=== PATIENT | female | born 1960 | race Caucasian/White ===

== ENCOUNTER → 2017-11-17 09:32 | Outpatient (CLI) | payer OTHER, SELFPAY ==
--- NOTE | 2017-11-17 09:52 | RAD_ITS ---
STUDY: X-RAY CHEST REASON FOR EXAM: Female, 57 years old. Cough. Chest pain. TECHNIQUE: PA and lateral views of the chest. COMPARISON: None. FINDINGS: The lungs are clear and expanded. Scattered calcified granulomas. There is no demonstrated pleural abnormality. Normal size heart. Normal mediastinum and denny. Normal visualized pulmonary arteries. There is atherosclerotic tortuosity of the aortic arch and descending thoracic aorta. There are degenerative changes of the visualized thoracic spine. Metallic anchor is seen overlying the right humeral head most likely secondary to prior rotator cuff surgery. There is no demonstrated abnormality of the visualized soft tissue structures of the upper abdomen. RAD/Chest PA and Lateral IMPRESSION: Scattered calcified granulomas. Electronically Signed: Julius Barger MD at 12:46 EST Tel [phone], Service support ,
[2017-11-17 10:03] LABS: Absolute Lymphocyte Count 1.03 X10^3/ul (0.83-4.51); Absolute Neutrophil Count 3.1 X10^3/uL (2.0-7.7); Basophil# 0.01 X10^3/uL; Basophil% 0.2 % (0-1); Eosinophil# 0.25 X10^3/uL; Eosinophils% 5.2 % (0-5); Hematocrit 41.9 % (37-47); Hemoglobin 14.3 g/dl (12.0-15.0); Lymphocyte # 1.03 X10^3/ul (4.0); Lymphocyte % 21.5 % (19-41); Mean Corp Hgb Conc 34.1 g/gl (32-36); Mean Corpuscular Hgb 29.9 pg (27.0-32.0); Mean Corpuscular Volume 87.5 fL (81-99); Mean Platelet Vol. 9.5 fl (6.2-12.0); Monocyte# 0.42 X10^3/uL; Monocyte% 8.8 % (0-10); Neutrophil # 3.08 X10^3/uL (2.7-7.7); Neutrophil % 64.1 % (47-70); POSITIVE COUNT NO; POSITIVE DIFFERENTIAL NO; POSITIVE MORPHOLOGY NO; Platelet Count 278 K/mm3 (150-450); RBC Distribution Width CV 12.1 % (11.6-14.6); RBC Distribution Width SD 38.7 fl (35.1-43.9); Red Blood Count 4.79 M/mm3 (4.2-5.4); White Blood Count 4.8 K/mm3 (4.4-11.0)
[2017-11-17 10:27] LABS: ALB/GLOB Ratio 1.4 RATIO (0.9-2.4); AST(SGOT) 20 U/L (15-37); Alanine Aminotransfer ALT/SGPT 33 U/L (13-56); Albumin, Serum 4.2 g/dL (3.2-5.0); Alkaline Phosphatase 84 U/L (45-117); Anion Gap 8 (5-15); BUN 13 mg/dL (7-18); BUN/Creat Ratio 19.1 RATIO (10-20); CPK Total, Creatine Kinase 84 U/L (26-192); Calcium,Total 8.6 mg/dL (8.5-10.1); Chloride 96 mmol/L (98-107); Creatinine, Serum 0.68 mg/dL (0.55-1.02); EST Glomerular Filtration Rate 94 mL/min (>60); Est Glom Filt Rate - Afr Amer 114 mL/min (>60); Globulin 3.1 g/dL (2.2-4.2); Glucose 113 mg/dL (70-110); Potassium 3.5 mmol/L (3.5-5.1); Protein, Total 7.3 g/dL (6.4-8.2); Sodium Level 132 mmol/L (136-145)
== END ==
PROVIDERS: Family Provider Internal Medicine; PCP Internal Medicine; Visit Provider Nurse Practitioner Gerontology
DX: R07.89 Other chest pain (principal)
CPT/HCPCS: 36415; 71046; 80053; 82550; 84484; 85025

== ENCOUNTER → 2017-12-16 12:53 | Outpatient (CLI) | payer OTHER, SELFPAY ==
--- NOTE | 2017-12-16 12:59 | STE_ITS ---
Reason For Study: Chest Pain Stress Results Protocol: Marvin Protocol Maximum Predicted HR: 162 bpm Target HR: 138 bpm% Max imum Predicted HR: 106 % DurationHeart Rate Stage (mm:ss) (bpm) BP Baseline 72 128/70 Marvin Protocol Stage I 3:00 13 3 140/70 Marvin Protocol Stage II 3:00 15 5 150/72 Marvin Protocol Stage III 0:36 17 1 / Recovery 91 128/88 Stress Duration: 6:36 mm:ss Maximum Stress HR: 171 bpmM ETS: 8 Baseline Echocardiogram Findings The estimated ejection fraction is 65 %. Stress Echo Wall motion Data Resting WMIntermediate WMStress WM Resting Wall Motion Wall Motion Stress No regional wall motion No regional wall motion abnormalities noted. abnormalities noted. EKG Data Normal intervals are noted. The patient exercised according to the regular Marvin protocol for a total duration of 6:36. The maximum heart rate attained was 171 beats per minute. This was 105% of maximum predicted heart rate. The patient exercised into stage 3 of the Marvin protocol. During stress, there were no ST or T wave changes noted to suggest ischemia. No clinical angina was noted. No arrhythmias noted. Interpretation Summary The estimated ejection fraction is 65 %. Normal adequate treadmill echocardiogram. Negative for ischemia by EKG and echocardiographic criteria. No anginal symptoms noted. Rare PVC noted. Appropriate blood pressure response to exercise. Average exercise capacity for age. Test terminated due to dyspnea. Patient tolerated procedure well. No complications. Final LVEF is 75%. Ordering Physician: LETY Nielson Referring Physician: Vicente Lemus MD Performed By: Ashley Rob RDCS, RVT
== END ==
PROVIDERS: Family Provider Internal Medicine; PCP Internal Medicine; Visit Provider Nurse Practitioner Gerontology
DX: R07.9 Chest pain, unspecified (principal)
CPT/HCPCS: 93017; 93350

== ENCOUNTER → 2018-01-20 06:57 | Outpatient (CLI) | payer OTHER, SELFPAY ==
--- NOTE | 2018-01-20 06:45 | BI_ITS ---
MAMMOGRAPHY - BILATERAL SCREENING REASON FOR EXAM: Female, 57 years old. Routine annual screening examination. PERTINENT HISTORY: Non-contributory. TECHNIQUE: Digital bilateral breast eneida (3D mammographic acquisition) in the CC and MLO projections. 2-D mediolateral oblique (MLO) and craniocaudad (CC) views of both breasts were obtained. CAD: Full Field Digital Mammography with Computer Added Detection was performed. COMPARISON: Comparison is made with prior study dated January 08, 2017 and December 28, 2015. FINDINGS: Breast Composition: The breasts are heterogeneously dense, which may obscure small masses. There are no dominant masses or suspicious calcifications. No other significant abnormalities are identified. There has been no significant change since the prior study. BI/SCREENING MAMM (CAD), BILAT IMPRESSION: Stable bilateral screening mammogram. Yearly follow-up mammogram recommended. (A) ASSESSMENT CATEGORY: BIRADS Category 1: Negative. A letter regarding these results will be sent to the patient by the facility within 30 days. Approximately 10% of breast cancers are not detected by mammography. A normal mammogram should not delay biopsy of a clinically suspicious abnormality. [id number] Electronically Signed: Julius Barger MD at 9:07 EDT Tel [phone], Service support ,
== END ==
PROVIDERS: Family Provider Internal Medicine; PCP Internal Medicine; Visit Provider Internal Medicine
DX: Z12.31 Encounter for screening mammogram for malignant neoplasm of breast (principal)
CPT/HCPCS: 77063; 77067

== ENCOUNTER 2018-02-24 07:47 | Emergency (ER) | payer OTHER, SELFPAY ==
[2018-02-24 07:48] VITALS: BP 130/80; PULSE 87; RESP 16; TEMP 36.4; O2SAT 98; BMI 30.3
--- NOTE | 2018-02-24 08:05 | CT_ITS ---
STUDY: CT ABDOMEN AND PELVIS WITHOUT CONTRAST REASON FOR EXAM: Female, 57 years old. Left-sided pain. RADIATION DOSAGE (If Supplied By Facility): CTDIvol = ( 13.8 ) mGy, DLP = ( 649.43 ) mGycm TECHNIQUE: Transaxial images were obtained from the dome of the diaphragm to the symphysis pubis without oral contrast, and without intravenous contrast. Sagittal and coronal images were reconstructed. Individualized dose optimization techniques were used for this CT. COMPARISON: None. FINDINGS: Minimal degree of dependent bibasilar atelectasis. The visualized portions of the heart are within normal limits. There is a 5.5 mm well-defined hypodensity in the superior aspect of the right lobe of the liver most likely representing a small cyst. L suspect 2 small cysts in the inferior aspect of the right lobe of the liver. There is a solitary gallstone. This measures 5.7 mm x 5 mm. Normal spleen. Normal pancreas. Normal bilateral adrenal glands. Normal right kidney. Normal left kidney. Normal visualized stomach. Normal small intestine. There is diverticulosis, with thickening of the sigmoid colon wall, and pericolonic inflammation changes consistent with acute diverticulitis. The appendix is visualized and appears normal. Normal abdominal aorta. Normal inferior vena cava. Normal retroperitoneum. Normal urinary bladder. Normal abdominal wall. Normal osseous structures. CT/Abdomen/Pelvis without Cont IMPRESSION: Solitary gallstone. Mild degree of sigmoid diverticulitis with no evidence of abscess or fluid collection at this time. Electronically Signed: Julius Barger MD at 9:12 EDT Tel [phone], Service support ,
--- NOTE | 2018-02-24 08:06 | ED.VISSUMM ---
- ER Visit Summary Date of Service: 02/24/18 Chief Complaint: Left lower abdominal pain History of Present Illness: The patient is a 57 F with left lower abdominal pain since yesterday. Pain waxes and wanes in intensity, with crampiness and associated nausea. Patient also complains of dysuria and urgency. No hematuria, diarrhea, fever. Patient had a syncopal episode during a severe episode of the pain last night, which caused increased nausea, diaphoresis and then patient woke up on the floor. She is complaining of posterior head pain. History of kidney stones. Medical history remarkable for hypertension and high cholesterol. Patient is not on any blood thinners. Physical Examination: Vital signs: afebrile, hemodynamically stable, no hypoxia on room air General: well nourished, well developed, in no distress Skin: warm, dry, no rash, no pallor HEENT: normocephalic, tenderness to the posterior mid scalp without any swelling, deformities, abrasions, lacerations or hematoma; PERRL, EOMI, moist mucous membranes Cardiovascular: regular rate and rhythm without murmurs, no peripheral edema, 2+ pulses all distal extremities Respiratory: No increased work of breathing, lungs are clear to auscultation bilaterally, no rales, rhonchi or wheezing Abdominal: Abdomen is soft, tender in left lower quadrant, with normoactive bowel sounds, no guarding or rebound, no masses, mild left lower back tenderness question MSK: Moves all extremities, no deformities, normal strength Neuro: Awake and alert, oriented ?4. No facial droop, sensation and motor function intact and symmetric Test Results: Abnormal Lab Results 02/24/18 02/24/18 02/24/18 08:10 08:10 08:40 WBC 8.1 RBC 4.47 Hgb 13.1 Hct 38.3 MCV 85.7 MCH 29.3 MCHC 34.2 RDW 12.0 RDW Differential 37.4 Plt Count 238 MPV 9.4 Immature Gran % (Auto) 0.100 Neut % (Auto) 80.9 H Lymph % (Auto) 9.7 L [place] % (Auto) 8.1 Eos % (Auto) 1.1 Baso % (Auto) 0.1 Absolute Neuts (auto) 6.5 Absolute Lymphs (auto) 0.78 L Total Counted Not Reportable Sodium 132 L Potassium 3.6 Chloride 98 Carbon Dioxide 30.0 Anion Gap 4 L BUN 9 Creatinine 0.64 Estim Creat Clear Calc 75.78 Est GFR (MDRD) Af Amer 122 Est GFR (MDRD) Non-Af 101 BUN/Creatinine Ratio 14.1 Glucose 106 Calcium 8.8 Urine Color Yellow Urine Clarity Clear Urine pH 7.0 Ur Specific [place] 1.005 Urine Protein Negative Urine Glucose (UA) Normal Urine Ketones Negative Urine Occult Blood Negative Urine Nitrite Negative Urine Bilirubin Negative Urine Urobilinogen Normal Ur Leukocyte Esterase Negative Urine RBC 0 SEEN Urine WBC 0 SEEN Ur Squamous Epith Cells 0 SEEN Urine Bacteria 0 SEEN Urine Mucus 0 SEEN Clinical Impression(s) from Imaging Studies Abdomen/Pelvis CT 02/24/18 08:05 IMPRESSION: Solitary gallstone. Mild degree of sigmoid diverticulitis with no evidence of abscess or fluid collection at this time. Electronically Signed: Julius Barger MD at 9:12 EDT Tel [phone], Service support , Emergency Department Course and Treatment: Patient's presentation is concerning for renal colic, diverticulitis or pyelonephritis. Labs showed no hematuria or infection on urinalysis, no leukocytosis, no electrolyte or renal derangements. CT flank showed sigmoid diverticulitis, uncomplicated. Patient was started on Cipro and Flagyl for treatment. She was given a prescription for Zofran and [place] for symptomatic management. Return precautions given. Patient discharged home. Treatment Plan: [] Disposition: [] Impression: Acute sigmoid diverticulitis, uncomplicated This note was generated with [employer] dictation software. It may contain incorrect words, spelling, and punctuation that were not noted in review of the chart prior to signing ED Disposition - Plan for ED Patient: Disposition: Home or Assisted Living Chief Complaint: Flank Pain Instructions: ED Diverticulitis Prescriptions: Hydrocodone Bitart/Apap 5-325 [[place] 5MG-325MG] 1 tab PO Q6H PRN PRN 3 Days #12 tab PRN Reason: Pain Ondansetron [Zofran Odt] 4 mg PO Q8H PRN PRN #20 tab.rapdis PRN Reason: Nausea Metronidazole [Flagyl] 500 mg PO Q8H #21 tab Ciprofloxacin [Cipro] 500 mg PO BID #14 tab Referrals: Jeanine Gramajo, DO [Primary Care Provider] - 3-5 Days if not improving Additional Instructions: Take the antibiotics as prescribed for the entire 7 days, even if you feel better before you have finished them. Do not drink alcohol while taking the antibiotics. You may use the ondansetron 30 minutes before taking your dose if the antibiotics make you sick to stomach. You may use [id number]-[id number] pain medication as needed for pain, or the norco for severe pain. Do not drive or do any dangerous activities while taking the norco, may make you feel dizzy or sleepy. If you are getting worse rather than better after 48 hours of antibiotics, you develop a high fever, worsening severe pain, or you are unable to tolerate the antibiotics at home, please return to the emergency department for another evaluation.
--- NOTE | 2018-02-24 08:12 | ED.DCSUM_ITS ---
- ER Visit Summary Date of Service: 02/24/18 Chief Complaint: Left lower abdominal pain History of Present Illness: The patient is a 57 F with left lower abdominal pain since yesterday. Pain waxes and wanes in intensity, with crampiness and associated nausea. Patient also complains of dysuria and urgency. No hematuria , diarrhea, fever. Patient had a syncopal episode during a severe episode of the pain last night, which caused increased nausea, diaphoresis and then patient woke up on the floor. She is complaining of posterior head pain. History of kidney stones. Medical history remarkable for hypertension and high cholesterol. Patient is not on any blood thinners. Physical Examination: Vital signs: afebrile, hemodynamically stable, no hypoxia on room air General: well nourished, well developed, in no distress Skin: warm, dry, no rash, no pallor HEENT: normocephalic, tenderness to the posterior mid scalp without any swelling , deformities, abrasions, lacerations or hematoma; PERRL, EOMI, moist mucous membranes Cardiovascular: regular rate and rhythm without murmurs, no peripheral edema, 2 + pulses all distal extremities Respiratory: No increased work of breathing, lungs are clear to auscultation bilaterally, no rales, rhonchi or wheezing Abdominal: Abdomen is soft, tender in left lower quadrant, with normoactive bowel sounds, no guarding or rebound, no masses, mild left lower back tenderness question MSK: Moves all extremities, no deformities, normal strength Neuro: Awake and alert, oriented ?4. No facial droop, sensation and motor function intact and symmetric Test Results: Abnormal Lab Results 02/24/18 02/24/18 02/24/18 08:10 08:10 08:40 WBC 8.1 RBC 4.47 Hgb 13.1 Hct 38.3 MCV 85.7 MCH 29.3 MCHC 34.2 RDW 12.0 RDW Differential 37.4 Plt Count 238 MPV 9.4 Immature Gran % (Auto) 0.100 Neut % (Auto) 80.9 H Lymph % (Auto) 9.7 L [place] % (Auto) 8.1 Eos % (Auto) 1.1 Baso % (Auto) 0.1 Absolute Neuts (auto) 6.5 Absolute Lymphs (auto) 0.78 L Total Counted Not Reportable Sodium 132 L Potassium 3.6 Chloride 98 Carbon Dioxide 30.0 Anion Gap 4 L BUN 9 Creatinine 0.64 Estim Creat Clear Calc 75.78 Est GFR (MDRD) Af Amer 122 Est GFR (MDRD) Non-Af 101 BUN/Creatinine Ratio 14.1 Glucose 106 Calcium 8.8 Urine Color Yellow Urine Clarity Clear Urine pH 7.0 Ur Specific [place] 1.005 Urine Protein Negative Urine Glucose (UA) Normal Urine Ketones Negative Urine Occult Blood Negative Urine Nitrite Negative Urine Bilirubin Negative Urine Urobilinogen Normal Ur Leukocyte Esterase Negative Urine RBC 0 SEEN Urine WBC 0 SEEN Ur Squamous Epith Cells 0 SEEN Urine Bacteria 0 SEEN Urine Mucus 0 SEEN Clinical Impression(s) from Imaging Studies Abdomen/Pelvis CT 02/24/18 08:05 IMPRESSION: Solitary gallstone. Mild degree of sigmoid diverticulitis with no evidence of abscess or fluid collection at this time. Electronically Signed: Julius Barger MD at 9:12 EDT Tel [phone], Service support , Emergency Department Course and Treatment: Patient's presentation is concerning for renal colic, diverticulitis or pyelonephritis. Labs showed no hematuria or infection on urinalysis, no leukocytosis, no electrolyte or renal derangements. CT flank showed sigmoid diverticulitis, uncomplicated. Patient was started on Cipro and Flagyl for treatment. She was given a prescription for Zofran and [place] for symptomatic management. Return precautions given. Patient discharged home. Treatment Plan: [] Disposition: [] Impression: Acute sigmoid diverticulitis, uncomplicated This note was generated with [employer] dictation software. It may contain incorrect words, spelling, and punctuation that were not noted in review of the chart prior to signing ED Disposition - Plan for ED Patient: Disposition: Home or Assisted Living Chief Complaint: Flank Pain Instructions: ED Diverticulitis Prescriptions: Hydrocodone Bitart/Apap 5-325 [[place] 5MG-325MG] 1 tab PO Q6H PRN PRN 3 Days #12 tab PRN Reason: Pain Ondansetron [Zofran Odt] 4 mg PO Q8H PRN PRN #20 tab.rapdis PRN Reason: Nausea Metronidazole [Flagyl] 500 mg PO Q8H #21 tab Ciprofloxacin [Cipro] 500 mg PO BID #14 tab Referrals: Jeanine Gramajo, DO [Primary Care Provider] - 3-5 Days if not improving Additional Instructions: Take the antibiotics as prescribed for the entire 7 days, even if you feel better before you have finished them. Do not drink alcohol while taking the antibiotics. You may use the ondansetron 30 minutes before taking your dose if the antibiotics make you sick to stomach. You may use kyww-hfi-dakwmsn pain medication as needed for pain, or the norco for severe pain. Do not drive or do any dangerous activities while taking the norco, may make you feel dizzy or sleepy. If you are getting worse rather than better after 48 hours of antibiotics, you develop a high fever, worsening severe pain, or you are unable to tolerate the antibiotics at home, please return to the emergency department for another evaluation.
[2018-02-24] MEDS: Ondansetron 4 MG/2 ML Vial IV (08:18)
[2018-02-24] MEDS: 0.9% Normal Saline 1,000 ML 500 ML IV (08:18)
[2018-02-24] MEDS: Ketorolac 30 MG/ML Syringe 15 MG IV (08:18)
[2018-02-24 08:22] LABS: Absolute Lymphocyte Count 0.78 X10^3/ul (0.83-4.51); Absolute Neutrophil Count 6.5 X10^3/uL (2.0-7.7); Basophil# 0.01 X10^3/uL; Basophil% 0.1 % (0-1); Eosinophil# 0.09 X10^3/uL; Eosinophils% 1.1 % (0-5); Hematocrit 38.3 % (37-47); Hemoglobin 13.1 g/dl (12.0-15.0); Lymphocyte # 0.78 X10^3/ul (4.0); Lymphocyte % 9.7 % (19-41); Mean Corp Hgb Conc 34.2 g/gl (32-36); Mean Corpuscular Hgb 29.3 pg (27.0-32.0); Mean Corpuscular Volume 85.7 fL (81-99); Mean Platelet Vol. 9.4 fl (6.2-12.0); Monocyte# 0.65 X10^3/uL; Monocyte% 8.1 % (0-10); Neutrophil # 6.53 X10^3/uL (2.7-7.7); Neutrophil % 80.9 % (47-70); Platelet Count 238 K/mm3 (150-450); RBC Distribution Width SD 37.4 fl (35.1-43.9); Red Blood Count 4.47 M/mm3 (4.2-5.4); White Blood Count 8.1 K/mm3 (4.4-11.0)
[2018-02-24 08:23] LABS: POSITIVE COUNT NO; POSITIVE DIFFERENTIAL NO; POSITIVE MORPHOLOGY NO
[2018-02-24 08:32] LABS: BUN 9 mg/dL (7-18); Creatinine, Serum 0.64 mg/dL (0.55-1.02); EST Glomerular Filtration Rate 101 mL/min (>60); Estimated Creatinine Clearance 75.78 ml/min; Glucose 106 mg/dL (74-106)
[2018-02-24 08:33] LABS: Anion Gap 4 (5-15); BUN/Creat Ratio 14.1 RATIO (10-20); Calcium,Total 8.8 mg/dL (8.5-10.1); Chloride 98 mmol/L (98-107); Est Glom Filt Rate - Afr Amer 122 mL/min (>60); Potassium 3.6 mmol/L (3.5-5.1); Sodium Level 132 mmol/L (136-145)
[2018-02-24 08:45] LABS: Bacteria 0 SEEN /hpf (None Seen); Mucous, Urine 0 SEEN /hpf (<or=2+); Red Blood Cells-Urine 0 SEEN /hpf (0-5); Squamous Epithelial Cells - UA 0 SEEN /hpf (5-10); White Blood Cells 0 SEEN /hpf (0-5)
[2018-02-24 08:50] LABS: Color, Urine Yellow (Yellow); Glucose, Dipstick Normal (Normal); Ketone-Dipstick Negative (Negative); Leukocyte Esterase-Dipstick Negative /ul (Negative); Nitrite-Dipstick Negative (Negative); Occult Blood-Urine Negative /ul (Negative); Protein-Dipstick Negative (Negative); Specific Gravity, Urine 1.005 (1.002-1.030); Urine Bilirubin Dipstick Negative (Negative); Urine Clarity Clear (Clear); Urine Urobilinogen Normal (Normal)
--- NOTE | 2018-02-24 09:49 | ED.DEP ---
ED Disposition - Plan for ED Patient: Disposition: Home or Assisted Living Chief Complaint: Flank Pain Instructions: ED Diverticulitis Prescriptions: Hydrocodone Bitart/Apap 5-325 [[place] 5MG-325MG] 1 tab PO Q6H PRN PRN 3 Days #12 tab PRN Reason: Pain Ondansetron [Zofran Odt] 4 mg PO Q8H PRN PRN #20 tab.rapdis PRN Reason: Nausea Metronidazole [Flagyl] 500 mg PO Q8H #21 tab Ciprofloxacin [Cipro] 500 mg PO BID #14 tab Referrals: Jeanine Gramajo DO [Primary Care Provider] - 3-5 Days if not improving Additional Instructions: Take the antibiotics as prescribed for the entire 7 days, even if you feel better before you have finished them. Do not drink alcohol while taking the antibiotics. You may use the ondansetron 30 minutes before taking your dose if the antibiotics make you sick to stomach. You may use oany-fll-pedaxep pain medication as needed for pain, or the norco for severe pain. Do not drive or do any dangerous activities while taking the norco, may make you feel dizzy or sleepy. If you are getting worse rather than better after 48 hours of antibiotics, you develop a high fever, worsening severe pain, or you are unable to tolerate the antibiotics at home, please return to the emergency department for another evaluation.
[2018-02-24] MEDS: HYDROcodone Bitartrate/Apap 5/325 Tablet PO (10:11)
== END 2018-02-24 10:14 | disposition home or self-care (01) ==
PROVIDERS: Emergency Provider Emergency Medicine; Family Provider Internal Medicine; PCP Internal Medicine
DX: K57.32 Diverticulitis of large intestine without perforation or abscess without bleeding (principal); K80.80 Other cholelithiasis without obstruction; R30.0 Dysuria; R39.15 Urgency of urination; R51 Headache; I10 Essential (primary) hypertension; E78.00 Pure hypercholesterolemia, unspecified; Z87.442 Personal history of urinary calculi; Z79.899 Other long term (current) drug therapy
CPT/HCPCS: 74176; 80048; 81001; 85025; 96361; 96374; 96375; 99283; J7030; J2405

== ENCOUNTER → 2018-05-26 08:02 | Outpatient (CLI) | payer OTHER, SELFPAY ==
--- NOTE | 2018-05-26 08:04 | US_ITS ---
STUDY: ABDOMINAL ULTRASOUND - RIGHT UPPER QUADRANT REASON FOR VISIT: Female, 58 years old. Right upper quadrant pain. TECHNIQUE: Ultrasound evaluation of the right upper quadrant was performed with real-time and static lackey-scale imaging. TECHNICAL QUALITY: Limited by body habitus COMPARISON: CT dated 02/24/2018 FINDINGS: Liver: The liver measures 14.5 cm. There is normal echogenicity of the liver. The bile ducts are within normal limits. There is hepatic color flow. The direction of portal flow is hepatopetal. There is a 1.1 x 1.0 cm simple cyst in the right lobe of the liver. Gallbladder: Normal distended gallbladder. The gallbladder wall measures 2 mm. There is a negative sonographic Pandey's sign. There is no pericholecystic fluid. There is a solitary echogenic gallstone within the gallbladder. Common Bile Duct (C.B.D.): The common bile duct measures 2 mm. Pancreas: Normal size of the head, body and tail of the pancreas. There is normal echogenicity of the pancreas. There is no demonstrated pancreatic mass or cyst. Right Kidney: Normal size of the right kidney. The right kidney measures 10.8 cm. Normal renal cortex. There is no demonstrated renal mass or cyst. There is no right hydronephrosis. US/Gallbladder IMPRESSION: Cholelithiasis without sonographic evidence of acute cholecystitis. Simple cyst in the liver. Electronically Signed: Martin Melton, at 15:54 EDT Tel , Service support ,
== END ==
PROVIDERS: Family Provider Internal Medicine; PCP Internal Medicine; Visit Provider Internal Medicine
DX: R10.11 Right upper quadrant pain (principal)
CPT/HCPCS: 76705

== ENCOUNTER → 2018-06-03 17:03 | Outpatient (CLI) | payer OTHER, SELFPAY | PROVIDERS: Family Provider Internal Medicine; PCP Internal Medicine; Visit Provider Surgery | DX: R19.7 Diarrhea, unspecified (principal) | CPT/HCPCS: 87177; 87209; 87493; 87506 ==

== ENCOUNTER 2018-06-10 05:45 | Day surgery (SDC) | payer OTHER, SELFPAY ==
[2018-06-10] VITALS (7 sets, daily range): BP systolic 93–160; BP diastolic 63–93; PULSE 67–78; RESP 12–16; TEMP 36.1–36.2; O2SAT 4–98
--- NOTE | 2018-06-10 | COLBX_PTH ---
PATIENT: HANNAH HAYES LOC: [facility] U#:[id number] AGE/SX: 58/F ROOM: RE06/10/[address]: Dr. John oSl MD : 1960 BED: DIS: 06/10/2018 SPEC #: [id number] RECD: 06/10/18 12:15 STATUS: GHADA SHASIH #: [id number] WILLIAM: 06/10/18 00:[address]: John Sol DEPT: SURGICAL PATHOLOGY RECD BY: Serafin Chavez ENTERED: 06/10/18 12:16 SP TYPE: COLON BX OT DR: Dr. Jeanine Gramajo, Tissues: COLON BIOPSY Procedures: Surgery Specimen Level IV HEADER OPERATION: Colonoscopy PRE-OP DIAGNOSIS: RUQ abdominal pain TISSUE SUBMITTED: Random colon biopsy MICROSCOPIC DIAGNOSIS Colon, random biopsy: No significant pathologic change. No evidence of colitis. AM:oma 06/11/18 MICROSCOPIC DESCRIPTION Slides are reviewed. GROSS DESCRIPTION Received in fixative is one container labeled with the patient's name and designated random colon biopsy. The specimen consists of multiple irregular fragments of light an soft tissue that in aggregate measure 1 x 0.6 x 0.1 cm. The specimen is totally submitted in one cassette. / AM:oma 06/10/18 TC:5 CPT: 37848
--- NOTE | 2018-06-10 06:42 | PCM.OPRPT ---
Problem List (1) Abdominal pain Status: Acute Qualifiers: Abdominal location: lower abdomen, unspecified Qualified Code(s): R10.30 - Lower abdominal pain, unspecified (2) Diarrhea Status: Acute Qualifiers: Diarrhea type: unspecified type Qualified Code(s): R19.7 - Diarrhea, unspecified Report of Operation Date of Procedure: 06/10/18 Pre-Operative Diagnosis: Abdominal pain lower abdomen but also upper abdomen, history of diarrhea Post-Operative Diagnosis: Sigmoid diverticulosis. Random biopsies pending Surgery/Procedure Performed:: Colonoscopy with cold forcep random biopsies Description of Surgical Findings:: Timeout informed consent was obtained. 58-year-old female was taken to the endoscopy suite. She was placed in the left lateral decubitus position. Throughout the procedure in aliquots she received total 100 g Demerol 3.5 mg of Versed is intravenous sedation. Digital rectal exam performed normal anal tone minimal hemorrhoidal changes flexible colonoscope was in the rectum advanced readily through the sigmoid and descending colon. The scope was then nicely advanced to the transverse colon and with transabdominal pressure is advanced to the cecum. Bowel prep was very good. The cecum ileocecal valve area was nicely achieved. The scope was withdrawn from the ascending transverse descending sigmoid colon. Random colonic biopsies were obtained throughout because of the patient's previous history of diarrhea. No gross mucosal abnormalities were identified. Sigmoid diverticulosis was indeed noted but I did not see any evidence of acute inflammatory change. The scope was withdrawn to the rectum retroflex the anorectal verge inspected this did not appear to be remarkable. Excess fluid and air was aspirated free the procedure was completed with the patient tolerating it well. Impression No evidence of mucosal abnormality. Sigmoid diverticulosis. The patient's previous colonoscopy was approximately 9 years prior. Next screening colonoscopy recommended in 10 years. The patient does have cholelithiasis which may be the source of her abdominal pain and a laparoscopic cholecystectomy will be offered to her. Procedure was started 0625. The cecum was reached at 0631. The procedure was completed at 0638. Cc: Dr. Jeanine Sol M.D., F.A.C.S. Type of Anesthesia:: IV Sedation
== END 2018-06-10 07:40 | disposition home or self-care (01) ==
LOC: EN 05:45 → AC 05:47
PROVIDERS: Family Provider Internal Medicine; PCP Internal Medicine; Visit Provider Surgery
PROC: 0DJD8ZZ Inspection of Lower Intestinal Tract, Via Natural or Artificial Opening Endoscopic (ICD-10-PCS; CPT 45378; principal; 2018-06-10 06:25)
DX: K57.30 Diverticulosis of large intestine without perforation or abscess without bleeding (principal); K64.9 Unspecified hemorrhoids; K80.20 Calculus of gallbladder without cholecystitis without obstruction; M54.9 Dorsalgia, unspecified; G89.29 Other chronic pain; M19.90 Unspecified osteoarthritis, unspecified site; Z79.899 Other long term (current) drug therapy
CPT/HCPCS: 45380; 88305; 99152; 99153; J7120

== ENCOUNTER 2018-07-12 09:56 | Day surgery (SDC) | payer OTHER, SELFPAY ==
--- NOTE | 2018-07-08 14:46 | EKG12_ITS ---
Test Reason : PREOP Blood Pressure : / mmHG Vent. Rate : 080 BPM Atrial Rate : 080 BPM P-R Int : 154 ms QRS Dur : 086 ms QT Int : 372 ms P-R-T Axes : 038 013 049 degrees QTc Int : 429 ms Normal sinus rhythm Possible Left atrial enlargement Inferior infarct , age undetermined Abnormal ECG Confirmed by MARI MCHUGH, MARLON ([id number]), staff editor SRINIVAS DEE ([id number]) on 07/14/2018 9:23:26 AM Referred By: John Sol Confirmed By:MARLON GUERRA MD
[2018-07-08 15:30] LABS: Hematocrit 40.4 % (37-47); Hemoglobin 13.6 g/dl (12.0-15.0); Mean Corp Hgb Conc 33.7 g/gl (32-36); Mean Corpuscular Hgb 29.4 pg (27.0-32.0); Mean Corpuscular Volume 87.4 fL (81-99); Mean Platelet Vol. 9.4 fl (6.2-12.0); Platelet Count 297 K/mm3 (150-450); RBC Distribution Width CV 12.3 % (11.6-14.6); RBC Distribution Width SD 39.3 fl (35.1-43.9); Red Blood Count 4.62 M/mm3 (4.2-5.4); White Blood Count 5.2 K/mm3 (4.4-11.0)
[2018-07-08 15:32] LABS: Scan Indicated on CBC? Y/N NO
[2018-07-08 16:05] LABS: Anion Gap 6 (5-15); BUN 13 mg/dL (7-18); BUN/Creat Ratio 18.5 RATIO (10-20); Calcium,Total 8.9 mg/dL (8.5-10.1); Chloride 99 mmol/L (98-107); EST Glomerular Filtration Rate 91 mL/min (>60); Est Glom Filt Rate - Afr Amer 110 mL/min (>60); Glucose 93 mg/dL (74-106); Potassium 3.9 mmol/L (3.5-5.1); Sodium Level 134 mmol/L (136-145)
[2018-07-12] VITALS (11 sets, daily range): BP systolic 84–142; BP diastolic 53–73; PULSE 47–76; RESP 16; TEMP 36.2–37; O2SAT 92–97; BMI 33.0
--- NOTE | 2018-07-12 | GALL_PTH ---
PATIENT: HANNAH [place]AYES [place] [facility] [id number] AGE/SX: 58/F ROOM: RE07/12/[address]: Dr. John Sol MD : 1960 BED: DIS: 07/12/2018 SPEC #: [id number] RECD: 07/12/18 13:29 STATUS: GHADA RETamica #: [id number] WILLIAM: 07/12/18 00:[address]: John Sol DEPT: SURGICAL PATHOLOGY RECD BY: Serafin Chavez ENTERED: 07/12/18 13:29 SP TYPE: AINSLEY REYES DR: Dr. Jeanine Gramajo DO Tissues: Gallbladder, NOS Procedures: Surgery Specimen Level III HEADER OPERATION: Laparoscopic cholecystectomy with IOC PRE-OP DIAGNOSIS: Acute cholelithiasis TISSUE SUBMITTED: Gallbladder MICROSCOPIC DIAGNOSIS Gallbladder: Mild chronic cholecystitis and cholelithiasis. SJ:oma 07/13/18 MICROSCOPIC DESCRIPTION Slides are reviewed. GROSS DESCRIPTION Received is one container labeled with the patient's name and designated gallbladder. The specimen consists of a gallbladder measuring 7.5 x 3.3 x 2.7 cm. The external surface is smooth and glistening. Focally, it is granular, hemorrhagic and contains cautery artifact. The lumen of the gallbladder contains yellow mucoid bile and one black calculus measuring 0.7 cm. The mucosa is bile-stained and without any mass lesions. The gallbladder wall averages 1 cm in average thickness and is free of mass lesions. [employer] sections of the gallbladder and the cystic duct are submitted in one cassette. / AM:oma 07/12/18 TC:3 CPT: 30738
[2018-07-12] MEDS: Cefazolin 2 GM in 0.9% Normal Saline 100 ML IV (11:42)
--- NOTE | 2018-07-12 11:52 | PCM.DC.GS ---
Discharge Diet: Light diet - advance as tolerated - if you have questions about your diet instructions, please talk to you doctor. Discharge Activity: May Not Drive - for 1 week or while taking narcotic pain medicine. May shower in (days): 1 Lifting Restrictions: 10 pounds Call your doctor if your incision/area has: Continuous Slow Oozing, Sudden Increased Bleeding, Increased Pain/ Swelling, Increased Redness, Foul Smelling Discharge Call your doctor if you observe: Fever of 101 or Higher Suture Line Care: Avoid Pulling/Pushing, Avoid Pinching/Bending Additional Dressing/Incision Instructions:: Change or remove dressing in 4 days. Leave steri-strips in place for 1 week. Allergies/Adverse Reactions: Allergies topiramate [From Topamax] Allergy (Verified 07/07/18 15:11) Hives Medications to take at Discharge Atorvastatin Calcium [Lipitor] 40 mg PO QHS 07/13/16 Cholecalciferol (VIT D3) [Vitamin D3] 1,000 unit PO DAILY 07/13/16 Eletriptan Hydrobromide [Relpax] 40 mg PO .X1 PRN 07/13/16 Multivitamin [Daily Multiple Vitamin] 1 ea PO DAILY 07/13/16 Paroxetine HCl [Paxil] 10 mg PO DAILY 07/13/16 Vitamin E 400 unit PO DAILY 07/13/16 Hydrochlorothiazide [Hctz] 25 mg PO DAILY 07/07/18 Hydrocodone Bitart/Apap 5-325 [Bergen 5MG-325MG] 1 tablet PO Q6H PRN PRN 3 Days #8 tablet 07/12/18 The following prescriptions were given: Hydrocodone Bitart/Apap 5-325 [Bergen 5MG-325MG] 1 tablet PO Q6H PRN PRN 3 Days #8 tablet PRN Reason: Pain Primary Care Physician: Jeanine Gramajo DO [Primary Care Provider] - Test Results: Test results from this visit will be discussed in further detail at your follow-up appointment, if applicable. Please Follow Up With: John Sol MD - [phone] When: Call to make an appointment to be seen in about 10 days.
--- NOTE | 2018-07-12 12:00 | RAD_ITS ---
STUDY: INTRAOPERATIVE CHOLANGIOGRAM. REASON FOR EXAM: Female, 58 years old. Laparoscopic cholecystectomy. FLUOROSCOPY TIME (if supplied): (0:11) minutes/seconds TECHNIQUE: An intraoperative cholangiogram was performed by the surgeon. Imaging was submitted. COMPARISON: None. FINDINGS: The intrahepatic biliary ducts are unremarkable. The common bile duct is not dilated. No intraluminal filling defect is seen. There is free flow of contrast into the duodenum. RAD/Cholangiogram/ O R,Initial IMPRESSION: Unremarkable intraoperative cholangiogram. Electronically Signed: Julius Brager MD at 15:37 EDT Tel [phone], Service support ,
[2018-07-12] MEDS: Bupivacaine Mpf 0.5% 30 ML VIAL (12:45)
--- NOTE | 2018-07-12 12:54 | PCM.OPRPT ---
Problem List (1) Cholelithiasis with chronic cholecystitis Status: Acute Qualifiers: Cholelithiasis location: gallbladder Biliary obstruction: without biliary obstruction Qualified Code(s): K80.10 - Calculus of gallbladder with chronic cholecystitis without obstruction Report of Operation Date of Procedure: 07/12/18 Pre-Operative Diagnosis: Chronic cholecystitis cholelithiasis Post-Operative Diagnosis: Same plus umbilical hernia Surgery/Procedure Performed:: Laparoscopic cholecystectomy with cholangiography. Umbilical herniorrhaphy Description of Surgical Findings:: Timeout and informed consent was obtained. 58-year-old female taken out from placement of the table. She underwent general endotracheal intubation and anesthesia. Ancef 2 g given intravenous preoperatively. Because of the patient's previous infraumbilical midline incision I injected local 0.5% Marcaine of which total 30 cc was used then made a vertical supraumbilical incision. Sharp dissection was carried down through the substance tissue and and so doing a umbilical hernia was encountered. The tissue was carefully dissected free. Holding sutures of 0 Vicryl placed. Direct access was gained through the peritoneum. 10 minute trocar was inserted. The abdomen was insufflated CO2 to pressure of tenderness from her pressure. Elvia laparoscope inserted. Abdomen suspected no evidence of any superficial abnormalities. There was adhesions of omentum to the right lobe of the liver the gallbladder was mostly free. The gallbladder was distracted and blunt dissection was instituted the infundibulum until clearly the cystic duct and cystic artery were identified. The patient had both an anterior and posterior cystic artery. The anterior artery was clipped twice proximally once distally prior to transecting it. A Hem-o-codie clip was placed on the cystic duct stump and then through a 14-gauge Angiocath plantar Sumeet cath was inserted and fluoroscopically controlled claims grams were obtained. This demonstrated normal ductal anatomy and free flow to the small bowel. Claims grams catheter was removed and 2 Hem-o-codie clips were placed on the cystic duct stump prior to transecting it. The gallbladder was then dissected free from liver bed great care was needed to be taken because the posterior cystic artery seemed to run the entire length of the liver bed. About midway up the liver bed score I secured it with hemoclips. The gallbladder was then dissected free from the liver bed. Complete hemostasis was intact. Gallbladder was placed in retrieval bag. The right upper quadrant was irrigated and aspirated free. Hemostasis was intact. The gallbladder was exited the umbilicus. The remaining trochars removed under visualization. The abdomen was allowed to deflate of the CO2. The fascia at the umbilicus because of the umbilical hernia was approximated with interrupted 0 Nurolon [id number] suture. Skin edges were approximated interrupted 4 Monocryl subdermal stitches. Steri-Strips Telfa and OpSite dressings applied. Sponge and instrument and needle counts were reported the surgeon be correct. Blood loss was minimal. She tired procedure well was taken to the recovery or insect condition without apparent complication. Specimens include gallbladder. Drains none. Blood loss minimal. John Sol M.D., F.A.C.S. Type of Anesthesia:: General Anesthesiologist: Tiffanie Corral
--- NOTE | 2018-07-12 13:00 | OP.PCM_ITS ---
Problem List (1) Cholelithiasis with chronic cholecystitis Status: Acute Qualifiers: Cholelithiasis location: gallbladder Biliary obstruction: without biliary obstruction Qualified Code(s): K80.10 - Calculus of gallbladder with chronic cholecystitis without obstruction Report of Operation Date of Procedure: 07/12/18 Pre-Operative Diagnosis: Chronic cholecystitis cholelithiasis Post-Operative Diagnosis: Same plus umbilical hernia Surgery/Procedure Performed:: Laparoscopic cholecystectomy with cholangiography. Umbilical herniorrhaphy Description of Surgical Findings:: Timeout and informed consent was obtained. 58-year-old female taken out from placement of the table. She underwent general endotracheal intubation and anesthesia. Ancef 2 g given intravenous preoperatively. Because of the patient's previous infraumbilical midline incision I injected local 0.5% Marcaine of which total 30 cc was used then made a vertical supraumbilical incision. Sharp dissection was carried down through the substance tissue and and so doing a umbilical hernia was encountered. The tissue was carefully di ssected free. Holding sutures of 0 Vicryl placed. Direct access was gained through the peritoneum. 10 minute trocar was inserted. The abdomen was insufflated CO2 to pressure of tenderness from her pressure. Elvia laparoscope inserted. Abdomen suspected no evidence of any superficial abnormalities. There was adhesions of omentum to the right lobe of the liver the gallbladder was mostly free. The gallbladder was distracted and blunt dissection was instituted the infundibulum until clearly the cystic duct and cystic artery were identified. The patient had both an anterior and posterior cystic artery. The anterior artery was clipped twice proximally once distally prior to transecting it. A Hem-o-codie clip was placed on the cystic duct stump and then through a 14- gauge Angiocath plantar Sumeet cath was inserted and fluoroscopically controlled claims grams were obtained. This demonstrated normal ductal anatomy and free flow to the small bowel. Claims grams catheter was removed and 2 Hem-o-codie clips were placed on the cystic duct stump prior to transecting it. The gallbladder was then dissected free from liver bed great care was needed to be taken because the posterior cystic artery seemed to run the entire length of the liver bed. About midway up the liver bed score I secured it with hemoclips. The gallbladder was then dissected free from the liver bed. Complete hemostasis was intact. Gallbladder was placed in retrieval bag. The right upper quadrant was irrigated and aspirated free. Hemostasis was intact. The gallbladder was exited the umbilicus. The remaining trochars removed under visualization. The abdomen was allowed to deflate of the CO2. The fascia at the umbilicus because of the umbilical hernia was approximated with interrupted 0 Nurolon figure-of- eight suture. Skin edges were approximated interrupted 4 Monocryl subdermal stitches. Steri-Strips Telfa and OpSite dressings applied. Sponge and instrument and needle counts were reported the surgeon be correct. Blood loss was minimal. She tired procedure well was taken to the recovery or insect condition without apparent complication. Specimens include gallbladder. Drains none. Blood loss minimal. John Sol M.D., F.A.C.S. Type of Anesthesia:: General Anesthesiologist: Tiffanie Corral
== END 2018-07-12 15:59 | disposition home or self-care (01) ==
LOC: SDC 10:02 → AC 10:03
PROVIDERS: Family Provider Internal Medicine; PCP Internal Medicine; Visit Provider Surgery
PROC: (CPT 47610; principal; 2018-07-12 11:40)
DX: K80.10 Calculus of gallbladder with chronic cholecystitis without obstruction (principal); K42.9 Umbilical hernia without obstruction or gangrene; M19.90 Unspecified osteoarthritis, unspecified site; I10 Essential (primary) hypertension; G43.909 Migraine, unspecified, not intractable, without status migrainosus; E78.00 Pure hypercholesterolemia, unspecified; F41.9 Anxiety disorder, unspecified; F32.9 Major depressive disorder, single episode, unspecified; Z87.19 Personal history of other diseases of the digestive system; Z78.0 Asymptomatic menopausal state; Z79.899 Other long term (current) drug therapy
CPT/HCPCS: 47563; 49585; 36415; 74300; 76000; 80048; 85027; 88304; 93005; J7120; J2405

== ENCOUNTER → 2018-07-22 10:45 | Outpatient (CLI) | payer OTHER, SELFPAY ==
[2018-07-22 11:36] LABS: AST(SGOT) 15 U/L (15-37); Alanine Aminotransfer ALT/SGPT 31 U/L (13-56); Albumin, Serum 4.2 g/dL (3.2-5.0); Alkaline Phosphatase 101 U/L (45-117); Bilirubin, Direct 0.19 mg/dL (0.00-0.30); Globulin 3.7 g/dL (2.2-4.2); Protein, Total 7.9 g/dL (6.4-8.2)
== END ==
PROVIDERS: Physician Assistant; Family Provider Internal Medicine; PCP Internal Medicine; Referring Provider Surgery; Visit Provider Surgery
DX: R10.9 Unspecified abdominal pain (principal)
CPT/HCPCS: 36415; 80076

== ENCOUNTER → 2018-11-01 16:48 | Outpatient (CLI) | payer OTHER, SELFPAY ==
[2018-07-12 10:13] VITALS: BMI 33.0
--- NOTE | 2018-11-01 16:51 | RAD_ITS ---
STUDY: X-RAY - LEFT WRIST REASON FOR EXAM: Female, 58 years old. Left lateral wrist pain. TECHNIQUE: 3 view(s) of the wrist were obtained. COMPARISON: None. FINDINGS: Normal visualized distal radius and ulna. Normal radiocarpal articulation. Normal distal radioulnar articulation. Normal carpal bones. Normal carpal articulations. Normal carpometacarpal articulation of the thumb. Normal second through fifth carpometacarpal articulations. Normal visualized metacarpal bones. As seen on PA view, there is a faint calcific density lateral to the body of the navicular bone, which is likely to represent represent chondrocalcinosis, and may be associated with calcium prior phosphate deposition disease.. RAD/Wrist min 3 Views IMPRESSION: Tentative identification of a small focus of chondrocalcinosis proximal lateral wrist. Otherwise, normal exam. Electronically Signed: Akhil Chong MD at 4:46 EST , Service support ,
--- NOTE | 2018-11-01 16:51 | RAD_ITS ---
STUDY: X-RAY - LEFT HAND REASON FOR EXAM: Female, 58 years old. Pain in the left hand. TECHNIQUE: 3 view(s) of the hand. COMPARISON: None. FINDINGS: Normal radiocarpal articulation. Normal distal radioulnar joint. Normal visualized carpal bones. Normal carpal articulations Normal carpometacarpal articulation of the thumb. Normal second through fifth carpometacarpal joints. Normal metacarpi. There is minimal degenerative arthrosis of the first metacarpophalangeal (MCP) joint. Normal interphalangeal joint of the thumb. Normal proximal and distal phalanges of the thumb. Normal metacarpophalangeal joints of the second through fifth fingers. Normal proximal and distal interphalangeal joints of the second through fifth fingers. Normal phalanges of the second through fifth fingers. The soft tissue structures are unremarkable. RAD/Hand Min 3 Views IMPRESSION: Minimal degenerative changes of the first metacarpophalangeal joint. Electronically Signed: Wilmer Bowen DO at 23:58 EST Tel [phone], Service support ,
[2018-11-01 17:50] LABS: Hematocrit 40.9 % (37-47); Hemoglobin 13.9 g/dl (12.0-15.0); Mean Corpuscular Hgb 30.1 pg (27.0-32.0); Mean Corpuscular Volume 88.5 fL (81-99); Mean Platelet Vol. 9.7 fl (6.2-12.0); Platelet Count 336 K/mm3 (150-450); RBC Distribution Width CV 11.9 % (11.6-14.6); RBC Distribution Width SD 38.1 fl (35.1-43.9); Red Blood Count 4.62 M/mm3 (4.2-5.4); White Blood Count 5.1 K/mm3 (4.4-11.0)
[2018-11-01 18:03] LABS: Scan Indicated on CBC? Y/N NO
[2018-11-01 18:08] LABS: Erythrocyte Sedimentation Rate 3 mm/hr (0-30)
[2018-11-01 18:12] LABS: ALB/GLOB Ratio 1.2 RATIO (0.9-2.4); AST(SGOT) 19 U/L (15-37); Alanine Aminotransfer ALT/SGPT 36 U/L (13-56); Albumin, Serum 4.2 g/dL (3.2-5.0); Alkaline Phosphatase 85 U/L (45-117); Anion Gap 10 (5-15); BUN 12 mg/dL (7-18); BUN/Creat Ratio 19.6 RATIO (10-20); Calcium,Total 9.5 mg/dL (8.5-10.1); Chloride 97 mmol/L (98-107); Creatinine, Serum 0.61 mg/dL (0.55-1.02); EST Glomerular Filtration Rate 106 mL/min (>60); Est Glom Filt Rate - Afr Amer 128 mL/min (>60); Globulin 3.4 g/dL (2.2-4.2); Glucose 87 mg/dL (74-106); Potassium 3.8 mmol/L (3.5-5.1); Protein, Total 7.6 g/dL (6.4-8.2); Sodium Level 137 mmol/L (136-145)
== END ==
PROVIDERS: Family Provider Internal Medicine; PCP Internal Medicine; Referring Provider Internal Medicine; Visit Provider Internal Medicine
DX: M25.532 Pain in left wrist (principal); M79.642 Pain in left hand
CPT/HCPCS: 36415; 73110; 73130; 80053; 85027; 85652

== ENCOUNTER → 2018-11-10 08:43 | Outpatient (CLI) | payer OTHER, SELFPAY ==
--- NOTE | 2018-11-10 08:46 | US_ITS ---
HISTORY: CHOLECYSTECTOMY 07/06 RUQ PAIN SINCE 07/06 TECHNIQUE: Martinez scale and color doppler imaging was performed of the liver, pancreas, and right upper quadrant abdomen. COMPARISON: Gallbladder ultrasound 07/12/[address] abdomen and pelvis 02/24/2018 FINDINGS: Cholecystectomy. The common duct measures 5 mm in diameter which is normal. No intrahepatic biliary dilatation. No free fluid to suggest bile leak. The liver is upper normal in size. The right hepatic lobe shows a stable benign appearing 11 mm cyst. The right kidney is visualized and appears normal. No hydronephrosis. Visualized portions of the pancreas are unremarkable. US/Abdomen Limited IMPRESSION: 1. Cholecystectomy. No biliary dilatation, free fluid, or suspicious findings. 2. Simple hepatic cyst, unchanged. 3. No acute disease. at 0543 Reported and signed by: Vinicius Green MD Electronically Signed: Vinicius Green, at 5:42 EST Tel , Service support ,
--- OUTSIDE RECORDS SUMMARY | 2019-01-12 04:48 | XMS RPT_ITS | Continuity of Care Document ---
:1960 External Reference #:[id number] Author Organization [facility] Address [facility] 2 [address] [place] [address] Phone Care Team Providers Name Role Phone Jeanine Gramajo DO Unavailable John Sol MD Unavailable Physical Therapy, [facility] Unavailable Dr. Garrett Sandy Unavailable Moises Asencio Unavailable Rashmi Park Unavailable Unavailable HORACIO Amador Unavailable Unavailable Unavailable Unavailable Problems Name Dates Details Anxiety (F41.9, 300.00) Status: Active BMI 32.0-32.9,adult (Z68.32, V85.32) Status: Active BMI 33.0-33.9,adult (Z68.33, V85.33) Status: Active Chest pain (R07.9, 786.50) Comments: atypical Status: Active Current nonsmoker (Renamed from Current non-smoker) (Z78.9, V49.89) Status: Active Deliveries (Parity) Comments: 2 Status: Active Encounter for screening for lipid disorder (Z13.220, V77.91) Status: Active Encounter for screening mammogram for breast cancer (Renamed from Encounter for screening mammogram for malignant neoplasm of breast) (Z12.31, V76.12) Status: Active Family history of heart disease (Z82.49, V17.49) Status: Active Hand pain, left (M79.642, 729.5) Status: Active Hypercholesterolemia (E78.00, 272.0) Status: Active Hypertension (I10, 401.9) Status: Active Kidney stone (N20.0, 592.0) Status: Active Low back pain potentially associated with radiculopathy (M54.5, 724.2) Status: Active Nutritional counseling (Z71.3, V65.3) Status: Active Obesity (E66.9, 278.00) Comments: doing well loosing weight Status: Active Osteopenia (M85.80, 733.90) Status: Active Physical exam (Z00.00, V70.9) Status: Active Pregnancies () Comments: 2 Status: Active RUQ pain (R10.11, 789.01) Comments: SOD ?, CBD stone? had colonoscopy before surgery no pathology - Status: Active Wrist pain, left (M25.532, 719.43) Status: Active WWV V73.21 Comments: colonscopy 2011 [facility] Status: Active Medications Name Dates Details Alendronate Sodium 70 MG Oral Tablet 1 (one) Tablet once a week for 90 days Quantity: 12 {Tablet} Refills: 3 Ordered:02-Oct-2017 Nelson Gramajo DO, DO, Kathleen Start : 02-Oct-2017 Active Atorvastatin Calcium 40 MG Oral Tablet 1 Tablet at night for 0 days Quantity: 90 {Tablet} Refills: 0 Ordered:05-Oct-2018 Nelson Gramajo DO, DO, Kathleen Start : 05-Oct-2018 Active Paxil 10 MG Oral Tablet 1 Tablet QD for 0 days Quantity: 90 {Tablet} Refills: 1 Ordered:10-Aug-2017 Nelson Gramajo DO, DO, Kathleen Start : 10-Aug-2017 Active Relpax 40 MG Oral Tablet uad Tablet 1 at onset and may repeat in 2 hours if grimm not gone for 0 days Quantity: 36 {Tablet} Refills: 3 Ordered:09-Jun-2018 Nelson Gramajo DO, DO, Kathleen Start : 09-Jun-2018 Active Comments:max dose 80mg in 24 hours Triamterene-HCTZ 37.5-25 MG Oral Capsule 1 (one) Tablet QD for 0 days Quantity: 90 {Capsule} Refills: 3 Ordered:05-Jul-2018 Nelson Gramajo DO, DO, Kathleen Start : 05-Jul-2018 Active ALEVE, 220MG (Oral Tablet) 1 bid for 0 days Refills: 0 Ordered:08-Oct-2009 SWATHI Whipple End : 08-Oct-2009 Inactive AMITRIPTYLINE HCL, 50MG (Oral Tablet) 1 (one) Tablet QD for 90 days Quantity: 90 {Tablet} Refills: 3 Ordered:18-Nov-2012 SWATHI Whipple Start : 04-Nov-2011 End : 18-Nov-2012 Inactive ANUCORT-HC, 25MG (Rectal Suppository) 1 (one) Suppository bid for 0 days Quantity: 1 {Box} Refills: 0 Ordered:26-Oct-2014 SWATHI Whipple Start : 10-Jul-2014 End : 26-Oct-2014 Inactive ANUSOL-HC, 25MG (Rectal Suppository) Suppository BID/PRN for 0 days Quantity: 10 {Suppository} Refills: 3 Ordered:09-Dec-2006 SWATHI Whipple Start : 09-Dec-2006 End : 23-Aug-2008 Inactive BENADRYL, 25MG (Oral Tablet) 1 (one) Tablet qhs / HS for 0 days Refills: 0 Ordered:07-Dec-2008 SWATHI Whipple Start : 07-Dec-2008 End : 28-Mar-2009 Inactive CELEBREX, 200MG (Oral Capsule) 1 Capsule qd for 0 days Quantity: 90 {Capsule} Refills: 3 Ordered:04-Nov-2011 SWATHI Whipple Start : 22-Nov-2008 End : 04-Nov-2011 Inactive Cipro 500 MG Oral Tablet 1 (one) Tablet bid for 7 days Quantity: 14 {Tablet} Refills: 0 Ordered:29-Apr-2018 Nelson Gramajo DO, DO, Kathleen Start : 12-Mar-2018 End : 19-Mar-2018 Inactive CLARITIN, 10MG (Oral Tablet) 1 (one) Tablet daily for 0 days Refills: 0 Ordered:07-Dec-2008 SWATHI Whipple Start : 07-Dec-2008 End : 08-Oct-2009 Inactive DESOWEN, 0.05% (External Cream) uad Cream to affected area(s) bid prn for 0 days Quantity: 1 {Cream} Refills: 1 Ordered:22-Dec-2013 SWATHI Whipple Start : 04-Nov-2011 End : 22-Dec-2013 Inactive ELIDEL, 1% (External Cream) 1 (one) Cream bid for 0 days Quantity: 1 {Cream} Refills: 0 Ordered:07-Dec-2008 SWATHI Whipple Start : 07-Dec-2008 End : 28-Mar-2009 Inactive Etodolac ER 400 MG Oral Tablet Extended Release 24 Hour 2 (two) Tablet ER 24HR Tablet ER 24HR qsd with food for 0 days Quantity: 30 {Tablet} Refills: 0 Ordered:06-Jan-2018 Christianne Amador LPN Start : 03-Feb-2017 End : 06-Jan-2018 Inactive Flagyl 500 MG Oral Tablet 1 (one) Tablet q 8 hr for 7 days Quantity: 21 {Tablet} Refills: 0 Ordered:29-Apr-2018 Nelson Gramajo DO, DO, Kathleen Start : 12-Mar-2018 End : 19-Mar-2018 Inactive FLEXERIL, 10MG (Oral Tablet) 1 Tablet tid prn for 0 days Quantity: 30 {Tablet} Refills: 0 Ordered:04-Nov-2011 SWATHI Whipple Start : 29-Sep-2011 End : 04-Nov-2011 Inactive IMITREX, 100MG (Oral Tablet) uad Tablet prn for 0 days Quantity: 27 {Tablet} Refills: 3 Ordered:04-Nov-2011 SWATHI Whipple Start : 19-Aug-2010 End : 04-Nov-2011 Inactive NYSTATIN, 295289LOKA/ML (Mouth/Throat Suspension) 1 Suspension 5 ml 5 times a day swich and spit 10 days for 10 days Quantity: 50 {Suspension} Refills: 0 Ordered:22-Jul-2013 SWATHI Whipple Start : 22-Jul-2013 End : 01-Aug-2013 Inactive Comments:add 2% vicous lidocaine (so get no more than 15 ml in 24 hours) OMEPRAZOLE, 20MG (Oral Tablet Delayed Release) 1 (one) Tablet DR daily for 0 days Quantity: 90 {Tablet_DR} Refills: 3 Ordered:04-Nov-2011 SWATHI Whipple Start : 30-Jul-2009 End : 04-Nov-2011 Inactive PEPCID AC, 10MG (Oral Tablet) 1 (one) Tablet daily for 0 days Refills: 0 Ordered:07-Dec-2008 SWATHI Whipple Start : 07-Dec-2008 End : 28-Mar-2009 Inactive PREVACID, 30MG (Oral Capsule Delayed Release) [address] QD for 0 days Quantity: 90 {Capsule_DR} Refills: 3 Ordered:08-Mar-2008 SWATHI Whipple Start : 08-Mar-2008 End : 23-Aug-2008 Inactive PROPRANOLOL HCL, 40MG (Oral Tablet) Tablet BID for 0 days Quantity: 180 {Tablet} Refills: 2 Ordered:16-Apr-2010 SWATHI Whipple Start : 08-Oct-2009 Inactive SUMAVEL DOSEPRO, 6MG/0.5ML (Subcutaneous Device) 1 Device uad for 0 days Quantity: 10 {Device} Refills: 3 Ordered:04-Nov-2011 SWATHI Whipple Start : 07-Oct-2010 End : 04-Nov-2011 Inactive TRIAMCINOLONE ACETONIDE, 0.1% (Mouth/Throat Paste) 1 Paste apply to mouth ulcer bid for 0 days Quantity: 1 {Paste} Refills: 0 Ordered:22-Dec-2013 SWATHI Whipple Start : 29-Jul-2013 End : 22-Dec-2013 Inactive BINOSTO, 70MG (Oral Tablet Effervescent) 1 (one) Tablet Effer Tablet Effer weekly for 0 days Quantity: 12 {Tablet} Refills: 3 Ordered:07-May-2015 Slarb Gisela LEONARD Start : 17-Jan-2015 End : 07-May-2015 Discontinued DETROL LA, 4MG (Oral Capsule Extended Release 24 Hour) 1 QD, PRN for 0 days Refills: 0 Ordered:08-Mar-2008 Edilma Borja End : 03-Sep-2007 Discontinued LIPITOR, 10MG (Oral Tablet) 1 (one) Tablet QD for 0 days Quantity: 90 {Tablet} Refills: 3 Ordered:28-Oct-2007 Shana Dai Start : 28-Oct-2007 End : 20-Apr-2008 Discontinued SIMVASTATIN, 40MG (Oral Tablet) 1 Tablet qd for 0 days Quantity: 90 {Tablet} Refills: 3 Ordered:18-Nov-2012 Coral Ray MD Start : 18-Nov-2012 End : 18-Nov-2012 Discontinued Allergies and Adverse Reactions Name Dates Details Topamax *ANTICONVULSANTS* (Allergy) Status: Active Past Medical History Name Dates Details Abnormal mammogram (R92.8, 793.80) Status: Inactive as of 13-May-2013 Arthralgia (M25.50, 719.40) Status: Inactive as of 13-May-2013 Chest pain, central (R07.9, 786.50) Status: Inactive as of 06-Jan-2018 Chest pressure (R07.89, 786.59) Status: Inactive as of 06-Jan-2018 Dehydration, moderate (E86.0, 276.51) Status: Inactive as of 26-Oct-2014 Dermatitis (L30.9, 692.9) Status: Inactive as of 12-Apr-2009 Diarrhea (R19.7, 787.91) Status: Inactive as of 26-Oct-2014 Fatigue (R53.83, 780.79) Status: Inactive as of 26-Oct-2014 Foot pain (M79.673, 729.5) Comments: think arthritis not sound like gout. think pressure. will use nsaids take pressure off wider toe box hoes. not better by fall to podiatry Status: Inactive as of 18-Nov-2012 GERD (gastroesophageal reflux disease) (K21.9, 530.81) 07-Oct-2010 Status: Inactive as of 18-Nov-2012 Hemorrhoids, unspecified hemorrhoid type (K64.9, 455.6) Status: Inactive as of 26-Oct-2014 Inflamed skin tag (L91.8, 701.9) Status: Resolved as of 28-Mar-2009 Mouth lesion (528.9) Comments: better with nystatin. viral negative. still small ulcer left. 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 amitryptline not help much, relpax works, up to 2 a week and meds work and function well. with her history this is controlled. aware to watch for rebound.had since young. hard to control. Status: Inactive as of 06-Jan-2018 Other specified conditions associated with female genital organs and menstrual cycle (N94.89, 629.89) Status: Resolved as of 23-Aug-2008 Pain in joint involving ankle and foot (M25.579, 719.47) 07-Oct-2010 Status: Inactive as of 18-Nov-2012 Physical exam, routine (Z00.00, V70.0) Comments: will get labs in in six months (approximately) for routine. pap 11- good. mammo -. colonscopy due this year Status: Inactive as of 18-Nov-2012 Plantar fasciitis (M72.2, 728.71) Status: Inactive as of 13-May-2013 POLYURIA (788.4) Comments: UA is negative Status: Inactive as of 23-Aug-2008 Post-nasal drainage (R09.82, 473.9) Status: Inactive as of 06-Jan-2018 Pre-operative exam (Renamed from Encounter for pre-operative examination) (Z01.818, V72.84) Status: Inactive as of 06-Jan-2018 Rash and other nonspecific skin eruption (R21, 782.1) Status: Inactive as of 18-Nov-2012 Rectal bleeding (K62.5, 569.3) Status: Inactive as of 26-Oct-2014 Shoulder Pain (M25.519, 719.41) Comments: right shoulder and see Dr. roberts and will get surgery Status: Inactive as of 26-Oct-2014 Spasm of cervical paraspinous muscle (M62.838, 728.85) Status: Inactive as of 13-May-2013 Well woman exam with routine gynecological exam (Z01.419, V72.31) Comments: mammo going to get it. scope at 49 Status: Inactive as of 28-Mar-2009 [facility] V72.31 (Renamed from [facility]) Comments: talk about colonscnopy. pap 2-, side effects Dr. diaz. Status: Inactive as of 18-Nov-2012 Procedures Procedure Dates Details Arthroscopy of Knee Completed Comments: 1998 Dr. Rajput Deviated septum Completed Foot sx Completed Comments: 06/06/17 b/l Shoulder Surgery Completed Comments: rt 03/28/14 Tonsillectomy Completed Date Value Details 22-Jul-2018 Surgery Visit Report Result: Comments: See Note; NOTES: [facility] [address] [place] [address] OFFICE VISIT Date of Service: 07/22/18 MR#: [id number] Acct: [id number] Name: HANNAH STANLEY Rep #: [id number] : 1960 Provider: Lana Quinn PA-C Age/Sex: 58/F Location: [facility] Status: Signed with Addenda ADDENDUM by Lana Quinn PA-C on 07/22/18 at 1551 Addendum enter ed and electronically signed by Lana Quinn PA-C 07/22/18 15:51: Pathology demonstrated chronic cholecystitis with cholelithiasis. 07/22/18 1551 <Electronically signed by Lana Quinn PA-C> Date Lana Quinn cc: Jeanine Gramajo DO * Signed Intake Intake Visit Reasons: Alex ESCOBAR 07/12 Chief Complaint: update H AND P alex hodge 07-12 Qa Manager Required: No Is patient in pain?: No Allergies topiramate [From Topamax] Allergy (Verified 07/22/18 10:16) Hives Medications Atorvastatin Calcium [Lipitor] 40 mg PO QH S 07/13/16 [History Confirmed 07/22/18] Cholecalciferol (VIT D3) [Vitamin D3] 1,000 unit PO DAILY 07/13/16 [History Confirmed 07/22/18] Eletriptan Hydrobromide [Relpax] 40 mg PO .X1 PRN 07/13/16 [Histor y Confirmed 07/22/18] Multivitamin [Daily Multiple Vitamin] 1 ea PO DAILY 07/13/16 [History Confirmed 07/22/18] Paroxetine HCl [Paxil] 10 mg PO DAILY 07/13/16 [History Confirmed 07/22/18] Vitamin E 400 unit PO DAILY 07/13/16 [History Confirmed 07/22/18] Hydrochlorothiazide [Hctz] 25 mg PO DAILY 07/07/18 [History Confirmed 07/22/18] Hydrocodone Bitart/Apap 5- 325 [Leonidas 5MG-325MG] 1 tab PO Q6H PRN PRN 3 Days #8 tab 07/12/18 [Rx Confirmed 07/22/18] Subjective Details: Patient is a 58 y/o female I am following for RUQ pain. Dr. Sol performed a laparoscopic cholecystectomy with intraoperative cholan giogram on 07/12/2018. Patient tolerated the procedure well. She continues to note intermittent RUQ pain/back pain. Patient denies nausea, vomiting, fever. She notes diarrhea intermittently. Patient note s increased anxiety. Objective Details: Abdomen- soft, nontender, positive bowel sounds. Incisions c/d/i. No erythema or infection noted. No deep tenderness palpations. Assessment AND Plan Problems 1. Calculus of gallbladder with chronic cholecystitis without obstruction K80.10 Plan - Follow-up as needed - RTW letter was given. - Obtain liver enzymes Orders Orders: Coding Level of Care Code Gl obal Post Op Diagnoses Calculus of gallbladder with chronic cholecystitis without obstruction K80.10 Cholelithiasis location: gallbladder Biliary obstruction: without biliary obstruction 07/22/18 15 50 <Electronically signed by Lana Quinn PA-C> Date Lana Quinn PA-C Cosigner Signature: Date (if applicable) CC: Jeanine Gramajo DO 22-Jul-2018 Surgery Visit Report Result: Comments: See Note; NOTES: [facility] [address] [place] [address] OFFICE VISIT Date of Service: 07/22/18 MR#: [id number] Acct: [id number] Name: HANNAH STANLEY Rep #: [id number] : 1960 Provider: Lana Quinn PA-C Age/Sex: 58/F Location: [facility] Status: Signed Intake Intake Visit Reasons: Lap Armida RC 07/12 Chief Complaint: update H AND P la p armida 07-12 RC Qa Manager Required: No Is patient in pain?: No Allergies topiramate [From Topamax] Allergy (Verified 07/22/18 10:16) Hives Medications Atorvastatin Calcium [Lipitor] 40 mg PO QHS 0 07/13/16 [History Confirmed 07/22/18] Cholecalciferol (VIT D3) [Vitamin D3] 1,000 unit PO DAILY 07/13/16 [History Confirmed 07/22/18] Eletriptan Hydrobromide [Relpax] 40 mg PO .X1 PRN 07/13/16 [History C onfirmed 07/22/18] Multivitamin [Daily Multiple Vitamin] 1 ea PO DAILY 07/13/16 [History Confirmed 07/22/18] Paroxetine HCl [Paxil] 10 mg PO DAILY 07/13/16 [History Confirmed 07/22/18] Vitamin E 400 uni t PO DAILY 07/13/16 [History Confirmed 07/22/18] Hydrochlorothiazide [Hctz] 25 mg PO DAILY 07/07/18 [History Confirmed 07/22/18] Hydrocodone Bitart/Apap 5-325 [Leonidas 5MG-325MG] 1 tab PO Q6H PRN PRN 3 Da ys #8 tab 07/12/18 [Rx Confirmed 07/22/18] Subjective Details: Patient is a 58 y/o female I am following for RUQ pain. Dr. Sol performed a laparoscopic cholecystectomy with intraoperative cholangio gram on 07/12/2018. Patient tolerated the procedure well. She continues to note intermittent RUQ pain/back pain. Patient denies nausea, vomiting, fever. She notes diarrhea intermittently. Patient notes i ncreased anxiety. Objective Details: Abdomen- soft, nontender, positive bowel sounds. Incisions c/d/i. No erythema or infection noted. No deep tenderness palpations. Assessment AND Plan Problems 1. Calculus of gallbladder with chronic cholecystitis without obstruction K80.10 Plan - Follow-up as needed - RTW letter was given. - Obtain liver enzymes Orders Orders: Coding Level of Care Code Globa l Post Op Diagnoses Calculus of gallbladder with chronic cholecystitis without obstruction K80.10 Cholelithiasis location: gallbladder Biliary obstruction: without biliary obstruction 07/22/18 1550 <Electronically signed by Lana Quinn PA-C> Date Lana Quinn PA-C Cosigner Signature: Date (if applicable) CC: Jeanine Gramajo DO 14-Jul-2018 12 Lead Electrocardiogram Result: Comments: See Note; NOTES: [facility] Cardiovascular Services [address] [place] [address] 12 Lead EKG 07/08/18 1451 MR#: [id number] Acct: [id number] Name: HANNAH STANLEY Rep #: [id number] : 1960 58 From: Gerber Agrawal MD Attending Dr: John Sol MD Status: DEP [facility] Ordering Dr: John Sol MD Date: 07/08/18 Location: [facility] Sex: F C Admitted: Test Reason : PREOP Bl ood Pressure : / mmHG Vent. Rate : 080 BPM Atrial Rate : 080 BPM P-R Int : 154 ms QRS Dur : 086 ms QT Int : 372 ms P-R-T Axes : 038 013 049 degrees QTc Int : 429 ms Normal sinus rhythm Possible L eft atrial enlargement Inferior infarct , age undetermined Abnormal ECG Confirmed by GERBER AGRAWAL MD ([id number]), photograph editor SRINIVAS DEE ([id number]) on 07/14/2018 9:23:26 AM Referred By: John Sol Confirmed By: GERBER AGRAWAL MD 07/14/18922 Date Gerber Agrawal MD CC: Jeanine Gramajo DO; John Sol MD Signed 13-Jul-2018 Discharge Instruction Result: Comments: See Note; NOTES: [facility] Medical Records Department [address] [place] [address] Instructions for Home/Discharge Instructions 07/12/18 1152 MR#: [id number] Acct: [id number] Name: HANNAH STANLEY Rep #: [id number] : 1960 58 From: John Sol MD PCP: Jeanine Gramajo DO Status: DEP [facility] Discharge Diet: Light diet - advance as tolerated - if you have questi ons about your diet instructions, please talk to you doctor. Discharge Activity: May Not Drive - for 1 week or while taking narcotic pain medicine. May shower in (days): 1 Lifting Restrictions: 10 pound s Call your doctor if your incision/area has: Continuous Slow Oozing, Sudden Increased Bleeding, Increased Pain/ Swelling, Increased Redness, Foul Smelling Discharge Call your doctor if you observe: Fev er of 101 or Higher Suture Line Care: Avoid Pulling/Pushing, Avoid Pinching/Bending Additional Dressing/Incision Instructions:: Change or remove dressing in 4 days. Leave steri-strips in place for 1 fannie gasca Allergies/Adverse Reactions: Allergies topiramate [From Topamax] Allergy (Verified 07/07/18 15:11) Hives Medications to take at Discharge Atorvastatin Calcium [Lipitor] 40 mg PO QHS 07/13/16 Chol ecalciferol (VIT D3) [Vitamin D3] 1,000 unit PO DAILY 07/13/16 Eletriptan Hydrobromide [Relpax] 40 mg PO .X1 PRN 07/13/16 Multivitamin [Daily Multiple Vitamin] 1 ea PO DAILY 07/13/16 Paroxetine HCl [[place]] 10 mg PO DAILY 07/13/16 Vitamin E 400 unit PO DAILY 07/13/16 Hydrochlorothiazide [Hctz] 25 mg PO DAILY 07/07/18 Hydrocodone Bitart/Apap 5-325 [Leonidas 5MG-325MG] 1 tablet PO Q6H PRN PRN 3 Days #8 tabl et 07/12/18 The following prescriptions were given: Hydrocodone Bitart/Apap 5-325 [Leonidas 5MG-325MG] 1 tablet PO Q6H PRN PRN 3 Days #8 tablet PRN Reason: Pain Primary Care Physician: Jeanine Gramajo D O [Primary Care Provider] - Test Results: Test results from this visit will be discussed in further detail at your follow-up appointment, if applicable. Please Follow Up With: John Sol MD - [phone] When: Call to make an appointment to be seen in about 10 days. 07/13/18 1240 <Electronically signed by John Sol MD> Date John Sol MD CC: Jeanine Gramajo DO 13-Jul-2018 Operative Report Result: Comments: See Note; NOTES: [facility] Medical Records Department [address] [place] [address] Operative Report 07/12/18 1254 MR#: [id number] Acct: [id number] Name: HANNAH STANLEY Rep #: [id number] : 1960 58 From: John Sol MD PCP: Jeanine Gramajo DO Status: [facility] Location: [facility] Problem List (1) Cholelithiasis with chronic cholecystitis Status: Acute Qualifie rs: Cholelithiasis location: gallbladder Biliary obstruction: without biliary obstruction Qualified Code(s): K80.10 - Calculus of gallbladder with chronic cholecystitis without obstruction Report of Op eration Date of Procedure: 07/12/18 Pre-Operative Diagnosis: Chronic cholecystitis cholelithiasis Post-Operative Diagnosis: Same plus umbilical hernia Surgery/Procedure Performed:: Laparoscopic cholecys tectomy with cholangiography. Umbilical herniorrhaphy Description of Surgical Findings:: Timeout and informed consent was obtained. 58-year-old female taken out from placement of the table. She underwe nt general endotracheal intubation and anesthesia. Ancef 2 g given intravenous preoperatively. Because of the patient's previous infraumbilical midline incision I injected local 0.5% Marcaine of which t otal 30 cc was used then made a vertical supraumbilical incision. Sharp dissection was carried down through the substance tissue and and so doing a umbilical hernia was encountered. The tissue was caref ully dissected free. Holding sutures of 0 Vicryl placed. Direct access was gained through the peritoneum. 10 minute trocar was inserted. The abdomen was insufflated CO2 to pressure of tenderness from he r pressure. Elvia laparoscope inserted. Abdomen suspected no evidence of any superficial abnormalities. There was adhesions of omentum to the right lobe of the liver the gallbladder was mostly free. The gallbladder was distracted and blunt dissection was instituted the infundibulum until clearly the cystic duct and cystic artery were identified. The patient had both an anterior and posterior cystic ar letty. The anterior artery was clipped twice proximally once distally prior to transecting it. A Hem-o-codie clip was placed on the cystic duct stump and then through a 14-gauge Angiocath plantar Sumeet ca th was inserted and fluoroscopically controlled claims grams were obtained. This demonstrated normal ductal anatomy and free flow to the small bowel. Claims grams catheter was removed and 2 Hem-o-codie cl ips were placed on the cystic duct stump prior to transecting it. The gallbladder was then dissected free from liver bed great care was needed to be taken because the posterior cystic artery seemed to r un the entire length of the liver bed. About midway up the liver bed score I secured it with hemoclips. The gallbladder was then dissected free from the liver bed. Complete hemostasis was intact. Gallbl adder was placed in retrieval bag. The right upper quadrant was irrigated and aspirated free. Hemostasis was intact. The gallbladder was exited the umbilicus. The remaining trochars removed under visual ization. The abdomen was allowed to deflate of the CO2. The fascia at the umbilicus because of the umbilical hernia was approximated with interrupted 0 Nurolon wauelg-uh-isjgv suture. Skin edges were ap proximated interrupted 4 Monocryl subdermal stitches. Steri-Strips Telfa and OpSite dressings applied. Sponge and instrument and needle counts were reported the surgeon be correct. Blood loss was minima l. She tired procedure well was taken to the recovery or insect condition without apparent complication. Specimens include gallbladder. Drains none. Blood loss minimal. John Sol M.D., F.A.C.S. Type of Anesthesia:: General Anesthesiologist: Tiffanei Corral 07/13/18 1240 <Electronically signed by John Sol MD> Date John Sol MD CC: Jeanine Gramajo DO; John Sol MD Signed 11-Jul-2018 Cholangiogram/ O R,Initial Result: Comments: See Note; NOTES: [facility] Imaging Services [address] [facility] [place] [address] Cholangiogram/ O R,Initial MR#: [id number] Acct: [id number] Name: HANNAH STANLEY Rep #: [id number] : 1960 F 58 From: Julius Barger MD PCP: Jeanine Gramajo DO Status: [facility] Study: Cholangiogram/ O R,Initial Date of Exam: 07/12/18 Exam# [id number] Ordering Dr: John Sol MD STUDY: INTRAOPERATIVE CHOLANGIOGRAM. REASON FOR EXAM: Female, 58 years old. Laparoscopic cholecystectomy. FLUOROSCOPY TIME (if supplied): (0:11) minutes/seconds TECHNIQUE: An intraoperative cholang iogram was performed by the surgeon. Imaging was submitted. COMPARISON: None. FINDINGS: The intrahepatic biliary ducts are unremarkable. The common bile duct is not dilated. No intraluminal filling defect is seen. There is free flow of contrast into the duodenum. RAD/Cholangiogram/ O R,Initial IMPRESSION: Un remarkable intraoperative cholangiogram. Electronically Signed: Julius Barger MD at 15:37 EDT Tel [phone], Service support , CC: Jeanine Lazo on DO; John Sol MD Wool Merchant: Signed 08-Jul-2018 Surgery Visit Report Result: Comments: See Note; NOTES: [facility] [address] [place] [address] OFFICE VISIT Date of Service: 07/08/18 MR#: [id number] Acct: [id number] Name: HANNAH STANLEY Rep #: [id number] : 1960 Provider: Lana Quinn PA-C Age/Sex: 58/F Location: [facility] Status: Signed Intake Vital Signs07/08/18 Height 5 ft 2 in 07/08/18 Weight: 175 lb 4 oz 07/08/18 Body Mass Index (BMI) 32.0 07/08/18 Blood Pressure 151/85 Intake Visit Reasons: update h AND p lap armida 07-14 Chief Complaint: update H AND P lap armida Qa Manager Required: No Is patient i n pain?: No Allergies topiramate [From Topamax] Allergy (Verified 07/07/18 15:11) Hives Medications Atorvastatin Calcium [Lipitor] 40 mg PO QHS 07/13/16 [History Confirmed 07/07/18] Cholecalciferol (VIT D3) [Vitamin D] 1,000 unit PO DAILY 07/13/16 [History Confirmed 07/07/18] Eletriptan Hydrobromide [Relpax] 40 mg PO .X1 PRN 07/13/16 [History Confirmed 07/07/18] Multivitamin [Daily Multiple Vitami n] 1 ea PO DAILY 07/13/16 [History Confirmed 07/07/18] Paroxetine HCl [Paxil] 10 mg PO DAILY 07/13/16 [History Confirmed 07/07/18] Vitamin E 400 unit PO DAILY 07/13/16 [History Confirmed 07/07/18] [place]orne chlorothiazide [Hctz] 25 mg PO DAILY 07/07/18 [History Confirmed 07/07/18] Is last menstrual period known: No Post menopausal: Yes Patient : No [facility] Medical History Chronic back pain (Acute) Gallstones (Acute) Hemorrhoids (Acute) Osteoarthritis (Acute) Shoulder pain (Acute) HTN (hypertension) (Chronic) Surgical History (Reviewed 07/08/18 @ 13 :49 by Nona Ordoñez) H/O rotator cuff surgery (Acute) History of hammer toe correction (Acute) History of knee surgery (Acute) History of nasal septoplasty (Acute) History of tonsillectomy (Acute) Hx of section (Acute) Family History Other Cancer Heart disease Kidney disease Social History Smoking Status: Never smoker alcohol intake: neve r HPI HPI HPI: Patient is a 58 y/o female I am following for RUQ pain and cholelithiasis. Patient presents for an update history and physical. Patient denies recent hospitalizations or illnesses. P atient denies previous myocardial infarction, stroke, blood clots. Dr. Sol performed a colonoscopy on 06/10/18 demonstrating diverticulosis. Random biopsies were taken which demonstrated no colonic abn ormalities. Patient's previous history per Dr. Sol: HANNAH STANLEY, is a 58 F who presents to the office today for surgical consultation regarding abdominal pain. Very pleasant lady is referred by Dr. Shilpa Bergman and a written copy of my surgical consult recommendations will be returned to her. The patient claims that November 2017 she developed a cold and had some chest and back pain. She states marii t she had a stress test that was not remarkable. She complained of low energy. February 2018 she had left lower quadrant abdominal pain and a syncopal spells. She went to the [facility] emerg ency room and CT scan showed acute diverticulitis. The patient's white count was 8000. She was noted to have a solitary gallstone on CT at that time. she was treated with antibiotics. Her complaint then after that was a diarrhea sometimes explosive. She states that she has diarrhea 5-10 times daily currently. She has not noted any bright red blood per rectum or melena. She thinks she had a colonoscopy at age 50 that was not remarkable. There is no family or personal history of colon polyps or colon cancer. More recently she developed right sided abdominal pain. At the [facility] on May 26, 2018 she had a right upper quadrant ultrasound demonstrating a solitary gallstone but otherwise normal gallbladder wall and normal common bile duct normal intrahepatic ducts. Urinalysis was not remarka ble. Liver function tests were normal. BUN and creatinine normal. White blood cell count 4.3 with a hemoglobin of 14.4 hematocrit 42.1 per the count 291,000 with no shift. TSH was normal. TSH 2.62. Ther e is concern that the right-sided abdominal pain may be secondary to her cholelithiasis. ROS General General: Yes fatigue; no weight change, appetite, colon cancer, breast cancer or weakness HEENT HE ENT: No difficulty swallowing, eye injury, eye surgery, swollen glands or hoarseness Endo Endocrine: No thyroid disease, diabetes mellitus, thyroid cancer, Hair loss, heat intolerance or cold intoleranc e Musc Musculoskeletal: Yes back problems and arthritis; no rheumatoid arthritis, gout or joint pain Cardio Cardiovascular: No murmur, pacemaker, heart disease, atrial fibrillation, high blood pressure, heart attack, heart stent, palpitations, shortness of breat with exertion or chest pain Resp Respiratory: No shortness of breath, No sleep apnea, No cough, No COPD, No asthma, No emphysema, No wheezing Gastro Gastrointestinal: Yes abdominal pain, No nausea or vomiting, Yes diarrhea, No constipation, No blood in stool, No acid reflux, Yes hemorrhoids, No ulcers, Yes gallbladder problem, No black,tarry stools Hunter Hematologic: No blood thinners, No blood disorders, No bleeding, No anemia, No blood clots Neuro Neurologic: No weakness Exam Const General: cooperative, healthy appearing, comfortable, n o acute distress [facility] Head: normal to inspection Eyes General: appearance normal, both eyes and all related structures Neck Neck: normal visual inspection Neck mass: No Resp Effort AND Inspection: norm al respiratory effort Auscultation: clear to auscultation bilaterally Cardio Rate: regular rate Rhythm: regular rhythm Heart Sounds: no murmurs GI Inspection: normal to inspection Palpation: soft, tende r (RUQ) Auscultation: normal bowel sounds Skin General: no rashes or lesions noted Neuro General: no focal motor deficits, CN's II-XI intact bilaterally Extrem General: normal to inspection Psych Appear ance: grossly normal Affect: normal affect Assessment AND Plan Problems 1. RUQ pain R10.[address] Sol will plan to perform a laparoscopic cholecystectomy with intraoperative cholangiogram. Proced ure details, risks and benefits have been reviewed. Patient has had the opportunity to ask and have questions answered. Patient verbally understands and agrees with the plan. Coding Level of Care Code No Charge Diagnoses RUQ pain R10.11 Update H AND P 07/08/18 8600 <Electronically signed by Lana Quinn PA-C> Date Lana barrios PA-C Cosigner Signature: Date (if applicable) CC: 10-Jun-2018 Operative Report Result: Comments: See Note; NOTES: [facility] Medical Records Department [address] [place] [id number] Operative Report 06/10/18 0642 MR#: [id number] Acct: [id number] Name: HANNAH STANLEY Rep #: [id number] : 1960 58 From: John Sol MD PCP: Jeanine Gramajo DO Status: [facility] Y Location: [place] [address] Problem List (1) Abdominal pain Status: Acute Qualifiers: Abdominal locatio n: lower abdomen, unspecified Qualified Code(s): R10.30 - Lower abdominal pain, unspecified (2) Diarrhea Status: Acute Qualifiers: Diarrhea type: unspecified type Qualified Code(s): R19.7 - Diarrhea, u nspecified Report of Operation Date of Procedure: 06/10/18 Pre-Operative Diagnosis: Abdominal pain lower abdomen but also upper abdomen, history of diarrhea Post- Operative Diagnosis: Sigmoid diverticul osis. Random biopsies pending Surgery/Procedure Performed:: Colonoscopy with cold forcep random biopsies Description of Surgical Findings:: Timeout informed consent was obtained. 58-year-old female was taken to the endoscopy suite. She was placed in the left lateral decubitus position. Throughout the procedure in aliquots she received total 100 g Demerol 3.5 mg of Versed is intravenous sedation. Digi divya rectal exam performed normal anal tone minimal hemorrhoidal changes flexible colonoscope was in the rectum advanced readily through the sigmoid and descending colon. The scope was then nicely advanc ed to the transverse colon and with transabdominal pressure is advanced to the cecum. Bowel prep was very good. The cecum ileocecal valve area was nicely achieved. The scope was withdrawn from the ascen ding transverse descending sigmoid colon. Random colonic biopsies were obtained throughout because of the patient's previous history of diarrhea. No gross mucosal abnormalities were identified. Sigmoid diverticulosis was indeed noted but I did not see any evidence of acute inflammatory change. The scope was withdrawn to the rectum retroflex the anorectal verge inspected this did not appear to be remar kable. Excess fluid and air was aspirated free the procedure was completed with the patient tolerating it well. Impression No evidence of mucosal abnormality. Sigmoid diverticulosis. The patient's pr evious colonoscopy was approximately 9 years prior. Next screening colonoscopy recommended in 10 years. The patient does have cholelithiasis which may be the source of her abdominal pain and a laparosc opic cholecystectomy will be offered to her. Procedure was started 0625. The cecum was reached at 0631. The procedure was completed at 0638. Cc: Dr. Jeanine Sol M.D., F.A.C.S. pe of Anesthesia:: IV Sedation 06/10/18 0646 <Electronically signed by John Sol MD> Date John Sol MD CC: Jeanine Gramajo DO; John Sol MD Signed 02-Jun-2018 Surgery Visit Report Result: Comments: See Note; NOTES: [facility] [address] [place] [address] OFFICE VISIT Date of Service: 06/02/18 MR#: [id number] Acct: [id number] Name: HANNAH STANLEY Rep #: [id number] : 1960 Provider: John Sol MD Age/Sex: 58/F Location: [facility] Status: Signed Intake Vital Signs06/02/18 Height 5 ft 2 in 06/02/18 Weight: 175 lb 4 oz 06/02/18 Body Mass Index (BMI) 32.0 Intake Visit Reasons: RUQ Pain [facility] Chief Complaint: RUQ pain into back, gallstones Qa Manager Required: No Is patient in pain?: Yes Pain scale (1-10): 4 Allergies topira mate [From Topamax] Allergy (Verified 06/02/18 16:17) Hives Medications Atorvastatin Calcium [Lipitor] 40 mg PO QHS 07/13/16 [History Confirmed 06/02/18] Cholecalciferol (VIT D3) [Vitamin D] 1,000 un it PO DAILY 07/13/16 [History Confirmed 06/02/18] Eletriptan Hydrobromide [Relpax] 40 mg PO .X1 PRN 07/13/16 [History Confirmed 06/02/18] Multivitamin [Daily Multiple Vitamin] 1 ea PO DAILY 07/13/16 [Hi story Confirmed 06/02/18] Paroxetine HCl [Paxil] 10 mg PO DAILY 07/13/16 [History Confirmed 06/02/18] Vitamin E 400 unit PO DAILY 07/13/16 [History Confirmed 06/02/18] Is last menstrual period known: No Post menopausal: Yes Patient : No PFSH Medical History Chronic back pain (Acute) Gallstones (Acute) Hemorrhoids (Acute) Osteoarthritis (Acute) Shoulder pain (Acute) HTN (hypertension) (Chronic) Surgical History H/O rotator cuff surgery (Acute) History of hammer toe correction (Acute) History of knee surgery (Acute) History of nasal septoplasty (Acute) History of tonsillectomy (Acute) Hx of section (Acute) Family History Other Cancer Hear t disease Kidney disease Social History Smoking Status: Never smoker alcohol intake: never HPI HPI HPI: HANNAH STANLEY, is a 58 F who presents to the office today for surgical consultation regardi ng abdominal pain. Very pleasant lady is referred by Dr. Deisy Bergman and a written copy of my surgical consult recommendations will be returned to her. The patient claims that November 2017 she develop ed a cold and had some chest and back pain. She states that she had a stress test that was not remarkable. She complained of low energy. February 2018 she had left lower quadrant abdominal pain and a syncopa l spells. She went to the [facility] emergency room and CT scan showed acute diverticulitis. The patient's white count was 8000. She was noted to have a solitary gallstone on CT at that time. she was treated with antibiotics. Her complaint then after that was a diarrhea sometimes explosive. She states that she has diarrhea 5-10 times daily currently. She has not noted any bright red bl ood per rectum or melena. She thinks she had a colonoscopy at age 50 that was not remarkable. There is no family or personal history of colon polyps or colon cancer. More recently she developed right si ded abdominal pain. At the [facility] on May 26, 2018 she had a right upper quadrant ultrasound demonstrating a solitary gallstone but otherwise normal gallbladder wall and normal common bile duct normal intrahepatic ducts. Urinalysis was not remarkable. Liver function tests were normal. BUN and creatinine normal. White blood cell count 4.3 with a hemoglobin of 14.4 hematocrit 42.1 per the c ount 291,000 with no shift. TSH was normal. TSH 2.62. There is concern that the right-sided abdominal pain may be secondary to her cholelithiasis. ROS General General: Yes fatigue; no weight change, appetite, colon cancer, breast cancer or weakness HEENT HEENT: No difficulty swallowing, eye injury, eye surgery, swollen glands or hoarseness Endo Endocrine: No thyroid disease, diabetes mellitus, thyr oid cancer, Hair loss, heat intolerance or cold intolerance Musc Musculoskeletal: Yes back problems and arthritis; no rheumatoid arthritis, gout or joint pain Cardio Cardiovascular: No murmur, pacemaker , heart disease, atrial fibrillation, high blood pressure, heart attack, heart stent, palpitations, shortness of breat with exertion or chest pain Resp Respiratory: No shortness of breath, No sleep apne a, No cough, No COPD, No asthma, No emphysema, No wheezing Gastro Gastrointestinal: Yes abdominal pain, No nausea or vomiting, Yes diarrhea, No constipation, No blood in stool, No acid reflux, Yes hemor rhoids, No ulcers, Yes gallbladder problem, No black,tarry stools Hunter Hematologic: No blood thinners, No blood disorders, No bleeding, No anemia, No blood clots Neuro Neurologic: No weakness Exam Con st General: cooperative, healthy appearing, comfortable, no acute distress Nutritional Appearance: overweight Orientation: alert, awake [facility] Head: normal to inspection Eyes General: appearance normal, both eyes and all related structures Neck Neck: normal visual inspection Chest Chest palpation AND inspection: normal inspection of the chest Resp Effort AND Inspection: normal respiratory effort Auscul tation: clear to auscultation bilaterally Cardio Rate: regular rate Rhythm: regular rhythm Heart Sounds: no murmurs GI Palpation: soft, no hepatosplenomegaly, nontender Auscultation: normal bowel sounds Musc Cervical Spine: normal cervical lordosis Skin General: no rashes or lesions noted Neuro Cranial Nerves: CN's II-XI intact bilaterally Extrem General: no clubbing, cyanosis or edema Psych Affect: n ormal affect Assessment AND Plan Plan 58-year-old female who now has right-sided abdominal pain. The one finding that was peroxide and clear was the left-sided colitis that she had February 2018 consistent with acute diverticulitis and I have reviewed those films and concur. Now she is having explosive diarrhea. I would like to obtain stool for Gram stain C AND S O AND P and C. difficile. I am recommendi ng a colonoscopy to assess the left colon and indeed the right colon for possible signs of diffuse colitis possibly even C. difficile colitis. If those findings are remarkable then would treat appropria tely. If those findings are not remarkable that I will revisit the concept of possibly pursuing a laparoscopic cholecystectomy with the patient. She has had an opportunity to ask and have questions answ ered. She is agreeable to proceeding as noted. We will obtain stool analysis and then schedule her in a timely fashion for colonoscopy with possible biopsy or polypectomy is indicated. I very much appre ciate the kind opportunity of assisting with her surgical care. John Sol M.D., F.A.C.S. cc:Dr Gramajo Orders Orders: Coding Level of Care Code Comprehensive,moderate 06/02/181911 &#60 ;Electronically signed by John Sol MD> Date [facility] Signature: Date (if applicable) CC: Jeanine Gramajo DO 26-May-2018 Gallbladder Result: Comments: See Note; NOTES: [facility] Imaging Services [address] [place] [address] Gallbladder MR#: [id number] Acct: [id number] Name: HANNAH STANLEY Rep #: [id number] : F 58 From: Martin Melton MD PCP: Jeanine Gramajo DO Status: REG CLI Study: Gallbladder Date of Exam: 05/26/18 Exam# [id number] Ordering Dr: Jeanine Gramajo DO STUDY: ABDOMINAL ULTRASOUND - R IGHT UPPER QUADRANT REASON FOR VISIT: Female, 58 years old. Right upper quadrant pain. TECHNIQUE: Ultrasound evaluation of the right upper quadrant was performed with real-time and static lackey-scale i maging. TECHNICAL QUALITY: Limited by body habitus COMPARISON: CT dated 02/24/2018 FINDINGS: Liver: The liver measures 14.5 cm. There is normal echogenicity of the liver. The bile ducts are within normal limits. There is hepatic color flow. The direction of portal flow is hepatopetal. There is a 1.1 x 1.0 cm simple cyst in the right lobe of the liver. Gallbladder : Normal distended gallbladder. The gallbladder wall measures 2 mm. There is a negative sonographic Pandey's sign. There is no pericholecystic fluid. There is a solitary echogenic gallstone within the g allbladder. Common Bile Duct (C.B.D.): The common bile duct measures 2 mm. Pancreas: Normal size of the head, body and tail of the pancreas. There is normal echogenicity of the pancreas. There is no d emonstrated pancreatic mass or cyst. Right Kidney: Normal size of the right kidney. The right kidney measures 10.8 cm. Normal renal cortex. There is no demonstrated renal mass or cyst. There is no righ t hydronephrosis. US/Gallbladder IMPRESSION: Cholelithiasis without sonographic evidence of acute cholecystitis. Simple cyst in the liver. Elec tronically Signed: Martin Melton, at 15:54 EDT Tel , Service support , CC: Jeanine Gramajo DO Wool Merchant: Signed 24-Feb-2018 Emergency Department Summary Result: Comments: See Note; NOTES: [facility] Medical Records Department [address] [place] [address] Emergency Department Summary 02/24/18 0806 MR#: [id number] Acct: [id number] Name: HANNAH STANLEY Rep #: [id number] : 1960 57 From: Dolores Paz MD PCP: Jeanine Gramajo DO Status: DEP ER - ER Visit Summary Date of Service: 02/24/18 Chief Complaint: Left lower abdominal pain History of Present Illness: The patient is a 57 F with left lower abdominal pain since yesterday. Pain waxes and wanes in intensity, with crampiness and associated nausea. Patient also complains of dy suria and urgency. No hematuria, diarrhea, fever. Patient had a syncopal episode during a severe episode of the pain last night, which caused increased nausea, diaphoresis and then patient woke up on th e floor. She is complaining of posterior head pain. History of kidney stones. Medical history remarkable for hypertension and high cholesterol. Patient is not on any blood thinners. Physical Examinatio n: Vital signs: afebrile, hemodynamically stable, no hypoxia on room air General: well nourished, well developed, in no distress Skin: warm, dry, no rash, no pallor HEENT: normocephalic, tenderness to t he posterior mid scalp without any swelling, deformities, abrasions, lacerations or hematoma; PERRL, EOMI, moist mucous membranes Cardiovascular: regular rate and rhythm without murmurs, no peripheral e merari, 2+ pulses all distal extremities Respiratory: No increased work of breathing, lungs are clear to auscultation bilaterally, no rales, rhonchi or wheezing Abdominal: Abdomen is soft, tender in left lower quadrant, with normoactive bowel sounds, no guarding or rebound, no masses, mild left lower back tenderness question MSK: Moves all extremities, no deformities, normal strength Neuro: Awake and al ert, oriented 4. No facial droop, sensation and motor function intact and symmetric Test Results: Abnormal Lab Results Clinical Impression(s) from Imaging Studies Abdomen/Pelvis CT 02/24/18 08:0 5 IMPRESSION: Solitary gallstone. Mild degree of sigmoid diverticulitis with no evidence of abscess or fluid collection at this time. Electronically Signed: Julius Barger MD at 9:12 ED T Tel [phone], Service support , Emergency Department Course and Treatment: Patient's presentation is concerning for renal colic, diverticulitis or pyelonephritis. L abs showed no hematuria or infection on urinalysis, no leukocytosis, no electrolyte or renal derangements. CT flank showed sigmoid diverticulitis, uncomplicated. Patient was started on Cipro and Flagyl for treatment. She was given a prescription for Zofran and Leonidas for symptomatic management. Return precautions given. Patient discharged home. Treatment Plan: [] Disposition: [] Impression: Acute si gmoid diverticulitis, uncomplicated This note was generated with [employer] dictation software. It may contain incorrect words, spelling, and punctuation that were not noted in review of the chart prior to signing ED Disposition - Plan for ED Patient: Disposition: Home or Assisted Living Chief Complaint: Flank Pain Instructions: ED Diverticulitis Prescriptions: Hydrocodone Bitart/Apap 5-325 [Leonidas 5 MG-325MG] 1 tab PO Q6H PRN PRN 3 Days #12 tab PRN Reason: Pain Ondansetron [Zofran Odt] 4 mg PO Q8H PRN PRN #20 tab.rapdis PRN Reason: Nausea Metronidazole [Flagyl] 500 mg PO Q8H #21 tab Ciprofloxacin [ Cipro] 500 mg PO BID #14 tab Referrals: Jeanine Gramajo DO [Primary Care Provider] - 3-5 Days if not improving Additional Instructions: Take the antibiotics as prescribed for the entire 7 days, even if you feel better before you have finished them. Do not drink alcohol while taking the antibiotics. You may use the ondansetron 30 minutes before taking your dose if the antibiotics make you sick to stom ach. You may use [id number] pain medication as needed for pain, or the norco for severe pain. Do not drive or do any dangerous activities while taking the norco, may make you feel dizzy or sleepy. If you are getting worse rather than better after 48 hours of antibiotics, you develop a high fever, worsening severe pain, or you are unable to tolerate the antibiotics at home, please return to the emergency department for another evaluation. What to do if you have Problems For any increased pain, shortness of breath, bleeding, nausea or vomiting, chest pain, or any unexpected problems, contac t your Primary Care Provider. Call [facility] ([phone]) or report to the closest Emergency Room. Call 911 if necessary. 02/24/181906 <Electronically signed by Dolores Paz MD&# 62; Date Dolores Paz MD Cosigner Signature (If Indicated): Date CC: Jeanine Gramajo DO 24-Feb-2018 Discharge Instruction Result: Comments: See Note; NOTES: [facility] Medical Records Department [address] [place] [address] Discharge Instruction 02/24/18 0949 MR#: [id number] Acct: [id number] Name: HANNAH STNALEY Rep #: [id number] : 1960 57 From: Dolores Paz MD PCP: Jeanine Gramajo DO Status: DEP ER ED Disposition - Plan for ED Patient: Disposition: Home or Assisted Living Chief Complaint: Fl ank Pain Instructions: ED Diverticulitis Prescriptions: Hydrocodone Bitart/Apap 5-325 [Leonidas 5MG-325MG] 1 tab PO Q6H PRN PRN 3 Days #12 tab PRN Reason: Pain Ondansetron [Zofran Odt] 4 mg PO Q8H PRN PRN #20 tab.rapdis PRN Reason: Nausea Metronidazole [Flagyl] 500 mg PO Q8H #21 tab Ciprofloxacin [Cipro] 500 mg PO BID #14 tab Referrals: Jeanine Gramajo, [Primary Care Provider] - 3-5 Days if not improv ing Additional Instructions: Take the antibiotics as prescribed for the entire 7 days, even if you feel better before you have finished them. Do not drink alcohol while taking the antibiotics. You may u se the ondansetron 30 minutes before taking your dose if the antibiotics make you sick to stomach. You may use pfer-cjd-tqsfduo pain medication as needed for pain, or the norco for severe pain. Do not d rive or do any dangerous activities while taking the norco, may make you feel dizzy or sleepy. If you are getting worse rather than better after 48 hours of antibiotics, you develop a high fever, worse brandon severe pain, or you are unable to tolerate the antibiotics at home, please return to the emergency department for another evaluation. What to do if you have Problems For any increased pain, heriberto rtness of breath, bleeding, nausea or vomiting, chest pain, or any unexpected problems, contact your Primary Care Provider. Call [facility] ([phone]) or report to the closest Emergency Room. Call 911 if necessary. 02/24/18 4767 <Electronically signed by Dolores Paz MD> Date Dolores Paz MD Cosigner Signature (If Indicat ed): Date CC: Jeanine Gramajo DO 24-Feb-2018 Abdomen/Pelvis without Cont Result: Comments: See Note; NOTES: [facility] Imaging Services [address] [place] [address] Abdomen/Pelvis without Cont MR#: [id number] Acct: [id number] Name: HANNAH STANLEY Rep #: [id number] : 1960 F 57 From: Julius Barger MD PCP: Jeanine Gramajo DO Status: REG ER Study: Abdomen/Pelvis without Cont Date of Exam: 02/24/18 Exam# [id number] Ordering Dr: Dolores Paz MD STUDY: CT ABDOMEN AND PELVIS WITHOUT CONTRAST REASON FOR EXAM: Female, 57 years old. Left-sided pain. RADIATION DOSAGE (If Supplied By Facility): CTDIvol = ( 13.8 ) mGy, DLP = ( 649.43 ) mGycm TECHN IQUE: Transaxial images were obtained from the dome of the diaphragm to the symphysis pubis without oral contrast, and without intravenous contrast. Sagittal and coronal images were reconstructed. Megan vidualized dose optimization techniques were used for this CT. COMPARISON: None. FINDINGS: Minimal degree of dependent bibasilar atelectasis. The visualized portion s of the heart are within normal limits. There is a 5.5 mm well-defined hypodensity in the superior aspect of the right lobe of the liver most likely representing a small cyst. L suspect 2 small cysts in the inferior aspect of the right lobe of the liver. There is a solitary gallstone. This measures 5.7 mm x 5 mm. Normal spleen. Normal pancreas. Normal bilateral adrenal glands. Normal right kidney. Normal left kidney. Normal visualized stomach. Normal small intestine. There is diverticulosis, with thickening of the sigmoid colon wall, and pericolonic inflammation changes consistent with acute di verticulitis. The appendix is visualized and appears normal. Normal abdominal aorta. Normal inferior vena cava. Normal retroperitoneum. Normal urinary bladder. Normal abdominal wall. Normal osseous s tructures. CT/Abdomen/Pelvis without Cont IMPRESSION: Solitary gallstone. Mild degree of sigmoid diverticulitis with no evidence of abscess or fl uid collection at this time. Electronically Signed: Julius Barger MD at 9:12 EDT Tel [phone], Service support , CC: Jeanine Gramajo DO; Dolores Paz MD Wool Merchant: Signed 20-Jan-2018 SCREENING MAMM (CAD), BILAT Result: Comments: See Note; NOTES: [facility] Imaging Services [address] [place] [address] SCREENING MAMM (CAD), BILAT MR#: [id number] Acct: [id number] Name: HANNAH STANLEY Rep #: [id number] : 1960 F 57 From: Julius Barger MD PCP: Jeanine Gramajo DO Status: REG CLI Study: SCREENING MAMM (CAD), BILAT Date of Exam: 01/20/18 Exam# [id number] Ordering Dr: Jeanine Gramajo DO MAMMOGRAPHY - BILATERAL SCREENING REASON FOR EXAM: Female, 57 years old. Routine annual screening examination. PERTINENT HISTORY: Non-contributory. TECHNIQUE: Digital bilateral breast eneida (3D m ammographic acquisition) in the CC and MLO projections. 2-D mediolateral oblique (MLO) and craniocaudad (CC) views of both breasts were obtained. CAD: Full Field Digital Mammography with Computer Added Detection was performed. COMPARISON: Comparison is made with prior study dated January 08, 2017 and December 28, 2015. FINDINGS: Breast Composition: The breasts are hete rogeneously dense, which may obscure small masses. There are no dominant masses or suspicious calcifications. No other significant abnormalities are identified. There has been no significant change si nce the prior study. BI/SCREENING MAMM (CAD), BILAT IMPRESSION: Stable bilateral screening mammogram. Yearly follow-up mammogram recommended. (A) ASSESSMENT CATEGORY: BIRADS Category 1: Negative. A letter regarding these results will be sent to the patient by the facility within 30 days. Approximately 10% o f breast cancers are not detected by mammography. A normal mammogram should not delay biopsy of a clinically suspicious abnormality. [id number] Electronically Signed: Julius Barger MD at 9:07 EDT Tel [phone], Service support , CC: Jeanine Gramajo DO Wool Merchant: Signed 16-Dec-2017 Stress Test Echo w/o Contrast Result: Comments: See Note; NOTES: [facility] Cardiovascular Services [address] [place] [id number] Stress Test Echo w/o Contrast MR#: [id number] Acct: [id number] Name: HANNAH STANLEY Rep #: [id number] : 1960 57 From: Vicente Lemus MD Primary Care: Jeanine Gramajo DO Status: REG CLI Ordering Dr: Christianne Pepper COMPTOMETRIST-C Sex: F C Reason For Study: Chest Pain Stress Results Protocol: Marvin Protocol Maximum Predicted HR: 162 bpm Target HR: 138 bpm% Max imum Predicted HR: 106 % DurationHeart Rate Stage (mm:ss) (bpm) BP Baseline 72 128/70 Marvin Protocol Stage I 3:00 13 3 140 /70 Marvin Protocol Stage II 3:00 15 5 150/72 Marvin Protocol Stage III 0:36 17 1 / Recovery 91 128/88 Stress Duration: 6:36 mm:ss Maximum Stress HR: 171 bpmM ETS: 8 Baseline Echocardiogram Findings Th e estimated ejection fraction is 65 %. Stress Echo Wall motion Data Resting WMIntermediate WMStress WM Resting Wall Motion Wall Motion Stress No regional wall motion No regional wall motion abnormalit ies noted. abnormalities noted. EKG Data Normal intervals are noted. The patient exercised according to the regular Marvin protocol for a total duration of 6:36. The maximum heart rate attained was 171 beats per minute. This was 105% of maximum predicted heart rate. The patient exercised into stage 3 of the Marvin protocol. During stress, there were no ST or T wave changes noted to suggest ischemia. No clinical angina was noted. No arrhythmias noted. Interpretation Summary The estimated ejection fraction is 65 %. Normal adequate treadmill echocardiogram. Negative for ischemia by EKG and echocardiogr aphic criteria. No anginal symptoms noted. Rare PVC noted. Appropriate blood pressure response to exercise. Average exercise capacity for age. Test terminated due to dyspnea. Patient tolerated procedure well. No complications. Final LVEF is 75%. Ordering Physician: LETY Nielson Referring y sician: Vicente Lemus MD Performed By: Ashley Rob, MAKENZIE, RVT 12/16/17 1545 Date __ Vicente Lemus MD CC: LETY Gramajo DO Date Dictated: 12/16/17 1316 Date Transcribed: 12/16/17 1545 Wool Merchant: Signed 17-Nov-2017 Chest PA and Lateral Result: Comments: See Note; NOTES: [facility] Imaging Services [address] [place] [address] Chest PA and Lateral MR#: [id number] Acct: [id number] Name: HANNAH STANLEY Rep #: [id number] : 1960 F 57 From: Julius Barger MD PCP: Jeanine Gramajo DO Status: REG CLI Study: Chest PA and Lateral Date of Exam: 11/17/17 Exam# [id number] Ordering Dr: Christianne Pepper STUDY: X- RAY CHEST REASON FOR EXAM: Female, 57 years old. Cough. Chest pain. TECHNIQUE: PA and lateral views of the chest. COMPARISON: None. FINDINGS: The lungs are clear and expanded. Scattered calcified granulomas. There is no demonstrated pleural abnormality. Normal size heart. Normal mediastinum and denny. Normal visualized pulmonary arteries. There is atherosclerot ic tortuosity of the aortic arch and descending thoracic aorta. There are degenerative changes of the visualized thoracic spine. Metallic anchor is seen overlying the right humeral head most likely sec ondary to prior rotator cuff surgery. There is no demonstrated abnormality of the visualized soft tissue structures of the upper abdomen. RAD/Ch est PA and Lateral IMPRESSION: Scattered calcified granulomas. Electronically Signed: Julius Barger MD at 12:46 EST Tel [phone], Service support , CC: LETY Pepper; Jeanine Gramajo DO Wool Merchant: Signed 16-Nov-2017 Urgent Care Visit Report Result: Comments: See Note; NOTES: [facility] [address] [place] [address] OFFICE VISIT Date of Service: 11/16/17 MR#: [id number] Acct: [id number] Name: HANNAH STANLEY Rep #: [id number] : 1960 Provider: Navneet VIERA Age/Sex: 57/F Location: [facility] Status: Signed Intake Vital Signs11/16/17 Height 5 ft 2 in Intake Visit Reasons: CHEST CONGESTION Is patient in p ain?: No Allergies topiramate [From Topamax] Allergy (Verified 11/16/17 17:39) Hives Medications Alendronate Sodium [Fosamax] 70 mg PO Q7D@0700 07/13/16 [History Confirmed 11/16/17] Atorvastatin Norbert cium [Lipitor] 40 mg PO QHS 07/13/16 [History Confirmed 11/16/17] Cholecalciferol (VIT D3) [Vitamin D] 1,000 unit PO DAILY 07/13/16 [History Confirmed 11/16/17] Eletriptan Hydrobromide [Relpax] 40 mg PO .X1 PRN 07/13/16 [History Confirmed 05/22/17] Multivitamin [Daily Multiple Vitamin] 1 ea PO DAILY 07/13/16 [History Confirmed 11/16/17] Paroxetine HCl [Paxil] 10 mg PO DAILY 07/13/16 [History Confirmed 11/16/17] Triamterene 37.5MG/Hctz 25MG [Dyazide (G)] 1 cap PO DAILY 07/13/16 [History Confirmed 11/16/17] Vitamin E 400 unit PO DAILY 07/13/16 [History Confirmed 11/16/17] PFSH Medical History Hemo rrhoids (Acute) Shoulder pain (Acute) HTN (hypertension) (Chronic) Surgical History H/O rotator cuff surgery (Acute) History of knee surgery (Acute) Hx of section (Acute) Family History Ot her Cancer Heart disease Kidney disease Social History Smoking Status: Never smoker alcohol intake: never HPI CHEST CONGESTION: Details: HANNAH STANLEY, is a 57 F who presents to the office today for complaint of cold symptoms as well as right-sided chest and back pain. She describes the pain as a pressure type pain. Patient states that she did have a cough with her cold however it was not a par ticularly forceful or incessant cough. She does state that she noticed right-sided chest pain yesterday while at work which did radiate to the right side of her back. This chest pain returned again toda y when she walked from work to her car. She denies shortness of breath or difficulty breathing. She has no reproducible chest pain and cannot pinpoint the pain. She does have a family history of her mot her having an CO at approximate age 59. No other associated symptoms or alleviating/aggravating factors. ROS Const Constitutional: No chills, fever(s), abnormal sleep pattern or fatigue Resp Respirator y: Positive for cough Cough: Yes non-productive; no shortness of breath or chest congestion Cardio Cardiology: Positive for chest pain with exertion; no chest pain at rest, shortness of breath, dyspnea on exertion, lightheadedness, irregular heart rhythm, orthopnea, radiating jaw, neck or arm pain or palpitations Musc Musculoskeletal: Positive for back pain Skin Skin: No wounds or lesions Neuro Neurol ogy: No behavioral changes or confusion Psych Psychiatric: No behavioral changes, No confusion, No abnormal sleep pattern Endo Endocrine: No fatigue Exam Const General: cooperative, healthy appearing [facility] Head: normocephalic, atraumatic Ears: hearing grossly normal bilaterally Face and sinus: face symmetric Eyes General: appearance normal, both eyes and all related structures Pupils: PERRL Resp Eff ort AND Inspection: normal respiratory effort, not labored Auscultation: Bilateral: Clear to Auscultation Cardio Palpation: normal PMI Rate: regular rate Rhythm: regular rhythm Heart Sounds: S1 normal, S2 normal Musc Other: Pain to the pectoral area with abduction of the right arm. Skin General: no rashes or lesions noted Neuro General: alert, CN's II-XI intact bilaterally Psych Appearance: grossly no rmal Mental Status: mental status grossly normal Assessment AND Plan Problems 1. Chest pain on exertion R07.9 Status Acute 2. Chest pain radiating to arm R07.89 Status Acute Plan Patient advised to r eport to the ED for further workup and treatment. Patient advised to go by EMS however patient denied. She did state that she will go immediatly to [facility] ED. Tried to perform EKG on site however EKG was n ot functioning properly. This note was generated with [employer] dictation software. It may contain incorrect words, spelling, and punctuation that were not noted in checking the note before signing. Orde rs Orders: Coding Level of Care Code Off vis,new,level 4 Diagnoses Chest pain on exertion R07.9 Chest pain radiating to arm R07.89 11/16/17 6163 <Electronically signed by Navneet VIERA&am p;#62; Date Navneet VIERA Cosigner Signature: Date (if applicable) CC: 08-Jun-2017 Operative Report Result: Comments: See Note; NOTES: [facility] Medical Records Department [address] [place] [address] Operative Report 05/29/17 0857 MR#: [id number] Acct: [id number] Name: HANNAH STANLEY Rep #: [id number] : 1960 57 From: Beatris Stokes DPM PCP: Jeanine Gramajo DO Status: DEP [facility] Y Location: [facility] Problem List (1) Hammer toe of right foot Status: Chronic (2) Hammer toe of le ft foot Status: Chronic (3) Toe pain, right Status: Chronic (4) Toe pain, left Status: Chronic Report of Operation Date of Procedure: 05/29/17 - Surgeon: Dianne Stokes DPM Pre-Operative Diagnosis: ham judy digit syndrome, right 5th toe. hammer digit syndrome, left 5th toe Post-Operative Diagnosis: hammer digit syndrome, right 5th toe. hammer digit syndrome, left 5th toe Surgery/Procedure Performed:: a rthroplasty with rotational skin plasty right fifth toe. arthroplasty with rotational skin plasty left fifth toe Description of Surgical Findings:: Hemostasis: well padded pneumatic ankle tourniquet bi lateral; 250 mmHg Materials: 3-0 vicryl, 4-0 nylon helicopter pilot: Yomi, PGY3 Type of Anesthesia:: Local MAC - preoperative: 1:1 mix of 1% licodaine plain and 0.5% marcaine plain administed in typical 5th ray block fashion (14 cc) post operative: 1:1 mix of 1% licodaine plain and 0.5% marcaine plain administed in typical 5th digital block fashion (7 cc) Specimen's removed: none Estimated Blood Loss (mL) : <30 mL Description of Procedure: INDICATIONS: This 57-year-old pleasant female with significant past medical history of anxiety, osteopenia, hypercholesterolemia, migraines, and hypertension continues to have bilateral fifth toe pain with additional callous formation. Her pain is aggravated by shoe gear use and walking activity. She has failed conservative care including changing shoe gear, padding, rest, activity modification, callous care, moisturizing creams, shoe insole change, and foot therapy exercises. Her pain is affecting her daily activities. Clinically, her neurovascular status is intact to both feet. She has dorsal contraction and varus rotation of the fifth digit consistent with a digiti quinti varus with a dorsal lateral callus over the lateral aspect of the proximal phala nx head. She does not demonstrate dislocation or contraction at the metatarsophalangeal joint. Her x-rays were also reviewed which do also demonstrate some varus rotation of this fifth toe with a promin ent head of the proximal phalanx. She has bilateral distal interphalangeal joint synostosis that is also noted. The preoperative indications, planned procedure, plan benefits, risks, complications, and anticipated healing time and management were discussed in detail with the patient. No guarantees were made. She understands the risks and complications include the following but are not limited to: Cont inued pain, swelling, scarring, over under correction, need for revisional surgery, transfer lesion, infection, loss of limb, function, or life. She understands and elects to proceed at this time. [facility] surgical consent and the surgical limb were obtained for bilateral arthroplasty of the fifth toe with rotational skin plasty. Her clearance was reviewed and obtained by the patient s primary care ph ysician (Dr. Gramajo, 05/06/2017)), and the pre-operative H AND P was reviewed. Her diagnostic data including CBC, CMP, and ECG were reviewed; she was cleared for this procedure with low risk. Her questio ns were answered to her satisfaction. PROCEDURE IN DETAIL: The patient was transported to the operating room via cart and placed on the operating room table in the supine position. Final verification of the patient, surgery, and limb designation was performed via the timeout procedure. The IV antibiotic was administered preoperative by the anesthesia team. MAC anesthesia was initiated by the anesthe rhonda team. Local anesthesia was administered by the podiatry team as noted. Bilateral well-padded pneumatic ankle tourniquets were placed. Bilateral lower extremities were prepped and draped in the usual aseptic manner. Attention was first directed to the right limb in which an Esmarch bandage was used to exsanguinate the limb. The tourniquet was inflated at this time. An elliptical incision was made in the skin in an oblique fashion spanning from distal medial dorsal to proximal lateral fifth toe over the proximal interphalangeal joint level. This skin tissue was removed in the soft tissue was gent ly mobilized. Care was taken to identify, protect, and retract all neurovascular structures at this point and throughout the remainder of the surgery. The prominent proximal phalanx head was immediately identified and the extensor tendon was released with a 15 blade. Next, the collateral ligaments were released from the proximal phalanx head to gain good exposure. A sagittal saw was used to resect the head of proximal phalanx. Palpably the bony prominence adjacent to the callus site was resolved at this time. A Kelikian push-up test was used to see if additional sagittal plane deformity was present and it was not. A fluoroscopy exam was used to confirm adequate resection was performed and the toe was in the ideal proper position. Saline irrigation was performed copiously. The collateral ligaments were next reapproximated with 3-0 Vicryl as was the extensor tendon. The tourniquet was deflated at this time and brisk capillary refill time was noted to all digits of the surgical foot. No pulsatile b leeding was noted. Next, skin closure was achieved with simple horizontal mattress technique with 4-0 nylon. An improved rectus fifth toe position was noted. Next, attention was directed to the left fo ot and an Esmarch bandage was used to exsanguinate the limb. The exact same procedure as previously described for the contralateral right limb was performed in the same manner with the same surgical and radiographic findings. Prior to skin closure the tourniquet was deflated and brisk capillary refill time was noted to all digits of the left surgical foot. No pulsatile bleeding was noted. The postope rative injections were administered as noted. Bilateral postoperative dressings were applied including Adaptic, Betadine soaked gauze to act as splintage, gauze, Alf, and an Bernardo wrap. Care was taken t o maintain the rectus fifth digit position. AFTER PROCEDURE: The patient tolerated the procedure and anesthesia well. She was transported to the PACU with vital signs stable and vascular status intact to bilateral lower extremities. She was advised to ice and elevate bilateral lower extremities to help control postoperative pain and inflammation. She was already provided with postoperative pain medi cation and was advised on proper and safe use. To heel weight-bear with bilateral surgical shoes in place. To use crutches for assistance only if needed. To keep her dressings clean, dry, and intact unt il she follows up at the [facility] next week. Postoperative x-rays were ordered formally and will be obtained prior to discharge home later today. Beatris Stokes DPM [facility] - Complications none 06/08/17 1104 <Electronically signed by Beatris Stokes DPM> Date Beatris Stokes DPM CC: Beatris Stokes DPM; Jeanine Gramajo DO Signed 29-May-2017 Discharge Instruction Result: Comments: See Note; NOTES: [facility] Medical Records Department [address] [place] [address] Instructions for Home/Discharge Instructions 05/29/17 0856 MR#: [id number] Acct: [id number] Name: HANNAH STANLEY Araceli Rep #: [id number] : 1960 57 From: Beatris Stokes DPM PCP: Jeanine Gramajo DO Status: REG [facility] Weight Bearing Status: Partial weight bearing - heel weightbear with surgical shoes. only use crutches if needed Keep extremity elevated above heart level: Left Leg, Right Leg Call your doctor if your incision/area has: Continuous Slow Oozing, Sudden Increased Bleeding, Increased Pain/ Swelling, Increased Redness, Foul Smelling Discharge, Swelling at the incision site Call your doctor if you observe: Fever of 101 or Higher, Numbness or Tingling, Calf discomfort, Uncon trolled pain Cleanse incision/area with: Keep Dressing Clean AND Dry Allergies/Adverse Reactions: Allergies topiramate [From Topamax] Allergy (Verified 05/22/17 11:22) Hives Medications to take at bishnu Alendronate Sodium [Fosamax] 70 mg PO Q7D@0700 07/13/16 Atorvastatin Calcium [Lipitor] 40 mg PO QHS 07/13/16 Cholecalciferol (VIT D3) [Vitamin D] 1,000 unit PO DAILY 07/13/16 Eletriptan Hydrobr omide [Relpax] 40 mg PO .X1 PRN 07/13/16 Multivitamin [Daily Multiple Vitamin] 1 each PO DAILY 07/13/16 Ondansetron [Zofran Odt] 4 mg PO Q8H PRN PRN #10 tablet 07/13/16 Paroxetine HCl [Paxil] 10 mg PO D AILY 07/13/16 Triamterene 37.5MG/Hctz 25MG [Dyazide (G)] 1 cap PO DAILY 07/13/16 Vitamin E 400 unit PO DAILY 07/13/16 Primary Care Physician: Jeanine Gramajo DO [Primary Care Provider] - Please Follo w Up With: Beatris Stokes When: 1 week at [facility]. Call sooner if questions: [phone] Proposed Discharge Date: 05/29/17 05/29/17856 <Electronically signed by Beatris gomez DPM> Date Beatris Stokes DPM CC: Jeanine Gramajo DO 29-May-2017 Foot 2 Views Result: Comments: See Note; NOTES: [facility] Imaging Services [address] [place] [address] Foot 2 Views MR#: [id number] Acct: [id number] Name: HANNAH STANLEY Rep #: [id number] : F 57 From: Julius Barger MD PCP: Jeanine Gramajo DO Status: [facility] Study: Foot 2 Views Date of Exam: 05/29/17 Exam# [id number] Ordering Dr: Beatris Stokes DPM STUDY: X-RAY - LEFT FOOT CLINICAL: Female, 57 years old. Postoperative examination. TECHNIQUE: AP and lateral view(s) of the foot. COMPARISON: None. FINDINGS: Normal talus, calcaneus, an d tarsal bones. Normal visualized subtalar, talonavicular, calcaneocuboid, tarsal and tarsometatarsal articulations. Normal metatarsi. Normal metatarsophalangeal joint of the great toe. Normal tibial and fibular sesamoid bones. Normal interphalangeal joint of the great toe. Normal phalanges of the great toe. Normal second through fifth metatarsophalangeal joints. The patient is status post resecti on of the distal portion of the proximal phalanx and middle phalanx of the fifth toe. Postoperative soft tissue changes. RAD/Foot 2 Views IMPRES MICK: The patient is status post resection of the distal portion of the proximal phalanx and middle phalanx of the fifth toe. Postoperative soft tissue changes. Electronically Signed: Julius Ball i, MD at 9:41 EDT Tel [phone], Service support , CC: Beatris Stokes DPM; Jeanine Gramajo DO Wool Merchant: Signed 29-May-2017 Foot 2 Views Result: Comments: See Note; NOTES: [facility] Imaging Services [address] [place] [address] Foot 2 Views MR#: [id number] Acct: [id number] Name: HANNAH STANLEY Rep #: [id number] : F 57 From: Julius Barger MD PCP: Jeanine Gramajo DO Status: [facility] Study: Foot 2 Views Date of Exam: 05/29/17 Exam# [id number] Ordering Dr: Beatris Stokes DPM STUDY: X-RAY - RIGHT YOLANDA T CLINICAL: Female, 57 years old. Postoperative evaluation. TECHNIQUE: AP and lateral view(s) of the foot. COMPARISON: None. FINDINGS: Normal talus, calcaneus, an d tarsal bones. Normal visualized subtalar, talonavicular, calcaneocuboid, tarsal and tarsometatarsal articulations. Normal metatarsi. Normal metatarsophalangeal joint of the great toe. Normal tibial and fibular sesamoid bones. Normal interphalangeal joint of the great toe. Normal phalanges of the great toe. Normal second through fifth metatarsophalangeal joints. The patient is status post resecti on of the distal portion of the proximal phalanx of the fifth toe as well as the middle phalanx of the fifth toe. Postoperative soft tissue changes. 0023 RAD/Foot 2 Views IMPRESSION: Status post resection of the distal portion of the proximal phalanx and middle phalanx of the fifth toe with overlying soft tissue changes. Electronically Signed: Mary Barger MD at 9:43 EDT Tel [phone], Service support , CC: Beatris Stokes DPM; Jeanine Gramajo DO Wool Merchant: Signed 29-May-2017 Foot 2 Views Result: Comments: See Note; NOTES: [facility] Imaging Services [address] [place] [address] Foot 2 Views MR#: [id number] Acct: [id number] Name: HANNAH STANLEY Rep #: [id number] : F 57 From: Julius Barger MD PCP: Jeanine Gramajo DO Status: [facility] Study: Foot 2 Views Date of Exam: 05/29/17 Exam# [id number] Ordering Dr: Beatris Stokes DPM STUDY: X-RAY - RIGHT YOLANDA T CLINICAL: Female, 57 years old. And rectal correction and arthroplasty of the fifth digit. TECHNIQUE: 3 cone-down view(s) of the foot were obtained intraoperatively.. COMPARISON: None. FINDINGS: There is evidence of resection of the distal portion of the proximal phalanx of the fifth digit as well as resection of the middle phalanx. RAD/Foot 2 Views IMPRESSION: Resection of the distal aspect of the proximal pharynx of the fifth toe as well as resection of the middle phalanx. Postoperative soft tissue c hanges. Electronically Signed: Julius Barger MD at 12:50 EDT Tel [phone], Service support , CC: Beatris Stokes DPM; Jeanine Gramajo DO Wool Merchant: Signed 29-May-2017 Foot 2 Views Result: Comments: See Note; NOTES: [facility] Imaging Services [address] [place] [address] Foot 2 Views MR#: [id number] Acct: [id number] Name: HANNAH STANLEY Rep #: [id number] : F 57 From: Julius Barger MD PCP: Jeanine Gramajo DO Status: [facility] Study: Foot 2 Views Date of Exam: 05/29/17 Exam# [id number] Ordering Dr: Beatris Stokes DPM STUDY: X-RAY - LEFT FOOT CLINICAL: Female, 57 years old. Unremarkable correction. TECHNIQUE: Single AP coned-down view(s) of the foot was obtained intraoperatively. COMPARISON: None. FIN DINGS: There is evidence of resection of the distal portion of the proximal pharynx of the fifth toe as well as resection of the middle phalanx of the fifth toe. OR LEANDRO #: [id number] RAD/Foot 2 Views IMPRESSION: Resection of the distal portion of the proximal pharynx of the fifth toe as well as resection of the middle phalanx of the fifth toe. Postoperative soft tis rei changes. Electronically Signed: Julius Barger MD at 12:51 EDT Tel [phone], Service support , CC: Beatris Stokes DPM; Jeanine Gramajo DO Wool Merchant: Signed 25-Feb-2017 PT D/C Summary (1) Result: Comments: See Note; NOTES: [facility] Physical Therapy [facility] [address] [place], [place] [id number] Fax REHABILITATION SERVICES DISCHAR GE SUMMARY MR#: [id number] Acct: [id number] Name: HANNAH STANLEY Rep #: [id number] : 1960 56 From: Gisela Yanez MPT Referring Dr.: Jeanine Gramajo DO Status: REG RCR Insurance: [employer] [facility] ARE HP - PT D/C Summary It has been my pleasure to treat HANNAH STANLEY under orders from Jeanine Gramajo, for the diagnosis of Back Pain for a total of 9 visit(s). Discharge Date: 02/24/17 Please see the following information for a summary of their discharge status. - Subjective Subjective: No pain. When she gets the pain it is intermittant. Pt has a stand up desk and she thinks that that is h elping. - Pain Back pain Pain Intensity (Out of 10): 0 - Objective Objective/Function: Pt is progressing well w/ex's. VC's for posture and abdominal bracing. Semi - compliant w/HEP at this time. Ahmet etimes time inhibits HEP compliancy. - Goals Goal 1:: I HEP Goal Progress: Goal Met Goal 2:: Decrease LBP to 1/10 with ADL's Goal Progress: Goal Met Goal 3:: Sit with upright posture during treatment s essions. Goal Progress: Goal Met Goal 4:: Increase LE strength to 4/5 all planes (current LE MMT: hip flex B 3+/5, R leg ext 3- /5and L 4-/5, knee flex B 4-/5, hip abd on the R 4-/5, L 4/5) Goal Progres s: Goal Met - Plan Plan: DC PT - D/C Information Discharge Comments: DC PT If there are questions or concerns regarding this patient's physical therapy, please feel free to call me at [phone]. Th ank you for the referral of this patient. Sincerely, Gisela Yanez <Electronically signed by Gisela BOLDEN> 02/25/17 1631 CC: Jeanine Gramajo DO Signed 27-Jan-2017 Inital Evaluation (1) - PT Result: Comments: See Note; NOTES: [facility] Physical Therapy [facility] [address] [place], [place] [address] Fax REHABILITATION SERVICES INITIAL EVALUATION MR#: [id number] Acct: [id number] Name: HANNAH STANLEY Rep #: [id number] : 1960 56 From: Gisela BOLDEN Referring Dr.: Jeanine Gramajo DO Status: REG RCR Insurance: [facility] Patient's Visit Information HANNAH STANLEY is a 56 year old F referred to Physical Therapy by Jeanine Gramajo with a diagnosis of Back Pain. Date of Evaluation: 01/21/17 Physical Therapist: Arnie Yanez - Visit Plan Frequency: 2-3x /Week Duration: 4-6 Weeks Plan: 2X-3X / week for 6 weeks for centalization of symptoms using extension principle, postural exercises, core stability, manual the rapy with HEP and modalities PRN - Subjective Subjective: Pt felt a tweek in her back and then her back started to hurt and has been going on for a week now. She points to her pain more on the R side o f L-spine. She describes the pain as sharp if she moves certain ways. Standing is better. She has been doing press ups at home as when she was here last time it was down the R leg. She has a desk job. S he is going to ask Dr Gramajo about writing an order for a standing desk at work. SHe has had no diagnostics. No N AND T in the foot. - Pain Back pain Pain Intensity (Out of 10): 6 Pain Intensity Ran ge: 10 - Objective Gait: walking with very guarded posture with increase SB to the R. Pt is able to heel and toe walk. Patellar DTR's 2+/3 B. +SLUMP test on the R. +SLR on the R. Trunk AROM: flex 75% w ith increase pain, SB R 25%, SB L 50%, ext 50% with less pain. LE MMT: hip flex B 3+/5, R leg ext 3-/5and L 4-/5, knee flex B 4-/5, hip abd on the R 4-/5, L 4/5. Prone lying: after about 7 min pts pain decreased to a 1/10 with center of back pain. Tried to do 1 prone on elbows and pt had increased pain and the pain lasted a little bit afterwards and decided to E- stim and ice lying in prone - Goals G oal 1:: I HEP Goal Time Frame: 4-6 Weeks Goal 2:: Decrease LBP to 1/10 with ADL's Goal Time Frame: 4-6 Weeks Goal 3:: Sit with upright posture during treatment sessions. Goal Time Frame: 4-6 Weeks Goal 4:: Increase LE strength to 4/5 all planes (current LE MMT: hip flex B 3+/5, R leg ext 3- /5and L 4-/5, knee flex B 4-/5, hip abd on the R 4-/5, L 4/5) Goal Time Frame: 4-6 Weeks - Rehabilitation Jazzy barraza Rehabilitation Potential: Good - Anticipated Interventions Therapeutic Exercise to Include: Strength training, Body mechanics, Dynamic Lumbar Stabilization, Elvis Exercises For the Purpose of:: To decrease pain, To decrease swelling/inflammation, To increase ROM, To improve nutrient delivery to tissue, To improve muscle performance and motor function, To improve ability to perform ADL's, To i ncrease tolerance to activity/condition/position, To increase flexibility/ROM Manual Therapy Techniques to Include: Mobilization, Soft tissue mobilization For the Purpose of:: To decrease pain, To incre ase ROM, To improve nutrient delivery to tissue IF ES: Yes Cryotherapy (ice pack, ice massage): Yes Thermo therapy (hot pack): Yes Ultrasound (thermal/non thermal): Yes For the Purpose of:: To decrease pain, To decrease swelling/inflammation, To increase ROM, To improve nutrient delivery to tissue, To improve muscle performance and motor function, To improve ability to perform ADL's Thank you for the opportunity to evaluate your patient. For Medicare and Medicare HMO plans, please review the plan of care and approve it. It will need to be FAXED BACK to us at [phone] for Medicare purposes. Please let me know if there are questions or concerns regarding this plan of care. Physician Signature: Date: <Electronically si gned by Gisela Yanez MPT> 01/27/17 0950 CC: Jeanine Gramajo DO Signed For Medicare only, by signing this I certify the plan of care. ___ Physicians Signature Date 08-Jan-2017 Dexa Bone Density Study (HP) Result: Comments: See Note; NOTES: [facility] Imaging Services [address] [place] [address] Verdana 4d Dexa Bone Density Study () MR#: [id number] Acct: [id number] Name: HANNAH STANLEY Rep #: [id number] : 1960 F 56 From: Julius Barger MD PCP: Jeanine Gramajo DO Status: [facility] Study: Dexa Bone Density Study () Date of Exam: 01/08/17 Exam# [id number] Ordering Dr: Jeanine Ngo DO STUDY: DUAL ENERGY X-RAY ABSORPTIOMETRY / DXA REASON FOR EXAM: Female, 56 years old. The patient is postmenopausal. TECHNIQUE: Bone Mineral Density (BMD) measurements of lumbar spine and bilateral hips were obtained. COMPARISON: Comparison is made with prior study dated December 14, 2012. FINDINGS: Lumbar Spine (L1-L4): g/cm2 (0.997) / T-score (-1.5) / Z-score (-0.5) Findings are suggestive of osteopenia with a moderate fracture risk. Left Femur Total: g/cm2 (0.963) / T-score (-0.4) / Z-score (0.4) Left Femoral Neck: g/cm2 (0.982) / T-score (-0.4) / Z-score (0.7) Right Femur Total: g/cm2 (0.919) / T-score (-0.7) / Z- score (0.1) Right Femoral Neck: g/cm2 (0.934) / T-score (-0.7) / Z-score (0.4) The T-Scores on the most recent prior examin ation were: Lumbar Spine (L1-L4): There has been worsening of bone density since the previous examination. Left Femur Total: which represents an improvement of 3.8%. Right Femur Total: which represent s an improvement of 0.4%. 0001 HPBD/Dexa Bone Density Study (HP) IMPRESSION: The patient is considered osteopenic at the level of lumbar spine as outl ined below according to World Ross Organization (WHO) criteria with a moderate fracture risk. There has been improvement of bone density since the previous examination. ____ Reference Information: The T-score is the number of standard deviations above or below the standard which is normal for young adults at their peak bone mineral density. The World Health Organizati on (WHO) interprets the T-scores as follows: Above -1 Normal bone density Between -1 and -2.5 Osteopenia Equal to / or below -2.5 Osteoporosis As a practical clinical guideline, osteopenia may be grad ed as follows: Mild -1 through -1.5 Moderate -1.6 through -2.0 Severe -2.1 through -2.4 The Z-score is the number of standard deviations above or below age- matched controls. A Z-score of less than -1.5 would be considered abnormal. References: 1. NIH Osteoporosis and Related Bone Diseases http://www.osteo.org 2. International Society for Clinical Densitometry http://www.iscd.org 3. National Osteopor osis Foundation http://www.nof.org Electronically Signed: Julius Barger MD at 9:26 EDT Tel [phone], Service support [phone], CC: Jeanine Gramajo DO Wool Merchant: Signed 08-Jan-2017 SCREENING MAMM (CAD), BILAT Result: Comments: See Note; NOTES: [facility] Imaging Services [address] [place] [address] Verdana 4d SCREENING MAMM (CAD), BILAT MR#: [id number] Acct: [id number] Name: HANNAH STANLEY Rep #: [id number] : 1960 F 56 From: Julius Barger MD PCP: Jeanine Gramajo DO Status: REG [facility] Study: SCREENING MAMM (CAD), BILAT Date of Exam: 01/08/17 Exam# [id number] Ordering Dr: Jeanine Gramajo DO MAMMOGRAPHY - BILATERAL SCREENING REASON FOR EXAM: Female, 56 years old. Routine annual screening examination. PERTINENT HISTORY: Non- contributory. TECHNIQUE: Digital bilateral breast eneida (3D mammographic acquisition) in the CC and MLO projections. 2-D mediolateral oblique (MLO) and craniocaudad (CC) views of both breasts were obtained. CAD: Full Field Digital Mammography with Comp uter Added Detection was performed. COMPARISON: Comparison is made with prior study dated December 24, 2015 and December 19, 2014. FINDINGS: Breast Composition: The breasts are heterogeneously dense, which may obscure small masses. There are no dominant masses or suspicious calcifications. No other significant abnormalities are identified. There has been no significant change since the prior study. 0009 HPBI/SCREENING MAMM (CAD), BILAT IMPRESSION: Stable bilateral screening mammogram. Yearly follow-up mammogram recom mended. (A) ASSESSMENT CATEGORY: BIRADS Category 1: Negative. A letter regarding these results will be sent to the patient by the facility within 30 days. Approxim ately 10% of breast cancers are not detected by mammography. A normal mammogram should not delay biopsy of a clinically suspicious abnormality. [id number] Electronically Signed: Julius Barger MD 201 04/20/23 at 10:53 EDT Tel [phone], Service support [phone], CC: Jeanine Gramajo DO Wool Merchant: Signed 13-Jul-2016 Emergency Department Summary Result: Comments: See Note; NOTES: [facility] Medical Records Department [address] [place] [address] Emergency Department Summary MR#: [id number] Acct: [id number] Name: HANNAH STANLEY Rep #: [id number] : 1960 56 From: Omega Van MD PCP: Jeanine Gramajo DO Status: [facility] DATE OF SERVICE: 07/13/2016 CHIEF COMPLAINT: Headache. HISTORY OF PRESENT ILLNESS: A 56-year-o ld female with history of migraine headache, presents to the Emergency Department with headache. The patient's symptoms have been going on since yesterday. She states that she gets migraines almost ever y week. She is on prophylactic medication. She tried to take it today, but she vomited, which made it worse. She also has history of hypertension and hypercholesterolemia. She denies any fevers or chill s. She does admit to some nausea. She denies any trauma or carbon monoxide exposure. PHYSICAL EXAMINATION: VITAL SIGNS: Afebrile. Vitals unremarkable. GENERAL: Well-appearing female in no acute distres s. HEENT: Normocephalic, atraumatic. Pupils are equal, round and reactive. Extraocular muscles intact. NECK: Supple. HEART: Regular rate and rhythm. LUNGS: Clear. Chest nontender. NEUROLOGIC: Displays n o focal or lateralizing deficit. EMERGENCY DEPARTMENT COURSE: The patient's symptoms do seem more consistent with an acute migraine. She has a benign neurologic exam. She has no temporal artery tendern ess. No vesicular rash. She is not meningitic or encephalopathic. She was treated with Benadryl, Compazine and Toradol. On re-evaluation, she was markedly improved. At this time, I do feel the patient i s safe for discharge. I will write her for antiemetics. She will be discharged to home. IMPRESSION: Migraine. DISPOSITION: Discharge. Omega Van MD T: NTS JOB: [id number] 07/13/16 2245 &#6 0;Electronically signed by Omega Van MD> Date Omega Van MD Cosigner Signature (If Indicated): Date CC: Jeanine Gramajo DO Date Dictated: 07/13/161555 Date Transcribed: 07/13/161555 Wool Merchant: Signed 13-Jul-2016 Discharge Instruction Result: Comments: See Note; NOTES: [facility] Medical Records Department [address] [place] [address] Discharge Instruction 07/13/161555 MR#: [id number] Acct: [id number] Name: HANNAH STANLEY Rep #: [id number] : 1960 56 From: Omega Van MD PCP: Jeanine Gramajo DO Status: DEP ER ED Disposition - Plan for ED Patient: Chief Complaint: Headache Instructions: ED Headache , Migraine (Classic) Prescriptions: Ondansetron [Zofran Odt] 4 mg PO Q8H PRN PRN #10 tablet PRN Reason: Nausea What to do if you have Problems For any increased pain, shortness of breath, bleeding, nausea or vomiting, chest pain, or any unexpected problems, contact your doctor. Call [facility] ([phone]) or report to the closest Emergency Room. Call 911 if necessary. 07/13/16 1630 &amp ;#60;Electronically signed by Omega Van MD> Date Omega Van MD Cosigner Signature (If Indicated): Date CC: Jeanine Grmaajo DO 09-Jul-2016 PT D/C Summary (1) Result: Comments: See Note; NOTES: [facility] Physical Therapy [facility] [address] [place] [address] Fax REHABILITATION SERVICES DISCHA RGE SUMMARY MR#: [id number] Acct: [id number] Name: HANNAH STANLEY Rep #: [id number] : 1960 56 From: Gisela Yanez MPT Referring Dr.: Jeanine Gramajo DO Status: REG R Insurance: [facility] - PT D/C Summary It has been my pleasure to treat HANNAH STANLEY under orders from Jeanine Gramajo, for the diagnosis of LBP with radiculopathy for a total of 6 visit(s). Discharge Date: 0 07/09/16 Please see the following information for a summary of their discharge status. - Subjective Subjective: Pt reports that she has not had that thumping pain in awhile. She repo rts that whenever she feels the slightest pain the press ups help it. She is watching her posture. She is able to sit at work and not have any pain. She wishes to be DC to HEP and will return if the beverly n worsens. - Pain Back pain Pain Intensity (Out of 10): 0 R leg pain Pain Intensity (Out of 10): 0 - Objective Objective/Function: R hip flexion 4-/5, 4+/5 L. Bilat knee flex, knee ext 4/5 bila t. -SLUMP test bilat. - Goals Goal 1:: I HEP/ core stability program Goal Progress: Goal Met Goal 2:: Be able to return to all ADL's and sit through work without leg numbness or back discomfort Goal Pr ogress: Goal Met Goal 3:: Increase LE strength by 1/2 muscle grade. Goal Progress: Progressing Goal 4:: Negative SLR or SLUMP test on the R Goal Progress: Goal Met - Plan Plan: DC PT to HEP - D/C Info rmation Discharge Comments: DC to HEP If there are questions or concerns regarding this patient's physical therapy, please feel free to call me at [phone]. Thank you for the referral of this patien t. Sincerely, Gisela Yanez <Electronically signed by Gisela BOLDEN> 07/09/161926 CC: Coral Ray MD; Jeanine Gramajo DO Signed 04-Jun-2016 Inital Evaluation (1) - PT Result: Comments: See Note; NOTES: [facility] [address] [place] [address]. [address] [place] [address] Fax REHABILITATION SERVICES JERRYA Araceli EVALUATION MR#: [id number] Acct: [id number] Name: HANNAH STANLEY Rep #: [id number] : 1960 56 From: Gisela BOLDEN Referring Dr.: Jeanine Gramajo DO Status: REG RCR Insurance: [facility] Patient's Visit Information HANNAH STANLEY is a 56 year old F referred to Physical Therapy by Jeanine Gramajo with a diagnosis of LBP with radiculopathy. Date of Evaluation: 06/04/16 Physica l Therapist: Gisela Yanez - Visit Plan Frequency: 2-3x /Week Duration: 4-6 Weeks - Subjective Subjective: Pt is doing a little better on heavier doses of IBprof. 2 weeks ago she started with a Numbn ess into the foot and pain down the L lateral side of the leg. She was going to the Dr anyway and discussed it with her Dr. She has a little back pain. Ibprof has helped with the numbess and the back pa in. She walks alot and does 10-15,000 steps/ day. She is trying to walk throught the pain. It does not get worse with walking. It was almost constant but now it is there only 3% of the time as opposed t o the 75%. 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 - Pain Back pain Pain Intensity (Out of 10): 1 Pain Intensity Range: 6 R leg pain Pain Intensity (Out of 10): 0 Pain Intensity Range: 7 - O bjective Gait: Ambulates with a normal gait pattern. Trunk AROM: Flexion 100%, EXT 50%, SB bilat 75%. LE MMT:R hip flex 4-/5, L 4/5, B hip abd 4/5, R hip ext 4-/5, L hip ext 4/5, R knee flex 4-/5, L hip flex 4/5, R knee ext 4/5, L knee ext 4/5. Bilat patellar DTR's 2+/3. + SLR on the R for LBP. -on the L. + SLUMP test on the R for back and leg pain. - SLIMP test on the L. Prone to WILBUR 2 X 10 no back p ain. Prone Press up 3 X 10....not as much pain with the SLUMP test after. - Goals Goal 1:: I HEP/ core stability program Goal Time Frame: 4-6 Weeks Goal 2:: Be able to return to all ADL's and sit throu gh work without leg numbness or back discomfort Goal Time Frame: 4-6 Weeks Goal 3:: Increase LE strength by 1/2 muscle grade. Goal Time Frame: 4-6 Weeks Goal 4:: Negative SLR or SLUMP test on the R - R ehabilitation Potential Physical Therapy Diagnosis: Probable derrangement Rehabilitation Potential: Good - Anticipated Interventions Therapeutic Exercise to Include: Strength training, Body mechanics, Postural training, Flexibilty training, Dynamic Lumbar Stabilization, Scapular Strength/Stabilization For the Purpose of:: To decrease pain, To decrease swelling/inflammation, To increase ROM, To improv e muscle performance and motor function, To improve ability to perform ADL's, To improve performance and independence with ADL's Manual Therapy Techniques to Include: Soft tissue mobilization For the Pu rpose of:: To decrease pain, To decrease swelling/inflammation, To increase ROM IF ES: Yes Cryotherapy (ice pack, ice massage): Yes Thermo therapy (hot pack): Yes Ultrasound (thermal/non thermal): Yes F or the Purpose of:: To decrease pain, To decrease swelling/inflammation, To increase ROM, To improve nutrient delivery to tissue, To improve muscle performance and motor function, To improve ability to perform ADL's, To increase tolerance to activity/condition/position Thank you for the opportunity to evaluate your patient. For Medicare and Medicare HMO plans, please review the plan of care and a pprove it. It will need to be FAXED BACK to us at [phone] for Medicare purposes. Please let me know if there are questions or concerns regarding this plan of care. Physician Signature: Date: <Electronically signed by Gisela Yanez MPT> 06/04/16 1842 CC: Coral Ray MD; Jeanine Gramajo DO DT: Signed For Medicare only, by signing this I certify the plan of care. Physicians Signature Date 28-Dec-2015 Unilat Rt Diag Digital AND CAD Result: Comments: See Note; NOTES: [facility] Imaging Services [address] [place] [address] Verdana 4d Unilat Rt Diag Digital AND CAD MR#: [id number] Acct: [id number] Na me: CHIKAMAURIHANNAH L Rep #: [id number] : 1960 F 55 From: Julius Barger MD PCP: Coral Ray MD Status: REG CLI Study: Unilat Rt Diag Digital AND CAD Date of Exam: 12/28/15 Exam# [id number] Ordering Dr: Coral Ray MD MAMMOGRAPHY - UNILATERAL DIAGNOSTIC: RIGHT BREAST REASON FOR EXAM: Female, 55 years old. Abnormal screening mammogram. PERTINENT HISTORY: Non-contributory. TECHN IQUE: Digital examination. Compression spot view of the right breast in the craniocaudad view was obtained. CAD: CAD was performed on this study. COMPARISON: Comparison is made with prior study date d December 24, 2015. FINDINGS: Breast Composition: The breasts are heterogeneously dense, which may obscure small masses. There are no dominant masses or suspiciou s calcifications. No other significant abnormalities are identified. IMPRESSION: The previously seen asymmetrical density in the right breast represents superi mposition of tissue One year follow-up mammogram recommended. (A) ASSESSMENT CATEGORY: BIRADS Category 2: Benign. A letter regarding these results will be sent to the patient by the facility within 30 days. Approximately 10% of breast cancers are not detected by mammography. A normal mammogram should not delay biopsy of a clinically suspicious abnormality. Electronically Signed: Julius Barger MD at 8:28 EST Tel [phone], Service support [phone], CC: Coral Ray MD Wool Merchant: Signed 24-Dec-2015 Bilat Scrn Digital AND CAD Result: Comments: See Note; NOTES: [facility] Imaging Services [address] [place] [id number] [address] 4d Bilat Scrn Digital AND CAD MR#: [id number] Acct: [id number] Name: HANNAH STANLEY Rep #: [id number] : 1960 F 55 From: Julius Barger MD PCP: Coral Ray MD Status: REG CLI Study: Bilat Scrn Digital AND CAD Date of Exam: 12/24/15 Exam# [id number] Haleigh cordon Dr: Coral Ray MD MAMMOGRAPHY - BILATERAL SCREENING REASON FOR EXAM: Female, 55 years old. Routine annual screening examination. PERTINENT HISTORY: Non-contributory. TECHNIQUE: Digital e xamination. Mediolateral oblique (MLO) and craniocaudad (CC) views of both breasts were obtained. CAD: CAD was performed on this study. COMPARISON: Comparison is made with prior study dated December 19, 2014 and December 09, 2013. FINDINGS: Breast Composition: The breasts are heterogeneously dense, which may obscure small masses. Is a focal area of asymmetry in the medial midportion of the right breast on the craniocaudad view. This most likely represents superimposition of tissues. The patient will be recalled for additional views including spot compre ssion view and rolled medial and lateral views. No other significant abnormalities are identified. IMPRESSION: Focal area of asymmetry in the right breast as de scribed. The patient will be recalled for additional views. Recall Side: Right Breast ASSESSMENT CATEGORY: BIRADS Category 0: Incomplete. Need additional imagi ng evaluation. A letter regarding these results will be sent to the patient by the facility within 30 days. Approximately 10% of breast cancers are not detected by mammography. A normal mammogram s hould not delay biopsy of a clinically suspicious abnormality. [id number] Electronically Signed: Julius Barger MD at 8:01 EST Tel [phone], Service support [phone], Fax CC: Coral Ray MD Wool Merchant: Signed 26-Oct-2015 ELECTROCARDIOGRAM, COMPLETE (ECG) (01147) Result: [MEASUREMENTS ANALYSIS] Date of Test: 10/26/2015 07:44:39; Heart Rate: 78; SC Interval: 154; QRS: 86; QT Interval: 380; Corrected QT Interval (QTc): 411; P [place]: 3; QRS Wave [place]: 2; T [place]: 9 0; Blood Pressure: 126/80 [ECG DIAGNOSTIC STATEMENTS] Date of Test: 10/26/2015 07:44:39; Summary: Sinus Rhythm - Nonspecific T-abnormality. ABNORMAL 19-Dec-2014 Bilat Scrn Digital AND CAD Result: Comments: See Note; NOTES: [facility] Imaging Services [address] [place] [address] Breast Imaging Report MR#: [id number] Acct: [id number] Name: HANNAH STANLEY Rep #: : 1960 F 54 From: Julius Barger MD PCP: Coral Ray MD Status: REG CLI Study: Bilat Scrn Digital AND CAD Date of Exam: 12/19/14 Exam# [id number] Ordering Dr: Coral Ray MD MAMMOGRAPHY - BILATERAL SCREENING REASON FOR EXAM: Female, 54 years old. Routine annual screening examination. PERTINENT HISTORY: Non-contributory. TECHNIQUE: Digital examination. Mediolatera l oblique (MLO) and craniocaudad (CC) views of both breasts were obtained. CAD: CAD was performed on this study. COMPARISON: Comparison is made with prior study dated December 09, 2013 and November 09, 2012. FINDINGS: Breast Composition: The breasts are heterogeneously dense, which may obscure small masses. There are no dominant masses or suspicious calci fications. No other significant abnormalities are identified. There has been no significant change since the prior study. IMPRESSION: Stable bilateral screenin g mammogram. Yearly follow-up recommended. (A) ASSESSMENT CATEGORY: BIRADS Category 2: Benign. A letter regarding these results will be sent to the patient by [facility] facility within 30 days. Approximately 10% of breast cancers are not detected by mammography. A normal mammogram should not delay biopsy of a clinically suspicious abnormality. Electronically Si gned: Julius Barger MD at 8:40 EST Tel [phone], Service support [phone], CC: Coral Ray MD Wool Merchant: Signed 19-Dec-2014 Dexa Bone Density Study (HP) Result: Comments: See Note; NOTES: [facility] Imaging Services [address] [place] [address] Bone Density Report MR#: [id number] Acct: [id number] Name: HANNAH STANLEY Rep #: [id number] : 1960 F 54 From: Julius Barger MD PCP: Coral Ray MD Status: REG CLI Study: Dexa Bone Density Study (HP) Date of Exam: 12/19/14 Exam# [id number] Ordering Dr: Coral Ray MD STUDY: DUAL ENERGY X-RAY ABSORPTIOMETRY / DXA REASON FOR EXAM: Female, 54 years old. The patient is postmenopausal. TECHNIQUE: Bone Mineral Density (BMD) measurements of lumbar spine and bilate ral hips were obtained. COMPARISON: Comparison is made with prior study dated December 14, 2012. FINDINGS: Lumbar Spine (L1-L4): g/cm2 (0.944) / T-score (-2.1) / Z-score (-1.3) Findings are suggestive of osteopenia with a moderate fracture risk. Left Femur Total: g/cm2 (0.928) / T-score (-0.6) / Z-score (0.0) Left Femoral Neck: g/cm2 (0.854) / T-score (-1 .3) / Z-score (-0.3) Right Femur Total: g/cm2 (0.915) / T-score (-0.7) / Z-score (0.1) Right Femoral Neck: g/cm2 (0.871) / T-score (-1.2) / Z-score (-0.2) The T-Scores on the most recent prior exami nation were: Lumbar Spine (L1-L4): There has been worsening of bone density since the previous examination. Left Femur Total: which represents a worsening of 1.3%. Right Femur Total: which represe nts an improvement of 0.7%. IMPRESSION: The patient is considered osteopenic as outlined below according to World Ross Organization (WHO) criteria with a modera te fracture risk. There has been worsening of bone density since the previous examination. Reference Information: The T-score is the number of standard deviatio ns above or below the standard which is normal for young adults at their peak bone mineral density. The World Health Organization (WHO) interprets the T- scores as follows: Above -1 Normal bone dens ity Between -1 and -2.5 Osteopenia Equal to / or below -2.5 Osteoporosis As a practical clinical guideline, osteopenia may be graded as follows: Mild -1 through -1.5 Moderate -1.6 through -2.0 Se gigi -2.1 through -2.4 The Z-score is the number of standard deviations above or below age-matched controls. A Z-score of less than -1.5 would be considered abnormal. References: 1. NIH Osteoporos is and Related Bone Diseases http://www.osteo.org 2. International Society for Clinical Densitometry http://www.iscd.org 3. National Osteoporosis Foundation http://www.nof.org Electronically Signed: Julius Barger MD at 16:00 EST Tel [phone], Service support [phone], CC: Coral Ray MD Wool Merchant: Signed 10-Jul-2014 PT Discharge Summary Result: Comments: See Note; NOTES: [facility] Physical Therapy Health[address] [place] [address] Fax REHABILITATION SERVICES DISCHARGE SUMMARY MR#: [id number] Acct: [id number] Name: HANNAH STANLEY Rep #: [id number] : 1960 54 From: Marilia Chance Referring : Omega Joy Status: REG RCR Eval Date: Disch e Date: DATE OF SERVICE: Hannah was referred to our care by Dr. Joy with medical diagnosis of rotator cuff repair. The patient has been in physical therapy for 28 visits. At this time, the p atient reports that she is 90% better. When she pushes it is a 2/10, but mostly it is a 0/10. She saw the doctor who is very happy and she is also very happy. Objectively, her range of motion is ful l. Strength is 4+/5. Posture is good. At this time, the patient has made progress or has met all goals and PT feels it is appropriate that she continue independently with a home exercise program and call if she has any questions or concerns. Marilia Chance DPT T: [facility] JOB: [id number] <Electronically signed by Marilia Chance > 07/10/14 0724 CC: Signed 11-Apr-2014 Inital Evaluation - PT Result: Comments: See Note; NOTES: [facility] Physical Therapy [address] [place] [address] Fax REHABILITATION SERVICES INITIAL EVALUATION MR#: [id number] Acct: [id number] Name: HANNAH STANLEY Rep #: [id number] : 1960 54 From: Marilia Chance Referring : Omega Joy Status: REG RCR Insurance: [facility] Eval Date: DATE OF SERVICE: 04/10/2014 REASON FOR EVALUATION: Hannah Stanley is a 54-year-old female referred to physical therapy by Dr. Joy with a medial diagnosis of right rotator cuff repair on March 28. SUBJECTIVE: The patient reports she went to therapy at [facility] did not get any better, so she had a rotator cuff repair on March 28, 2014. They removed a significantly la rge bone spur and calcium deposit. She has her stitches removed on Thursday. She is right-handed. Pain at its worst is an 8-9/10, best is 0/10, currently is 0/10. The patient reports the pain is burn ing and aching, aggravated by using it too much it. Eases are pain medications and ice. She is in a sling for sleeping and during the day. Sleep, she is in the bed, but it is hard to fall asleep. PAST MEDICAL HISTORY: No change in past medical history. MEDICATIONS: No change in medication since the last time she was here. Functionally, she is unable to use her back pocket, sleep on the aff ected side, wash her opposite axilla, comb her hair, push or pull on objects, or dressed appropriately. OBJECTIVE: POSTURE: Forward head, rounded shoulder, increased guarding of her right upper ext remity. PALPATION: Present along bicipital groove and down the anterior portion of her arm to the elbow. OBSERVATION: Stitches are still and looks good. No signs and symptoms of infection. RANGE OF MOTION: Passive range of motion: Flexion 85 degrees, external rotation 10 degrees, abduction 60 degrees. SENSATION/REFLEXES: Intact. No other tests performed secondary to protocol. INITIAL TREATME NT EVALUATION: Educated the patient on diagnosis and plan of care. The patient agreeable to plan of care. Instructed the patient on home exercise program, which included pendulums. ASSESSMENT: Angie Stanley is a 54-year-old female referred to physical therapy with medical diagnosis status post rotator cuff repair. The patient presents with hypomobility. The patient has decreased upper extremi ty range of motion. The patient's rehabilitation potential is fair. The patient will benefit from skilled physical therapy to solve the following problems and meet the following goals. PROBLEM LIS T: 1. Decreased knowledge of exercise program. 2. Decreased upper extremity range of motion. More problems will be listed as progression through protocol. GOALS: 1. The patient will be independent with home exercise program progression. 2. The patient will demonstrate full range of motion in all deficit areas to ease ADLs and return the patient to more normalized function. Again, more goals w ill be established as patient has progressed through protocol. PLAN OF CARE: The patient will be seen 3 times a week for 3 weeks. The patient will be educated on diagnosis and plan of care. The p atient will be educated in home exercise program progression. Interventions to include therapeutic exercise, therapeutic activity, neuromuscular education, manual modalities as needed. The patient's anticipated discharge plan is independent with exercise program and return to normalized activities with decreased pain and increased function. Marilia Chance DPT T: [facility] JOB: [id number] &# 60;Electronically signed by Marilia Chance > 04/11/14 0859 CC: Signed For Medicare only, by signing this I certify the plan of care. ____ Physicians Signature Date Immunization Name Dates Details Influenza (3 years and up) on: 10-Aug-2007 Comments: given 0.5cc im in left deltoid lot#[id number] exp.04/17/08-aw Influenza (3 years and up) on: 07-Aug-2008 Comments: Lot #:Expiration date:Amount given:Route: IMSite given:left deltoid Given by: aneudy Influenza (3 years and up) on: 25-Jul-2009 Influenza (3 years and up) on: Jul-2018 Family History Unknown Family Member Name Dates Details Brother 1 Comments: Angiosarcoma Status: Active Father Comments: Rheumatoid arthritis Status: Active Mother Comments: HTN, multiple myeloma, strokes later in life Status: Active Social History Name Dates Details Caffeine Use Comments: 6 cans diet coke qd Status: Active Exercise History Comments: Light Status: Active Living Situation Comments: Marries, lives with Status: Active Most Recent Primary Occupation Comments: [employer] Insurance Status: Active No Drug Use Status: Active Non Drinker/No Alcohol Use Status: Active Non Smoker/No Tobacco Use Status: Active Tobacco use: Never smoker. Status: Active Smoking Status Name Dates Details Never smoker Vital Signs Date Test Result Details [id number] Temperature 97.8 f Comments: Method: Temporal Pulse 77 /min Comments: Pattern: Regular Respiration Rate 16 /min Comments: Pattern: Unlabored O2 SAT 91 % Comments: Room air BP Systolic 132 mm[Hg] Comments: Patient Position: Sitting; Cuff Location: Left Arm; Cuff Size: Standard BP Diastolic 86 mm[Hg] Comments: Patient Position: Sitting; Cuff Location: Left Arm; Cuff Size: Standard Weight 180.5 lb Height 62 in Body Mass Index Calculated 33.01 kg/m2 Body Surface Area Calculated 1.83 m2 :57 Temperature 97.2 f Comments: Method: Temporal Pulse 77 /min Comments: Pattern: Regular Respiration Rate 16 /min Comments: Pattern: Unlabored O2 SAT 97 % Comments: Room air BP Systolic 130 mm[Hg] Comments: Patient Position: Sitting; Cuff Location: Left Arm; Cuff Size: Large BP Diastolic 72 mm[Hg] Comments: Patient Position: Sitting; Cuff Location: Left Arm; Cuff Size: Large Weight 179.5 lb Height 62 in Body Mass Index Calculated 32.83 kg/m2 Body Surface Area Calculated 1.83 m2 :03 Pulse 72 /min Comments: Pattern: Regular Respiration Rate 18 /min Comments: Pattern: Unlabored O2 SAT 90 % Comments: Room air BP Systolic 122 mm[Hg] Comments: Patient Position: Sitting; Cuff Location: Left Arm; Cuff Size: Large BP Diastolic 82 mm[Hg] Comments: Patient Position: Sitting; Cuff Location: Left Arm; Cuff Size: Large Weight 183.5 lb Height 62 in Body Mass Index Calculated 33.56 kg/m2 Body Surface Area Calculated 1.84 m2 :20 Temperature 96.7 f Pulse 76 /min Comments: Pattern: Regular Respiration Rate 18 /min Comments: Pattern: Unlabored O2 SAT 96 % Comments: Room air BP Systolic 138 mm[Hg] Comments: Patient Position: Sitting; Cuff Location: Left Arm; Cuff Size: Standard BP Diastolic 78 mm[Hg] Comments: Patient Position: Sitting; Cuff Location: Left Arm; Cuff Size: Standard Weight 185.5 lb Height 62 in Body Mass Index Calculated 33.93 kg/m2 Body Surface Area Calculated 1.85 m2 :09 Pulse 72 /min Comments: Pattern: Regular Respiration Rate 18 /min Comments: Pattern: Unlabored O2 SAT 97 % Comments: Room air BP Systolic 126 mm[Hg] Comments: Patient Position: Sitting; Cuff Location: Left Arm; Cuff Size: Large BP Diastolic 82 mm[Hg] Comments: Patient Position: Sitting; Cuff Location: Left Arm; Cuff Size: Large Weight 185.5 lb Height 62 in Body Mass Index Calculated 33.93 kg/m2 Body Surface Area Calculated 1.85 m2 :36 Pulse 62 /min Comments: Pattern: Regular Respiration Rate 18 /min Comments: Pattern: Unlabored O2 SAT 98 % Comments: Room air BP Systolic 138 mm[Hg] Comments: Patient Position: Sitting; Cuff Location: Left Arm; Cuff Size: Large BP Diastolic 80 mm[Hg] Comments: Patient Position: Sitting; Cuff Location: Left Arm; Cuff Size: Large Weight 182.25 lb Height 62 in Body Mass Index Calculated 33.33 kg/m2 Body Surface Area Calculated 1.84 m2 :16 Temperature 96.2 f Comments: Method: Tympanic Pulse 88 /min Comments: Pattern: Regular Respiration Rate 18 /min Comments: Pattern: Unlabored O2 SAT 98 % Comments: Room air BP Systolic 122 mm[Hg] Comments: Patient Position: Sitting; Cuff Location: Left Arm; Cuff Size: Standard BP Diastolic 62 mm[Hg] Comments: Patient Position: Sitting; Cuff Location: Left Arm; Cuff Size: Standard Weight 178 lb Height 62 in Body Mass Index Calculated 32.56 kg/m2 Body Surface Area Calculated 1.82 m2 :10 Comments: weight reported per patient Temperature 97.6 f Comments: Method: Temporal Pulse 76 /min Comments: Pattern: Regular Respiration Rate 20 /min Comments: Pattern: Unlabored O2 SAT 95 % Comments: Room air BP Systolic 126 mm[Hg] Comments: Patient Position: Sitting; Cuff Location: Left Arm; Cuff Size: Large BP Diastolic 80 mm[Hg] Comments: Patient Position: Sitting; Cuff Location: Left Arm; Cuff Size: Large Weight 183 lb Height 62 in Body Mass Index Calculated 33.47 kg/m2 Body Surface Area Calculated 1.84 m2 :05 Temperature 98.6 f Comments: Method: Temporal Pulse 91 /min Comments: Pattern: Regular Respiration Rate 16 /min Comments: Pattern: Unlabored O2 SAT 97 % Comments: Room air BP Systolic 130 mm[Hg] Comments: Patient Position: Sitting; Cuff Location: Left Arm; Cuff Size: Standard BP Diastolic 72 mm[Hg] Comments: Patient Position: Sitting; Cuff Location: Left Arm; Cuff Size: Standard Weight 184.8 lb Height 62 in Body Mass Index Calculated 33.8 kg/m2 Body Surface Area Calculated 1.85 m2 :46 Temperature 96.7 f Pulse 85 /min Comments: Pattern: Regular Respiration Rate 18 /min Comments: Pattern: Unlabored O2 SAT 98 % Comments: Room air BP Systolic 142 mm[Hg] Comments: Patient Position: Sitting; Cuff Location: Left Arm; Cuff Size: Standard BP Diastolic 82 mm[Hg] Comments: Patient Position: Sitting; Cuff Location: Left Arm; Cuff Size: Standard Weight 182 lb Height 62 in Body Mass Index Calculated 33.29 kg/m2 Body Surface Area Calculated 1.84 m2 :24 Temperature 97.2 f Comments: Method: Temporal Pulse 88 /min Comments: Pattern: Regular Respiration Rate 20 /min Comments: Pattern: Unlabored O2 SAT 98 % Comments: Room air BP Systolic 120 mm[Hg] Comments: Patient Position: Sitting; Cuff Location: Left Arm; Cuff Size: Standard BP Diastolic 78 mm[Hg] Comments: Patient Position: Sitting; Cuff Location: Left Arm; Cuff Size: Standard Weight 175 lb Height 62 in Body Mass Index Calculated 32.01 kg/m2 Body Surface Area Calculated 1.81 m2 :13 Pulse 81 /min Comments: Pattern: Regular Respiration Rate 20 /min Comments: Pattern: Unlabored O2 SAT 95 % Comments: Room air BP Systolic 128 mm[Hg] Comments: Patient Position: Sitting; Cuff Location: Left Arm; Cuff Size: Large BP Diastolic 82 mm[Hg] Comments: Patient Position: Sitting; Cuff Location: Left Arm; Cuff Size: Large Weight 179.0313 lb Height 62 in Body Mass Index Calculated 32.74 kg/m2 Body Surface Area Calculated 1.82 m2 :58 Temperature 97.9 f Comments: Method: Oral Pulse 100 /min Comments: Pattern: Regular Respiration Rate 18 /min O2 SAT 98 % Comments: Room air BP Systolic 116 mm[Hg] Comments: Patient Position: Sitting; Cuff Location: Left Arm; Cuff Size: Standard BP Diastolic 74 mm[Hg] Comments: Patient Position: Sitting; Cuff Location: Left Arm; Cuff Size: Standard Weight 179.0313 lb Height 62 in Body Mass Index Calculated 32.74 kg/m2 Body Surface Area Calculated 1.82 m2 :09 Comments: weight reported per patient Temperature 97.9 f Comments: Method: Oral Pulse 70 /min Comments: Pattern: Regular Respiration Rate 20 /min Comments: Pattern: Unlabored BP Systolic 120 mm[Hg] Comments: Patient Position: Sitting; Cuff Location: Left Arm; Cuff Size: Standard BP Diastolic 80 mm[Hg] Comments: Patient Position: Sitting; Cuff Location: Left Arm; Cuff Size: Standard Weight 179.0313 lb Height 62 in Body Mass Index Calculated 32.74 kg/m2 Body Surface Area Calculated 1.82 m2 :52 Temperature 97.9 f Comments: Method: Oral Pulse 74 /min Comments: Pattern: Regular Respiration Rate 20 /min Comments: Pattern: Unlabored BP Systolic 122 mm[Hg] Comments: Patient Position: Sitting; Cuff Location: Left Arm; Cuff Size: Standard BP Diastolic 78 mm[Hg] Comments: Patient Position: Sitting; Cuff Location: Left Arm; Cuff Size: Standard Weight 185 lb Height 62 in Body Mass Index Calculated 33.84 kg/m2 Body Surface Area Calculated 1.85 m2 :34 Temperature 97.6 f Comments: Method: Oral Pulse 74 /min Comments: Pattern: Regular Respiration Rate 20 /min Comments: Pattern: Unlabored BP Systolic 124 mm[Hg] Comments: Patient Position: Sitting; Cuff Location: Left Arm; Cuff Size: Standard BP Diastolic 78 mm[Hg] Comments: Patient Position: Sitting; Cuff Location: Left Arm; Cuff Size: Standard Weight 185 lb Height 62 in Body Mass Index Calculated 33.84 kg/m2 Body Surface Area Calculated 1.85 m2 :07 Comments: patient has had a stressful week, is on parade of house Temperature 97.6 f Comments: Method: Oral Pulse 76 /min Comments: Pattern: Regular Respiration Rate 18 /min Comments: Pattern: Unlabored BP Systolic 130 mm[Hg] Comments: Patient Position: Sitting; Cuff Location: Left Arm; Cuff Size: Standard BP Diastolic 90 mm[Hg] Comments: Patient Position: Sitting; Cuff Location: Left Arm; Cuff Size: Standard Weight 185 lb Height 62 in Body Mass Index Calculated 33.84 kg/m2 Body Surface Area Calculated 1.85 m2 :13 Temperature 97.8 f Comments: Method: Oral Pulse 68 /min Comments: Pattern: Regular Respiration Rate 18 /min Comments: Pattern: Unlabored BP Systolic 122 mm[Hg] Comments: Patient Position: Sitting; Cuff Location: Left Arm; Cuff Size: Standard BP Diastolic 76 mm[Hg] Comments: Patient Position: Sitting; Cuff Location: Left Arm; Cuff Size: Standard Weight 181 lb Height 62 in Body Mass Index Calculated 33.1 kg/m2 Body Surface Area Calculated 1.83 m2 :12 Temperature 97.9 f Comments: Method: Oral Pulse 76 /min Comments: Pattern: Regular Respiration Rate 18 /min Comments: Pattern: Unlabored BP Systolic 124 mm[Hg] Comments: Patient Position: Sitting; Cuff Location: Left Arm; Cuff Size: Standard BP Diastolic 78 mm[Hg] Comments: Patient Position: Sitting; Cuff Location: Left Arm; Cuff Size: Standard Weight 177 lb Height 62 in Body Mass Index Calculated 32.37 kg/m2 Body Surface Area Calculated 1.81 m2 :24 Comments: pt refused to be weighed today Temperature 97.4 f Comments: Method: Oral Pulse 104 /min Comments: Pattern: Regular Respiration Rate 16 /min Comments: Pattern: Unlabored BP Systolic 110 mm[Hg] Comments: Patient Position: Sitting; Cuff Location: Left Arm; Cuff Size: Large BP Diastolic 72 mm[Hg] Comments: Patient Position: Sitting; Cuff Location: Left Arm; Cuff Size: Large Weight 169 lb Height 72 in Body Mass Index Calculated 22.92 kg/m2 Body Surface Area Calculated 1.98 m2 :38 Temperature 97.9 f Comments: Method: Oral Pulse 74 /min Comments: Pattern: Regular Respiration Rate 18 /min Comments: Pattern: Unlabored BP Systolic 124 mm[Hg] Comments: Patient Position: Sitting; Cuff Location: Left Arm; Cuff Size: Standard BP Diastolic 84 mm[Hg] Comments: Patient Position: Sitting; Cuff Location: Left Arm; Cuff Size: Standard Weight 169 lb Height 72 in Body Mass Index Calculated 22.92 kg/m2 Body Surface Area Calculated 1.98 m2 :37 Temperature 97.6 f Comments: Method: Oral Pulse 78 /min Comments: Pattern: Regular Respiration Rate 18 /min Comments: Pattern: Unlabored BP Systolic 120 mm[Hg] Comments: Patient Position: Sitting; Cuff Location: Left Arm; Cuff Size: Standard BP Diastolic 78 mm[Hg] Comments: Patient Position: Sitting; Cuff Location: Left Arm; Cuff Size: Standard Height 62 in :18 Pulse 70 /min Comments: Pattern: Regular Respiration Rate 18 /min Comments: Pattern: Unlabored BP Systolic 122 mm[Hg] Comments: Patient Position: Sitting; Cuff Location: Left Arm; Cuff Size: Standard BP Diastolic 84 mm[Hg] Comments: Patient Position: Sitting; Cuff Location: Left Arm; Cuff Size: Standard Weight 159 lb Height 62 in Body Mass Index Calculated 29.08 kg/m2 Body Surface Area Calculated 1.73 m2 :30 Pulse 68 /min Comments: Pattern: Regular Respiration Rate 16 /min Comments: Pattern: Unlabored BP Systolic 124 mm[Hg] Comments: Patient Position: Sitting; Cuff Location: Left Arm; Cuff Size: Standard BP Diastolic 84 mm[Hg] Comments: Patient Position: Sitting; Cuff Location: Left Arm; Cuff Size: Standard Weight 172 lb Height 0 in Head Circumference 0.00 cm :39 BP Systolic 138 mm[Hg] Comments: Patient Position: Sitting; Cuff Location: Right Arm; Cuff Size: Standard BP Diastolic 78 mm[Hg] Comments: Patient Position: Sitting; Cuff Location: Right Arm; Cuff Size: Standard Weight 0 lb Height 0 in Head Circumference 0.00 cm :49 Pulse 70 /min Comments: Pattern: Regular Respiration Rate 16 /min Comments: Pattern: Unlabored BP Systolic 114 mm[Hg] Comments: Patient Position: Sitting; Cuff Location: Left Arm; Cuff Size: Standard BP Diastolic 76 mm[Hg] Comments: Patient Position: Sitting; Cuff Location: Left Arm; Cuff Size: Standard Weight 163 lb Height 0 in Head Circumference 0.00 cm :31 Temperature 97.6 f Comments: Method: Oral Pulse 101 /min Comments: Pattern: Regular Respiration Rate 18 /min Comments: Pattern: Unlabored BP Systolic 106 mm[Hg] Comments: Patient Position: Sitting; Cuff Location: Left Arm; Cuff Size: Standard BP Diastolic 72 mm[Hg] Comments: Patient Position: Sitting; Cuff Location: Left Arm; Cuff Size: Standard Weight 164 lb Height 0 in Head Circumference 0.00 cm :21 Pulse 74 /min Comments: Pattern: Regular Respiration Rate 16 /min Comments: Pattern: Unlabored BP Systolic 124 mm[Hg] Comments: Patient Position: Sitting; Cuff Location: Left Arm; Cuff Size: Standard BP Diastolic 78 mm[Hg] Comments: Patient Position: Sitting; Cuff Location: Left Arm; Cuff Size: Standard Weight 164 lb Height 0 in Head Circumference 0.00 cm :39 Temperature 97.7 f Comments: Method: Oral Pulse 70 /min Comments: Pattern: Regular Respiration Rate 16 /min Comments: Pattern: Unlabored BP Systolic 122 mm[Hg] Comments: Patient Position: Sitting; Cuff Location: Left Arm; Cuff Size: Standard BP Diastolic 78 mm[Hg] Comments: Patient Position: Sitting; Cuff Location: Left Arm; Cuff Size: Standard Weight 160 lb Height 0 in Head Circumference 0.00 cm :53 Pulse 88 /min Comments: Pattern: Regular Respiration Rate 16 /min Comments: Pattern: Unlabored BP Systolic 124 mm[Hg] Comments: Patient Position: Sitting; Cuff Location: Left Arm; Cuff Size: Standard BP Diastolic 68 mm[Hg] Comments: Patient Position: Sitting; Cuff Location: Left Arm; Cuff Size: Standard Weight 163.25 lb Height 0 in Head Circumference 0.00 cm :04 Temperature 97.5 f Comments: Method: Oral Pulse 88 /min Comments: Pattern: Regular Respiration Rate 16 /min Comments: Pattern: Unlabored BP Systolic 120 mm[Hg] Comments: Patient Position: Sitting; Cuff Location: Left Arm; Cuff Size: Standard BP Diastolic 80 mm[Hg] Comments: Patient Position: Sitting; Cuff Location: Left Arm; Cuff Size: Standard Weight 0 lb Height 0 in Head Circumference 0.00 cm :46 Temperature 98.4 f Comments: Method: Oral Pulse 68 /min Comments: Pattern: Regular Respiration Rate 18 /min Comments: Pattern: Unlabored BP Systolic 122 mm[Hg] Comments: Patient Position: Sitting; Cuff Location: Left Arm; Cuff Size: Standard BP Diastolic 78 mm[Hg] Comments: Patient Position: Sitting; Cuff Location: Left Arm; Cuff Size: Standard Weight 170 lb Height 62 in Body Mass Index Calculated 31.09 kg/m2 Body Surface Area Calculated 1.78 m2 Head Circumference 0.00 cm :51 Temperature 97.6 f Comments: Method: Oral Pulse 70 /min Comments: Pattern: Regular Respiration Rate 20 /min Comments: Pattern: Unlabored BP Systolic 120 mm[Hg] Comments: Patient Position: Sitting; Cuff Location: Left Arm; Cuff Size: Standard BP Diastolic 80 mm[Hg] Comments: Patient Position: Sitting; Cuff Location: Left Arm; Cuff Size: Standard Weight 170 lb Height 0 in Head Circumference 0.00 cm :29 Pulse 72 /min Comments: Pattern: Regular Respiration Rate 17 /min Comments: Pattern: Unlabored BP Systolic 124 mm[Hg] Comments: Patient Position: Sitting; Cuff Location: Left Arm; Cuff Size: Standard BP Diastolic 78 mm[Hg] Comments: Patient Position: Sitting; Cuff Location: Left Arm; Cuff Size: Standard Weight 167.4375 lb Height 62 in Body Mass Index Calculated 30.62 kg/m2 Body Surface Area Calculated 1.77 m2 Head Circumference 0.00 cm Results Date Description Value Details :53 CBC-Complete Blood Cnt No Diff Comments: [facility] [address] [place], [place], [id number] MPV 9.7 fL (Normal) Range: 6.2-12.0 PLT 336 K/mm3 (Normal) Range: 150-450 RDW SD 38.1 fL (Normal) Range: 35.1-43.9 RDW CV 11.9 % (Normal) Range: 11.6-14.6 MCHC 34.0 {g/gl} (Normal) Range: 32-36 MCH 30.1 pg (Normal) Range: 27.0-32.0 MCV 88.5 fL (Normal) Range: 81-99 HCT 40.9 % (Normal) Range: 37-47 HGB 13.9 g/dL (Normal) Range: 12.0-15.0 RBC 4.62 {M/mm3} (Normal) Range: 4.2-5.4 WBC 5.1 K/mm3 (Normal) Range: 4.4-11.0 :53 Comprehensive Metabolic Profil Comments: [facility] [address] [place], [place], [phone] GAP 10 (Normal) Range: 5-15 CO2 30.0 mmol/L (Normal) Range: 21.0-32.0 CL 97 mmol/L (Abnormal) Range: 98-107 K 3.8 mmol/L (Normal) Range: 3.5-5.1 NA 137 mmol/L (Normal) Range: 136-145 T BILI 0.50 mg/dL (Normal) Range: 0.20-1.00 ALT 36 U/L (Normal) Range: 13-56 ALK P 85 U/L (Normal) Range: 45-117 AST 19 U/L (Normal) Range: 15-37 CA 9.5 mg/dL (Normal) Range: 8.5-10.1 A/G 1.2 {RATIO} (Normal) Range: 0.9-2.4 GLOB 3.4 g/dL (Normal) Range: 2.2-4.2 ALB 4.2 g/dL (Normal) Range: 3.2-5.0 T PROT 7.6 g/dL (Normal) Range: 6.4-8.2 BUN/CRE 19.6 {RATIO} (Normal) Range: 10-20 EST GFR - AA 128 mL/min (Normal) Comments: GFR Calc EST GFR 106 mL/min (Normal) Comments: Non- GFR Calc CREAT,SERUM 0.61 mg/dL (Normal) Range: 0.55-1.02 Comments: The validity of the calculated GFR AND GFRAA in patients over70 years has not been determined. Clinical correlation isessential. BUN 12 mg/dL (Normal) Range: 7-18 GLU 87 mg/dL (Normal) Range: 74-106 Comments: Please note revised GLUCOSE reference range meqhoeavi88/02/2018. [id number]-[id number]:53 Erythrocyte Sed Rate Comments: [facility] [address] [place], [place], [phone] SED RATE 3 mm/h (Normal) Range: 0-30 [id number]-Eom-[id number]:59 Liver Profile Comments: [facility] [address] [place], [place], [phone] D BILI 0.19 mg/dL (Normal) Range: 0.00-0.30 T BILI 0.70 mg/dL (Normal) Range: 0.20-1.00 ALT 31 U/L (Normal) Range: 13-56 ALK P 101 U/L (Normal) Range: 45-117 AST 15 U/L (Normal) Range: 15-37 GLOB 3.7 g/dL (Normal) Range: 2.2-4.2 ALB 4.2 g/dL (Normal) Range: 3.2-5.0 T PROT 7.9 g/dL (Normal) Range: 6.4-8.2 67-Csy-93559:00 GALLBLADDER See Note (Normal) Comments: [facility] [address] [place], [place], [phone] Comments: Patient: HANNAH STANLEY : 1960 (58/F) Acct Num: [id number] Phys: Ebenezer MCHUGH,John Unit Num: [id number] Loc: [facility] Specimen: [id number] Received: 07/12/18 - 1328 Spec Type: GALLBL ADDE TISSUES 1 TISSUES: Gallbladder, NOS GROSS DESCRIPTION Received is one container labeled with the patient's name and designated gallbladder. The specimen consists of a gallbladder measuring 7.5 x 3.3 x 2.7cm. The external surface is smooth and glistening. Focally, it is granular, hemorrhagic and contains cautery artifact. The lumen of the gallbladder contains yellow mucoid bile and one black calculus measuring 0.7 cm. The mucosais bile-stained and without any mass lesions. The gallbladder wall averages 1 cm in average thickness and is free of mass lesions. Repr esentative sections ofthe gallbladder and the cystic duct are submitted in one cassette. / AM:oma 07/12/18 TC:3 CPT: 15557 HEADER OPERATION: Laparoscopic cholecystectomy with IOC PRE-OP DIAGNOSIS : Acute cholelithiasis TISSUE SUBMITTED: Gallbladder MICROSCOPIC DESCRIPTION Slides are reviewed. MICROSCOPIC DIAGNOSIS Gallbladder: Mild chronic cholecystitis and cholelithiasis. SJ:oma 07/13/18 Signed Michael Vaughn 07/13/18 <signature on file> [id number] Basic Metabolic Profile (BMP) Comments: [facility] [address] [facility] [place], [address] GAP 6 (Normal) Range: 5-15 CO2 29.0 mmol/L (Normal) Range: 21.0-32.0 CL 99 mmol/L (Normal) Range: 98-107 K 3.9 mmol/L (Normal) Range: 3.5-5.1 NA 134 mmol/L (Abnormal) Range: 136-145 CA 8.9 mg/dL (Normal) Range: 8.5-10.1 BUN/CRE 18.5 {RATIO} (Normal) Range: 10-20 EST GFR - AA 110 mL/min (Normal) Comments: GFR Calc EST GFR 91 mL/min (Normal) Comments: Non- GFR Calc CREAT,SERUM 0.70 mg/dL (Normal) Range: 0.55-1.02 Comments: The validity of the calculated GFR AND GFRAA in patients over70 years has not been determined. Clinical correlation isessential. BUN 13 mg/dL (Normal) Range: 7-18 GLU 93 mg/dL (Normal) Range: 74-106 Comments: Please note revised GLUCOSE reference range utnikmddj45/02/2018. [id number]-Tqf-[id number]:38 CBC-Complete Blood Cnt No Diff Comments: [facility] [address] [place], [address] MPV 9.4 fL (Normal) Range: 6.2-12.0 PLT 297 K/mm3 (Normal) Range: 150-450 RDW SD 39.3 fL (Normal) Range: 35.1-43.9 RDW CV 12.3 % (Normal) Range: 11.6-14.6 MCHC 33.7 {g/gl} (Normal) Range: 32-36 MCH 29.4 pg (Normal) Range: 27.0-32.0 MCV 87.4 fL (Normal) Range: 81-99 HCT 40.4 % (Normal) Range: 37-47 HGB 13.6 g/dL (Normal) Range: 12.0-15.0 RBC 4.62 {M/mm3} (Normal) Range: 4.2-5.4 WBC 5.2 K/mm3 (Normal) Range: 4.4-11.0 48-Mjt-44671:00 COLON BIOPSY (CHOOSE See Note (Normal) Comments: [facility] [address] [place], [place], [phone] SITE) Comments: Patient: HANNAH STANLEY : 1960 (58/F) Acct Num: [id number] Phys: Ebenezer MCHUGH,John Unit Num: [id number] Loc: EN Specimen: [id number] Received: 06/10/18 - 1215 Spec Type: COLON BX TISSUES TISSUES: COLON BIOPSY GROSS DESCRIPTION Received in fixative is one container labeled with the patient's name and designated random colon biopsy. The specim en consists of multiple irregular fragments of light an soft tissue that in aggregate measure 1 x 0.6 x 0.1 cm. The specimen is totally submitted in one cassette. / AM:oma 06/10/18 TC:5 CPT: 64742 HEADER OPERATION: Colonoscopy PRE-OP DIAGNOSIS: RUQ abdominal pain TISSUE SUBMITTED: Random colon biopsy MICROSCOPIC DESCRIPTION Slides are reviewed. MICROSCOPIC DIAGNOSIS [place] n, random biopsy: No significant pathologic change. No evidence of colitis. AM:oma 06/11/18 Signed Norberto [facility] 06/11/18 <signatu re on file> [id number] CDIFF (Molecular) Comments: [facility] [address] [place], [place], [phone] CDIFF See Note (Normal) Comments: Reason for Exam: diarrhea Cdiff-MolecularNormal Reference Range = Negative C. Diff DNA Negative- No toxigenic C. Diff DNA DetectedNAAT METHOD Testing was performed using nucleic acid amplification :39 ENTERIC PATHOGEN PANEL STOOL Comments: [facility] [address] [place], [address] EP PANEL See Note (Normal) Comments: Reason for Exam: diarrhea EP PANEL STOOLNormal Reference Range = Not Detected Not detected for Campylobacter group, Salmonella species, Shigella species, Vibrio Group, Yersinia enterocolitica, EHEC ( Shiga Toxin 1, Shiga Toxin 2), Norovirus Gl/Gll, and Rotavirus A. Other common stool pathogens are not detected on this panel include: Aeromonas/Plesiomonas or parasites. Order testing for these organ isms separately if suspected. This is an amplified DNA test which makes it both specific and sensitive. CAMPYLOBACTER Not DetectedSalmonella Not DetectedShigella sp. Not DetectedShiga Toxin Not DetectedYersinia Not DetectedVIBRIO Not DetectedNorovirus Not DetectedRotavirus Not Detected :39 Ova and Parasites Comments: [facility] [address] [place], [place], [phone] OP See Note Comments: Reason for Exam: diarrhea O + POVA AND PARASITES EXAM, ROUTINE These results were obtained using wet preparation(s) and trichrome stained smear. This test does not include testing for Cryt (Normal) osporidium parvum, Cyclospora, or Microsporidia. TESTING PERFORMED AT [facility]. ORIGINAL REPORT ON FILE IN LAB CONTAINS ADDITIONAL TEST S ITE INFORMATION. Ova/Parasite Exam NO OVA, CYSTS, OR PARASITES FOUND. :42 Microscopic Examination Comments: PATIENT WAS FASTINGPERFORMED BY: SOL ELIXIRS Npwdxw6786 [facility] [id number] Bacteria None seen (Normal) Mucus Threads Present (Normal) Crystal Type Amorphous Sediment (Normal) Crystals Present (Abnormal) Epithelial Cells (non renal) 0-10 {/hpf} (Normal) Range: 0 - 10 RBC 0-2 {/hpf} (Normal) Range: 0 - 2 WBC 0-5 {/hpf} (Normal) Range: 0 - 5 :42 TSH (21802) Comments: PATIENT WAS FASTINGPERFORMED BY: [facility]IRSRunnells Special[facility] HospitalEnxehx1727 [facility] [id number] TSH 2.620 {uIU/mL} (Normal) Range: 0.450-4.500 :42 URINALYSIS, W/ MICRO (70739) Comments: PATIENT WAS FASTINGPERFORMED BY: [facility] ELIXIRS Rzvire1648 [facility] [id number] Microscopic Examination See below: (Normal) Comments: Microscopic was indicated and was performed. Nitrite, Urine Negative (Normal) Urobilinogen,Semi-Qn 0.2 mg/dL (Normal) Range: 0.2-1.0 Bilirubin Negative (Normal) Occult Blood Negative (Normal) Ketones Negative (Normal) Glucose Negative (Normal) Protein Trace (Normal) WBC Esterase Trace (Abnormal) Appearance Clear (Normal) Urine-Color Yellow (Normal) pH 7.0 (Normal) Range: 5.0-7.5 Specific Jenner 1.020 (Normal) Range: 1.005-1.030 :42 MICROALBUMIN: CREATININE RATIO Comments: PATIENT WAS FASTINGPERFORMED BY: WannyiRunnells Specialized HospitalHzwduw9105 [facility] [id number] ([id number]) AND ([id number]) Alb/Creat Ratio 22.6 {mg/g_creat} (Normal) Range: 0.0-30.0 Albumin, Urine 37.5 ug/mL (Normal) Creatinine, Urine 165.9 mg/dL (Normal) :42 CBC W/AUTO DIFF WBC Comments: PATIENT WAS FASTINGPERFORMED BY: Wannyi Temxhf3580 [facility] [id number] Information: [id number] ([id number]) Immature Grans (Abs) 0.0 {x10E3/uL} (Normal) Range: 0.0-0.1 Immature Granulocytes 0 % (Normal) Baso (Absolute) 0.0 {x10E3/uL} (Normal) Range: 0.0-0.2 Eos (Absolute) 0.2 {x10E3/uL} (Normal) Range: 0.0-0.4 Monocytes(Absolute) 0.4 {x10E3/uL} (Normal) Range: 0.1-0.9 Lymphs (Absolute) 0.9 {x10E3/uL} (Normal) Range: 0.7-3.1 Neutrophils (Absolute) 2.8 {x10E3/uL} (Normal) Range: 1.4-7.0 Basos 0 % (Normal) Eos 4 % (Normal) Monocytes 8 % (Normal) Lymphs 22 % (Normal) Neutrophils 66 % (Normal) Platelets 291 {x10E3/uL} (Normal) Range: 150-379 RDW 12.9 % (Normal) Range: 12.3-15.4 MCHC 34.2 g/dL (Normal) Range: 31.5-35.7 MCH 29.3 pg (Normal) Range: 26.6-33.0 MCV 86 fL (Normal) Range: 79-97 Hematocrit 42.1 % (Normal) Range: 34.0-46.6 Hemoglobin 14.4 g/dL (Normal) Range: 11.1-15.9 RBC 4.92 {x10E6/uL} (Normal) Range: 3.77-5.28 WBC 4.3 {x10E3/uL} (Normal) Range: 3.4-10.8 :42 METABOLIC PANEL, COMPREHENSIVE Comments: PATIENT WAS FASTINGPERFORMED BY: LabCoRunnells Specialized HospitalPqrzvr3602 [facility] [id number] ([id number]) ALT (SGPT) 26 [iU]/L (Normal) Range: 0-32 AST (SGOT) 20 [iU]/L (Normal) Range: 0-40 Alkaline Phosphatase 84 [iU]/L (Normal) Range: 39-117 Bilirubin, Total 0.7 mg/dL (Normal) Range: 0.0-1.2 A/G Ratio 1.9 (Normal) Range: 1.2-2.2 Globulin, Total 2.5 g/dL (Normal) Range: 1.5-4.5 Albumin 4.7 g/dL (Normal) Range: 3.5-5.5 Protein, Total 7.2 g/dL (Normal) Range: 6.0-8.5 Calcium 9.5 mg/dL (Normal) Range: 8.7-10.2 Carbon Dioxide, Total 27 mmol/L (Normal) Range: 20-29 Chloride 98 mmol/L (Normal) Range: 96-106 Potassium 4.4 mmol/L (Normal) Range: 3.5-5.2 Sodium 139 mmol/L (Normal) Range: 134-144 BUN/Creatinine Ratio 14 (Normal) Range: 9-23 eGFR If Africn Am 104 mL/min/1.73 (Normal) eGFR If NonAfricn Am 90 mL/min/1.73 (Normal) Creatinine 0.73 mg/dL (Normal) Range: 0.57-1.00 BUN 10 mg/dL (Normal) Range: 6-24 Glucose 90 mg/dL (Normal) Range: 65-99 :40 Urinalysis, Complete Comments: Order Date: 02/24/18How was Urine O[facility]ained? [facility] [address] [place], [place], [phone] MUCUS, URINE 0 SEEN {/hpf} (Normal) BACTERIA 0 SEEN {/hpf} (Normal) SQUAM EPI 0 SEEN {/hpf} (Normal) Range: 5-10 RBC-UA 0 SEEN {/hpf} (Normal) Range: 0-5 WBC 0 SEEN {/hpf} (Normal) Range: 0-5 LEUK ESTERASE Negative /ul (Normal) OCCULT BLOOD-UR Negative /ul (Normal) NITRITE UR Negative (Normal) UROBILI Normal mg/dL (Normal) PROT DIPSTX Negative mg/dL (Normal) pH UR 7.0 (Normal) Range: 5.0 - 8.0 SP.GR. DIPSTX 1.005 (Normal) Range: 1.002-1.030 KETONE UR Negative mg/dL (Normal) BILIRUBIN URINE Negative mg/dL (Normal) GLUCOSE, UR Normal mg/dL (Normal) CLARITY Clear (Normal) COLOR Yellow (Normal) 24-Feb-20188:10 Basic Metabolic Profile (BMP) Comments: [facility] [address] [facility] [address]. [place], [place], [phone] GAP 4 (Abnormal) Range: 5-15 CO2 30.0 mmol/L (Normal) Range: 21.0-32.0 CL 98 mmol/L (Normal) Range: 98-107 K 3.6 mmol/L (Normal) Range: 3.5-5.1 NA 132 mmol/L (Abnormal) Range: 136-145 CA 8.8 mg/dL (Normal) Range: 8.5-10.1 BUN/CRE 14.1 {RATIO} (Normal) Range: 10-20 Estimated CRCL 75.78 ml/min (Normal) EST GFR - AA 122 mL/min (Normal) Comments: GFR Calc EST GFR 101 mL/min (Normal) Comments: Non- GFR Calc CREAT,SERUM 0.64 mg/dL (Normal) Range: 0.55-1.02 Comments: The validity of the calculated GFR AND GFRAA in patients over70 years has not been determined. Clinical correlation isessential. BUN 9 mg/dL (Normal) Range: 7-18 GLU 106 mg/dL (Normal) Range: 74-106 Comments: Fasting Glucose result from 100 to 125 mg/dLsuggests IMPAIRED HOMEOSTASIS per A.D.A. criteria.Please note revised GLUCOSE reference range /02/2018. :10 CBC W/Diff, Automated Comments: [facility] [address] [place], [address] Absolute Lymph 0.78 {X10_3/ul} (Abnormal) Range: 0.83-4.51 Absolute Neut 6.5 {X10_3/uL} (Normal) Range: 2.0-7.7 IM GRAN % 0.100 % (Normal) Range: 0.0-0.9 Comments: IG% - Immature Granulocytes (promyelocytes, myelocytes andmetamyelocytes) > 1% indicates that a LEFT SHIFT is Present. BASO% 0.1 % (Normal) Range: 0-1 EO% 1.1 % (Normal) Range: 0-5 MONO% 8.1 % (Normal) Range: 0-10 LY% 9.7 % (Abnormal) Range: 19-41 NEUT% 80.9 % (Abnormal) Range: 47-70 MPV 9.4 fL (Normal) Range: 6.2-12.0 PLT 238 K/mm3 (Normal) Range: 150-450 RDW SD 37.4 fL (Normal) Range: 35.1-43.9 RDW CV 12.0 % (Normal) Range: 11.6-14.6 MCHC 34.2 {g/gl} (Normal) Range: 32-36 MCH 29.3 pg (Normal) Range: 27.0-32.0 MCV 85.7 fL (Normal) Range: 81-99 HCT 38.3 % (Normal) Range: 37-47 HGB 13.1 g/dL (Normal) Range: 12.0-15.0 RBC 4.47 {M/mm3} (Normal) Range: 4.2-5.4 WBC 8.1 K/mm3 (Normal) Range: 4.4-11.0 :51 GLUCOSE (12631) Comments: PATIENT WAS FASTINGPERFORMED BY: [facility] Uehpgp8819 [facility] [id number] Glucose, Serum 90 mg/dL (Normal) Range: 65-99 :51 LIPID PANEL (27302) Comments: PATIENT WAS FASTINGPERFORMED BY: [facility] Cumtik[address]239 L[address]pez [facility] [id number] LDL/HDL Ratio 1.6 {ratio_units} (Normal) Range: 0.0-3.2 Comments: LDL/HDL Ratio Men Women 1/2 Avg.Risk 1.0 1.5 Av g.Risk 3.6 3.2 2X Avg.Risk 6.2 5.0 3X Avg.Risk 8.0 6.1 LDL Cholesterol Calc 73 mg/dL (Normal) Range: 0-99 VLDL Cholesterol Norbert 12 mg/dL (Normal) Range: 5-40 HDL Cholesterol 47 mg/dL (Normal) Triglycerides 60 mg/dL (Normal) Range: 0-149 Cholesterol, Total 132 mg/dL (Normal) Range: 100-199 :40 CBC W/Diff, Automated Comments: [facility] [address] [place], [place], [id number] Absolute Lymph 1.03 {X10_3/ul} (Normal) Range: 0.83-4.51 Absolute Neut 3.1 {X10_3/uL} (Normal) Range: 2.0-7.7 IM GRAN % 0.200 % (Normal) Range: 0.0-0.9 Comments: IG% - Immature Granulocytes (promyelocytes, myelocytes andmetamyelocytes) > 1% indicates that a LEFT SHIFT is Present. BASO% 0.2 % (Normal) Range: 0-1 EO% 5.2 % (Abnormal) Range: 0-5 MONO% 8.8 % (Normal) Range: 0-10 LY% 21.5 % (Normal) Range: 19-41 NEUT% 64.1 % (Normal) Range: 47-70 MPV 9.5 fL (Normal) Range: 6.2-12.0 PLT 278 K/mm3 (Normal) Range: 150-450 RDW SD 38.7 fL (Normal) Range: 35.1-43.9 RDW CV 12.1 % (Normal) Range: 11.6-14.6 MCHC 34.1 {g/gl} (Normal) Range: 32-36 MCH 29.9 pg (Normal) Range: 27.0-32.0 MCV 87.5 fL (Normal) Range: 81-99 HCT 41.9 % (Normal) Range: 37-47 HGB 14.3 g/dL (Normal) Range: 12.0-15.0 RBC 4.79 {M/mm3} (Normal) Range: 4.2-5.4 WBC 4.8 K/mm3 (Normal) Range: 4.4-11.0 30-Mzl-24935:40 Comprehensive Metabolic Profil Comments: 'TROP' Serial specimen #1, #2, #3, or #4: [address] [place] [address] [address] [place], [place], [phone] GAP 8 (Normal) Range: 5-15 CO2 28.0 mmol/L (Normal) Range: 21.0-32.0 CL 96 mmol/L (Abnormal) Range: 98-107 K 3.5 mmol/L (Normal) Range: 3.5-5.1 NA 132 mmol/L (Abnormal) Range: 136-145 T BILI 1.00 mg/dL (Normal) Range: 0.20-1.00 ALT 33 U/L (Normal) Range: 13-56 Comments: Please note revised ALT reference range xbqruswdn04/28/2018. ALK P 84 U/L (Normal) Range: 45-117 AST 20 U/L (Normal) Range: 15-37 CA 8.6 mg/dL (Normal) Range: 8.5-10.1 A/G 1.4 {RATIO} (Normal) Range: 0.9-2.4 GLOB 3.1 g/dL (Normal) Range: 2.2-4.2 ALB 4.2 g/dL (Normal) Range: 3.2-5.0 T PROT 7.3 g/dL (Normal) Range: 6.4-8.2 BUN/CRE 19.1 {RATIO} (Normal) Range: 10-20 EST GFR - AA 114 mL/min (Normal) Comments: GFR Calc EST GFR 94 mL/min (Normal) Comments: Non- GFR Calc CREAT,SERUM 0.68 mg/dL (Normal) Range: 0.55-1.02 Comments: The validity of the calculated GFR AND GFRAA in patients over70 years has not been determined. Clinical correlation isessential. BUN 13 mg/dL (Normal) Range: 7-18 GLU 113 mg/dL (Abnormal) Range: 70-110 Comments: Fasting Glucose result from 110 to <126 mg/dLsuggests IMPAIRED HOMEOSTASIS per A.D.A. criteria. :40 CPK Total, Creatine Kinase Comments: 'TROP' Serial specimen #1, #2, #3, or #4: [address] [place] [address] [place], [place], [id number] CPK TOTAL 84 U/L (Normal) Range: 26-192 :40 Troponin-I Comments: 'TROP' Serial specimen #1, #2, #3, or #4: [address] [place] [address] [place], [place], [address] TROPONIN-I < 0.02 ng/mL (Normal) Comments: TROPONIN-I EXPECTED VALUES <0.05 NEGATIVE 0.06 - 0.59 AT RISK OF CO > OR = 0.60 SUGGEST CO [id number] CBC W/Diff, Automated Comments: [facility] [address] [place], [place], [address] Absolute Lymph 0.77 {X10_3/ul} (Abnormal) Range: 0.83-4.51 Absolute Neut 2.7 {X10_3/uL} (Normal) Range: 2.0-7.7 IM GRAN % 0.000 % (Normal) Range: 0.0-0.9 Comments: IG% - Immature Granulocytes (promyelocytes, myelocytes andmetamyelocytes) > 1% indicates that a LEFT SHIFT is Present. BASO% 0.3 % (Normal) Range: 0-1 EO% 3.5 % (Normal) Range: 0-5 MONO% 9.1 % (Normal) Range: 0-10 LY% 19.4 % (Normal) Range: 19-41 NEUT% 67.7 % (Normal) Range: 47-70 MPV 9.8 fL (Normal) Range: 6.2-12.0 PLT 293 K/mm3 (Normal) Range: 150-450 RDW SD 37.3 fL (Normal) Range: 35.1-43.9 RDW CV 12.0 % (Normal) Range: 11.6-14.6 MCHC 34.9 {g/gl} (Normal) Range: 32-36 MCH 30.2 pg (Normal) Range: 27.0-32.0 MCV 86.6 fL (Normal) Range: 81-99 HCT 40.7 % (Normal) Range: 37-47 HGB 14.2 g/dL (Normal) Range: 12.0-15.0 RBC 4.70 {M/mm3} (Normal) Range: 4.2-5.4 WBC 4.0 K/mm3 (Abnormal) Range: 4.4-11.0 8-Auz-025960:01 Comprehensive Metabolic Profil Comments: [facility] [id number] [place], [place], [address] GAP 6 (Normal) Range: 5-15 CO2 31.0 mmol/L (Normal) Range: 21.0-32.0 CL 101 mmol/L (Normal) Range: 98-107 K 4.4 mmol/L (Normal) Range: 3.5-5.1 NA 138 mmol/L (Normal) Range: 136-145 T BILI 0.60 mg/dL (Normal) Range: 0.20-1.00 ALT 28 U/L (Normal) Range: 12-78 ALK P 78 U/L (Normal) Range: 45-117 AST 17 U/L (Normal) Range: 15-37 CA 9.0 mg/dL (Normal) Range: 8.5-10.1 A/G 1.2 {RATIO} (Normal) Range: 0.9-2.4 GLOB 3.3 g/dL (Normal) Range: 2.3-3.5 ALB 4.0 g/dL (Normal) Range: 3.4-5.0 T PROT 7.3 g/dL (Normal) Range: 6.4-8.2 BUN/CRE 13.8 {RATIO} (Normal) Range: 10-20 EST GFR - AA 120 mL/min (Normal) Comments: GFR Calc EST GFR 99 mL/min (Normal) Comments: Non- GFR Calc CREAT,SERUM 0.65 mg/dL (Normal) Range: 0.55-1.02 Comments: The validity of the calculated GFR AND GFRAA in patients over70 years has not been determined. Clinical correlation isessential. BUN 9 mg/dL (Normal) Range: 7-18 GLU 101 mg/dL (Normal) Range: 70-110 [id number] Lesion (choose site) See Note (Normal) Comments: [facility] [address] [place], [address] 0 Comments: Patient: HANNAH STANLEY : 1960 (56/F) Acct Num: [id number] Phys: Jyothi MCHUGH,Burak Unit Num: [id number] Loc: [facility] Specimen: [id number] Received: 02/09/17 150 Spec Type: Les ion TISSUES TISSUES: GROSS DESCRIPTION Received is one container labeled with the patient's name and designated right upper lid. The specimen consists of a piece of an-white skin measuring 0.3 x 0.1 x <0.1 cm. The specimen is totally submitted in one cassette. / SJ:oma 02/09/17 TC:5 CPT: 94296 HEADER OPERATION: Right upper eyelid lesion PRE-OP DIAGNOSIS: Cyst versu s nevus TISSUE SUBMITTED: Right upper eyelid lesion MICROSCOPIC DESCRIPTION Slides are reviewed. MICROSCOPIC DIAGNOSIS Right upper eyelid lesion, biopsy: Epidermal inclusion cyst. SJ:oma 02/10/17 Signed Michael Vaughn 02/10/17 <signature on file> 04-Edg-299644:26 Microscopic Examination Comments: PATIENT WAS FASTINGPERFORMED BY: ItsPlatoniclin6370 [facility] [id number] Bacteria None seen (Normal) Mucus Threads Present (Normal) Epithelial Cells (non renal) 0-10 {/hpf} (Normal) Range: 0 - 10 RBC 0-2 {/hpf} (Normal) Range: 0 - 2 WBC 0-5 {/hpf} (Normal) Range: 0 - 5 24-Nec-979662:26 CALCIFIDIOL (18703) VIT D 25 Comments: PATIENT WAS FASTINGPERFORMED BY: FUNGO STUDIOSox RoadDublin [place] [id number] Vitamin D, 25-Hydroxy 38.0 ng/mL (Normal) Range: 30.0-100.0 Comments: Vitamin D deficiency has been defined by the [place] [employer] and an Endocrine Society practice guideline as alevel of serum 25-OH vitamin D less than 20 ng/mL (1,2).The Endocrine Society went on to further define vitamin Dinsufficiency as a level between 21 and 29 ng/mL (2).1. IOM ([place] [employer]). 2010. Dietary reference intakes for calcium and D. [place]: The National Academies Press.2. Dusty MF, Cliff NC, Amrit GRIMM, et al. Evaluation, treatment, and prevention of vitamin D deficiency: an Endocrine Society clinical practice guideline. JCEM. 2010; 96(7):1911-30. :26 TSH (16582) Comments: PATIENT WAS FASTINGPERFORMED BY: SOL ELIXIRS Xrgqfe4868 [facility] [id number] TSH 2.830 {uIU/mL} (Normal) Range: 0.450-4.500 12-Ucd-612319:26 URINALYSIS, W/ MICRO (28123) Comments: PATIENT WAS FASTINGPERFORMED BY: SOL ELIXIRS Rduvmz0422 [facility] [id number] Microscopic Examination See below: (Normal) Comments: Microscopic was indicated and was performed. Nitrite, Urine Negative (Normal) Urobilinogen,Semi-Qn 0.2 mg/dL (Normal) Range: 0.2-1.0 Bilirubin Negative (Normal) Occult Blood Negative (Normal) Ketones Negative (Normal) Glucose Negative (Normal) Protein 1+ (Abnormal) WBC Esterase Negative (Normal) Appearance Clear (Normal) Urine-Color Yellow (Normal) pH 7.0 (Normal) Range: 5.0-7.5 Specific Jenner 1.022 (Normal) Range: 1.005-1.030 :26 MICROALBUMIN: CREATININE RATIO Comments: PATIENT WAS FASTINGPERFORMED BY: [facility]6370 [facility] [id number] ([id number]) AND (80577) Microalb/Creat Ratio 19.2 {mg/g_creat} (Normal) Range: 0.0-30.0 Microalbumin, Urine 28.8 ug/mL (Normal) Creatinine, Urine 149.9 mg/dL (Normal) 07-Tdg-245699:26 METABOLIC PANEL, COMPREHENSIVE Comments: PATIENT WAS FASTINGPERFORMED BY: [facility]Asp[facility]6370 [facility] [id number] ([id number]) ALT (SGPT) 19 [iU]/L (Normal) Range: 0-32 AST (SGOT) 18 [iU]/L (Normal) Range: 0-40 Alkaline Phosphatase, S 76 [iU]/L (Normal) Range: 39-117 Bilirubin, Total 0.6 mg/dL (Normal) Range: 0.0-1.2 A/G Ratio 2.2 (Normal) Range: 1.1-2.5 Comments: Effective December 29, 2016 the reference interval for A/G Ratio will be changing to: Age Male Female 0 - 7 d ays 1.1 - 2.3 1.1 - 2.3 8 - 30 days 1.2 - 2.8 1.2 - 2.8 1 - 6 months 1.3 - 3.6 1.3 - 3.6 7 months - 5 years 1.5 - 2.6 1.5 - 2.6 > 5 years 1.2 - 2.2 1.2 - 2.2 Globulin, Total 2.2 g/dL (Normal) Range: 1.5-4.5 Albumin, Serum 4.8 g/dL (Normal) Range: 3.5-5.5 Protein, Total, Serum 7.0 g/dL (Normal) Range: 6.0-8.5 Calcium, Serum 9.7 mg/dL (Normal) Range: 8.7-10.2 Carbon Dioxide, Total 25 mmol/L (Normal) Range: 18-29 Chloride, Serum 98 mmol/L (Normal) Range: 96-106 Potassium, Serum 4.7 mmol/L (Normal) Range: 3.5-5.2 Sodium, Serum 141 mmol/L (Normal) Range: 134-144 BUN/Creatinine Ratio 16 (Normal) Range: 9-23 eGFR If Africn Am 115 mL/min/1.73 (Normal) eGFR If NonAfricn Am 99 mL/min/1.73 (Normal) Creatinine, Serum 0.64 mg/dL (Normal) Range: 0.57-1.00 BUN 10 mg/dL (Normal) Range: 6-24 Glucose, Serum 95 mg/dL (Normal) Range: 65-99 36-Voz-838554:26 CBC W/AUTO DIFF WBC (73983) Comments: PATIENT WAS FASTINGPERFORMED BY: [facility]6370 [facility] [id number] Immature Grans (Abs) 0.0 {x10E3/uL} (Normal) Range: 0.0-0.1 Immature Granulocytes 0 % (Normal) Baso (Absolute) 0.0 {x10E3/uL} (Normal) Range: 0.0-0.2 Eos (Absolute) 0.2 {x10E3/uL} (Normal) Range: 0.0-0.4 Monocytes(Absolute) 0.4 {x10E3/uL} (Normal) Range: 0.1-0.9 Lymphs (Absolute) 1.2 {x10E3/uL} (Normal) Range: 0.7-3.1 Neutrophils (Absolute) 3.2 {x10E3/uL} (Normal) Range: 1.4-7.0 Basos 0 % (Normal) Eos 5 % (Normal) Monocytes 8 % (Normal) Lymphs 23 % (Normal) Neutrophils 64 % (Normal) Platelets 314 {x10E3/uL} (Normal) Range: 150-379 RDW 12.7 % (Normal) Range: 12.3-15.4 MCHC 34.3 g/dL (Normal) Range: 31.5-35.7 MCH 30.5 pg (Normal) Range: 26.6-33.0 MCV 89 fL (Normal) Range: 79-97 Hematocrit 43.1 % (Normal) Range: 34.0-46.6 Hemoglobin 14.8 g/dL (Normal) Range: 11.1-15.9 RBC 4.85 {x10E6/uL} (Normal) Range: 3.77-5.28 WBC 5.0 {x10E3/uL} (Normal) Range: 3.4-10.8 19-Bbk-675590:26 LIPID PANEL (90456) Comments: PATIENT WAS FASTINGPERFORMED BY: SOL ELIXIRSRunnells Specialized HospitalPucagi6159 [facility] [id number] LDL/HDL Ratio 1.4 {ratio_units} (Normal) Range: 0.0-3.2 Comments: LDL/HDL Ratio Men Women 1/2 Avg.Risk 1.0 1.5 Av g.Risk 3.6 3.2 2X Avg.Risk 6.2 5.0 3X Avg.Risk 8.0 6.1 LDL Cholesterol Calc 72 mg/dL (Normal) Range: 0-99 VLDL Cholesterol Norbert 17 mg/dL (Normal) Range: 5-40 HDL Cholesterol 51 mg/dL (Normal) Triglycerides 83 mg/dL (Normal) Range: 0-149 Cholesterol, Total 140 mg/dL (Normal) Range: 100-199 :50 Microscopic Examination Comments: PATIENT WAS FASTINGPERFORMED BY: SOL ELIXIRSRunnells Specialized HospitalChkvji0509 [facility] [id number] Bacteria None seen (Normal) Mucus Threads Present (Normal) Epithelial Cells (non renal) 0-10 {/hpf} (Normal) Range: 0 - 10 RBC 0-2 {/hpf} (Normal) Range: 0 - 2 WBC 0-5 {/hpf} (Normal) Range: 0 - 5 :50 TSH (95353) Comments: PATIENT WAS FASTINGPERFORMED BY: SOL ELIXIRSRunnells Specialized HospitalVgxjkg8213 [facility] [id number] TSH 3.280 {uIU/mL} (Normal) Range: 0.450-4.500 :50 URINALYSIS, W/ MICRO (89054) Comments: PATIENT WAS FASTINGPERFORMED BY: [facility]onAsp[facility] Hospital6370 [facility] [id number] Microscopic Examination See below: (Normal) Comments: Microscopic was indicated and was performed. Microscopic Examination MICRON (Normal) Comments: Microscopic follows if indicated. Nitrite, Urine Negative (Normal) Urobilinogen,Semi-Qn 0.2 mg/dL (Normal) Range: 0.2-1.0 Bilirubin Negative (Normal) Occult Blood Negative (Normal) Ketones Negative (Normal) Glucose Negative (Normal) Protein Negative (Normal) WBC Esterase Negative (Normal) Appearance Clear (Normal) Urine-Color Yellow (Normal) pH 8.0 (Abnormal) Range: 5.0-7.5 Specific Jenner 1.014 (Normal) Range: 1.005-1.030 :50 MICROALBUMIN: CREATININE RATIO Comments: PATIENT WAS FASTINGPERFORMED BY: WannyiRunnells Specialized HospitalVaproy0489 [facility] [id number] ([id number]) AND (90218) Microalb/Creat Ratio 16.8 {mg/g_creat} (Normal) Range: 0.0-30.0 Microalbumin, Urine 10.1 ug/mL (Normal) Creatinine, Urine 60.1 mg/dL (Normal) :50 METABOLIC PANEL, COMPREHENSIVE Comments: PATIENT WAS FASTINGPERFORMED BY: SOL ELIXIRSRunnells Specialized HospitalErfltl4219 [facility] [id number] ([id number]) ALT (SGPT) 19 [iU]/L (Normal) Range: 0-32 AST (SGOT) 21 [iU]/L (Normal) Range: 0-40 Alkaline Phosphatase, S 76 [iU]/L (Normal) Range: 39-117 Bilirubin, Total 0.6 mg/dL (Normal) Range: 0.0-1.2 A/G Ratio 2.0 (Normal) Range: 1.1-2.5 Globulin, Total 2.4 g/dL (Normal) Range: 1.5-4.5 Albumin, Serum 4.7 g/dL (Normal) Range: 3.5-5.5 Protein, Total, Serum 7.1 g/dL (Normal) Range: 6.0-8.5 Calcium, Serum 9.7 mg/dL (Normal) Range: 8.7-10.2 Carbon Dioxide, Total 24 mmol/L (Normal) Range: 18-29 Chloride, Serum 97 mmol/L (Normal) Range: 97-108 Potassium, Serum 4.5 mmol/L (Normal) Range: 3.5-5.2 Sodium, Serum 142 mmol/L (Normal) Range: 134-144 BUN/Creatinine Ratio 17 (Normal) Range: 9-23 eGFR If Africn Am 113 mL/min/1.73 (Normal) eGFR If NonAfricn Am 98 mL/min/1.73 (Normal) Creatinine, Serum 0.66 mg/dL (Normal) Range: 0.57-1.00 BUN 11 mg/dL (Normal) Range: 6-24 Glucose, Serum 80 mg/dL (Normal) Range: 65-99 :50 LIPID PANEL (79355) Comments: PATIENT WAS FASTINGPERFORMED BY: [facility]6370 [facility] [id number] LDL/HDL Ratio 1.4 {ratio_units} (Normal) Range: 0.0-3.2 Comments: LDL/HDL Ratio Men Women 1/2 Avg.Risk 1.0 1.5 Av g.Risk 3.6 3.2 2X Avg.Risk 6.2 5.0 3X Avg.Risk 8.0 6.1 LDL Cholesterol Calc 74 mg/dL (Normal) Range: 0-99 VLDL Cholesterol Norbert 14 mg/dL (Normal) Range: 5-40 HDL Cholesterol 53 mg/dL (Normal) Comments: According to ATP-III Guidelines, HDL-C >59 mg/dL is considered anegative risk factor for CHD. Triglycerides 70 mg/dL (Normal) Range: 0-149 Cholesterol, Total 141 mg/dL (Normal) Range: 100-199 :50 CBC W/AUTO DIFF WBC Comments: PATIENT WAS FASTINGPERFORMED BY: [facility]6370 [facility] [id number] Information: [id number] ([id number]) Immature Grans (Abs) 0.0 {x10E3/uL} (Normal) Range: 0.0-0.1 Immature Granulocytes 0 % (Normal) Baso (Absolute) 0.0 {x10E3/uL} (Normal) Range: 0.0-0.2 Eos (Absolute) 0.2 {x10E3/uL} (Normal) Range: 0.0-0.4 Monocytes(Absolute) 0.3 {x10E3/uL} (Normal) Range: 0.1-0.9 Lymphs (Absolute) 1.3 {x10E3/uL} (Normal) Range: 0.7-3.1 Neutrophils (Absolute) 2.7 {x10E3/uL} (Normal) Range: 1.4-7.0 Basos 1 % (Normal) Eos 5 % (Normal) Monocytes 7 % (Normal) Lymphs 27 % (Normal) Neutrophils 60 % (Normal) Platelets 313 {x10E3/uL} (Normal) Range: 150-379 RDW 12.7 % (Normal) Range: 12.3-15.4 MCHC 34.2 g/dL (Normal) Range: 31.5-35.7 MCH 29.9 pg (Normal) Range: 26.6-33.0 MCV 87 fL (Normal) Range: 79-97 Hematocrit 42.4 % (Normal) Range: 34.0-46.6 Hemoglobin 14.5 g/dL (Normal) Range: 11.1-15.9 RBC 4.85 {x10E6/uL} (Normal) Range: 3.77-5.28 WBC 4.6 {x10E3/uL} (Normal) Range: 3.4-10.8 :35 Microscopic Examination Comments: PATIENT WAS FASTINGPERFORMED BY: Soonr López [facility]ins[facility] [id number] Bacteria None seen (Normal) Mucus Threads Present (Normal) Epithelial Cells (non renal) 0-10 {/hpf} (Normal) Range: 0 - 10 RBC 0-2 {/hpf} (Normal) Range: 0 - 2 WBC 0-5 {/hpf} (Normal) Range: 0 - 5 :35 TSH ([id number]) Comments: PATIENT WAS FASTINGPERFORMED BY: Wannyi Gulzcu4770 [facility] [id number] TSH 2.910 {uIU/mL} (Normal) Range: 0.450-4.500 :35 URINALYSIS, W/ MICRO (84591) Comments: PATIENT WAS FASTINGPERFORMED BY: Wannyi Nvfzmq3258 [facility] [id number] Microscopic Examination See below: (Normal) Comments: Microscopic was indicated and was performed. Microscopic Examination MICRON (Normal) Comments: Microscopic follows if indicated. Nitrite, Urine Negative (Normal) Urobilinogen,Semi-Qn 0.2 mg/dL (Normal) Range: 0.2-1.0 Bilirubin Negative (Normal) Occult Blood Negative (Normal) Ketones Negative (Normal) Glucose Negative (Normal) Protein Negative (Normal) WBC Esterase Negative (Normal) Appearance Clear (Normal) Urine-Color Yellow (Normal) pH 6.0 (Normal) Range: 5.0-7.5 Specific Jenner 1.019 (Normal) Range: 1.005-1.030 :35 METABOLIC PANEL, COMPREHENSIVE Comments: PATIENT WAS FASTINGPERFORMED BY: Xochitl (So-Shee) Gold mines70 [facility] NetworksUNC [facility] [id number] ([id number]) ALT (SGPT) 16 [iU]/L (Normal) Range: 0-32 AST (SGOT) 19 [iU]/L (Normal) Range: 0-40 Alkaline Phosphatase, S 75 [iU]/L (Normal) Range: 39-117 Bilirubin, Total 0.6 mg/dL (Normal) Range: 0.0-1.2 A/G Ratio 2.0 (Normal) Range: 1.1-2.5 Globulin, Total 2.3 g/dL (Normal) Range: 1.5-4.5 Albumin, Serum 4.6 g/dL (Normal) Range: 3.5-5.5 Protein, Total, Serum 6.9 g/dL (Normal) Range: 6.0-8.5 Calcium, Serum 9.5 mg/dL (Normal) Range: 8.7-10.2 Carbon Dioxide, Total 24 mmol/L (Normal) Range: 18-29 Chloride, Serum 100 mmol/L (Normal) Range: 97-108 Potassium, Serum 4.1 mmol/L (Normal) Range: 3.5-5.2 Sodium, Serum 141 mmol/L (Normal) Range: 134-144 BUN/Creatinine Ratio 16 (Normal) Range: 9-23 eGFR If Africn Am 106 mL/min/1.73 (Normal) eGFR If NonAfricn Am 92 mL/min/1.73 (Normal) Creatinine, Serum 0.73 mg/dL (Normal) Range: 0.57-1.00 BUN 12 mg/dL (Normal) Range: 6-24 Glucose, Serum 93 mg/dL (Normal) Range: 65-99 :35 LIPID PANEL ([id number]) Comments: PATIENT WAS FASTINGPERFORMED BY: Xochitl (So-Shee) [employer]70 [facility] NetworksUNC [facility] [id number] LDL/HDL Ratio 1.6 {ratio_units} (Normal) Range: 0.0-3.2 Comments: LDL/HDL Ratio Men Women 1/2 Avg.Risk 1.0 1.5 Av g.Risk 3.6 3.2 2X Avg.Risk 6.2 5.0 3X Avg.Risk 8.0 6.1 LDL Cholesterol Calc 78 mg/dL (Normal) Range: 0-99 VLDL Cholesterol Norbert 19 mg/dL (Normal) Range: 5-40 HDL Cholesterol 49 mg/dL (Normal) Comments: According to ATP-III Guidelines, HDL-C >59 mg/dL is considered anegative risk factor for CHD. Triglycerides 97 mg/dL (Normal) Range: 0-149 Cholesterol, Total 146 mg/dL (Normal) Range: 100-199 15-Hke-27358:35 CBC with auto diff Comments: PATIENT WAS FASTINGPERFORMED BY: LabCoRunnells Specialized HospitalBjiqoj4959 [facility] [id number] Information: [id number] (64721) Immature Grans (Abs) 0.0 {x10E3/uL} (Normal) Range: 0.0-0.1 Immature Granulocytes 0 % (Normal) Baso (Absolute) 0.0 {x10E3/uL} (Normal) Range: 0.0-0.2 Eos (Absolute) 0.3 {x10E3/uL} (Normal) Range: 0.0-0.4 Monocytes(Absolute) 0.5 {x10E3/uL} (Normal) Range: 0.1-0.9 Lymphs (Absolute) 1.3 {x10E3/uL} (Normal) Range: 0.7-3.1 Neutrophils (Absolute) 3.0 {x10E3/uL} (Normal) Range: 1.4-7.0 Basos 0 % (Normal) Eos 5 % (Normal) Monocytes 9 % (Normal) Lymphs 25 % (Normal) Neutrophils 61 % (Normal) Platelets 315 {x10E3/uL} (Normal) Range: 150-379 RDW 12.6 % (Normal) Range: 12.3-15.4 MCHC 34.0 g/dL (Normal) Range: 31.5-35.7 MCH 29.9 pg (Normal) Range: 26.6-33.0 MCV 88 fL (Normal) Range: 79-97 Hematocrit 42.0 % (Normal) Range: 34.0-46.6 Hemoglobin 14.3 g/dL (Normal) Range: 11.1-15.9 RBC 4.79 {x10E6/uL} (Normal) Range: 3.77-5.28 WBC 5.1 {x10E3/uL} (Normal) Range: 3.4-10.8 :51 Comp. Metabolic Panel (14) Comments: PATIENT NOT FASTINGPERFORMED BY: LabCoRunnells Specialized HospitalUigchh9860 [facility] [id number] Information: [id number] ALT (SGPT) 25 [iU]/L (Normal) Range: 0-32 AST (SGOT) 18 [iU]/L (Normal) Range: 0-40 Alkaline Phosphatase, S 90 [iU]/L (Normal) Range: 39-117 Bilirubin, Total 0.6 mg/dL (Normal) Range: 0.0-1.2 A/G Ratio 2.0 (Normal) Range: 1.1-2.5 Globulin, Total 2.3 g/dL (Normal) Range: 1.5-4.5 Albumin, Serum 4.7 g/dL (Normal) Range: 3.5-5.5 Protein, Total, Serum 7.0 g/dL (Normal) Range: 6.0-8.5 Calcium, Serum 10.2 mg/dL (Normal) Range: 8.7-10.2 Carbon Dioxide, Total 27 mmol/L (Normal) Range: 18-29 Chloride, Serum 99 mmol/L (Normal) Range: 97-108 Potassium, Serum 4.3 mmol/L (Normal) Range: 3.5-5.2 Sodium, Serum 143 mmol/L (Normal) Range: 134-144 BUN/Creatinine Ratio 15 (Normal) Range: 9-23 eGFR If Africn Am 105 mL/min/1.73 (Normal) eGFR If NonAfricn Am 91 mL/min/1.73 (Normal) Creatinine, Serum 0.74 mg/dL (Normal) Range: 0.57-1.00 BUN 11 mg/dL (Normal) Range: 6-24 Glucose, Serum 82 mg/dL (Normal) Range: 65-99 :03 Microscopic Examination Comments: PATIENT WAS FASTINGPERFORMED BY: Wannyi Kuhbtj3352 [facility] [id number] Bacteria Few (Normal) Mucus Threads Present (Normal) Crystal Type Calcium Oxalate (Normal) Crystals Present (Abnormal) Epithelial Cells (non renal) None seen {/hpf} (Normal) Range: 0 - 10 RBC 0-2 {/hpf} (Normal) Range: 0 - 2 WBC 0-5 {/hpf} (Normal) Range: 0 - 5 :03 TSH ([id number]) Comments: PATIENT WAS FASTINGPERFORMED BY: Wannyi Rczoji4327 [facility] [id number] TSH 4.030 {uIU/mL} (Normal) Range: 0.450-4.500 :03 URINALYSIS, W/ MICRO (41364) Comments: PATIENT WAS FASTINGPERFORMED BY: Soonr [facility] [id number] Microscopic Examination See below: (Normal) Comments: Microscopic was indicated and was performed. Nitrite, Urine Negative (Normal) Urobilinogen,Semi-Qn 0.2 mg/dL (Normal) Range: 0.0-1.9 Bilirubin Negative (Normal) Occult Blood Negative (Normal) Ketones Negative (Normal) Glucose Negative (Normal) Protein Trace (Normal) WBC Esterase Trace (Abnormal) Appearance Clear (Normal) Urine-Color Yellow (Normal) pH 6.0 (Normal) Range: 5.0-7.5 Specific Jenner 1.024 (Normal) Range: 1.005-1.030 :03 METABOLIC PANEL, COMPREHENSIVE Comments: PATIENT WAS FASTINGPERFORMED BY: Wannyi Cdwjjb9026 [facility] [id number] ([id number]) ALT (SGPT) 29 [iU]/L (Normal) Range: 0-32 AST (SGOT) 24 [iU]/L (Normal) Range: 0-40 Alkaline Phosphatase, S 104 [iU]/L (Normal) Range: 39-117 Bilirubin, Total 0.5 mg/dL (Normal) Range: 0.0-1.2 A/G Ratio 2.1 (Normal) Range: 1.1-2.5 Globulin, Total 2.2 g/dL (Normal) Range: 1.5-4.5 Albumin, Serum 4.6 g/dL (Normal) Range: 3.5-5.5 Protein, Total, Serum 6.8 g/dL (Normal) Range: 6.0-8.5 Calcium, Serum 9.8 mg/dL (Normal) Range: 8.7-10.2 Comments: Effective November 06, 2014 the reference interval for Calcium, Serum will be changing to: Age Male Female 0 - 10 days 8.6 - 10.4 8.6 - 10.4 11 days - 1 year 9.2 - 11.0 9.2 - 11.0 2 - 11 years 9.1 - 10.5 9.1 - 10.5 12 - 17 years 8.9 - 10.4 8.9 - 10.4 18 - 59 years 8.7 - 10.2 8.7 - 10.2 >59 years 8.6 - 10.2 8.7 - 10.3 Carbon Dioxide, Total 28 mmol/L (Normal) Range: 18-29 Chloride, Serum 100 mmol/L (Normal) Range: 97-108 Potassium, Serum 4.5 mmol/L (Normal) Range: 3.5-5.2 Sodium, Serum 143 mmol/L (Normal) Range: 134-144 BUN/Creatinine Ratio 17 (Normal) Range: 9-23 eGFR If Africn Am 116 mL/min/1.73 (Normal) eGFR If NonAfricn Am 101 mL/min/1.73 (Normal) Creatinine, Serum 0.64 mg/dL (Normal) Range: 0.57-1.00 BUN 11 mg/dL (Normal) Range: 6-24 Glucose, Serum 90 mg/dL (Normal) Range: 65-99 26-Oct-20148:03 LIPID PANEL (75459) Comments: PATIENT WAS FASTINGPERFORMED BY: LabCoRunnells Specialized HospitalUryfex3594 [facility] [id number] LDL/HDL Ratio 1.8 {ratio_units} (Normal) Range: 0.0-3.2 Comments: LDL/HDL Ratio Men Women 1/2 Avg.Risk 1.0 1.5 Av g.Risk 3.6 3.2 2X Avg.Risk 6.2 5.0 3X Avg.Risk 8.0 6.1 LDL Cholesterol Calc 89 mg/dL (Normal) Range: 0-99 VLDL Cholesterol Norbert 27 mg/dL (Normal) Range: 5-40 HDL Cholesterol 50 mg/dL (Normal) Comments: According to ATP-III Guidelines, HDL-C >59 mg/dL is considered anegative risk factor for CHD. Triglycerides 135 mg/dL (Normal) Range: 0-149 Cholesterol, Total 166 mg/dL (Normal) Range: 100-199 26-Oct-20148:03 CBC W/AUTO DIFF WBC Comments: PATIENT WAS FASTINGPERFORMED BY: LabCoRunnells Specialized HospitalVhziqv3848 [facility] [id number] Information: [id number] ([id number]) Immature Grans (Abs) 0.0 {x10E3/uL} (Normal) Range: 0.0-0.1 Immature Granulocytes 0 % (Normal) Baso (Absolute) 0.0 {x10E3/uL} (Normal) Range: 0.0-0.2 Eos (Absolute) 0.2 {x10E3/uL} (Normal) Range: 0.0-0.4 Monocytes(Absolute) 0.4 {x10E3/uL} (Normal) Range: 0.1-0.9 Lymphs (Absolute) 1.1 {x10E3/uL} (Normal) Range: 0.7-3.1 Neutrophils (Absolute) 3.0 {x10E3/uL} (Normal) Range: 1.4-7.0 Basos 0 % (Normal) Eos 4 % (Normal) Monocytes 9 % (Normal) Lymphs 22 % (Normal) Neutrophils 65 % (Normal) Platelets 309 {x10E3/uL} (Normal) Range: 150-379 RDW 12.8 % (Normal) Range: 12.3-15.4 MCHC 33.2 g/dL (Normal) Range: 31.5-35.7 MCH 29.4 pg (Normal) Range: 26.6-33.0 MCV 89 fL (Normal) Range: 79-97 Hematocrit 42.2 % (Normal) Range: 34.0-46.6 Hemoglobin 14.0 g/dL (Normal) Range: 11.1-15.9 RBC 4.76 {x10E6/uL} (Normal) Range: 3.77-5.28 WBC 4.8 {x10E3/uL} (Normal) Range: 3.4-10.8 :03 CALCIFIDIOL (45983) VIT D 25 Comments: PATIENT WAS FASTINGPERFORMED BY: [facility] Iqjivz9855 [facility] [id number] Vitamin D, 25-Hydroxy 31.8 ng/mL (Normal) Range: 30.0-100.0 Comments: Vitamin D deficiency has been defined by the [place] [employer] and an Endocrine Society practice guideline as alevel of serum 25-OH vitamin D less than 20 ng/mL (1,2).The Endocrine Society went on to further define vitamin Dinsufficiency as a level between 21 and 29 ng/mL (2).1. IOM ([place] [employer]). 2010. Dietary reference intakes for calcium and D. [place]: The National Academies Press.2. Dusty MF, Cliff PACHECO, Amrit GRIMM, et al. Evaluation, treatment, and prevention of vitamin D deficiency: an Endocrine Society clinical practice guideline. JCEM. 2010; 96(7):1911-30. :35 BMP GAP 6 (Normal) Range: 5-15 CL 102 mmol/L (Normal) Range: 98-107 CO2 30.0 mmol/L (Normal) Range: 21.0-32.0 K 3.7 mmol/L (Normal) Range: 3.5-5.1 NA 138 mmol/L (Normal) Range: 136-145 CA 9.3 mg/dL (Normal) Range: 8.5-10.1 BC 16.3 {RATIO} (Normal) Range: 10-20 GFRAA 96 mL/min (Normal) GFR 79 mL/min (Normal) CREAT 0.8 mg/dL (Normal) Range: 0.6-1.0 BUN 13 mg/dL (Normal) Range: 7-18 GLU 76 mg/dL (Normal) Range: 70-110 :35 CBC MPV 9.7 fL (Normal) Range: 6.2-12.0 PLT 285 K/mm3 (Normal) Range: 150-450 RDWCV 12.6 % (Normal) Range: 11.6-14.6 RDWSD 40.0 fL (Normal) Range: 35.1-43.9 MCHC 34.7 {g/gl} (Normal) Range: 32-36 MCH 30.5 pg (Normal) Range: 27.0-32.0 MCV 88.0 fL (Normal) Range: 81-99 HCT 40.9 % (Normal) Range: 37-47 HGB 14.2 g/dL (Normal) Range: 12.0-15.0 RBC 4.65 {M/mm3} (Normal) Range: 4.2-5.4 WBC 5.1 K/mm3 (Normal) Range: 4.4-11.0 [id number] CBC, Platelets & Auto Comments: PATIENT NOT FASTINGPERFORMED BY: [facility] [id number] [facility] [id number] Information: [id number] Diff ([id number]) Immature Grans (Abs) 0.0 {x10E3/uL} (Normal) Range: 0.0-0.1 Immature Granulocytes 0 % (Normal) Range: 0-2 Baso (Absolute) 0.0 {x10E3/uL} (Normal) Range: 0.0-0.2 Eos (Absolute) 0.0 {x10E3/uL} (Normal) Range: 0.0-0.4 Monocytes(Absolute) 0.2 {x10E3/uL} (Normal) Range: 0.1-0.9 Lymphs (Absolute) 0.5 {x10E3/uL} (Abnormal) Range: 0.7-3.1 Neutrophils (Absolute) 7.3 {x10E3/uL} (Abnormal) Range: 1.4-7.0 Basos 0 % (Normal) Range: 0-3 Eos 1 % (Normal) Range: 0-5 Monocytes 3 % (Abnormal) Range: 4-12 Lymphs 6 % (Abnormal) Range: 14-46 Neutrophils 90 % (Abnormal) Range: 40-74 Platelets 292 {x10E3/uL} (Normal) Range: 155-379 RDW 12.5 % (Normal) Range: 12.3-15.4 MCHC 32.9 g/dL (Normal) Range: 31.5-35.7 MCH 28.9 pg (Normal) Range: 26.6-33.0 MCV 88 fL (Normal) Range: 79-97 Hematocrit 43.1 % (Normal) Range: 34.0-46.6 Hemoglobin 14.2 g/dL (Normal) Range: 11.1-15.9 RBC 4.92 {x10E6/uL} (Normal) Range: 3.77-5.28 WBC 8.0 {x10E3/uL} (Normal) Range: 3.4-10.8 :53 CALCIFIDIOL ([id number]) VIT D 25 Comments: PATIENT WAS FASTINGPERFORMED BY: [facility] [id number] [facility] [id number] Vitamin D, 25-Hydroxy 33.8 ng/mL (Normal) Range: 30.0-100.0 Comments: Vitamin D deficiency has been defined by the [place] [employer] and an Endocrine Society practice guideline as alevel of serum 25-OH vitamin D less than 20 ng/mL (1,2).The Endocrine Society went on to further define vitamin Dinsufficiency as a level between 21 and 29 ng/mL (2).1. IOM ([place] [employer]). 2010. Dietary reference intakes for calcium and D. [place]: The National Academies Press.2. Dusty MF, [place], Amrit GRIMM, et al. Evaluation, treatment, and prevention of vitamin D deficiency: an Endocrine Society clinical practice guideline. JCEM. 2010; 96(7):1911-30. :53 TSH (76409) Comments: PATIENT WAS FASTINGPERFORMED BY: [facility] [id number] [facility] [id number] TSH 3.550 {uIU/mL} (Normal) Range: 0.450-4.500 :53 CBC with manual diff Comments: PATIENT WAS FASTINGPERFORMED BY: [facility] [id number] Information: [id number] ([id number]) Immature Grans (Abs) 0.0 {x10E3/uL} (Normal) Range: 0.0-0.1 Immature Granulocytes 0 % (Normal) Range: 0-2 Baso (Absolute) 0.0 {x10E3/uL} (Normal) Range: 0.0-0.2 Eos (Absolute) 0.2 {x10E3/uL} (Normal) Range: 0.0-0.4 Lymphs (Absolute) 1.3 {x10E3/uL} (Normal) Range: 0.7-3.1 Monocytes(Absolute) 0.3 {x10E3/uL} (Normal) Range: 0.1-0.9 Neutrophils (Absolute) 3.4 {x10E3/uL} (Normal) Range: 1.4-7.0 Basos 0 % (Normal) Range: 0-3 Eos 4 % (Normal) Range: 0-5 Monocytes 6 % (Normal) Range: 4-12 Lymphs 25 % (Normal) Range: 14-46 Neutrophils 65 % (Normal) Range: 40-74 Platelets 318 {x10E3/uL} (Normal) Range: 155-379 RDW 13.1 % (Normal) Range: 12.3-15.4 MCHC 33.2 g/dL (Normal) Range: 31.5-35.7 MCH 29.2 pg (Normal) Range: 26.6-33.0 MCV 88 fL (Normal) Range: 79-97 Hematocrit 41.6 % (Normal) Range: 34.0-46.6 Hemoglobin 13.8 g/dL (Normal) Range: 11.1-15.9 RBC 4.73 {x10E6/uL} (Normal) Range: 3.77-5.28 WBC 5.3 {x10E3/uL} (Normal) Range: 3.4-10.8 :53 Metabolic Panel, Comprehensive Comments: PATIENT WAS FASTINGPERFORMED BY: [facility]84[facility] [id number] ([id number]) ALT (SGPT) 19 [iU]/L (Normal) Range: 0-32 AST (SGOT) 17 [iU]/L (Normal) Range: 0-40 Alkaline Phosphatase, S 84 [iU]/L (Normal) Range: 39-117 Bilirubin, Total 0.6 mg/dL (Normal) Range: 0.0-1.2 A/G Ratio 2.0 (Normal) Range: 1.1-2.5 Globulin, Total 2.3 g/dL (Normal) Range: 1.5-4.5 Albumin, Serum 4.5 g/dL (Normal) Range: 3.5-5.5 Protein, Total, Serum 6.8 g/dL (Normal) Range: 6.0-8.5 Calcium, Serum 9.6 mg/dL (Normal) Range: 8.7-10.2 Carbon Dioxide, Total 22 mmol/L (Normal) Range: 19-28 Chloride, Serum 99 mmol/L (Normal) Range: 97-108 Potassium, Serum 4.0 mmol/L (Normal) Range: 3.5-5.2 Sodium, Serum 140 mmol/L (Normal) Range: 134-144 BUN/Creatinine Ratio 15 (Normal) Range: 9-23 eGFR If Africn Am 85 mL/min/1.73 (Normal) eGFR If NonAfricn Am 74 mL/min/1.73 (Normal) Creatinine, Serum 0.89 mg/dL (Normal) Range: 0.57-1.00 BUN 13 mg/dL (Normal) Range: 6-24 Glucose, Serum 91 mg/dL (Normal) Range: 65-99 67-Loq-81951:53 Lipid Panel ([id number]) Comments: PATIENT WAS FASTINGPERFORMED BY: [employer] [facility] [id number] LDL/HDL Ratio 1.5 {ratio_units} (Normal) Range: 0.0-3.2 LDL Cholesterol Calc 80 mg/dL (Normal) Range: 0-99 VLDL Cholesterol Norbert 14 mg/dL (Normal) Range: 5-40 HDL Cholesterol 53 mg/dL (Normal) Comments: According to ATP-III Guidelines, HDL-C >59 mg/dL is considered anegative risk factor for CHD. Triglycerides 68 mg/dL (Normal) Range: 0-149 Cholesterol, Total 147 mg/dL (Normal) Range: 100-199 6-Pci-674835:00 Fungus (Mycology) Culture Comments: PERFORMED BY: WEISSENHAUS [address] [place] [address] [id number] BY: [address] [id number] Information: SRC:HEBERT [id number] Result 1 MA708 (Normal) Comments: No yeast or mold isolated after 4 weeks. Fungus (Mycology) Final report Culture (Normal) [id number]: Viral Culture, No virus isolated. Comments: PERFORMED BY: [facility] [place] [address] [id number] BY: [place] [id number] [facility] [id number] General (Normal) :05 Microscopic Examination Comments: PATIENT WAS FASTINGPERFORMED BY: [facility] [place] [address] [id number] Bacteria None seen (Normal) Mucus Threads Present (Normal) Epithelial Cells (non renal) 0-10 {/hpf} (Normal) Range: 0 - 10 RBC None seen {/hpf} (Normal) Range: 0 - 3 WBC 0-5 {/hpf} (Normal) Range: 0 - 5 :05 URINALYSIS, W/ MICRO ([id number]) Comments: PATIENT WAS FASTINGPERFORMED BY: [facility] [place] [address] [id number] Microscopic Examination See below: (Normal) Microscopic Examination MICRON (Normal) Comments: Microscopic follows if indicated. Nitrite, Urine Negative (Normal) Bilirubin Negative (Normal) Urobilinogen,Semi-Qn 0.2 mg/dL (Normal) Range: 0.0-1.9 Occult Blood Negative (Normal) Ketones Negative (Normal) Glucose Negative (Normal) Protein Negative (Normal) WBC Esterase Negative (Normal) Appearance Clear (Normal) Urine-Color Yellow (Normal) pH 7.0 (Normal) Range: 5.0-7.5 Specific Jenner 1.010 (Normal) Range: 1.005-1.030 :05 METABOLIC PANEL, COMPREHENSIVE Comments: PATIENT WAS FASTINGPERFORMED BY: [facility] [place] [address] [id number] (30000) ALT (SGPT) 21 [iU]/L (Normal) Range: 0-32 Alkaline Phosphatase, S 108 [iU]/L (Abnormal) Range: 42-107 AST (SGOT) 19 [iU]/L (Normal) Range: 0-40 Bilirubin, Total 0.7 mg/dL (Normal) Range: 0.0-1.2 A/G Ratio 1.7 (Normal) Range: 1.1-2.5 Globulin, Total 2.8 g/dL (Normal) Range: 1.5-4.5 Albumin, Serum 4.8 g/dL (Normal) Range: 3.5-5.5 Calcium, Serum 10.1 mg/dL (Normal) Range: 8.7-10.2 Protein, Total, Serum 7.6 g/dL (Normal) Range: 6.0-8.5 Carbon Dioxide, Total 22 mmol/L (Normal) Range: 19-28 Chloride, Serum 100 mmol/L (Normal) Range: 97-108 Potassium, Serum 4.2 mmol/L (Normal) Range: 3.5-5.2 Sodium, Serum 140 mmol/L (Normal) Range: 134-144 BUN/Creatinine Ratio 16 (Normal) Range: 9-23 eGFR If Africn Am 115 mL/min/1.73 (Normal) eGFR If NonAfricn Am 99 mL/min/1.73 (Normal) Creatinine, Serum 0.68 mg/dL (Normal) Range: 0.57-1.00 BUN 11 mg/dL (Normal) Range: 6-24 Glucose, Serum 99 mg/dL (Normal) Range: 65-99 :05 LIPID PANEL ([id number]) Comments: PATIENT WAS FASTINGPERFORMED BY: [employer] [id number] LDL/HDL Ratio 1.8 {ratio_units} (Normal) Range: 0.0-3.2 LDL Cholesterol Calc 88 mg/dL (Normal) Range: 0-99 VLDL Cholesterol Norbert 18 mg/dL (Normal) Range: 5-40 HDL Cholesterol 49 mg/dL (Normal) Comments: According to ATP-III Guidelines, HDL-C >59 mg/dL is considered anegative risk factor for CHD. Cholesterol, Total 155 mg/dL (Normal) Range: 100-199 Triglycerides 92 mg/dL (Normal) Range: 0-149 :05 CBC WITH MANUAL DIFF Comments: PATIENT WAS FASTINGPERFORMED BY: [employer] NetworksUNC Health [facility] [id number] Information: [id number] ([id number]) Immature Grans (Abs) 0.0 {x10E3/uL} Range: 0.0-0.1 (Normal) Immature Granulocytes 0 % (Normal) Range: 0-2 Baso (Absolute) 0.0 {x10E3/uL} Range: 0.0-0.2 (Normal) Eos (Absolute) 0.2 {x10E3/uL} Range: 0.0-0.4 (Normal) Monocytes(Absolute) 0.5 {x10E3/uL} Range: 0.1-0.9 (Normal) Lymphs (Absolute) 1.0 {x10E3/uL} Range: 0.7-3.1 (Normal) Neutrophils (Absolute) 3.5 {x10E3/uL} Range: 1.4-7.0 (Normal) Basos 0 % (Normal) Range: 0-3 Eos 4 % (Normal) Range: 0-5 Monocytes 9 % (Normal) Range: 4-12 Lymphs 20 % (Normal) Range: 14-46 Neutrophils 67 % (Normal) Range: 40-74 Platelets 288 {x10E3/uL} Range: 155-379 (Normal) RDW 12.6 % (Normal) Range: 12.3-15.4 MCHC 33.4 g/dL (Normal) Range: 31.5-35.7 MCH 29.3 pg (Normal) Range: 26.6-33.0 MCV 88 fL (Normal) Range: 79-97 Hematocrit 43.1 % (Normal) Range: 34.0-46.6 Hemoglobin 14.4 g/dL (Normal) Range: 11.1-15.9 RBC 4.91 {x10E6/uL} Range: 3.77-5.28 (Normal) WBC 5.2 {x10E3/uL} Range: 3.4-10.8 (Normal) : VITD 36.9 ng/mL (Normal) Comments: Vitamin D 25(OH) Status RangeDeficiency <20 ng/mL (50nmol/L)Insufficiency 20 - 30 ng/mL (50 - 75 nmol/L)Sufficiency 30 - 100 ng/mL (75 - 250 nm 13 ol/L)Toxicity >100 ng/mL (250 nmol/L)Effective CHRISTIAN. 14-Dec-201216:01 DEXA BONE DENSITY STUDY () Radiology Report See Note (Normal) Comments: PROCEDURE: DUAL ENERGY X-RAY ABSORPTIOMETRY / DXA REASON FOR EXAM: Female, 52 years old. The patient is postmenopausal. TECHNIQUE: Bone Mineral Density (BMD) measurements of lumbar spine andbilate ral hips were obtained. COMPARISON: Comparison is made with prior study dated July 26, 2008. FINDINGS: Lumbar Spine (L1-L4): g/cm2 (1.038) / T- score (-1.2) / Z-score (-0.5) Left Femur Total: g /cm2 (0.940) / T-score (-0.5) / Z-score (0.1)Left Femoral Neck: g/cm2 (0.899) / T-score (-1.0) / Z-score (0.0)Right Femur Total: g/cm2 (0.909) / T-score (-0.8) / Z-score (-0.2)Right Femora l Neck: g/cm2 (0.873) / T-score (-1.2) / Z-score (-0.2) The T-Scores on the most recent prior examination were: Lumbar Spine (L1-L4): which represents an improvement of 1.5%.Left Femur Total: which represents a worsening of 8.7%. IMPRESSION:The patient is considered osteopenic, as outlined above, according toWorldHealth Organization (WHO) criteria. Fracture risk is moderate. Reference Information:The T-score is the number of standard deviations above or below thestandard which is normal for young adults at their peak bone mineraldensity. The World Health Organization (WHO) interprets the T-scores asfollows: Above -1 Normal bone densityBetween -1 and -2.5 OsteopeniaEqual to / or below -2.5 Osteoporosis As a practical clinical guideline, osteopenia may be graded as foll ows:Mild -1 through -1.5Moderate -1.6 through -2.0Severe -2.1 through - 2.4 The Z-score is the number of standard deviations above or below age- matchedcontrols. A Z-score of less than -1.5 would be co nsidered abnormal. References:1. NIH Osteoporosis and Related Bone Diseases http://www.osteo.org2. International Society for Clinical Densitometry http://www.iscd.org3. National Osteoporosis Foundati on http://www.nof.org Signed:Julius Barger M.D.December 15, 2012 at 8:02:59 AM [phone] Signed GP/GP If you are the referring physician and would like to consult with myranda carlton who provided this interpretation, please contact Rosa Barahona at [phone]. If this radiologist is unavailable, youwill be directed to another radiologist to assist. If you are a pa tient with a question regarding this report, pleasecontactyour referring physician directly. Professional Interpretation Provided By: [facility], Phone , These documents c ontain legally protected and confidential healthinformation intended only for the use of the individual or entity namedabove. If you are not the intended recipient, you are hereby notifiedthatany disclo sure, copying, distribution, or other use of these documents isstrictly prohibited. If you have received this information in error,pleasenotify the sender immediately and arrange for the return or destr uctionofthese documents. Dictated on 12/14/12 1605 by Junior Barger MDranscribed on 12/15/12 0807 by ITS IMPORTSign by Julius Barger MD on 12/15/12 0808 Sign by: Julius Barger MD 61-Rgi-515400:50 CBCMD ANC 2.9 3/uL (Normal) Range: 2.0-7.7 IG# 0.010 3/ul (Abnormal) Range: 0.0-0.0 IG% 0.20 % (Abnormal) Range: 0.0-0.0 B% 0.2 % (Normal) Range: 0-1 E% 4.1 % (Normal) Range: 0-5 M% 6.5 % (Normal) Range: 0-10 L% 25.3 % (Normal) Range: 19-41 N% 63.7 % (Normal) Range: 47-70 MPV 9.8 fL (Normal) Range: 6.2-12.0 PLT 275 K/mm3 (Normal) Range: 150-450 RDWSD 38.5 fL (Normal) Range: 35.1-43.9 RDWCV 12.3 % (Normal) Range: 11.6-14.6 MCHC 34.0 g/dL (Normal) Range: 32-36 MCH 29.3 pg (Normal) Range: 27.0-32.0 MCV 86.3 fL (Normal) Range: 81-99 HCT 39.7 % (Normal) Range: 37-47 HGB 13.5 g/dL (Normal) Range: 12.0-15.0 RBC 4.60 {M/mm3} (Normal) Range: 4.2-5.4 WBC 4.6 {k/mm3} (Normal) Range: 4.4-11.0 78-Elm-522556:50 CMP GAP 5 (Normal) Range: 5-15 CO2 29.0 mmol/L (Normal) Range: 21.0-32.0 CL 102 mmol/L (Normal) Range: 98-107 K 3.6 mmol/L (Normal) Range: 3.5-5.1 NA 136 mmol/L (Normal) Range: 136-145 BIT 0.50 mg/dL (Normal) Range: 0.00-1.00 ALT 32 U/L (Normal) Range: 12-78 ALK 80 U/L (Normal) Range: 50-136 AST 17 U/L (Normal) Range: 15-37 CA 9.4 mg/dL (Normal) Range: 8.5-10.1 AG 1.2 {RATIO} (Normal) Range: 0.9-2.4 GLOB 3.2 g/dL (Normal) Range: 2.7-4.2 ALB 3.9 g/dL (Normal) Range: 3.4-5.0 TPROT 7.1 g/dL (Normal) Range: 6.4-8.2 BC 14.3 {RATIO} (Normal) Range: 10-20 GFRAA 113 mL/min (Normal) GFR 93 mL/min (Normal) CREAT 0.7 mg/dL (Normal) Range: 0.6-1.0 BUN 10 mg/dL (Normal) Range: 7-18 GLU 96 mg/dL (Normal) Range: 70-110 07-Xhg-705146:50 LIPID VLDL 18 mg/dL (Normal) Range: 5-40 LDL 130 mg/dL (Normal) Range: 0-130 HDL 37 mg/dL (Abnormal) Comments: Reference Range HDL <40 mg/dL Low HDL Cholesterol HDL >or= 60 mg/dL High HDL Cholesterol TRIG 89 mg/dL (Normal) Comments: Serum Triglycerides Reference Interval Normal <150 mg/dL Borderline high 150 - 199 mg/dL High 200 - 499 mg/dL Very High > or = 500 mg/dL CHOL 185 mg/dL (Normal) Comments: <200 mg/dL Desirable 200-240 mg/dL Borderline >240 mg/dL High Risk :57 CBCD,SMEAR DIFF RED CELL MORPH SeeNote {NORMAL} (Normal) Comments: Result: NORM C+C PLT EST SeeNote (Normal) Comments: Result: ADEQUATE EOS 5 % (Normal) Range: 0-5 MONOCYTE 9 % (Normal) Range: 0-10 LYMPH 34 % (Normal) Range: 19-41 BAND 2 % (Normal) Range: 0-5 SEGS 50 % (Normal) Range: 47-70 CELLS COUNTED 100 (Normal) ABSOLUTE NEUT 3.4 3/uL (Normal) Range: 2.0-7.7 PLT 318 K/mm3 (Normal) Range: 150-450 RDW 12.3 % (Normal) Range: 11.6-14.6 MCH 30.1 pg (Normal) Range: 27.0-32.0 MCHC 34.4 g/dL (Normal) Range: 32-36 MCV 87.4 fL (Normal) Range: 81-99 HCT 40.1 % (Normal) Range: 37-47 HGB 13.8 g/dL (Normal) Range: 12.0-16.0 RBC 4.59 {M/mm3} (Normal) Range: 4.2-5.4 WBC 5.7 K/mm3 (Normal) Range: 4.4-11.0 :57 COMP METABOLIC GAP 5 (Normal) Range: 5-15 CO2 32.0 mmol/L (Normal) Range: 21.0-32.0 CL 102 mmol/L (Normal) Range: 98-107 K 3.9 mmol/L (Normal) Range: 3.5-5.1 NA 139 mmol/L (Normal) Range: 136-145 T BILI 0.60 mg/dL (Normal) Range: 0.00-1.00 ALT 27 U/L (Normal) Range: 12-78 ALK P 73 U/L (Normal) Range: 50-136 AST 15 U/L (Normal) Range: 15-37 CA 9.1 mg/dL (Normal) Range: 8.5-10.1 A/G 1.1 {RATIO} (Normal) Range: 0.9-2.4 GLOB 3.6 g/dL (Normal) Range: 2.7-4.2 ALB 4.0 g/dL (Normal) Range: 3.4-5.0 T PROT 7.6 g/dL (Normal) Range: 6.4-8.2 BUN/CRE 17.1 {RATIO} (Normal) Range: 10-20 EST GFR - AA 113 mL/min (Normal) EST GFR 93 mL/min (Normal) CREAT,SERUM 0.7 mg/dL (Normal) Range: 0.6-1.0 BUN 12 mg/dL (Normal) Range: 7-18 GLU 100 mg/dL (Normal) Range: 70-110 24-Xao-47641:57 LIPID LDL 120 mg/dL (Normal) Range: 0-130 VLDL 15 mg/dL (Normal) Range: 5-40 HDL 52 mg/dL (Normal) Comments: Reference Range HDL <40 mg/dL Low HDL Cholesterol HDL >or= 60 mg/dL High HDL Cholesterol TRIG 74 mg/dL (Normal) Comments: Serum Triglycerides Reference Interval Normal <150 mg/dL Borderline high 150 - 199 mg/dL High 200 - 499 mg/dL Very High > or = 500 mg/dL CHOL 187 mg/dL (Normal) Comments: <200 mg/dL Desirable 200-240 mg/dL Borderline >240 mg/dL High Risk 18-Apr-20118:28 CBCD,SMEAR DIFF RED CELL MORPH SeeNote {NORMAL} (Normal) Comments: Result: NORM C+C EOS 6 % (Abnormal) Range: 0-5 MONOCYTE 11 % (Abnormal) Range: 0-10 PLT EST SeeNote (Normal) Comments: Result: ADEQUATE LYMPH 25 % (Normal) Range: 19-41 SEGS 58 % (Normal) Range: 47-70 CELLS COUNTED 100 (Normal) ABSOLUTE NEUT 4.0 3/uL (Normal) Range: 2.0-7.7 PLT 298 K/mm3 (Normal) Range: 150-450 RDW 12.2 % (Normal) Range: 11.6-14.6 MCH 30.8 pg (Normal) Range: 27.0-32.0 MCHC 33.9 g/dL (Normal) Range: 32-36 MCV 90.8 fL (Normal) Range: 81-99 HCT 40.3 % (Normal) Range: 37-47 HGB 13.7 g/dL (Normal) Range: 12.0-16.0 RBC 4.44 {M/mm3} (Normal) Range: 4.2-5.4 WBC 6.3 K/mm3 (Normal) Range: 4.4-11.0 :28 COMP METABOLIC CL 101 mmol/L (Normal) Range: 98-107 CO2 29.0 mmol/L (Normal) Range: 21.0-32.0 GAP 10 (Normal) Range: 5-15 K 3.9 mmol/L (Normal) Range: 3.5-5.1 NA 140 mmol/L (Normal) Range: 136-145 ALT 23 U/L (Normal) Range: 12-78 T BILI 0.50 mg/dL (Normal) Range: 0.00-1.00 ALK P 68 U/L (Normal) Range: 50-136 AST 8 U/L (Abnormal) Range: 15-37 CA 9.6 mg/dL (Normal) Range: 8.5-10.1 A/G 1.6 {RATIO} (Normal) Range: 0.9-2.4 GLOB 2.9 g/dL (Normal) Range: 2.7-4.2 ALB 4.5 g/dL (Normal) Range: 3.4-5.0 BUN/CRE 17.5 {RATIO} (Normal) Range: 10-20 T PROT 7.4 g/dL (Normal) Range: 6.4-8.2 EST GFR 80 mL/min (Normal) EST GFR - AA 97 mL/min (Normal) BUN 14 mg/dL (Normal) Range: 7-18 CREAT,SERUM 0.8 mg/dL (Normal) Range: 0.6-1.0 GLU 85 mg/dL (Normal) Range: 70-110 :28 COMPLETE UA Comments: COLOR OF URINE MAY AFFECT DIPSTICK RESULTS. BACTERIA 0 SEEN {/hpf} (Normal) MUCUS, URINE 1+ {/hpf} (Normal) RBC-UA 0 SEEN {/hpf} (Normal) Range: 0-5 SQUAM EPI SeeNote {/hpf} (Normal) Range: 5-10 Comments: Result: 0-5 SEEN LEUK ESTERASE SeeNote (Normal) Comments: Result: NEGATIVE NITRITE UR SeeNote (Normal) Comments: Result: NEGATIVE OCCULT BLOOD-UR SeeNote (Normal) Comments: Result: NEGATIVE UROBILI 0.2 EU/dl (Normal) Range: 0.2 - 1.0 WBC 0 SEEN {/hpf} (Normal) Range: 0-5 BILIRUBIN URINE SeeNote (Normal) Comments: Result: NEGATIVE KETONE UR SeeNote mg/dL (Normal) Comments: Result: NEGATIVE pH UR 7.5 (Normal) Range: 5.0-8.0 PROT DIPSTX SeeNote (Normal) Comments: Result: NEGATIVE SP.GR. DIPSTX 1.020 (Normal) Range: 1.002-1.030 CLARITY CLEAR (Normal) GLUCOSE, UR SeeNote (Normal) Comments: Result: NEGATIVE COLOR YELLOW (Normal) :28 LIPID HDL 49 mg/dL (Normal) Comments: Reference Range HDL <40 mg/dL Low HDL Cholesterol HDL >or= 60 mg/dL High HDL Cholesterol LDL 91 mg/dL (Normal) Range: 0-130 VLDL 20 mg/dL (Normal) Range: 5-40 TRIG 101 mg/dL (Normal) Comments: Serum Triglycerides Reference Interval Normal <150 mg/dL Borderline high 150 - 199 mg/dL High 200 - 499 mg/dL Very High > or = 500 mg/dL CHOL 160 mg/dL (Normal) Comments: <200 mg/dL Desirable 200-240 mg/dL Borderline >240 mg/dL High Risk 2-Jfu-615840:32 CBCD,SMEAR DIFF PLT EST SeeNote (Normal) Comments: Result: ADEQUATE RED CELL MORPH SeeNote {NORMAL} (Normal) Comments: Result: NORM C+C EOS 11 % (Abnormal) Range: 0-5 LYMPH 24 % (Normal) Range: 19-41 MONOCYTE 2 % (Normal) Range: 0-10 CELLS COUNTED 100 (Normal) SEGS 63 % (Normal) Range: 47-70 ABSOLUTE NEUT 3.0 3/uL (Normal) Range: 2.0-7.7 MCHC 35.2 g/dL (Normal) Range: 32-36 PLT 316 K/mm3 (Normal) Range: 150-450 RDW 12.2 % (Normal) Range: 11.6-14.6 MCH 31.4 pg (Normal) Range: 27.0-32.0 HCT 39.0 % (Normal) Range: 37-47 MCV 89.1 fL (Normal) Range: 81-99 HGB 13.7 g/dL (Normal) Range: 12.0-16.0 RBC 4.38 {M/mm3} (Normal) Range: 4.2-5.4 WBC 4.8 K/mm3 (Normal) Range: 4.4-11.0 3-Yvn-220787:32 COMP METABOLIC CL 104 mmol/L (Normal) Range: 98-107 CO2 30.0 mmol/L (Normal) Range: 21.0-32.0 GAP 8 (Normal) Range: 5-15 K 4.3 mmol/L (Normal) Range: 3.5-5.1 NA 142 mmol/L (Normal) Range: 136-145 T BILI 0.40 mg/dL (Normal) Range: 0.00-1.00 ALT 25 U/L (Normal) Range: 12-78 A/G 1.1 {RATIO} (Normal) Range: 0.9-2.4 ALK P 68 U/L (Normal) Range: 50-136 AST 13 U/L (Abnormal) Range: 15-37 CA 9.2 mg/dL (Normal) Range: 8.5-10.1 ALB 3.9 g/dL (Normal) Range: 3.4-5.0 GLOB 3.4 g/dL (Normal) Range: 2.7-4.2 T PROT 7.3 g/dL (Normal) Range: 6.4-8.2 BUN/CRE 16.3 {RATIO} (Normal) Range: 10-20 EST GFR - AA 97 mL/min (Normal) BUN 13 mg/dL (Normal) Range: 7-18 CREAT,SERUM 0.8 mg/dL (Normal) Range: 0.6-1.0 EST GFR 80 mL/min (Normal) GLU 93 mg/dL (Normal) Range: 70-110 0-Utl-353894:32 LIPID VLDL 12 mg/dL (Normal) Range: 5-40 HDL 50 mg/dL (Normal) Comments: Reference Range HDL <40 mg/dL Low HDL Cholesterol HDL >or= 60 mg/dL High HDL Cholesterol LDL 78 mg/dL (Normal) Range: 0-130 CHOL 140 mg/dL (Normal) Comments: <200 mg/dL Desirable 200-240 mg/dL Borderline >240 mg/dL High Risk TRIG 61 mg/dL (Normal) Comments: Serum Triglycerides Reference Interval Normal <150 mg/dL Borderline high 150 - 199 mg/dL High 200 - 499 mg/dL Very High > or = 500 mg/dL 2-Rhw-223506:32 MICROALB:CRE UR MALB:CREAT 7.6 {mg/g_CRE} (Normal) MICROALBUMIN,UR 13.4 mg/L (Normal) UR CREAT 176.1 mg/dL (Normal) 59-Kyn-417504:04 UNILAT LT DIAG DIGITAL & CAD Radiology Report See Note (Normal) Comments: Exam Number: [id number] MAMMOGRAM, UNILATERAL LEFT DIAGNOSTIC DIGITAL AND CAD HISTORY: Short term follow up of abnormal mammogram. Full field digital images were obtained in mediolateral obli que andcrani ocaudal projections. True lateral and spot mediolateral obliqueviews of the left breast were also obtained. CAD images werereviewed. The current study is compared to the examinations of September 09, December 30, 2006, December 06, 2008, December 20, 2008. There is a severe extent of fibroglandular parenchyma present. Thereis no skin thickening or retraction, architectural distortion, orcluster of isac picious microcalcifications. There is an apparent focaldensity seen on every mediolateral oblique, true lateral or spotmediolateral oblique view obtained since the examination of 2008. This density is not identified in the craniocaudal view.However, there is a severe extent of fibroglandular parenchyma presentwhich could easily hide a focal nodule in the 2nd projection. Theultrasound exa mination performed December 20, 2008, described 2 smalldensities smaller than the apparent mass seen in the mammographicimages. This mammographic abnormality is stable in the lateralprojection but incomple tely localized. For further evaluation of thisfinding, surgical evaluation is suggested. IMPRESSIONThere is a focal density in the lower left breast measuringapproximately 1 cm in size. This is seen o n every mediolateraloblique, true lateral or spot view obtained since the examination ofFebruary 2008. This is incompletely localized since it is notseen in the craniocaudal projection. Because of the dominant densityis persistent, surgical evaluation is recommended. FINAL ASSESSMENTSuspicious for malignancy. BIRADS Category 4. Report will be called to Dr. Ray's office. A letter regarding t hese results has been sent to the patient. This interpretation was rendered by a radiologist certified under theMammography Quality Standards Act of 1992 (MQSA). The mammograms werealso examined with computer-aided detection software ([employer] Reported By: MICHELE ROSADO M.D. 69-Jyg-535516:12 MICROALBUMIN: CREATININE RATIO Comments: [facility]FORMED BY: [facility] [facility] [id number] ([id number]) AND ([id number]) Creatinine, Urine 41.5 mg/dL (Normal) Range: 15.0-278.0 Microalb/Creat Ratio 10.6 {mg/g_creat} (Normal) Range: 0.0-30.0 Microalbumin, Urine 4.4 ug/mL (Normal) Range: 0.0-17.0 36-Vfk-384433:12 METABOLIC PANEL, COMPREHENSIVE Comments: PERFORMED BY: [facility] [facility] [id number] ([id number]) A/G Ratio 1.8 (Normal) Range: 1.1-2.5 Albumin, Serum 4.8 g/dL (Normal) Range: 3.5-5.5 Alkaline Phosphatase, S 71 [iU]/L (Normal) Range: 25-150 ALT (SGPT) 16 [iU]/L (Normal) Range: 0-40 AST (SGOT) 14 [iU]/L (Normal) Range: 0-40 Bilirubin, Total 0.6 mg/dL (Normal) Range: 0.1-1.2 BUN 11 mg/dL (Normal) Range: 5-26 BUN/Creatinine Ratio 14 (Normal) Range: 8-27 Calcium, Serum 10.2 mg/dL (Normal) Range: 8.5-10.6 Carbon Dioxide, Total 24 mmol/L (Normal) Range: 20-32 Chloride, Serum 98 mmol/L (Normal) Range: 97-108 Creatinine, Serum 0.78 mg/dL (Normal) Range: 0.57-1.00 eGFR >59 mL/min/1.73 (Normal) eGFR AfricanAmerican >59 mL/min/1.73 Comments: Note: Persistent reduction for 3 months or more in an eGFR<60 mL/min/1.73 m2 defines CKD. Patients with eGFR values>/=60 mL/min/1.73 m2 may also have CKD if evidence of persistentproteinuria is (Normal) present. Additional information may be found [email or web address]. Globulin, Total 2.7 g/dL (Normal) Range: 1.5-4.5 Glucose, Serum 88 mg/dL (Normal) Range: 65-99 Potassium, Serum 4.2 mmol/L (Normal) Range: 3.5-5.2 Protein, Total, Serum 7.5 g/dL (Normal) Range: 6.0-8.5 Sodium, Serum 137 mmol/L (Normal) Range: 135-145 [id number] LIPID PANEL ([id number]) Comments: PERFORMED BY: [employer] [id number] Cholesterol, Total 201 mg/dL (Abnormal) Range: 100-199 HDL Cholesterol 52 mg/dL (Normal) Comments: According to ATP-III Guidelines, HDL-C >59 mg/dL is considered anegative risk factor for CHD. LDL Cholesterol Calc 132 mg/dL (Abnormal) Range: 0-99 LDL/HDL Ratio 2.5 {ratio_units} (Normal) Range: 0.0-3.2 Triglycerides 87 mg/dL (Normal) Range: 0-149 VLDL Cholesterol Norbert 17 mg/dL (Normal) Range: 5-40 [id number] CBC WITH MANUAL DIFF ([id number]) Comments: PERFORMED BY: [id number] [facility] [id number] Baso (Absolute) 0.0 {x10E3/uL} (Normal) Range: 0.0-0.2 Basos 0 % (Normal) Range: 0-3 Eos 5 % (Normal) Range: 0-7 Eos (Absolute) 0.3 {x10E3/uL} (Normal) Range: 0.0-0.4 Hematocrit 43.7 % (Normal) Range: 34.0-44.0 Hemoglobin 15.1 g/dL (Abnormal) Range: 11.5-15.0 Lymphs 19 % (Normal) Range: 14-46 Lymphs (Absolute) 1.3 {x10E3/uL} (Normal) Range: 0.7-4.5 MCH 31.0 pg (Normal) Range: 27.0-34.0 MCHC 34.4 g/dL (Normal) Range: 32.0-36.0 MCV 90 fL (Normal) Range: 80-98 Monocytes 7 % (Normal) Range: 4-13 Monocytes(Absolute) 0.5 {x10E3/uL} (Normal) Range: 0.1-1.0 Neutrophils 69 % (Normal) Range: 40-74 Neutrophils (Absolute) 4.7 {x10E3/uL} (Normal) Range: 1.8-7.8 Platelets 297 {x10E3/uL} (Normal) Range: 140-415 RBC 4.85 {x10E6/uL} (Normal) Range: 3.80-5.10 RDW 12.7 % (Normal) Range: 11.7-15.0 WBC 6.8 {x10E3/uL} (Normal) Range: 4.0-10.5 1-Opf-670853:03 COMP METABOLIC A/G 1.2 {RATIO} (Normal) Range: 0.9-2.4 ALB 4.0 g/dL (Normal) Range: 3.4-5.0 ALK P 69 U/L (Normal) Range: 50-136 ALT 25 U/L (Abnormal) Range: 30-65 AST 12 U/L (Abnormal) Range: 15-37 BUN 9 mg/dL (Normal) Range: 7-18 BUN/CRE 10.0 {RATIO} (Normal) Range: 10-20 CA 9.2 mg/dL (Normal) Range: 8.5-10.1 CL 97 mmol/L (Abnormal) Range: 98-107 CO2 30.0 mmol/L (Normal) Range: 21.0-32.0 CREAT,SERUM 0.9 mg/dL (Normal) Range: 0.6-1.0 EST GFR 71 mL/min (Normal) EST GFR - AA 86 mL/min (Normal) GAP 7 (Normal) Range: 5-15 GLOB 3.4 g/dL (Normal) Range: 2.7-4.2 GLU 85 mg/dL (Normal) Range: 70-110 K 3.6 mmol/L (Normal) Range: 3.5-5.1 NA 134 mmol/L (Abnormal) Range: 136-145 T BILI 0.50 mg/dL (Normal) Range: 0.00-1.00 T PROT 7.4 g/dL (Normal) Range: 6.4-8.2 3-Gzq-976574:03 LIPID CHOL 176 mg/dL (Normal) Comments: <200 mg/dL Desirable 200-240 mg/dL Borderline >240 mg/dL High Risk HDL 45 mg/dL (Normal) Comments: Reference Range HDL <40 mg/dL Low HDL Cholesterol HDL >or= 60 mg/dL High HDL Cholesterol LDL 113 mg/dL (Normal) Range: 0-130 TRIG 91 mg/dL (Normal) Comments: Serum Triglycerides Reference Interval Normal <150 mg/dL Borderline high 150 - 199 mg/dL High 200 - 499 mg/dL Very High > or = 500 mg/dL VLDL 18 mg/dL (Normal) Range: 5-40 8-Wpo-432759:16 BREAST UNILATERAL US () Radiology Report See Note (Normal) Comments: Exam Number: [id number] TARGETED LEFT BREAST ULTRASOUND REASON FOR EXAMINATIONAbnormal mammogram demonstrating nodularity in the inferior leftbreast. Targeted sonography is performed of the i nferior half of the leftbreast. No sonographic abnormality is demonstrated at site of interest in theinferior left breast middle depth. There is a focal hypoechogenicityin the inferior left breast in the anterior depth located 4 cm fromthe nipple (nodularity demonstrated on the mammographic study islocated at 6 o'clock 8 cm from the nipple) measuring 5 x 4 mm. IMPRESSION1. No sonographic abnormality at site of interest at the 6 o'clockposition left breast, middle depth. Recommend short- interval leftmammogram in 4-6 months.2. Mildly-complex cystic area demonstrated at the 6 o'clock positionin the anterior de pth left breast 4 cm from the nipple. This isprobably benign. Recommend short-interval followup targeted leftbreast ultrasound. BIRADS category 3. Reported By: ANDREE SANCHZE M.D. 5-Tcq-[id number]:31 BILAT [facility] DIGITAL & CAD Radiology Report See Note (Normal) Comments: Exam Number: [id number] BILATERAL DIAGNOSTIC MAMMOGRAMS REASON FOR EXAMINATIONAbnormal screening mammogram. True lateral views were obtained of both breasts. Spot compressionviews are obtained on the le ft in the MLO projection and on the rightin the craniocaudal and MLO projections. Diagnostic left mammogram: There is dense breast architecture. Focalnodularity persists on the spot compression views in the inferior leftbreast middle depth. This is confirmed on the craniocaudal view. Thefocal nodularity is also demonstrated on the true lateral viewprojecting over the inferior left breast middle de pth. Recommendtargeted sonography of the inferior left breast. Diagnostic right mammogram: Spot radiographs and true lateral viewdemonstrate no nodularity at site of clinical concern. There are nowor risome microcalcifications. There is no architectural distortion. IMPRESSION1. Nonspecific focal nodularity persists in the inferior left breastas seen on the MLO views and the true lateral view and not confirmedon the craniocaudal view. Recommend targeted sonography of theinferior left breast.2. No discrete mass identified in the right.3. BIRADS Category 0. A letter regarding the results has be en sent to the patient. This interpretation was rendered by a radiologist certified under theMammography Quality Standards Act of 1992 (MQSA). The mammograms werealso examined with computer-aided dete ction software ([employer] Reported By: ANDREE SANCHEZ M.D. 82-Dsy-444826:04 [facility] Radiology Report See Note (Normal) Comments: Exam Number: [id number] MAMMOGRAM, BILATERAL SCREENING DIGITAL AND CAD HISTORYRoutine screening. Full field digital images were obtained in mediolateral oblique andcraniocaudal projections. CAD images w ere reviewed. The current study is compared to the examinations of August 2004 andDecember 2006. There is a severe extent of fibroglandular parenchyma present. Thereis no skin thickening or retraction, architectural distortion, orcluster of suspicious microcalcifications. There are scatteredcalcifications on both sides. On the left, there is a density in thelower half of the breast in the middepth. This was not seen on theprevious examinations. Left true lateral and spot mediolateraloblique views are recommended. On the right, there are areas ofasymmetric density in the lower and inner right br east. To furtherevaluate these findings, right true lateral and spot mediolateraloblique and craniocaudal views are recommended. IMPRESSIONThere are possible new densities present bilaterally. Bilater al truelateral and spot mediolateral oblique views are recommended. A leftcraniocaudal spot film is also recommended. FINAL ASSESSMENTNeed additional imaging evaluation. BIRADS Category 0. A letter re garding these results has been sent to the patient. This interpretation was rendered by a radiologist certified under theMammography Quality Standards Act of 1992 (MQSA). The mammograms werealso exami adelaida with computer-aided detection software ([employer] Reported By: MICHELE ROSADO M.D. 8-Clw-481610:07 Thin prep Pap Comments: Source.............Cervical;EndocervicalLMP / Prev Treat...AQG=[id number]. of containers..01 CYTYC Thin Prep VialPATIENT NOT FASTINGClinical Information: ADD [id number] ([id number]) PERFORMED BY: [address] [id number] . . (Normal) DIAGNOSIS: SPRCS (Normal) Comments: NEGATIVE FOR INTRAEPITHELIAL LESION AND MALIGNANCY.Satisfactory for evaluation. No endocervical component is identified.V72.31 ; Routine gynecological examinationJecarrol Rizzo Environmental Journalist (ASCP) Note: PAPSMR (Normal) Comments: The Pap smear is a screening test designed to aid in the detection ofpremalignant and malignant conditions of the uterine cervix. It is not adiagnostic procedure and should not be used as the sole mean s of detectingcervical cancer. Both false-positive and false-negative reports do occur. .The HPV DNA reflex criteria were not met with this specimen resulttherefore, no HPV testing was performed. . :50 CBCD BASO% 0.4 % (Normal) Range: 0-1 EO% 6.5 % (Abnormal) Range: 0-5 HCT 40.5 % (Normal) Range: 37-47 HGB 14.2 g/dL (Normal) Range: 12.0-16.0 LY% 17.7 % (Abnormal) Range: 19-41 MCH 31.1 pg (Normal) Range: 27.0-32.0 MCHC 35.2 g/dL (Normal) Range: 32-36 MCV 88.3 fL (Normal) Range: 81-99 MONO% 6.8 % (Normal) Range: 0-10 MPV 7.9 fL (Normal) Range: 6.5-12.0 NEUT% 68.6 % (Normal) Range: 47-70 PLT 351 K/mm3 (Normal) Range: 150-450 RBC 4.58 {M/mm3} (Normal) Range: 4.2-5.4 RDW 12.5 % (Normal) Range: 11.6-14.6 WBC 6.0 K/mm3 (Normal) Range: 4.4-11.0 :50 COMP METABOLIC A/G 1.1 {RATIO} (Normal) Range: 0.9-2.4 ALB 3.8 g/dL (Normal) Range: 3.4-5.0 ALK P 73 U/L (Normal) Range: 50-136 ALT 32 U/L (Normal) Range: 30-65 AST 14 U/L (Abnormal) Range: 15-37 BUN 10 mg/dL (Normal) Range: 7-18 BUN/CRE 11.1 {RATIO} (Normal) Range: 10-20 CA 8.7 mg/dL (Normal) Range: 8.5-10.1 CL 101 mmol/L (Normal) Range: 98-107 CO2 32.1 mmol/L (Abnormal) Range: 21.0-32.0 CREAT,SERUM 0.9 mg/dL (Normal) Range: 0.6-1.0 GAP 4 (Abnormal) Range: 5-15 GLOB 3.4 g/dL (Normal) Range: 2.7-4.2 GLU 80 mg/dL (Normal) Range: 70-110 K 3.7 mmol/L (Normal) Range: 3.5-5.1 NA 137 mmol/L (Normal) Range: 136-145 T BILI 0.45 mg/dL (Normal) Range: 0.00-1.00 T PROT 7.2 g/dL (Normal) Range: 6.4-8.2 21-Ajc-09876:50 LIPID CHOL 130 mg/dL (Normal) Comments: <200 mg/dL Desirable 200-240 mg/dL Borderline >240 mg/dL High Risk HDL 42 mg/dL (Normal) Comments: Reference Range HDL <40 mg/dL Low HDL Cholesterol HDL >or= 60 mg/dL High HDL Cholesterol LDL 76 mg/dL (Normal) Range: 0-130 TRIG 59 mg/dL (Normal) Comments: Serum Triglycerides Reference Interval Normal <150 mg/dL Borderline high 150 - 199 mg/dL High 200 - 499 mg/dL Very High > or = 500 mg/dL VLDL 12 mg/dL (Normal) Range: 5-40 8-Icf-622372:33 DEXA BONE DENSITY STUDY (HP) Radiology Report See Note (Normal) Comments: Exam Number: [id number] BONE DENSITOMETRY HISTORYOsteopenia. TECHNIQUE Bone densitometry of the lumbar spine and left hip was performed. Thebest criteria for evaluation of osteoporosis is the T-valu e, whichrepresents the comparison of the patient's bone mass to an expectedpeak bone mass. For most patients, the mean T-value of L1 through L4is used to evaluate the lumbar spine. Based on the newest WorldHealth Organization classifications, the hip is evaluated by utilizingthe lower of the T-value of the total hip or the T-value of thefemoral neck. FINDINGSIn this patient, the mean T-value of L1 through L4 is -1.3 which is inthe range of osteopenia. Bone mineral density is measured at 0.8%less than in 2007. Digital lateral view for evaluation of vertebraldeformity only demonstrates slight lo ss of anterior height of T7. The T-value of the left femoral neck is -0.3 which is normal. The T-value of the total left hip is -0.2 which is normal. Bone mineral density of the total left hip is carlos ured at 0.7% lessthan in 2007. IMPRESSION1. There is osteopenia of the lumbar spine.2. Bone densitometry of the left hip is within normal limits. Reported By: MICHELE ROSADO M.D. 32-Zwv-35074:37 TRANSVAGINAL NON- Radiology Report See Note (Normal) Comments: Exam Number: [id number] TRANSVAGINAL PELVIC ULTRASOUND. HISTORYOvarian cyst, left. Pelvic pain. TECHNIQUEHigh resolution real time sector images were obtained transvaginally. COMPARISONThe current st y is compared to the examination of September 03, 2007. FINDINGSThe uterus measures 8.5 x 4.5 x 3.9 cm. The endometrium measures 9 mmin thickness. This is within normal limits for a premenopausalpati ent. There is fluid in the endometrium, which can also be normalin a premenopausal patient. There is a nabothian cyst in the cervix.The right ovary measures 2.1 x 1.7 x 1.5 cm. The left ovary measure s2.2 x 2 x 1.4 cm. There is a hypoechoic area in the left ovary,measuring 9 x 9 x 8 mm. Although there are apparent internal echoeswithin this small structure, the echoes are likely artifactual. This is most likely to represent a follicle. There is minimal fluid in [id number]. IMPRESSION1. The endometrium is 7 mm in thickness, which is within normal limits for a premenopausal patient. A sma ll amount of fluid in the endometrium can also be normal in a premenopausal patient. 2. The right ovary is normal. 3. There is a 9-mm cyst in the left ovary, most likely representing a small cyst. Reported By: MICHELE ROSADO M.D. 19-Ppz-754848:25 CBC, Platelets & Auto Diff Comments: PATIENT NOT FASTINGClinical Information: ADD DRAW FEE [id number] ADD J0 [id number] DIFFICULT DRAW PERFORMED BY: [facility] [facility] [id number] ([id number]) Baso (Absolute) 0.0 {x10E3/uL} (Normal) Range: 0.0-0.2 Basos 0 % (Normal) Range: 0-3 Eos 5 % (Normal) Range: 0-7 Eos (Absolute) 0.4 {x10E3/uL} (Normal) Range: 0.0-0.4 Hematocrit 38.3 % (Normal) Range: 34.0-44.0 Hemoglobin 13.4 g/dL (Normal) Range: 11.5-15.0 Lymphs 21 % (Normal) Range: 14-46 Lymphs (Absolute) 1.6 {x10E3/uL} (Normal) Range: 0.7-4.5 MCH 30.7 pg (Normal) Range: 27.0-34.0 MCHC 35.0 g/dL (Normal) Range: 32.0-36.0 MCV 88 fL (Normal) Range: 80-98 Monocytes 6 % (Normal) Range: 4-13 Monocytes(Absolute) 0.5 {x10E3/uL} (Normal) Range: 0.1-1.0 Neutrophils 68 % (Normal) Range: 40-74 Neutrophils (Absolute) 5.1 {x10E3/uL} (Normal) Range: 1.8-7.8 Platelets 342 {x10E3/uL} (Normal) Range: 140-415 RBC 4.37 {x10E6/uL} (Normal) Range: 3.80-5.10 RDW 12.5 % (Normal) Range: 11.7-15.0 WBC 7.5 {x10E3/uL} (Normal) Range: 4.0-10.5 18-Dga-348817:25 Metabolic Panel, Comprehensive Comments: PATIENT NOT FASTINGPERFORMED BY: [facility] [facility] [id number] ([id number]) A/G Ratio 1.8 (Normal) Range: 1.1-2.5 Albumin, Serum 4.5 g/dL (Normal) Range: 3.5-5.5 Alkaline Phosphatase, S 72 [iU]/L (Normal) Range: 25-150 ALT (SGPT) 13 [iU]/L (Normal) Range: 0-40 AST (SGOT) 27 [iU]/L (Normal) Range: 0-40 Bilirubin, Total 0.3 mg/dL (Normal) Range: 0.1-1.2 BUN 10 mg/dL (Normal) Range: 5-26 BUN/Creatinine Ratio 13 (Normal) Range: 8-27 Calcium, Serum 9.4 mg/dL (Normal) Range: 8.5-10.6 Carbon Dioxide, Total 27 mmol/L (Normal) Range: 20-32 Chloride, Serum 97 mmol/L (Normal) Range: 96-109 Creatinine, Serum 0.8 mg/dL (Normal) Range: 0.5-1.5 Globulin, Total 2.5 g/dL (Normal) Range: 1.5-4.5 Glucose, Serum 111 mg/dL (Abnormal) Range: 65-99 Potassium, Serum 4.8 mmol/L (Normal) Range: 3.5-5.5 Protein, Total, Serum 7.0 g/dL (Normal) Range: 6.0-8.5 Sodium, Serum 134 mmol/L (Abnormal) Range: 135-148 57-Dcj-106863:10 Urinalysis, Office ([id number]) UA - BILIRUBIN Negative (Normal) UA - BLOOD Negative (Normal) UA - GLUCOSE Negative (Normal) UA - KETONES Negative mg/dL (Normal) UA - LEUKOCYTE ESTERASE Negative (Normal) UA - NITRITE Negative (Normal) UA - PH 7.0 (Normal) UA - PROTEIN Negative mg/dL (Normal) UA - SPECIFIC GRAVITY 1.010 (Normal) URINE UROBILINGN TELLO TIMED Normal mg/dL (Normal) 8-Qgt-[id number]:35 HAND,MIN 3 VIEWS Radiology Report See Note (Normal) Comments: Exam Number: [id number] THREE VIEWS RIGHT HAND AP, LATERAL AND OBLIQUE HISTORYPain. No fractures are noted. Bony trabecular pattern and soft tissues areunremarkable. There is mild narrowing of the munira culation of thefirst metacarpal with the proximal phalanx of the thumb. Theremainder of the metacarpophalangeal joints are unremarkable. Thereis mild narrowing of the PIP joints of the 4th and 5th dig its. Thereis mild narrowing of the DIP joints of the 2nd, 4th and 5th digits. IMPRESSIONMild osteoarthritic changes. THREE VIEWS LEFT HAND AP, LATERAL AND OBLIQUE HISTORYPain. Carpal bones are unremark able. There is mild narrowing of the 5th metacarpophalangeal joint. The PIP joints show mild narrowing of the3rd, 4th and 5th digits. There is mild narrowing of the DIP joints ofthe 2nd, 4th and 5th digits. This is almost a mirror image of theopposite side. IMPRESSIONMild degenerative changes. Reported By: LON FALL M.D. 4-Fmt-552121:34 HAND,MIN 3 VIEWS Radiology Report See Note (Normal) Comments: Exam Number: [id number] THREE VIEWS RIGHT HAND AP, LATERAL AND OBLIQUE HISTORYPain. No fractures are noted. Bony trabecular pattern and soft tissues areunremarkable. There is mild narrowing of the munira culation of thefirst metacarpal with the proximal phalanx of the thumb. Theremainder of the metacarpophalangeal joints are unremarkable. Thereis mild narrowing of the PIP joints of the 4th and 5th dig its. Thereis mild narrowing of the DIP joints of the 2nd, 4th and 5th digits. IMPRESSIONMild osteoarthritic changes. THREE VIEWS LEFT HAND AP, LATERAL AND OBLIQUE HISTORYPain. Carpal bones are unremark able. There is mild narrowing of the 5th metacarpophalangeal joint. The PIP joints show mild narrowing of the3rd, 4th and 5th digits. There is mild narrowing of the DIP joints ofthe 2nd, 4th and 5th digits. This is almost a mirror image of theopposite side. IMPRESSIONMild degenerative changes. Reported By: LON FALL M.D. 3-Vyv-903308:04 VICTORINO-D [id number] VICTORINO-DIRECT 24 AU/mL (Normal) Range: 0-99 Comments: Negative <100 Equivocal 100 - 120 Positive >120 9-Xot-435620:04 ESR SED RATE 6 mm/h (Normal) Range: 0-20 4-Xlo-013858:04 RA LATEX 6502 3.4 {IU/mL} (Normal) Range: 0.0-13.9 Comments: Performed At: [facility] [place] [address] [id number] 27-Vad-93658:45 LIPID CHOL 135 mg/dL (Normal) Comments: <200 mg/dL Desirable 200-240 mg/dL Borderline >240 mg/dL High Risk HDL 39 mg/dL (Normal) Comments: Reference Range HDL <40 mg/dL Low HDL Cholesterol HDL >or= 60 mg/dL High HDL Cholesterol LDL 86 mg/dL (Normal) Range: 0-130 TRIG 51 mg/dL (Normal) Comments: Serum Triglycerides Reference Interval Normal <150 mg/dL Borderline high 150 - 199 mg/dL High 200 - 499 mg/dL Very High > or = 500 mg/dL VLDL 10 mg/dL (Normal) Range: 5-40 :45 LIVER ALB 3.9 g/dL (Normal) Range: 3.4-5.0 ALK P 72 U/L (Normal) Range: 50-136 ALT 28 [iU]/L (Abnormal) Range: 30-65 AST 11 U/L (Abnormal) Range: 15-37 D BILI 0.09 mg/dL (Normal) Range: 0.00-0.30 T BILI 0.44 mg/dL (Normal) Range: 0.00-1.00 T PROT 7.1 g/dL (Normal) Range: 6.4-8.2 :45 TSH 2.67 {uIU/mL} (Normal) Range: 0.34-4.82 Plan of Care Name Dates Details Instructions Hand pain, left : *Abd Pain Red Flags Indication: Hand pain, left Current nonsmoker (Renamed from Current non-smoker) : Eprescribed prescriptions (G8553) Indication: Current nonsmoker (Renamed from Current non-smoker) Osteopenia : Continue Current Prescription(s) Indication: Osteopenia Hypertension : Follow up in 6 months Indication: Hypertension Hypercholesterolemia : Reviewed Lab Indication: Hypercholesterolemia Hypercholesterolemia : Cholesterol mgmt Indication: Hypercholesterolemia Chest pain, central : Follow up - Make appt after diagnostic tests Indication: Chest pain, central BMI 33.0-33.9,adult : Eprescribed prescriptions (G8553) Indication: BMI 33.0-33.9,adult Hypertension : Diet, Exercise, and Wt loss Indication: Hypertension Hypertension : Follow up in 6 months Indication: Hypertension Hypertension : HTN/CAD Red Flags Indication: Hypertension BMI 33.0-33.9,adult : Eprescribed prescriptions (G8553) Indication: BMI 33.0-33.9,adult Hypertension : Follow up in 6 months Indication: Hypertension Hypercholesterolemia : Cholesterol mgmt Indication: Hypercholesterolemia Hypertension : Eprescribed prescriptions (G8553) Indication: Hypertension Hypertension : Eprescribed prescriptions (G8553) Indication: Hypertension Osteopenia : Follow up if no improvement or if symptoms worsen Indication: Osteopenia Hemorrhoids, unspecified hemorrhoid type : Eprescribed prescriptions (G8553) Indication: Hemorrhoids, unspecified hemorrhoid type Diarrhea : *Abd Pain Red Flags Indication: Diarrhea Diarrhea : Diarrhea instructions Indication: Diarrhea Hypercholesterolemia : High Cholesterol (Hypercholesterolemia) *: cardiovascular health Indication: Hypercholesterolemia Hypercholesterolemia : High Cholesterol (Hypercholesterolemia) *: cardiovascular health Indication: Hypercholesterolemia Well woman exam with routine gynecological exam : Self Breast Exam Education Indication: Well woman exam with routine gynecological exam Well woman exam with routine gynecological exam : Colon Cancer Screening Indication: Well woman exam with routine gynecological exam Well woman exam with routine gynecological exam : Pap/Pelvic/Bimanual/Rectal/Breast Exam was done. Indication: Well woman exam with routine gynecological exam Well woman exam with routine gynecological exam : Well Female Maintenance (KF) Indication: Well woman exam with routine gynecological exam Inflamed skin tag : Cryotherapy Indication: Inflamed skin tag Hypercholesterolemia : FOLLOW UP IN 6 MONTHS Indication: Hypercholesterolemia Arthralgia : FOLLOW UP IN 6 MONTHS Indication: Arthralgia Well woman exam with routine gynecological exam : Self Breast Exam Education Indication: Well woman exam with routine gynecological exam Well woman exam with routine gynecological exam : Pap/Pelvic/Bimanual/Rectal/Breast Exam was done. Indication: Well woman exam with routine gynecological exam Well woman exam with routine gynecological exam : Well Female Maintenance (KF) Indication: Well woman exam with routine gynecological exam Planned Observations Sed Rate Erythrocyte ([id number])Indication: Hand pain, left On: :26 Request Metabolic Panel, Comprehensive (81965)Indication: Hand pain, left On: :26 Request CBC (Auto) (10117)Indication: Hand pain, left On: :26 Request CPK MB FRACTION (40011)Indication: Chest pain, central On: :57 Request Comments: STAT ASSAY, TROPONIN, QUANTITATIVE (aka Troponin I) (42427)Indication: Chest pain, central On: :57 Request Comments: STAT METABOLIC PANEL, COMPREHENSIVE (36189)Indication: Chest pain, central On: :53 Request CBC, PLATELETS & MANUAL DIFF (60555)Indication: Chest pain, central On: :53 Request TSH (94104)Indication: Anxiety On: :36 Request Comments: in six months (approximately) URINALYSIS, W/ MICRO (23027)Indication: Hypertension On: :36 Request Comments: in six months (approximately) LIPID PANEL (09477)Indication: Hypertension On: :35 Request Comments: in six months (approximately) CBC with auto diff (44852)Indication: Hypertension On: :35 Request Comments: in six months (approximately) METABOLIC PANEL, COMPREHENSIVE (36120)Indication: Hypertension On: :35 Request Comments: today and in six months (approximately) CBC with manual diff (80000)Indication: Hypertension On: :12 Request OVA & PARASITE DIR SMEAR (94725)Indication: Diarrhea On: :19 Request OCCULT BLOOD FECES SCREEN (41097)Indication: Diarrhea On: :19 Request LEUKOCYTE COUNT, FECAL (95273)Indication: Diarrhea On: : Request C-DIFFICILE, STOOL (44533)Indication: Diarrhea On: :19 Request ARABELLA CULTURE-STOOL (07562)Indication: Diarrhea On: : Request URINALYSIS, W/ MICRO (97788)Indication: Hypertension On: :25 Request METABOLIC PANEL, COMPREHENSIVE (23183)Indication: Hypertension On: :25 Request LIPID PANEL (88562)Indication: Hypertension On: : Request CBC WITH MANUAL DIFF (03427)Indication: Hypertension On: :25 Request CULTURE,FUNGUS W/STAIN [id number] (83192)Indication: Mouth lesion On: :40 Request CULTURE, VIRUS GENERAL 8573 (21803)Indication: Mouth lesion On: :40 Request CALCIFIDIOL (77680) VIT D 25Indication: Osteopenia On: :57 Request URINALYSIS, W/ MICRO (81762)Indication: Hypertension On: :27 Request METABOLIC PANEL, COMPREHENSIVE (22031)Indication: Hypertension On: :27 Request LIPID PANEL (32174)Indication: Hypertension On: :27 Request CBC WITH MANUAL DIFF (63087)Indication: Hypertension On: :27 Request CBC, PLATELETS & MANUAL DIFF (44866)Indication: Hypercholesterolemia On: :33 Request METABOLIC PANEL, COMPREHENSIVE (42834)Indication: Hypercholesterolemia On: :33 Request LIPID PANEL (24877)Indication: Hypercholesterolemia On: :33 Request TSH ([id number])Indication: Physical exam, routine On: :29 Request METABOLIC PANEL, COMPREHENSIVE (31997)Indication: Physical exam, routine On: :29 Request LIPID PANEL (64207)Indication: Physical exam, routine On: :29 Request CBC WITH MANUAL DIFF (07572)Indication: Physical exam, routine On: :29 Request URINALYSIS, W/ MICRO (34235)Indication: Hypertension On: :57 Request METABOLIC PANEL, COMPREHENSIVE (51269)Indication: Hypertension On: :57 Request LIPID PANEL (68154)Indication: Hypertension On: :57 Request CBC WITH MANUAL DIFF ([id number])Indication: Hypertension On: :57 Request MICROALBUMIN: CREATININE RATIO (50027) AND (58502)Indication: Hypertension On: :31 Request METABOLIC PANEL, COMPREHENSIVE (34613)Indication: Hypertension On: :31 Request LIPID PANEL (85761)Indication: Hypertension On: :31 Request CBC WITH MANUAL DIFF ([id number])Indication: Hypertension On: :31 Request METABOLIC PANEL, COMPREHENSIVE (15663)Indication: Hypertension On: :52 Request LIPID PANEL (95563)Indication: Hypertension On: :52 Request CBC WITH MANUAL DIFF ([id number])Indication: Hypertension On: :52 Request METABOLIC PANEL, COMPREHENSIVE ([id number])Indication: Hypertension On: :48 Request LIPID PANEL (26682)Indication: Hypertension On: :48 Request CBC WITH MANUAL DIFF (85678)Indication: Hypertension On: :48 Request Comments: 01-25 Metabolic Panel, Comprehensive (41875)Indication: Hypertension On: :26 Request Lipid Panel (75144)Indication: Hypertension On: :26 Request CBC (Auto) (90285)Indication: Hypercholesterolemia On: :06 Request Metabolic Panel, Comprehensive (30219)Indication: Hypercholesterolemia On: 74-Hjh-[id number]:06 Request Lipid Panel ([id number])Indication: Hypercholesterolemia On: 91-Kzb-901561:06 Request Comments: in six months (approximately) Sed Rate Erythrocyte ([id number])Indication: Arthralgia On: 96-Mgb-670806:13 Request RHEUMATOID FACTOR-QUANT ([id number])Indication: Arthralgia On: 59-Kbd-332095:13 Request VICTORINO (ANTINUCLEAR ANTIBODY) ([id number])Indication: Arthralgia On: 25-Gqi-509476:13 Request TSH ([id number])Indication: Hypercholesterolemia On: 72-Wcp-835790:04 Request HEPATIC FUNCTION PANEL ([id number])Indication: Hypercholesterolemia On: :04 Request Lipid Panel ([id number])Indication: Hypercholesterolemia On: :04 Request Thin prep Pap ([id number])Indication: Well woman exam with routine gynecological exam On: 34-Nyb-837880:52 Request Planned Encounters Medical; 6 Month FU - On: 25-Nov-2018 8:00 [facility] Jeanine Gramajo DO, DO, Kathleen Planned Procedures RUQ US (RIGHT UPPER QUADRANT On: 01-Nov-2018 Intent ULTRASOUND) ([id number])By: Avila PORTILLO, Comments: attention CBD size -- s/p choley Jeanine Gramajo DO, Jeanine X-RAY LEFT HAND, 3+ VIEWS ([id number])By: On: 01-Nov-2018 Intent Jeanine Gramajo DO, DO, Kathleen X-RAY OF WRIST, FOUR VIEWS On: 01-Nov-2018 Intent ([id number])By: Jeanine Gramajo DO, DO, Kathleen GALLBLADDER ULTRASOUND ([id number])By: On: 20-May-2018 Intent Jeanine Gramajo DO, DO, Kathleen SCREENING DIGITAL TOMOSYNTHESIS OF On: 29-Dec-2017 Intent BREAST ([id number])By: Holly Martines CHEST XRAY, PA & LATERAL ([id number])By: On: 17-Nov-2017 Intent Christianne Pepper STRESS ECHO-EXERCISE ([id number])By: On: 17-Nov-2017 Intent Christianne Pepper ELECTROCARDIOGRAM, COMPLETE (ECG) On: 17-Nov-2017 Intent ([id number])By: Christianne Pepper Comments: Sinus Rhythm-Rate 72, -Negative precordial t-waves. ? lead placement, EKG ([id number])By: Jeanine Gramajo DO On: 05-May-2017 Intent Jeanine Gramajo DO Comments: nsr no acute chg MAMMOGRAM, BOTH SIDES ([id number])By: On: 04-Dec-2016 Intent Jeanine Gramajo DO, DO, Kathleen DEXA SCAN AXIAL SKELETON ([id number])By: On: 04-Dec-2016 Intent Jeanine Gramajo DO, DO, Kathleen EKG ([id number])By: Jeanine Gramajo DO On: 04-Dec-2016 Intent Jeanine Gramajo DO Comments: nsr no acute chg MAMMOGRAM, SCREENING, BOTH BREAST On: 26-Oct-2014 Intent ([id number])By: Coral Ray MD DEXA SCAN AXIAL SKELETON ([id number])By: On: 26-Oct-2014 Intent Coral Ray MD INFUSION, NORMAL SALINE SOLUTION , On: 01-Feb-2014 Intent 1000 CC (Special Coverage Instructions Apply. See MCM: 2049) ([id number])By: Caitlyn Gonzales CNP HYDRATION IV INFUSION, INIT On: 01-Feb-2014 Intent ([id number])By: Caitlyn Gonzales CNP Phenergan Injection, up to 50 mg On: 01-Feb-2014 Intent ([id number])By: Caitlyn Gonzales CNP Comments: lot: [id number]: 04/02site/route: LGM/IMamt: 25mgVIS signed when applicableChelsea, MOLD FILLING OPERATOR EKG ([id number])By: Coral Ray MD On: 22-Dec-2013 Intent Comments: see scanned document of test done to see results reviewed today with patient EKG ([id number])By: Coral Ray MD On: 18-Nov-2012 Intent Comments: see scanned document of test done to see results reviewed today with patient DXA, BONE DENSITY, AXIAL SKELETON On: 18-Nov-2012 Intent ([id number])By: Coral Ray MD EKG ([id number])By: Coral Ray MD On: 18-Apr-2011 Intent FLU VAC, SPLIT, >3 YEARS, INTRAMUSC On: 25-Jul-2009 Intent ([id number])By: Mast RN, Huong IMMUNIZ ADMNIN, 1 VAC, SNGL/COMBO On: 25-Jul-2009 Intent ([id number])By: Mast Huong MCNALLY Breast Ultrasound - LeftBy: Flor On: 28-Mar-2009 Intent Coral MCHUGH Breast Diagnostic - LeftBy: Flor On: 28-Mar-2009 Intent Coral MCHUGH MAMMOGRAM, SCREENING, BOTH BREASTS On: 23-Aug-2008 Intent ([id number])By: Coral Ray MD IMMUNIZ ADMNIN, 1 VAC, SNGL/COMBO On: 07-Aug-2008 Intent ([id number])By: SWATHI Whipple FLU VAC, SPLIT, >3 YEARS, INTRAMUSC On: 07-Aug-2008 Intent ([id number])By: SWATHI Whipple Comments: Lot #:Expiration date:Amount given:Route: IMSite given:left deltoid Given by: [facility] Bone Density StudyBy: Flor MCHUGH, On: 08-Mar-2008 Intent Coral Rodriguez EKG ([id number])By: Coral Ray MD On: 08-Mar-2008 Intent Ultrasound - Abdomen Complete & On: 03-Sep-2007 Intent PelvisBy: Caitlyn Gonzales CNP Comments: stat Call results to [facility] Dr. Nunes [employer] FLU VAC, SPLIT, >3 YEARS, INTRAMUSC On: 10-Aug-2007 Intent ([id number])By: Shana Dai Comments: given 0.5cc im in left deltoid lot#[id number] exp.04/17/08-aw IMMUNIZ ADMNIN, 1 VAC, SNGL/COMBO On: 10-Aug-2007 Intent ([id number])By: Shana Dai Radiology - Hand - BilateralBy: On: 05-Jul-2007 Intent Coral Ray MD Comments: proximal joint ache DXA, BONE DENSITY, AXIAL SKELETON On: 09-Dec-2006 Intent ([id number])By: Coral Ray MD Comments: strong family history MAMMOGRAM, SCREENING, BOTH BREASTS On: 09-Dec-2006 Intent ([id number])By: Coral Ray MD Planned Medications INFUSION, NORMAL SALINE SOLUTION , 1000 CC Ordered: 01-Feb-2014 Pending Caitlyn Gonzales CNP Phenergan 50 MG/ML Injection Solution Ordered: 01-Feb-2014 Pending Caitlyn Gonzales CNP Instructions Name Dates Details Current nonsmoker (Renamed from Current non-smoker) : How to access health information online Indication: Current nonsmoker (Renamed from Current non-smoker) Current nonsmoker (Renamed from Current non-smoker) : How to access health information online - Detail Indication: Current nonsmoker (Renamed from Current non-smoker) Current nonsmoker (Renamed from Current non-smoker) : Patient Instructions Indication: Current nonsmoker (Renamed from Current non-smoker) Current nonsmoker (Renamed from Current non-smoker) : How to access health information online Indication: Current nonsmoker (Renamed from Current non-smoker) Current nonsmoker (Renamed from Current non-smoker) : How to access health information online - Detail Indication: Current nonsmoker (Renamed from Current non-smoker) Current nonsmoker (Renamed from Current non-smoker) : Patient Instructions Indication: Current nonsmoker (Renamed from Current non-smoker) Current nonsmoker (Renamed from Current non-smoker) : How to access health information online Indication: Current nonsmoker (Renamed from Current non-smoker) Current nonsmoker (Renamed from Current non-smoker) : How to access health information online - Detail Indication: Current nonsmoker (Renamed from Current non-smoker) Current nonsmoker (Renamed from Current non-smoker) : Patient Instructions Indication: Current nonsmoker (Renamed from Current non-smoker) BMI 33.0-33.9,adult : How to access health information online Indication: BMI 33.0-33.9,adult BMI 33.0-33.9,adult : How to access health information online - Detail Indication: BMI 33.0-33.9,adult Post-nasal drainage : Patient Instructions Indication: Post-nasal drainage Current nonsmoker (Renamed from Current non-smoker) : How to access health information online Indication: Current nonsmoker (Renamed from Current non-smoker) Current nonsmoker (Renamed from Current non-smoker) : How to access health information online - Detail Indication: Current nonsmoker (Renamed from Current non-smoker) Current nonsmoker (Renamed from Current non-smoker) : Patient Instructions Indication: Current nonsmoker (Renamed from Current non-smoker) BMI 33.0-33.9,adult : How to access health information online Indication: BMI 33.0-33.9,adult BMI 33.0-33.9,adult : How to access health information online - Detail Indication: BMI 33.0-33.9,adult BMI 33.0-33.9,adult : Patient Instructions Indication: BMI 33.0-33.9,adult Hypertension : How to access health information online Indication: Hypertension Hypertension : How to access health information online - Detail Indication: Hypertension Hypertension : Patient Instructions Indication: Hypertension Hypertension : How to access health information online Indication: Hypertension Hypertension : How to access health information online - Detail Indication: Hypertension Hypertension : Patient Instructions Indication: Hypertension Hypertension : How to access health information online Indication: Hypertension Hypertension : How to access health information online - Detail Indication: Hypertension Hypertension : Patient Instructions Indication: Hypertension Osteopenia : Patient Instructions Indication: Osteopenia Hemorrhoids, unspecified hemorrhoid type : How to access health information online Indication: Hemorrhoids, unspecified hemorrhoid type Hemorrhoids, unspecified hemorrhoid type : How to access health information online - Detail Indication: Hemorrhoids, unspecified hemorrhoid type Hemorrhoids, unspecified hemorrhoid type : Patient Instructions Indication: Hemorrhoids, unspecified hemorrhoid type Hypercholesterolemia : Patient Instructions Indication: Hypercholesterolemia Hypercholesterolemia : Patient Instructions Indication: Hypercholesterolemia Advance Directives Name Dates Details Immunization Registry Jones - Effective on Effective: 01-Nov-201811/01/2018. Expiration date unspecified Encounters Office Visit On: 01-Nov-2018 15:14 Encounter Diagnosis: Current nonsmoker (Renamed from Current non-smoker), Wrist pain, left, Hand pain, left, RUQ pain End: 01-Nov-2018 16:30 [facility] Phone Encounter On: 27-May-2018 7:33 Encounter Diagnosis: Kidney stone End: 27-May-2018 7:37 [facility] Office Visit On: 20-May-2018 7:49 Encounter Reason: Follow up for chronic medical issues - The patient feels well with minor complaints, has good energy level and is sleeping well. Patient has been compliant with instructions. Current medication use: no End: 20-May-2018 8:28 side effects and compliant with dosing regimen. Patient sleeps 7 hours per night. Nutrition: balanced diet and supplemental vitamins. The medical issues the patient is following up for include All ident ified problems below, high blood pressure and high cholesterol. weight :., [ADDITIONAL REASON] Abdominal pain - The onset of the pain has been sudden and has been occurring in an intermittent pattern for 2 months. The course has been recurrent. The pain is described as a moderate stabbing and crampy. The pain is described as being located in the right upper quadrant. Note for Pain: I think it is my GB Encounter Diagnosis: Current nonsmoker (Renamed from Current non-smoker), BMI 32.0- 32.9,adult, Nutritional counseling, Hypercholesterolemia, Hypertension, Anxiety, Osteopenia, RUQ pain [facility] Phone Encounter On: 12-Mar-2018 15:29 Encounter Diagnosis: Current nonsmoker (Renamed from Current non-smoker) End: 12-Mar-2018 15:32 [facility] Office Visit On: 06-Jan-2018 12:36 Encounter Reason: Physical female exam - Last seen between 3-6 months ago. General health: feels well with minor complaints, has good energy level and is sleeping well. The patient's appetite is normal. Nutrition: normal End: 07-Jan-2018 8:10 /adequate. Exercises 0 days per week. Sleeps on average 7 hours per night. Normal bowel and bladder habits. Safety measures include appropriate use of safety belts and home smoke detectors. There are no current emotional problems. screening, colonoscopy (due in 2 yrs), screening, mammography (2017) and screening, Pap smear (2017).Encounter Diagnosis: BMI 33.0- 33.9,adult, Current nonsmoker (Renamed from Current non-smoker), Physical exam, Nutritional counseling, Encounter for screening for lipid disorder [facility] Phone Encounter On: 29-Dec-2017 13:36 Encounter Diagnosis: Encounter for screening mammogram for breast cancer (Renamed from Encounter for screening mammogram for malignant neoplasm of breast) End: 29-Dec-2017 13:48 [facility] Office Visit On: 17-Nov-2017 8:16 Encounter Reason: Chest Pain - Symptoms include chest pain (and pressure) and cough (starting to go away. has been sick for a couple week), while symptoms do not include dyspnea or leg edema. The pain is located in the s End: 17-Nov-2017 12:00 ubsternal area. The pain radiates to the back. The patient describes the pain as burning, heavy, pressure-like and sharp (was kind of sharp on thursday, not anymore). Onset was sudden 3 day(s) ago. Note for Chest pain: Symptoms started 4 days ago with chest pressure and chest pain does radiate to the back, Does not radiate to jaw, or arm. Has some lightheadedness as well at times. No SOB, n/v, sweat ing . [facility] yesterday because the chest pain was worse leroy walking to car-their ekg machine was down and instructed her to go to ER-pt did not go. ??Chest pain was sharp, now it is achy and burning. No burping, acid reflux. Did have a cold about 1-2 weeks ago but resolving-did have a dry cough with the cold. Mother had a double bipass at age of 60.Encounter Diagnosis: BMI 33.0-33.9,adult, Current nonsmoker (Renamed from Current non-smoker), Chest pressure, Chest pain, central, Post-nasal drainage [facility] Office Visit On: 05-May-2017 12:55 Encounter Reason: Pre-Op Visit - The procedure scheduled is a b/l foot sx on 05/29/17. The surgeon for the procedure will be DR. Stokes.Encounter Diagnosis: BMI 33.0-33.9,adult, Current nonsmoker (Renamed from Current non-smoker), End: 05-May-2017 14:01 Pre-operative exam (Renamed from Encounter for pre-operative examination), Hypertension [facility] Office Visit On: 04-Dec-2016 7:21 Encounter Reason: Follow up for chronic medical issues - The patient feels well with minor complaints, has good energy level and is sleeping well. Patient has been compliant with instructions. Current medication use: no End: 04-Dec-2016 8:20 side effects and compliant with dosing regimen. Patient sleeps 7 hours per night. Nutrition: balanced diet and supplemental vitamins. The medical issues the patient is following up for include All ident ified problems below, high blood pressure and high cholesterol. weight :.Encounter Diagnosis: Current nonsmoker (Renamed from Current non-smoker), BMI 33.0- 33.9,adult, Other migraine without status migrainosus, not intractable, Chest pain, Hypertension, Hypercholesterolemia, Osteopenia, Encounter for screening mammogram for breast cancer (Renamed from Encounter for screening mammogram for malignant neoplasm of breast) [facility] Office Visit On: 30-May-2016 7:04 Encounter Reason: Follow up for chronic medical issues - The patient feels well with no complaints, has good energy level and is sleeping well. Patient has been compliant with instructions. Current medication use: no una End: 30-May-2016 7:50 e effects and compliant with dosing regimen. Patient sleeps 8 hours per night. Nutrition: balanced diet.Encounter Diagnosis: Hypertension, Current nonsmoker (Renamed from Current non-smoker), BMI 32.0-32.9,adult, Osteopenia, Hypercholesterolemia, Anxiety, Low back pain potentially associated with radiculopathy [facility] Annotation/Addendum On: 26-Oct-2015 7:40 Encounter Diagnosis: Hypertension End: 26-Oct-2015 12:25 [facility] Office Visit On: 26-Oct-2015 7:10 Encounter Reason: Follow up for chronic medical issues - The patient feels well with minor complaints and has decreased energy level. Patient has been compliant with instructions. Current medication use: no side effects, End: 26-Oct-2015 7:36 compliant with dosing regimen and considered effective by patient. Patient sleeps 7 hours per night. Impact of disease: emotional impact-mild. Nutrition: balanced diet and supplemental vitamins. The me dical issues the patient is following up for include depression (anxiety ), high blood pressure, high cholesterol, osteoporosis/osteopenia and other (obesity, migraine ).Encounter Diagnosis: Hypertension, Current nonsmoker (Renamed from Current non-smoker), Family history of heart disease, Anxiety, Hypercholesterolemia, Obesity, Osteopenia, Other migraine without status migrainosus, not intractable [facility] Phone Encounter On: 07-May-2015 15:51 Encounter Diagnosis: Osteopenia (733.90) End: 07-May-2015 15:55 [facility] Office Visit On: 26-Apr-2015 7:04 Encounter Reason: Follow up for chronic medical issues - The patient feels well with minor complaints (stress and increased bp), has good energy level and is sleeping well. Patient has been compliant with instructions. C End: 26-Apr-2015 7:44 urrent medication use: no side effects, compliant with dosing regimen and considered effective by patient. Patient sleeps 7 hours per night. Impact of disease: emotional impact-mild. Nutrition: balanced diet and supplemental vitamins. The medical issues the patient is following up for include cardiac issues, depression, high blood pressure, high cholesterol, osteoporosis/osteopenia and other (migraines, ??obesity ).Encounter Diagnosis: Hypercholesterolemia (272.0), Hypertension 401.1 (Renamed from Hypertension (401.0)), Migraine (346.80), Family history of other cardiovascular diseases (V17.4), Obesity (278.00), Osteopenia (733.90), Anxiety (300.00) [facility] Office Visit On: 17-Jan-2015 8:35 Encounter Reason: Follow up tests - Date: (12/19/14). Follow up visit with no current symptoms.Encounter Diagnosis: Osteopenia (733.90) End: 17-Jan-2015 9:12 [facility] Office Visit On: 26-Oct-2014 7:23 Encounter Reason: Follow up for chronic medical issues - The patient feels well with no complaints, has good energy level and is sleeping well. Patient has been compliant with instructions. Current medication use: no una End: 26-Oct-2014 8:08 e effects, compliant with dosing regimen and considered effective by patient. Patient sleeps 7 hours per night. Impact of disease: emotional impact-mild. Nutrition: balanced diet and supplemental vitami ns. The medical issues the patient is following up for include cardiac issues, depression, high blood pressure, high cholesterol, osteoporosis/osteopenia and other (migraines, ??obesity ).Encounter Diagnosis: Obesity (278.00), Hypertension 401.1 (Renamed from Hypertension (401.0)), Migraine (346.80), Family history of other cardiovascular diseases (V17.4), Osteopenia (733.90), Anxiety (300.00), Hypercholesterolemia (272.0), WWV V73.21 [facility] Office Visit On: 10-Jul-2014 9:07 Encounter Reason: Hemorrhoids - The last clinic visit was 2 month(s) ago. No changes in management were made at the last visit. Symptoms include anal pain, anal itching and rectal bleeding, while symptoms do not include End: 10-Jul-2014 9:52 constipation or diarrhea. The patient describes the pain as aching. There is no known event that preceded symptom onset. The symptoms occur constantly. The patient describes this as severe.Encounter Diagnosis: Rectal Bleeding(569.3), Hemorrhoids (455.6) [facility] Phone Encounter On: 03-Feb-2014 15:11 Encounter Diagnosis: Hypertension 401.1 (Renamed from Hypertension (401.0)) End: 03-Feb-2014 15:13 [facility] Office Visit On: 01-Feb-2014 14:55 Encounter Reason: Headache - Symptoms include headache, nausea, vomiting, photophobia and phonophobia. Onset was sudden. The pain is constant. The patient describes symptoms as unchanged. Headache triggers include noise, End: 01-Feb-2014 17:18 light and movement. Symptoms are exacerbated by noise, movement, light and fatigue.Encounter Diagnosis: Migraine (346.80), Nausea and vomiting in adult, Diarrhea, Dehydration, moderate [facility] Office Visit On: 22-Dec-2013 7:09 Encounter Reason: Follow up for chronic medical issues - The patient feels well with minor complaints, has good energy level and is sleeping well. Patient has been compliant with instructions. Current medication use: no End: 22-Dec-2013 7:31 side effects, compliant with dosing regimen and considered effective by patient. Patient sleeps 7 hours per night. Impact of disease: emotional impact-mild. Nutrition: balanced diet and supplemental vit amins. The medical issues the patient is following up for include cardiac issues, high cholesterol, osteoporosis/osteopenia and other (obesity, migraine ).Encounter Diagnosis: Migraine (346.80), Anxiety (300.00), Family history of other cardiovascular diseases (V17.4), Obesity (278.00), Fatigue (780.79), Other isolated or specific phobias (300.29), Osteopenia (733.90), Hypertension 401.1 (Renamed from Hypertension (401.0)), Hypercholesterolemia (272.0), Shoulder Pain (719.41) [facility] Lab Order On: 05-Dec-2013 17:46 Encounter Diagnosis: Hypercholesterolemia (272.0), Hypertension 401.1 (Renamed from Hypertension (401.0)), Anxiety (300.00), Osteopenia (733.90) End: 05-Dec-2013 17:48 [facility] Office Visit On: 29-Jul-2013 7:52 Encounter Reason: Follow up acute care visit - The patient feeling better since last seen and improving. Patient has been compliant with instructions. Current medication use: no side effects, compliant with dosing regime End: 29-Jul-2013 8:28 n and considered effective by patient. Patient sleeps 7 hours per night. Impact of disease: emotional impact-mild. Nutrition: balanced diet and supplemental vitamins. The medical issues the patient is following up for include other (mouth lesions ). Encounter Diagnosis: Mouth lesion (528.9) [facility] Office Visit On: 22-Jul-2013 7:34 Encounter Diagnosis: Mouth lesion (528.9) End: 26-Jul-2013 6:18 [facility] Office Visit On: 13-May-2013 7:06 Encounter Reason: Follow up for chronic medical issues - The patient feels well with minor complaints and has decreased energy level. Patient has been compliant with instructions. Current medication use: no side effects, End: 13-May-2013 7:37 compliant with dosing regimen and considered effective by patient. Patient sleeps 7 hours per night. Impact of disease: emotional impact-mild. Nutrition: balanced diet and supplemental vitamins. The me dical issues the patient is following up for include high blood pressure, high cholesterol and other (migraine, anxiety).Encounter Diagnosis: Hypercholesterolemia (272.0), Migraine (346.80), Other isolated or specific phobias (300.29), Anxiety (300.00), Hypertension 401.1 (Renamed from Hypertension (401.0)), Family history of other cardiovascular diseases (V17.4), Shoulder Pain (719.41), Osteopenia (733.90), Obesity (278.00), Fatigue (780.79) [facility] Annotation/Addendum On: 23-Dec-2012 8:56 Encounter Diagnosis: Osteopenia (733.90) End: 23-Dec-2012 9:00 [facility] Office Visit On: 18-Nov-2012 7:13 Encounter Reason: Follow up for chronic medical issues - The patient feels well with minor complaints, has good energy level and is sleeping well. Patient has been compliant with instructions. Current medication use: no End: 18-Nov-2012 7:39 side effects, compliant with dosing regimen and considered effective by patient. Patient sleeps 7 hours per night. Impact of disease: emotional impact-mild. Nutrition: balanced diet and supplemental vit amins. The medical issues the patient is following up for include depression, high blood pressure, high cholesterol, osteoporosis/osteopenia and other (obesity, migraine, anxiety, arthralgias ).Encounter Diagnosis: Migraine (346.80), Hypertension 401.1 (Renamed from Hypertension (401.0)), Hypercholesterolemia (272.0), Anxiety (300.00), Other isolated or specific phobias (300.29), Osteopenia (733.90), Family history of other cardiovascular diseases (V17.4), Plantar fasciitis (728.71), Neoplasm of unspecified nature of bone, soft tissue, and skin (239.2), Arthralgia (719.4), Obesity (278.00), Abnormal mammogram (793.80), Fatigue (780.79), Cervical Spasm (728.85), WWV V73.21, Shoulder Pain (719.41) [facility] Phone Encounter On: 20-Sep-2012 13:32 Encounter Diagnosis: Hypercholesterolemia (272.0) End: 20-Sep-2012 13:35 [facility] Phone Encounter On: 04-Nov-2011 12:23 Encounter Diagnosis: Rash and other nonspecific skin eruption (782.1) End: 04-Nov-2011 12:24 [facility] Office Visit On: 04-Nov-2011 8:12 Encounter Reason: Follow up for chronic medical issues - The patient feels well with minor complaints and has decreased energy level. Patient has been compliant with instructions. Current medication use: no side effects, End: 04-Nov-2011 8:36 compliant with dosing regimen and considered effective by patient. Patient sleeps 7 hours per night. Impact of disease: emotional impact-mild. Nutrition: balanced diet and supplemental vitamins. The me dical issues the patient is following up for include cardiac issues, depression, gastric reflux, high cholesterol, osteoporosis/osteopenia and other (obesity, migraines).Encounter Diagnosis: Physical exam, routine (V70.0), Obesity (278.00) [facility] Office Visit On: 29-Sep-2011 8:23 Encounter Reason: Neck pain - The onset of the neck pain has been acute and has been occurring in a persistent pattern for 3 days. The course has been gradually improving. The neck pain is described as a severe cramping End: 29-Sep-2011 8:45 . The neck pain is described as being located in the occipital area. The pain radiates to the up back of head The back pain is aggravated by twisting. The back pain is relieved by heat. The symptoms hav e been associated with headache. There have been no previous diagnostic tests. There have been no previous evalutations. There has been no previous physical therapy. There has been no previous spine maida rachel. There has been no use of assistive devices. Previous medications have included Ibuprofen.Encounter Diagnosis: Cervical Spasm (728.85), Neck pain (723.1) [facility] Office Visit On: 18-Apr-2011 7:38 Encounter Reason: Follow up for chronic medical issues - The patient feels well with minor complaints and has decreased energy level. Patient has been compliant with instructions. Current medication use: no side effects End: 18-Apr-2011 8:08 and compliant with dosing regimen. Patient sleeps 7 hours per night. Impact of disease: emotional impact-mild. Nutrition: balanced diet and supplemental vitamins. The medical issues the patient is follo wing up for include cardiac issues, high blood pressure, high cholesterol, osteoporosis/osteopenia and other (migraine, fatigue ).Encounter Diagnosis: Hypertension 401.1 (Renamed from Hypertension (401.0)), Anxiety (300.00), Migraine (346.80), Hypercholesterolemia (272.0), Foot pain (729.5), WWV V72.31 (Renamed from WWV) [facility] Office Visit On: 07-Oct-2010 15:37 Encounter Reason: Follow up for chronic medical issues - The patient feels well with minor complaints, has good energy level and is sleeping well. Patient has been compliant with instructions. Current medication use: no End: 07-Oct-2010 16:16 side effects, compliant with dosing regimen and considered effective by patient. Patient sleeps 7 hours per night. Impact of disease: emotional impact-mild. Nutrition: balanced diet and supplemental vit amins. The medical issues the patient is following up for include depression, high blood pressure, high cholesterol and other (migraines, obesity, arthralgias ).Encounter Diagnosis: Fatigue (780.79), Plantar fasciitis (728.71), Neoplasm of unspecified nature of bone, soft tissue, and skin (239.2), Hypertension 401.1 (Renamed from Hypertension (401.0)), Arthralgia (719.4), Family history of other cardiovascular diseases (V17.4), Obesity (278.00), Migraine (346.80), Other isolated or specific phobias (300.29), Hypercholesterolemia (272.0), GERD (530.81), Pain in joint involving ankle and foot (719.47), Anxiety (300.00) [facility] Phone Encounter On: 23-May-2010 6:42 [facility] End: 23-May-2010 6:43 Office Visit On: 16-Apr-2010 8:18 Encounter Reason: Follow up for chronic medical issues - The patient feels well with minor complaints ,has good energy level and is sleeping well. Patient has been compliant with instructions. Current medication use: no End: 16-Apr-2010 8:50 side effects ,compliant with dosing regimen and considered effective by patient. Patient sleeps 8 hours per night. Impact of disease: emotional impact-mild. Nutrition: balanced diet and supplemental vit amins. The medical issues the patient is following up for include cardiac issues ,depression ,high blood pressure and osteoporosis/osteopenia. Encounter Diagnosis: Migraine (346.80), Hypertension 401.1 (Renamed from Hypertension (401.0)), Arthralgia (719.4), Family history of other cardiovascular diseases (V17.4), Fatigue (780.79), Plantar fasciitis (728.71), Neoplasm of unspecified nature of bone, soft tissue, and skin (239.2), Other isolated or specific phobias (300.29), Pain in joint involving ankle and foot (719.47), GERD (530.81), Obesity (278.00), Osteopenia (733.90), Abnormal mammogram (793.80), Hypercholesterolemia (272.0), Anxiety (300.00) [facility] Office Visit On: 08-Oct-2009 13:27 Encounter Reason: Follow up for chronic medical issues - The patient feels well with minor complaints and has decreased energy level. Patient has been compliant with instructions. Current medication use: no side effects End: 08-Oct-2009 13:55 ,compliant with dosing regimen and considered effective by patient. Patient sleeps 8 hours per night. Impact of disease: emotional impact-mild. Nutrition: balanced diet and supplemental vitamins. The me dical issues the patient is following up for include depression ,gastric reflux ,high blood pressure ,high cholesterol and other (migraines ). 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 Encounter Diagnosis: Need for prophylactic vaccination and inoculation against influenza (V04.81) End: 25-Jul-2009 17:40 [facility] Office Visit On: 28-Mar-2009 8:48 Encounter Reason: Follow up for chronic medical issues - The patient feels well with no complaints ,has good energy level and is sleeping well. Patient has been compliant with instructions. Current medication use: no una End: 28-Mar-2009 9:15 e effects ,compliant with dosing regimen and considered effective by patient. Patient sleeps 7 hours per night. Impact of disease: emotional impact-mild. Nutrition: balanced diet and supplemental vitami ns. The medical issues the patient is following up for include cardiac issues ,depression ,high blood pressure ,high cholesterol ,osteoporosis/osteopenia and other (migraine, fatigue ). 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 The course has been increasing. The rash is characterized as red. The rash was first seen on the fa End: 07-Dec-2008 8:48 ce. There has been no progression. There has been no associated alopecia ,anorexia ,chills ,fatigue ,fever ,itching ,kidney disease ,liver disease ,loss of sensation ,lymphadenopathy ,malaise ,mucous me mbrane lesions ,nail changes ,pain or weight loss. Encounter Diagnosis: Dermatitis (692.9) [facility] Office Visit On: 22-Nov-2008 8:19 Encounter Reason: Well Women Exam - The patient feels well with minor complaints ,has decreased energy level and is sleeping well. Pap smear: date of last pap: (2006). Contraceptive history: The patient is not using any End: 22-Nov-2008 8:49 method of contraception at this time. Patient exercises a weekly. The patient's libido is normal. The patient reports that she performs monthly self breast exam. Calcium intake includes 1200 mg with Vit D daily supplement and 1 serving milk daily. Menstruation: Last menstrual period date: (11-14-08). Encounter Diagnosis: Well Woman Exam (V72.31) (Pap,Mammo,Routine Female), Hypertension 401.1 (Renamed from Hypertension (401.0)), GERD (530.81), Arthralgia (719.4), Osteopenia (733.90) [facility] Office Visit On: 23-Aug-2008 9:37 Encounter Reason: Follow up for chronic medical issues - The patient feels well with minor complaints ,has good energy level and is sleeping well. Patient has been compliant with instructions. Current medication use: no End: 23-Aug-2008 10:28 side effects ,compliant with dosing regimen and considered effective by patient. Patient sleeps 7 hours per night. Impact of disease: emotional impact-mild. Nutrition: balanced diet and supplemental vit amins. The medical issues the patient is following up for include cardiac issues ,depression ,gastric reflux ,high blood pressure ,high cholesterol ,osteoporosis/osteopenia and other (migraines, arthralgia ). 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), Hypertension 401.1 (Renamed from Hypertension (401.0)), Need for prophylactic vaccination and inoculation against influenza (V04.81), Hypercholesterolemia (272.0), Obesity (278.00), Migraine (346.80), GERD (530.81), Arthralgia (719.4), Family history of other cardiovascular diseases (V17.4), Pain in joint involving ankle and foot (719.47), Plantar fasciitis (728.71), Fatigue (780.79), Neoplasm of unspecified nature of bone, soft tissue, and skin (239.2), Osteopenia (733.90), POLYURIA (788.4), Pelvic pain (625.9), Skin Tag, Irritated (701.9) [facility] Nurse Visit On: 07-Aug-2008 8:08 Encounter Diagnosis: Need for prophylactic vaccination and inoculation against influenza (V04.81) End: 07-Aug-2008 8:09 [facility] Phone Encounter On: 20-Apr-2008 13:50 [facility] End: 20-Apr-2008 13:54 Office Visit On: 08-Mar-2008 11:51 Encounter Reason: Follow up for chronic medical issues - The patient feels well with no complaints ,has good energy level and is sleeping well. Patient has been compliant with instructions. Current medication use: no una End: 08-Mar-2008 12:16 e effects. Patient sleeps 8 hours per night. Impact of disease: no overall impact. Nutrition: balanced diet. The medical issues the patient is following up for include All identified problems below ,car diac issues ,gastric reflux and high blood pressure. Encounter Diagnosis: Hypercholesterolemia (272.0), Hypertension 401.1 (Renamed from Hypertension (401.0)), Migraine (346.80), Obesity (278.00), GERD (530.81), Osteopenia (733.90) [facility] Phone Encounter On: 06-Sep-2007 11:59 [facility] End: 06-Sep-2007 12:09 Office Visit On: 03-Sep-2007 16:06 [facility] End: 03-Sep-2007 16:06 Office Visit On: 03-Sep-2007 14:04 Encounter Reason: Urinary problems - The onset of the urinary problems has been acute and they have been occurring in a persistent pattern for 1 days. The course has been increasing. The urinary problems are described as End: 03-Sep-2007 15:29 moderate. The urinary problem is characterized as frequency. There has been associated back pain (Left flank). Note for Urinary problems: Left lower cramping dull ache and sometimes sharp in groinEncounter Diagnosis: Pelvic pain (625.9), POLYURIA (788.4) [facility] Nurse Visit On: 10-Aug-2007 8:40 Encounter Diagnosis: Need for prophylactic vaccination and inoculation against influenza (V04.81) End: 11-Aug-2007 9:15 [facility] Office Visit On: 05-Jul-2007 13:51 Encounter Reason: Follow up for chronic medical issues - The patient feels well with minor complaints ,has good energy level and is sleeping well. Patient has been compliant with instructions. Current medication use: no End: 05-Jul-2007 14:23 side effects ,compliant with dosing regimen and considered effective by patient. Patient sleeps 8 hours per night. Impact of disease: emotional impact-mild. Nutrition: balanced diet. The medical issues the patient is following up for include depression ,gastric reflux ,high blood pressure ,high cholesterol and other (migraines ). 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 Pap smear: date of last pap End: 09-Dec-2006 12:09 : (2003). Contraceptive history: The patient is not using any method of contraception at this time. Patient exercises 3 - 4 times per week (working out, spinning class). The patient's libido is normal. The patient reports that she performs monthly self breast exam. Calcium intake includes 1200 mg daily supplment ([employer] daily vitamin). The patient denies the use of oral contraceptives or hormone repla cement therapy. Menstruation: Last menstrual period date: (11-12-06). Encounter Diagnosis: Well Woman Exam (V72.31) (Pap,Mammo,Routine Female), Hypercholesterolemia (272.0) [facility] Historical Summary On: 03-Dec-2006 9:37 [facility] End: 03-Dec-2006 9:50 Phone Encounter On: 22-Sep-2006 15:04 [facility] End: 22-Sep-2006 15:06 Phone Encounter On: 21-Sep-2006 17:29 Encounter Diagnosis: Unspecified Diagnosis End: 21-Sep-2006 17:30 [facility]
--- OUTSIDE RECORDS SUMMARY | 2019-01-12 04:50 | XMS RPT_ITS | Continuity of Care Document ---
:1960 External Reference #:[id number] Author Organization [facility] Address [facility]7 [facility] 2 [place] [address] Phone Care Team Providers Name Role Phone [...] Status: Active WWV V73.21 Comments: colonscopy 2011 [facility] Status: Active Medications Name Dates Details [...] : 19-Aug-2010 End : 04-Nov-2011 Inactive [facility], 905358FDHI/ML (Mouth/Throat Suspension) 1 Suspension 5 ml 5 [...] at 49 Status: Inactive as of 28-Mar-2009 [facility] V72.31 (Renamed from [facility]) Comments: talk about colonscnopy. pap 2-, side effects Dr. diaz. Status: Inactive as of 18-Nov-2012 Procedures Procedure Dates Details Arthroscopy of Knee Completed Comments: 1998 Dr. Rajput Deviated septum Completed Foot sx Completed Comments: 06/06/17 b/l Shoulder Surgery Completed Comments: rt 03/28/14 Tonsillectomy Completed Date Value Details 22-Jul-2018 Surgery Visit Report Result: Comments: See Note; NOTES: [facility] [address] [place] [address] OFFICE VISIT Date of Service: 07/22/18 MR#: [id number] Acct: [id number] Name: HANNAH STANLEY Rep #: [id number] : 1960 Provider: Lana Quinn PA-C Age/Sex: 58/F Location: [facility] Status: Signed with Addenda ADDENDUM by Lana [...] update H AND P alex hodge 07-12 Hand Paint Mixer Required: No Is patient in pain?: No [...] [History Confirmed 07/22/18] Hydrocodone Bitart/Apap 5- 325 [Midway 5MG-325MG] 1 tab PO Q6H PRN PRN [...] Visit Report Result: Comments: See Note; NOTES: [facility] [address] [place] [address] OFFICE VISIT Date of Service: 07/22/18 MR#: [id number] Acct: [id number] Name: HANNAH STANLEY Rep #: [id number] : 1960 Provider: Lana Quinn PA-C Age/Sex: 58/F Location: [facility] Status: Signed Intake Intake Visit Reasons: Lap Armida RC 07/12 Chief Complaint: update H AND P la p armida 07-12 RC Hand Paint Mixer Required: No Is patient in pain?: No [...] 07/07/18 [History Confirmed 07/22/18] Hydrocodone Bitart/Apap 5-325 [Midway 5MG-325MG] 1 tab PO Q6H PRN PRN [...] Lead Electrocardiogram Result: Comments: See Note; NOTES: [facility] Cardiovascular Services [address] [place] [address] 12 Lead EKG 07/08/18 1451 MR#: [id number] Acct: [id number] Name: HANNAH STANLEY Rep #: [id number] : 1960 58 From: Gerber Agrawal MD Attending Dr: John Sol MD Status: DEP [facility] Ordering Dr: John Sol MD Date: 07/08/18 Location: [facility] Sex: F C Admitted: Test Reason : [...] ECG Confirmed by GERBER AGRAWAL MD ([id number]), senior editor SRINIVAS DEE ([id number]) on 07/14/2018 9:23:26 AM Referred By: John Sol Confirmed By: GERBER AGRAWAL MD 07/14/18922 Date Gerber Agrawal MD CC: Jeanine Gramajo DO; John Sol MD Signed 13-Jul-2018 Discharge Instruction Result: Comments: See Note; NOTES: [facility] Medical Records Department [address] [place] [address] Instructions for Home/Discharge Instructions 07/12/18 1152 MR#: [id number] Acct: [id number] Name: HANNAH STANLEY Rep #: [id number] : 1960 58 From: John Sol MD PCP: Jeanine Gramajo DO Status: DEP [facility] Discharge Diet: Light diet - advance as [...] 1 ea PO DAILY 07/13/16 Paroxetine HCl [[place]] 10 mg PO DAILY 07/13/16 Vitamin E 400 unit PO DAILY 07/13/16 Hydrochlorothiazide [Hctz] 25 mg PO DAILY 07/07/18 Hydrocodone Bitart/Apap 5-325 [Midway 5MG-325MG] 1 tablet PO Q6H PRN PRN 3 Days #8 tabl et 07/12/18 The following prescriptions were given: Hydrocodone Bitart/Apap 5-325 [Midway 5MG-325MG] 1 tablet PO Q6H PRN PRN 3 Days #8 tablet PRN Reason: Pain Primary Care Physician: Jeanine Gramajo D O [Primary Care Provider] - Test Results: Test results from this visit will be discussed in further detail at your follow-up appointment, if applicable. Please Follow Up With: John Sol MD - When: Call to make an appointment to be seen in about 10 days. 07/13/18 1240 <Electronically signed by John Sol MD> Date John Sol MD CC: Jeanine Gramajo DO 13-Jul-2018 Operative Report Result: Comments: See Note; NOTES: [facility] Medical Records Department [address] [place] [address] Operative Report 07/12/18 1254 MR#: [id number] Acct: [id number] Name: HANNAH STANLEY Rep #: [id number] : 1960 58 From: John Sol MD PCP: Jeanine Gramajo DO Status: [facility] Y Location: [facility] Problem List (1) Cholelithiasis with chronic cholecystitis [...] hernia was approximated with interrupted 0 Nurolon fulglz-ip-otazk suture. Skin edges were ap proximated interrupted [...] M.D., F.A.C.S. Type of Anesthesia:: General Anesthesiologist: Tiffanie Corral 07/13/18 1240 <Electronically signed by John Sol MD> Date John Sol MD CC: Jeanine Gramajo DO; John Sol MD Signed 11-Jul-2018 Cholangiogram/ O R,Initial Result: Comments: See Note; NOTES: [facility] Imaging Services [address] [facility] [place] [address] Cholangiogram/ O R,Initial MR#: [id number] Acct: [id number] Name: HANNAH STANLEY Rep #: [id number] : 1960 F 58 From: Julius Barger MD PCP: Jeanine Gramajo DO Status: [facility] Study: Cholangiogram/ O R,Initial Date of Exam: 07/12/18 Exam# [id number] Ordering Dr: John Sol MD STUDY: INTRAOPERATIVE [...] Julius Barger MD at 15:37 EDT Tel [phone], Service support , CC: Jeanine Lzao on DO; John Sol MD Stratigraphy Teacher: Signed 08-Jul-2018 Surgery Visit Report Result: Comments: See Note; NOTES: [facility] [address] [place] [address] OFFICE VISIT Date of Service: 07/08/18 MR#: [id number] Acct: [id number] Name: HANNAH STANLEY Rep #: [id number] : 1960 Provider: Lana Quinn PA-C Age/Sex: 58/F Location: [facility] Status: Signed Intake Vital Signs07/08/18 Height 5 ft 2 in 07/08/18 Weight: 175 lb 4 oz 07/08/18 Body Mass Index (BMI) 32.0 07/08/18 Blood Pressure 151/85 Intake Visit Reasons: update h AND p lap armida 07-14 Chief Complaint: update H AND P lap armida Hand Paint Mixer Required: No Is patient i n pain?: [...] unit PO DAILY 07/13/16 [History Confirmed 07/07/18] Humphreys chlorothiazide [Hctz] 25 mg PO DAILY 07/07/18 [History Confirmed 07/07/18] Is last menstrual period known: No Post menopausal: Yes Patient : No [facility] Medical History Chronic back pain (Acute) [...] a syncopal spells. She went to the [facility] emerg ency room and CT scan [...] developed right sided abdominal pain. At the [facility] on May 26, 2018 she had [...] healthy appearing, comfortable, n o acute distress [facility] Head: normal to inspection Eyes General: appearance [...] pain R10.11 Update H AND P 07/08/18 8466 <Electronically signed by Lana Quinn PA-C> Date Lana barrios PA-C Cosigner Signature: Date (if applicable) CC: 10-Jun-2018 Operative Report Result: Comments: See Note; NOTES: [facility] Medical Records Department [address] [place] [address] Operative Report 06/10/18 0642 MR#: [id number] Acct: [id number] Name: HANNAH STANLEY Rep #: [id number] : 1960 58 From: John Sol MD PCP: Jeanine Gramajo DO Status: [facility] Y Location: [place] [address] Problem List (1) Abdominal pain Status: Acute [...] Visit Report Result: Comments: See Note; NOTES: [facility] [address] [place] [address] OFFICE VISIT Date of Service: 06/02/18 MR#: [id number] Acct: [id number] Name: HANNAH STANLEY Rep #: [id number] : 1960 Provider: John Sol MD Age/Sex: 58/F Location: [facility] Status: Signed Intake Vital Signs06/02/18 Height 5 ft 2 in 06/02/18 Weight: 175 lb 4 oz 06/02/18 Body Mass Index (BMI) 32.0 Intake Visit Reasons: RUQ Pain [facility] 05/26 Chief Complaint: RUQ pain into back, gallstones Hand Paint Mixer Required: No Is patient in pain?: Yes [...] syncopa l spells. She went to the [facility] emergency room and CT scan showed [...] right si ded abdominal pain. At the [facility] on May 26, 2018 she had [...] distress Nutritional Appearance: overweight Orientation: alert, awake [facility] Head: normal to inspection Eyes General: appearance [...] John Sol MD> Date John Sol MD [facility] Signature: Date (if applicable) CC: Jeanine Gramajo DO 26-May-2018 Gallbladder Result: Comments: See Note; NOTES: [facility] Imaging Services [address] [place] [address] Gallbladder MR#: [id number] Acct: [id number] Name: HANNAH STANLEY Rep #: [id number] : F 58 From: Martin Melton MD PCP: Jeanine Gramajo DO Status: REG CLI Study: Gallbladder Date of Exam: 05/26/18 Exam# [id number] Ordering Dr: Jeanine Gramajo DO STUDY: ABDOMINAL [...] Service support , CC: Jeanine Gramajo DO Stratigraphy Teacher: Signed 24-Feb-2018 Emergency Department Summary Result: Comments: See Note; NOTES: [facility] Medical Records Department [address] [place] [address] Emergency Department Summary 02/24/18 0806 MR#: [id number] Acct: [id number] Name: HANNAH STANLEY Rep #: [id number] : 1960 57 From: Dolores Paz MD [...] Barger MD at 9:12 ED T Tel [phone], Service support , Emergency Department Course and Treatment: Patient's presentation is concerning for renal colic, diverticulitis or pyelonephritis. L abs showed no hematuria or infection on urinalysis, no leukocytosis, no electrolyte or renal derangements. CT flank showed sigmoid diverticulitis, uncomplicated. Patient was started on Cipro and Flagyl for treatment. She was given a prescription for Zofran and Midway for symptomatic management. Return precautions given. Patient discharged home. Treatment Plan: [] Disposition: [] Impression: Acute si gmoid diverticulitis, uncomplicated This note was generated with [employer] dictation software. It may contain incorrect words, spelling, and punctuation that were not noted in review of the chart prior to signing ED Disposition - Plan for ED Patient: Disposition: Home or Assisted Living Chief Complaint: Flank Pain Instructions: ED Diverticulitis Prescriptions: Hydrocodone Bitart/Apap 5-325 [Midway 5 MG-325MG] 1 tab PO Q6H PRN [...] sick to stom ach. You may use wvno-klo-lgufftw pain medication as needed for pain, or [...] your Primary Care Provider. Call [facility] ([phone]) or report to the closest Emergency Room. Call 911 if necessary. 02/24/181906 <Electronically signed by Dolores Paz MD&# 62; Date Dolores Paz MD Cosigner Signature (If Indicated): Date CC: Jeanine Gramajo DO 24-Feb-2018 Discharge Instruction Result: Comments: See Note; NOTES: [facility] Medical Records Department [address] [place] [address] Discharge Instruction 02/24/18 0949 MR#: [id number] Acct: [id number] Name: HANNAH STANLEY Rep #: [id number] : 1960 57 From: Dolores Paz MD PCP: Jeanine Gramajo DO Status: DEP ER ED Disposition - Plan for ED Patient: Disposition: Home or Assisted Living Chief Complaint: Fl ank Pain Instructions: ED Diverticulitis Prescriptions: Hydrocodone Bitart/Apap 5-325 [Midway 5MG-325MG] 1 tab PO Q6H PRN PRN [...] you sick to stomach. You may use tzui-tge-wdibkis pain medication as needed for pain, or [...] your Primary Care Provider. Call [facility] ([phone]) or report to the closest Emergency Room. Call 911 if necessary. 02/24/18 1815 <Electronically signed by Dolores Paz MD> Date Dolores Paz MD Cosigner Signature (If Indicat ed): Date CC: Jeanine Gramajo DO 24-Feb-2018 Abdomen/Pelvis without Cont Result: Comments: See Note; NOTES: [facility] Imaging Services [address] [place] [address] Abdomen/Pelvis without Cont MR#: [id number] Acct: [id number] Name: HANNAH STANLEY Rep #: [id number] : 1960 F 57 From: Julius Barger MD PCP: Jeanine Gramajo DO Status: REG ER Study: Abdomen/Pelvis without Cont Date of Exam: 02/24/18 Exam# [id number] Ordering Dr: Dolorse Paz MD STUDY: CT ABDOMEN AND PELVIS [...] Julius Barger MD at 9:12 EDT Tel [phone], Service support , CC: Jeanine Gramajo DO; Dolores Paz MD Stratigraphy Teacher: Signed 20-Jan-2018 SCREENING MAMM (CAD), BILAT Result: Comments: See Note; NOTES: [facility] Imaging Services [address] [address] SCREENING MAMM (CAD), BILAT MR#: [id number] Acct: [id number] Name: HANNAH STANLEY Rep #: [id number] : 1960 F 57 From: Julius Barger MD PCP: Jeanine Gramajo DO Status: REG CLI Study: SCREENING MAMM (CAD), BILAT Date of Exam: 01/20/18 Exam# [id number] Ordering Dr: Jeanine Gramajo DO MAMMOGRAPHY - [...] delay biopsy of a clinically suspicious abnormality. [id number] Electronically Signed: Julius Barger MD at 9:07 EDT Tel [phone], Service support , CC: Jeanine Gramajo DO Stratigraphy Teacher: Signed 16-Dec-2017 Stress Test Echo w/o Contrast Result: Comments: See Note; NOTES: [facility] Cardiovascular Services [address] [place] [address] Stress Test Echo w/o Contrast MR#: [id number] Acct: [id number] Name: HANNAH STANLEY Rep #: [id number] : 1960 57 From: Vicente Lemus MD Primary Care: Jeanine Gramajo DO Status: REG CLI Ordering Dr: Christianne Pepper GOLF RANGE ATTENDANT-C Sex: F C Reason For Study: Chest [...] Dictated: 12/16/17 1316 Date Transcribed: 12/16/17 1545 Stratigraphy Teacher: Signed 17-Nov-2017 Chest PA and Lateral Result: Comments: See Note; NOTES: [facility] Imaging Services [address] [place] [address] Chest PA and Lateral MR#: [id number] Acct: [id number] Name: HANNAH STANLEY Rep #: [id number] : 1960 F 57 From: Julius Barger MD PCP: Jeanine Gramajo DO Status: REG CLI Study: Chest PA and Lateral Date of Exam: 11/17/17 Exam# [id number] Ordering Dr: Christianne Pepper STUDY: X- RAY [...] Julius Barger MD at 12:46 EST Tel [phone], Service support , CC: LETY Pepper; Jeanine Gramajo DO Stratigraphy Teacher: Signed 16-Nov-2017 Urgent Care Visit Report Result: Comments: See Note; NOTES: [facility] [address] [place] [address] OFFICE VISIT Date of Service: 11/16/17 MR#: [id number] Acct: [id number] Name: HANNAH STANLEY Rep #: [id number] : 1960 Provider: Navneet VIERA Age/Sex: 57/F Location: [facility] Status: Signed Intake Vital Signs11/16/17 Height 5 [...] history of her mot her having an CT at approximate age 59. No other associated [...] fatigue Exam Const General: cooperative, healthy appearing [facility] Head: normocephalic, atraumatic Ears: hearing grossly normal [...] state that she will go immediatly to [facility] ED. Tried to perform EKG on site however EKG was n ot functioning properly. This note was generated with [employer] dictation software. It may contain incorrect words, spelling, and punctuation that were not noted in checking the note before signing. Orde rs Orders: Coding Level of Care Code Off vis,new,level 4 Diagnoses Chest pain on exertion R07.9 Chest pain radiating to arm R07.89 11/16/17 3713 <Electronically signed by Navneet VIERA&am p;#62; Date Navneet VIERA Cosigner Signature: Date (if applicable) CC: 08-Jun-2017 Operative Report Result: Comments: See Note; NOTES: [facility] Medical Records Department [address] [place] [address] Operative Report 05/29/17 0857 MR#: [id number] Acct: [id number] Name: HANNAH STANLEY Rep #: [id number] : 1960 57 From: Beatris Stokes DPM PCP: Jeanine Gramajo DO Status: DEP [facility] Y Location: [facility] Problem List (1) Hammer toe of right [...] 250 mmHg Materials: 3-0 vicryl, 4-0 nylon medical billing representative: Yomi, PGY3 Type of Anesthesia:: Local MAC [...] and elects to proceed at this time. [facility] surgical consent and the surgical limb were [...] Discharge Instruction Result: Comments: See Note; NOTES: [facility] Medical Records Department [address] [place] [address] Instructions for Home/Discharge Instructions 05/29/17 0856 MR#: [id number] Acct: [id number] Name: HANNAH STANLEY Araceli Rep #: [id number] : 1960 57 From: Beatris Stokes DPM PCP: Jeanine Gramajo DO Status: REG [facility] Weight Bearing Status: Partial weight bearing - [...] [facility]. Call sooner if questions: [phone] Proposed Discharge Date: 05/29/17 05/29/17856 <Electronically signed by Beatris gomez DPM> Date Beatris Stokes DPM CC: Jeanine Gramajo DO 29-May-2017 Foot 2 Views Result: Comments: See Note; NOTES: [facility] Imaging Services [address] [place] [address] Foot 2 Views MR#: [id number] Acct: [id number] Name: HANNAH STANLEY Rep #: [id number] : F 57 From: Julius Barger MD PCP: Jeanine Gramajo DO Status: [facility] Study: Foot 2 Views Date of Exam: 05/29/17 Exam# [id number] Ordering Dr: Beatris Stokes DPM STUDY: X-RAY [...] Ball i, MD at 9:41 EDT Tel [phone], Service support , CC: Beatris Stokes DPM; Jeanine Gramajo DO Stratigraphy Teacher: Signed 29-May-2017 Foot 2 Views Result: Comments: See Note; NOTES: [facility] Imaging Services [address] [place] [address] Foot 2 Views MR#: [id number] Acct: [id number] Name: HANNAH STANLEY Rep #: [id number] : F 57 From: Julius Barger MD PCP: Jeanine Gramajo DO Status: [facility] Study: Foot 2 Views Date of Exam: 05/29/17 Exam# [id number] Ordering Dr: Beatris Stokes DPM STUDY: X-RAY [...] Mary Barger MD at 9:43 EDT Tel [phone], Service support , CC: Beatris Stoeks DPM; Jeanine Gramajo DO Stratigraphy Teacher: Signed 29-May-2017 Foot 2 Views Result: Comments: See Note; NOTES: [facility] Imaging Services [address] [place] [address] Foot 2 Views MR#: [id number] Acct: [id number] Name: HANNAH STANLEY Rep #: [id number] : F 57 From: Julius Barger MD PCP: Jeanine Gramajo DO Status: [facility] Study: Foot 2 Views Date of Exam: 05/29/17 Exam# [id number] Ordering Dr: Beatris Stokes DPM STUDY: X-RAY [...] Julius Barger MD at 12:50 EDT Tel [phone], Service support , CC: Beatris Stokes DPM; Jeanine Gramajo DO Stratigraphy Teacher: Signed 29-May-2017 Foot 2 Views Result: Comments: See Note; NOTES: [facility] Imaging Services [address] [place] [address] Foot 2 Views MR#: [id number] Acct: [id number] Name: HANNAH STANLEY Rep #: [id number] : F 57 From: Julius Barger MD PCP: Jeanine Gramajo DO Status: [facility] Study: Foot 2 Views Date of Exam: 05/29/17 Exam# [id number] Ordering Dr: Beatris Stokes DPM STUDY: X-RAY [...] of the fifth toe. OR LEANDRO #: [id number] RAD/Foot 2 Views IMPRESSION: Resection of the distal portion of the proximal pharynx of the fifth toe as well as resection of the middle phalanx of the fifth toe. Postoperative soft tis rei changes. Electronically Signed: Julius Barger MD at 12:51 EDT Tel [phone], Service support , CC: Beatris Stokes DPM; Jeanine Gramajo DO Stratigraphy Teacher: Signed 25-Feb-2017 PT D/C Summary (1) Result: Comments: See Note; NOTES: [facility] Physical Therapy [facility] [address] [facility] [address] [facility] [place], [place] [address] Fax REHABILITATION SERVICES DISCHAR GE SUMMARY MR#: [id number] Acct: [id number] Name: HANNAH STANLEY Rep #: [id number] : 1960 56 From: Gisela Yanez MPT Referring Dr.: Jeanine Gramajo DO Status: REG RCR Insurance: [facility] C ARE HP - PT D/C Summary [...] please feel free to call me at [phone]. Th ank you for the referral of this patient. Sincerely, Gisela Yanez <Electronically signed by Gisela BOLDEN> 02/25/17 1631 CC: Jeanine Gramajo DO Signed 27-Jan-2017 Inital Evaluation (1) - PT Result: Comments: See Note; NOTES: [facility] Physical Therapy [facility] [address] [place], [place] [address] Fax REHABILITATION SERVICES INITIAL EVALUATION MR#: [id number] Acct: [id number] Name: HANNAH STANLEY Rep #: [id number] : 1960 56 From: Gisela BOLDEN Referring Dr.: Jeanine Gramajo DO Status: REG RCR Insurance: [facility] Patient's Visit Information HANNAH STANLEY is a [...] to be FAXED BACK to us at [phone] for Medicare purposes. Please let me know if there are questions or concerns regarding this plan of care. Physician Signature: Date: <Electronically si gned by Gisela Yanez MPT> 01/27/17 0950 CC: Jeanine Gramajo DO Signed For Medicare only, by signing this I certify the plan of care. ___ Physicians Signature Date 08-Jan-2017 Dexa Bone Density Study (HP) Result: Comments: See Note; NOTES: [facility] Imaging Services [address] [place] [address] Verdana 4d Dexa Bone Density Study () MR#: [id number] Acct: [id number] Name: HANNAH STANLEY Rep #: [id number] : 1960 F 56 From: Julius Barger MD PCP: Jaenine Gramajo DO Status: [facility] Study: Dexa Bone Density Study () Date of Exam: 01/08/17 Exam# [id number] Ordering Dr: Jeanine Ngo DO STUDY: DUAL [...] Julius Barger MD at 9:26 EDT Tel [phone], Service support [phone], CC: Jeanine Gramajo DO Stratigraphy Teacher: Signed 08-Jan-2017 SCREENING MAMM (CAD), BILAT Result: Comments: See Note; NOTES: [facility] Imaging Services [address] [place] [address] Verdana 4d SCREENING MAMM (CAD), BILAT MR#: [id number] Acct: [id number] Name: HANNAH STANLEY Rep #: [id number] : 1960 F 56 From: Julius Barger MD PCP: Jeanine Gramajo DO Status: REG CLI Study: SCREENING MAMM (CAD), BILAT Date of Exam: 01/08/17 Exam# [id number] Ordering Dr: Jeanine Gramajo DO MAMMOGRAPHY - [...] delay biopsy of a clinically suspicious abnormality. [id number] Electronically Signed: Julius Barger MD 201 04/20/23 at 10:53 EDT Tel [phone], Service support [phone], CC: Jeanine Gramajo DO Stratigraphy Teacher: Signed 13-Jul-2016 Emergency Department Summary Result: Comments: See Note; NOTES: [facility] Medical Records Department [address] [place] [address] Emergency Department Summary MR#: [id number] Acct: [id number] Name: HANNAH STANLEY Rep #: [id number] : 1960 56 From: Omega Van MD PCP: Jeanine Gramajo DO Status: [facility] DATE OF SERVICE: 07/13/2016 CHIEF COMPLAINT: Headache. [...] Discharge. Omega Van MD T: NTS JOB: [id number] 07/13/16 2245 &#6 0;Electronically signed by Omega Van MD> Date Omega Van MD Cosigner Signature (If Indicated): Date CC: Jeanine Gramajo DO Date Dictated: 07/13/161555 Date Transcribed: 07/13/161555 Stratigraphy Teacher: Signed 13-Jul-2016 Discharge Instruction Result: Comments: See Note; NOTES: [facility] Medical Records Department [address] [place] [address] Discharge Instruction 07/13/161555 MR#: [id number] Acct: [id number] Name: HANNAH STANLEY Rep #: [id number] : 1960 56 From: Omega Van MD [...] any unexpected problems, contact your doctor. Call [facility] ([phone]) or report to the closest Emergency Room. Call 911 if necessary. 07/13/16 1630 &amp ;#60;Electronically signed by Omega Van MD> Date Omega Van MD Cosigner Signature (If Indicated): Date CC: Jeannie Gramajo DO 09-Jul-2016 PT D/C Summary (1) Result: Comments: See Note; NOTES: [facility] Physical Therapy [facility] [address] [place] [address] Fax REHABILITATION SERVICES DISCHA RGE SUMMARY MR#: [id number] Acct: [id number] Name: HANNAH STANLEY Rep #: [id number] : 1960 56 From: Gisela Yanez MPT Referring Dr.: Jeanine Gramajo DO Status: REG R Insurance: [facility] - PT D/C Summary It has been [...] please feel free to call me at [phone]. Thank you for the referral of this patien t. Sincerely, Gisela Yanez <Electronically signed by Gisela BOLDEN> 07/09/161926 CC: Coral Ray MD; Jeanine Gramajo DO Signed 04-Jun-2016 Inital Evaluation (1) - PT Result: Comments: See Note; NOTES: [facility] Physical Therapy [facility] [address] [place] [address]. [address] [place] [address] Fax REHABILITATION SERVICES JERRYA Araceli EVALUATION MR#: [id number] Acct: [id number] Name: HANNAH STANLEY Rep #: [id number] : 1960 56 From: Gisela BOLDEN Referring Dr.: Jeanine Gramajo DO Status: REG RCR Insurance: [facility] Patient's Visit Information HANNAH STANLEY is a [...] to be FAXED BACK to us at [phone] for Medicare purposes. Please let me know [...] AND CAD Result: Comments: See Note; NOTES: [facility] Imaging Services [address] [place] [address] Verdana 4d Unilat Rt Diag Digital AND CAD MR#: [id number] Acct: [id number] Na me: CHIKAMAURIHANNAH L Rep #: [id number] : 1960 F 55 From: Julius Barger MD PCP: Coral Ray MD Status: REG CLI Study: Unilat Rt Diag Digital AND CAD Date of Exam: 12/28/15 Exam# [id number] Ordering Dr: Coral Ray MD MAMMOGRAPHY - [...] Julius Barger MD at 8:28 EST Tel [phone], Service support [phone], CC: Coral Ray MD Stratigraphy Teacher: Signed 24-Dec-2015 Bilat Scrn Digital AND CAD Result: Comments: See Note; NOTES: [facility] Imaging Services [address] [place] [address] Verdana 4d Bilat Scrn Digital AND CAD MR#: [id number] Acct: [id number] Name: HANNAH STANLEY Rep #: [id number] : 1960 F 55 From: Julius Barger MD PCP: Coral Ray MD Status: REG CLI Study: Bilat Scrn Digital AND CAD Date of Exam: 12/24/15 Exam# [id number] Haleigh cordon Dr: Coral Ray MD MAMMOGRAPHY [...] delay biopsy of a clinically suspicious abnormality. [id number] Electronically Signed: Julius Barger MD at 8:01 EST Tel [phone], Service support [phone], Fax CC: Coral Ray MD Stratigraphy Teacher: Signed 26-Oct-2015 ELECTROCARDIOGRAM, COMPLETE (ECG) (20291) Result: [MEASUREMENTS ANALYSIS] Date of Test: 10/26/2015 07:44:39; Heart Rate: 78; [place] Interval: 154; QRS: 86; QT Interval: 380; Corrected QT Interval (QTc): 411; P Wave [place]: 3; QRS Wave [place]: 2; T Wave [place]: 9 0; Blood Pressure: 126/80 [ECG DIAGNOSTIC STATEMENTS] Date of Test: 10/26/2015 07:44:39; Summary: Sinus Rhythm - Nonspecific T-abnormality. ABNORMAL 19-Dec-2014 Bilat Scrn Digital AND CAD Result: Comments: See Note; NOTES: [facility] Imaging Services [address] [place] [address] Breast Imaging Report MR#: [id number] Acct: [id number] Name: HANNAH STANLEY Rep #: : 1960 F 54 From: Julius Barger MD PCP: Coral Ray MD Status: REG CLI Study: Bilat Scrn Digital AND CAD Date of Exam: 12/19/14 Exam# [id number] Ordering Dr: Coral Ray MD MAMMOGRAPHY - [...] will be sent to the patient by [facility] facility within 30 days. Approximately 10% of breast cancers are not detected by mammography. A normal mammogram should not delay biopsy of a clinically suspicious abnormality. Electronically Si gned: Julius Barger MD at 8:40 EST Tel [phone], Service support [phone], CC: Coral Ray MD Stratigraphy Teacher: Signed 19-Dec-2014 Dexa Bone Density Study (HP) Result: Comments: See Note; NOTES: [facility] Imaging Services [address] [place] [address] Bone Density Report MR#: [id number] Acct: [id number] Name: HANNAH STANLEY Rep #: [id number] : 1960 F 54 From: Julius Barger MD PCP: Coral Ray MD Status: REG CLI Study: Dexa Bone Density Study (HP) Date of Exam: 12/19/14 Exam# [id number] Ordering Dr: Coral Ray MD STUDY: DUAL [...] Julius Barger MD at 16:00 EST Tel [phone], Service support [phone], CC: Coral Ray MD Stratigraphy Teacher: Signed 10-Jul-2014 PT Discharge Summary Result: Comments: See Note; NOTES: [facility] Physical Therapy [address] [place] [address] Fax REHABILITATION SERVICES DISCHARGE SUMMARY MR#: [id number] Acct: [id number] Name: HANNAH STANLEY Rep #: [id number] : 1960 54 From: Marilia Chance Referring [...] concerns. Marilia Chance DPT T: KAMLESH JOB: [id number] <Electronically signed by Marilia Chance > 07/10/14 0724 CC: Signed 11-Apr-2014 Inital Evaluation - PT Result: Comments: See Note; NOTES: [facility] Physical Therapy [address] [place] [address] Fax REHABILITATION SERVICES INITIAL EVALUATION MR#: [id number] Acct: [id number] Name: HANNAH STANLEY Rep #: [id number] : 1960 54 From: Marilia Chance Referring : Omega Joy Status: REG RCR Insurance: [facility] Eval Date: DATE OF SERVICE: 04/10/2014 REASON FOR EVALUATION: Hannah Stanley is a 54-year-old female referred to physical therapy by Dr. Joy with a medial diagnosis of right rotator cuff repair on March 28. SUBJECTIVE: The patient reports she went to therapy at [facility] did not get any better, so [...] and increased function. Marilia Chance DPT T: [facility] JOB: [id number] &# 60;Electronically signed by Marilia Chance > 04/11/14 0859 CC: Signed For Medicare only, by signing this I certify the plan of care. ____ Physicians Signature Date Immunization Name Dates Details Influenza (3 years and up) on: 10-Aug-2007 Comments: given 0.5cc im in left deltoid lot#[id number] exp.04/17/08-aw Influenza (3 years and up) on: [...] Status: Active Most Recent Primary Occupation Comments: [place] Insurance Status: Active No Drug Use Status: Active Non Drinker/No Alcohol Use Status: Active Non Smoker/No Tobacco Use Status: Active Tobacco use: Never smoker. Status: Active Smoking Status Name Dates Details Never smoker Vital Signs Date Test Result Details 29-Tga-042809:14 Temperature 97.8 f Comments: Method: Temporal Pulse [...] 0.00 cm Results Date Description Value Details 0-Mlj-461877:59 Liver Profile Comments: [facility] [address] [place], [place], [id number] D BILI 0.19 mg/dL (Normal) Range: 0.00-0.30 T BILI 0.70 mg/dL (Normal) Range: 0.20-1.00 ALT 31 U/L (Normal) Range: 13-56 ALK P 101 U/L (Normal) Range: 45-117 AST 15 U/L (Normal) Range: 15-37 GLOB 3.7 g/dL (Normal) Range: 2.2-4.2 ALB 4.2 g/dL (Normal) Range: 3.2-5.0 T PROT 7.9 g/dL (Normal) Range: 6.4-8.2 04-Npp-06105:00 GALLBLADDER See Note (Normal) Comments: [facility] [address] [place], [place], [id number] Comments: Patient: HANNAH STANLEY : 1960 (58/F) Acct Num: [id number] Phys: Ebenezer MCHUGH,John Unit Num: [id number] Loc: [facility] [place] Specimen: [id number] Received: 07/12/181328 Spec Type: GALLBL ADDE TISSUES 1 TISSUES: [...] one cassette. / AM:oma 07/12/18 TC:3 CPT: 02023 HEADER OPERATION: Laparoscopic cholecystectomy with IOC PRE-OP DIAGNOSIS : Acute cholelithiasis TISSUE SUBMITTED: Gallbladder MICROSCOPIC DESCRIPTION Slides are reviewed. MICROSCOPIC DIAGNOSIS Gallbladder: Mild chronic cholecystitis and cholelithiasis. SJ:oma 07/13/18 Signed Michael Wuin 07/13/18 <signature on file> 11-Moe-284817:38 Basic Metabolic Profile (BMP) Comments: [facility] [address] [place], [place], [phone] GAP 6 (Normal) Range: 5-15 CO2 29.0 [...] Comments: Please note revised GLUCOSE reference range sxpfiyglo82/02/2018. 61-Zhw-373232:38 CBC-Complete Blood Cnt No Diff Comments: [facility] [address] [place], [place], [phone] MPV 9.4 fL (Normal) Range: 6.2-12.0 PLT [...] 4.2-5.4 WBC 5.2 K/mm3 (Normal) Range: 4.4-11.0 98-Szn-58241:00 COLON BIOPSY (CHOOSE See Note (Normal) Comments: [facility] [address] [place], [address] SITE) Comments: Patient: HANNAH STANLEY : 1960 (58/F) Acct Num: [id number] Phys: Ebenezer MCHUGH,John Unit Num: [id number] Loc: EN Specimen: [id number] Received: 06/10/18 - 1215 Spec Type: COLON [...] one cassette. / AM:oma 06/10/18 TC:5 CPT: 11152 HEADER OPERATION: Colonoscopy PRE-OP DIAGNOSIS: RUQ abdominal pain TISSUE SUBMITTED: Random colon biopsy MICROSCOPIC DESCRIPTION Slides are reviewed. MICROSCOPIC DIAGNOSIS Hale n, random biopsy: No significant pathologic change. No evidence of colitis. AM:oma 06/11/18 Signed Norberto Mayberry 06/11/18 <signatu re on file> 05-Fux-792528:39 CDIFF (Molecular) Comments: [facility] [address] [place], [address] CDIFF See Note (Normal) Comments: Reason for Exam: diarrhea Cdiff-MolecularNormal Reference Range = Negative C. Diff DNA Negative- No toxigenic C. Diff DNA DetectedNAAT METHOD Testing was performed using nucleic acid amplification :39 ENTERIC PATHOGEN PANEL STOOL Comments: [facility] [address] [place], [address] EP PANEL See Note (Normal) [...] Not Detected :39 Ova and Parasites Comments: [facility] [address] [place], [address] OP See Note Comments: Reason for Exam: diarrhea O + POVA AND PARASITES EXAM, ROUTINE These results were obtained using wet preparation(s) and trichrome stained smear. This test does not include testing for Cryt (Normal) osporidium parvum, Cyclospora, or Microsporidia. [facility] ORIGINAL REPORT ON FILE IN LAB CONTAINS ADDITIONAL TEST S ITE INFORMATION. Ova/Parasite Exam NO OVA, CYSTS, OR PARASITES FOUND. :42 Microscopic Examination Comments: PATIENT WAS FASTINGPERFORMED BY: [employer] Afhjer3081 [facility] [id number] Bacteria None seen (Normal) Mucus Threads Present (Normal) Crystal Type Amorphous Sediment (Normal) Crystals Present (Abnormal) Epithelial Cells (non renal) 0-10 {/hpf} (Normal) Range: 0 - 10 RBC 0-2 {/hpf} (Normal) Range: 0 - 2 WBC 0-5 {/hpf} (Normal) Range: 0 - 5 :42 TSH (28722) Comments: PATIENT WAS FASTINGPERFORMED BY: [employer]less [facility] [id number] TSH 2.620 {uIU/mL} (Normal) Range: 0.450-4.500 :42 URINALYSIS, W/ MICRO (19854) Comments: PATIENT WAS FASTINGPERFORMED BY: [employer] [facility] [id number] Microscopic Examination See below: (Normal) Comments: Microscopic was indicated and was performed. Nitrite, Urine Negative (Normal) Urobilinogen,Semi-Qn 0.2 mg/dL (Normal) Range: 0.2-1.0 Bilirubin Negative (Normal) Occult Blood Negative (Normal) Ketones Negative (Normal) Glucose Negative (Normal) Protein Trace (Normal) WBC Esterase Trace (Abnormal) Appearance Clear (Normal) Urine-Color Yellow (Normal) pH 7.0 (Normal) Range: 5.0-7.5 Specific [place] 1.020 (Normal) Range: 1.005-1.030 :42 MICROALBUMIN: CREATININE RATIO Comments: PATIENT WAS FASTINGPERFORMED BY: [employer] [facility] [id number] (33290) AND (69541) Alb/Creat Ratio 22.6 {mg/g_creat} (Normal) Range: 0.0-30.0 Albumin, Urine 37.5 ug/mL (Normal) Creatinine, Urine 165.9 mg/dL (Normal) :42 CBC W/AUTO DIFF WBC Comments: PATIENT WAS FASTINGPERFORMED BY: [facility] [id number] Information: [id number] (69282) Immature Grans (Abs) 0.0 {x10E3/uL} (Normal) Range: [...] 3.77-5.28 WBC 4.3 {x10E3/uL} (Normal) Range: 3.4-10.8 20-May-20189:42 METABOLIC PANEL, COMPREHENSIVE Comments: PATIENT WAS FASTINGPERFORMED BY: [facility] [id number] (93190) ALT (SGPT) 26 [iU]/L (Normal) Range: 0-32 [...] 6-24 Glucose 90 mg/dL (Normal) Range: 65-99 24-Feb-20188:40 Urinalysis, Complete Comments: Order Date: 02/24/18How was Urine Obtained? [facility] [address] [place], [place], [phone] MUCUS, URINE 0 SEEN {/hpf} (Normal) BACTERIA [...] (Normal) 24-Feb-20188:10 Basic Metabolic Profile (BMP) Comments: [facility] [address] [place], [place], [address] GAP 4 (Abnormal) Range: 5-15 CO2 30.0 [...] A.D.A. criteria.Please note revised GLUCOSE reference range anzcstyci64/02/2018. 24-Feb-20188:10 CBC W/Diff, Automated Comments: [facility] [address] [place], [place], [address] Absolute Lymph 0.78 {X10_3/ul} (Abnormal) Range: 0.83-4.51 [...] 8.1 K/mm3 (Normal) Range: 4.4-11.0 :51 GLUCOSE (83449) Comments: PATIENT WAS FASTINGPERFORMED BY: [facility] FallsEztzbl1034 [facility] [id number] Glucose, Serum 90 mg/dL (Normal) Range: 65-99 :51 LIPID PANEL (05464) Comments: PATIENT WAS FASTINGPERFORMED BY: [facility] Vgqyxv8165 [facility] [id number] LDL/HDL Ratio 1.6 {ratio_units} (Normal) Range: 0.0-3.2 [...] Range: 100-199 :40 CBC W/Diff, Automated Comments: [facility] [address] [place], [address] Absolute Lymph 1.03 {X10_3/ul} (Normal) Range: 0.83-4.51 [...] 4.2-5.4 WBC 4.8 K/mm3 (Normal) Range: 4.4-11.0 :40 Comprehensive Metabolic Profil Comments: 'TROP' Serial specimen #1, #2, #3, or #4: [facility] [address] [place], [place], [phone] GAP 8 (Normal) Range: 5-15 CO2 28.0 mmol/L (Normal) Range: 21.0-32.0 CL 96 mmol/L (Abnormal) Range: 98-107 K 3.5 mmol/L (Normal) Range: 3.5-5.1 NA 132 mmol/L (Abnormal) Range: 136-145 T BILI 1.00 mg/dL (Normal) Range: 0.20-1.00 ALT 33 U/L (Normal) Range: 13-56 Comments: Please note revised ALT reference range xgnwtuwqf84/28/2018. ALK P 84 U/L (Normal) Range: 45-117 [...] <126 mg/dLsuggests IMPAIRED HOMEOSTASIS per A.D.A. criteria. 31-Duc-43472:40 CPK Total, Creatine Kinase Comments: 'TROP' Serial specimen #1, #2, #3, or #4: [address] [place] [address] [place], [address] CPK TOTAL 84 U/L (Normal) Range: 26-192 :40 Troponin-I Comments: 'TROP' Serial specimen #1, #2, #3, or #4: [address] [place] [address] [place], [address] TROPONIN-I < 0.02 ng/mL (Normal) Comments: TROPONIN-I EXPECTED VALUES <0.05 NEGATIVE 0.06 - 0.[address] > OR = 0.[address] 2-Gvb-619006:01 CBC W/Diff, Automated Comments: [facility] [address] [place], [address] Absolute Lymph 0.77 {X10_3/ul} (Abnormal) Range: 0.83-4.51 [...] 4.2-5.4 WBC 4.0 K/mm3 (Abnormal) Range: 4.4-11.0 7-Jdl-433108:01 Comprehensive Metabolic Profil Comments: [facility] [address] [place], [place], [address] GAP 6 (Normal) Range: 5-15 CO2 31.0 [...] 7-18 GLU 101 mg/dL (Normal) Range: 70-110 99-Ren-038031:3 Lesion (choose site) See Note (Normal) Comments: [facility] [address] [place], [place], [address] 0 Comments: Patient: HANNAH STANLEY : 1960 (56/F) Acct Num: [id number] Phys: Jyothi MCHUGH,[place] Unit Num: [id number] Loc: [facility] Specimen: [id number] Received: 02/09/17 - 2353 Spec Type: Les ion TISSUES TISSUES: GROSS DESCRIPTION Received is one container labeled with the patient's name and designated right upper lid. The specimen consists of a piece of an-white skin measuring 0.3 x 0.1 x <0.1 cm. The specimen is totally submitted in one cassette. / KEATON:oma 02/09/17 TC:5 CPT: 14248 HEADER OPERATION: Right upper eyelid lesion PRE-OP DIAGNOSIS: Cyst versu s nevus TISSUE SUBMITTED: Right upper eyelid lesion MICROSCOPIC DESCRIPTION Slides are reviewed. MICROSCOPIC DIAGNOSIS Right upper eyelid lesion, biopsy: Epidermal inclusion cyst. SJ:oma 02/10/17 Signed Michael Vaughn 02/10/17 <signature on file> 47-Gsj-830070:26 Microscopic Examination Comments: PATIENT WAS FASTINGPERFORMED BY: [employer] Hyuswa3748 [facility] [id number] Bacteria None seen (Normal) Mucus Threads Present (Normal) Epithelial Cells (non renal) 0-10 {/hpf} (Normal) Range: 0 - 10 RBC 0-2 {/hpf} (Normal) Range: 0 - 2 WBC 0-5 {/hpf} (Normal) Range: 0 - 5 80-Siv-637308:26 CALCIFIDIOL (29817) VIT D 25 Comments: PATIENT WAS FASTINGPERFORMED BY: [employer] Yfamvx6473 [facility] [id number] Vitamin D, 25-Hydroxy 38.0 ng/mL (Normal) Range: 30.0-100.0 Comments: Vitamin D deficiency has been defined by the [place] of[employer]icine and an Endocrine Society practice guideline as alevel of serum 25-OH vitamin D less than 20 ng/mL (1,2).The Endocrine Society went on to further define vitamin Dinsufficiency as a level between 21 and 29 ng/mL (2).1. IOM ([place] of Medicine). 2010. Dietary reference intakes for calcium and D. [place]: The National Academies Press.2. Dusty MF, Cliff PACHECO, Amrit GRIMM, et al. Evaluation, treatment, and prevention of vitamin D deficiency: an Endocrine Society clinical practice guideline. JCEM. 2010; 96(7):1911-30. 08-Zrn-934996:26 TSH (29199) Comments: PATIENT WAS FASTINGPERFORMED BY: [facility] [id number] TSH 2.830 {uIU/mL} (Normal) Range: 0.450-4.500 : URINALYSIS, W/ MICRO (08698) Comments: PATIENT WAS FASTINGPERFORMED BY: [facility] [id number] Microscopic Examination See below: (Normal) Comments: Microscopic was indicated and was performed. Nitrite, Urine Negative (Normal) Urobilinogen,Semi-Qn 0.2 mg/dL (Normal) Range: 0.2-1.0 Bilirubin Negative (Normal) Occult Blood Negative (Normal) Ketones Negative (Normal) Glucose Negative (Normal) Protein 1+ (Abnormal) WBC Esterase Negative (Normal) Appearance Clear (Normal) Urine-Color Yellow (Normal) pH 7.0 (Normal) Range: 5.0-7.5 Specific [place] 1.022 (Normal) Range: 1.005-1.030 :26 MICROALBUMIN: CREATININE RATIO Comments: PATIENT WAS FASTINGPERFORMED BY: [facility] [id number] (95911) AND (62148) Microalb/Creat Ratio 19.2 {mg/g_creat} (Normal) Range: 0.0-30.0 Microalbumin, Urine 28.8 ug/mL (Normal) Creatinine, Urine 149.9 mg/dL (Normal) : METABOLIC PANEL, COMPREHENSIVE Comments: PATIENT WAS FASTINGPERFORMED BY: [facility] [id number] (46696) ALT (SGPT) 19 [iU]/L (Normal) Range: 0-32 [...] Glucose, Serum 95 mg/dL (Normal) Range: 65-99 35-Jam-096489:26 CBC W/AUTO DIFF WBC (20403) Comments: PATIENT WAS FASTINGPERFORMED BY: [facility]CoThe [facility] Tinton FallsHrawup3253 [facility] [id number] Immature Grans (Abs) 0.0 {x10E3/uL} (Normal) Range: [...] 3.77-5.28 WBC 5.0 {x10E3/uL} (Normal) Range: 3.4-10.8 :26 LIPID PANEL (71982) Comments: PATIENT WAS FASTINGPERFORMED BY: [employer]70 [facility] [id number] LDL/HDL Ratio 1.4 {ratio_units} (Normal) Range: 0.0-3.2 [...] Microscopic Examination Comments: PATIENT WAS FASTINGPERFORMED BY: [employer] [facility] [id number] Bacteria None seen (Normal) Mucus Threads Present (Normal) Epithelial Cells (non renal) 0-10 {/hpf} (Normal) Range: 0 - 10 RBC 0-2 {/hpf} (Normal) Range: 0 - 2 WBC 0-5 {/hpf} (Normal) Range: 0 - 5 :50 TSH (58694) Comments: PATIENT WAS FASTINGPERFORMED BY: [facility] [id number] TSH 3.280 {uIU/mL} (Normal) Range: 0.450-4.500 :50 URINALYSIS, W/ MICRO (21316) Comments: PATIENT WAS FASTINGPERFORMED BY: [facility] [id number] Microscopic Examination See below: (Normal) Comments: Microscopic was indicated and was performed. Microscopic Examination MICRON (Normal) Comments: Microscopic follows if indicated. Nitrite, Urine Negative (Normal) Urobilinogen,Semi-Qn 0.2 mg/dL (Normal) Range: 0.2-1.0 Bilirubin Negative (Normal) Occult Blood Negative (Normal) Ketones Negative (Normal) Glucose Negative (Normal) Protein Negative (Normal) WBC Esterase Negative (Normal) Appearance Clear (Normal) Urine-Color Yellow (Normal) pH 8.0 (Abnormal) Range: 5.0-7.5 Specific [place] 1.014 (Normal) Range: 1.005-1.030 :50 MICROALBUMIN: CREATININE RATIO Comments: PATIENT WAS FASTINGPERFORMED BY: [facility] [id number] (22681) AND (83329) Microalb/Creat Ratio 16.8 {mg/g_creat} (Normal) Range: 0.0-30.0 Microalbumin, Urine 10.1 ug/mL (Normal) Creatinine, Urine 60.1 mg/dL (Normal) :50 METABOLIC PANEL, COMPREHENSIVE Comments: PATIENT WAS FASTINGPERFORMED BY: [facility] [id number] (63853) ALT (SGPT) 19 [iU]/L (Normal) Range: 0-32 [...] Glucose, Serum 80 mg/dL (Normal) Range: 65-99 40-Tav-57141:50 LIPID PANEL (71316) Comments: PATIENT WAS FASTINGPERFORMED BY: [facility]CoThe [facility] Tinton FallsWmjxce3312 [facility] [id number] LDL/HDL Ratio 1.4 {ratio_units} (Normal) Range: 0.0-3.2 [...] DIFF WBC Comments: PATIENT WAS FASTINGPERFORMED BY: [facility]CoGerald [facility] Regional Medical CenterVawyky2224 [facility] [id number] Information: [id number] (12440) Immature Grans (Abs) 0.0 {x10E3/uL} (Normal) Range: [...] Microscopic Examination Comments: PATIENT WAS FASTINGPERFORMED BY: [facility] TechnologyThe [facility] Hospital [facility] Tinton FallsWebhko8568 [facility] [id number] Bacteria None seen (Normal) Mucus Threads Present (Normal) Epithelial Cells (non renal) 0-10 {/hpf} (Normal) Range: 0 - 10 RBC 0-2 {/hpf} (Normal) Range: 0 - 2 WBC 0-5 {/hpf} (Normal) Range: 0 - 5 :35 TSH (03827) Comments: PATIENT WAS FASTINGPERFORMED BY: [facility]St[facility]6370 [facility] [id number] TSH 2.910 {uIU/mL} (Normal) Range: 0.450-4.500 :35 URINALYSIS, W/ MICRO (68124) Comments: PATIENT WAS FASTINGPERFORMED BY: [employer] Uqbchq1806 [facility] [id number] Microscopic Examination See below: (Normal) Comments: Microscopic was indicated and was performed. Microscopic Examination MICRON (Normal) Comments: Microscopic follows if indicated. Nitrite, Urine Negative (Normal) Urobilinogen,Semi-Qn 0.2 mg/dL (Normal) Range: 0.2-1.0 Bilirubin Negative (Normal) Occult Blood Negative (Normal) Ketones Negative (Normal) Glucose Negative (Normal) Protein Negative (Normal) WBC Esterase Negative (Normal) Appearance Clear (Normal) Urine-Color Yellow (Normal) pH 6.0 (Normal) Range: 5.0-7.5 Specific [place] 1.019 (Normal) Range: 1.005-1.030 :35 METABOLIC PANEL, COMPREHENSIVE Comments: PATIENT WAS FASTINGPERFORMED BY: Spl[facility] TechnologyThe Rehabilitation Hospital of Tinton FallsYgtzag6169 [facility] [id number] (83032) ALT (SGPT) 16 [iU]/L (Normal) Range: 0-32 [...] mg/dL (Normal) Range: 65-99 :35 LIPID PANEL (80009) Comments: PATIENT WAS FASTINGPERFORMED BY: [employer] [facility] [id number] LDL/HDL Ratio 1.6 {ratio_units} (Normal) Range: 0.0-3.2 [...] Cholesterol, Total 146 mg/dL (Normal) Range: 100-199 :35 CBC with auto diff Comments: PATIENT WAS FASTINGPERFORMED BY: Minteosox RoadDublin [place] [id number] Information: [id number] (46323) Immature Grans (Abs) 0.0 {x10E3/uL} (Normal) Range: [...] Panel (14) Comments: PATIENT NOT FASTINGPERFORMED BY: [facility] [id number] Information: [id number] ALT (SGPT) 25 [iU]/L (Normal) Range: 0-32 [...] Microscopic Examination Comments: PATIENT WAS FASTINGPERFORMED BY: [facility]6370 [facility]imiThe [facility] [id number] Bacteria Few (Normal) Mucus Threads Present (Normal) Crystal Type Calcium Oxalate (Normal) Crystals Present (Abnormal) Epithelial Cells (non renal) None seen {/hpf} (Normal) Range: 0 - 10 RBC 0-2 {/hpf} (Normal) Range: 0 - 2 WBC 0-5 {/hpf} (Normal) Range: 0 - 5 :03 TSH (32962) Comments: PATIENT WAS FASTINGPERFORMED BY: [facility]6370 [facility] MimiThe [facility] [id number] TSH 4.030 {uIU/mL} (Normal) Range: 0.450-4.500 8-Kenny-01273:03 URINALYSIS, W/ MICRO (49117) Comments: PATIENT WAS FASTINGPERFORMED BY: [employer] Bsjlij5638 [facility] [id number] Microscopic Examination See below: (Normal) Comments: Microscopic was indicated and was performed. Nitrite, Urine Negative (Normal) Urobilinogen,Semi-Qn 0.2 mg/dL (Normal) Range: 0.0-1.9 Bilirubin Negative (Normal) Occult Blood Negative (Normal) Ketones Negative (Normal) Glucose Negative (Normal) Protein Trace (Normal) WBC Esterase Trace (Abnormal) Appearance Clear (Normal) Urine-Color Yellow (Normal) pH 6.0 (Normal) Range: 5.0-7.5 Specific [place] 1.024 (Normal) Range: 1.005-1.030 26-Oct-20148:03 METABOLIC PANEL, COMPREHENSIVE Comments: PATIENT WAS FASTINGPERFORMED BY: [employer]6370 [facility] [id number] (11132) ALT (SGPT) 29 [iU]/L (Normal) Range: 0-32 [...] Glucose, Serum 90 mg/dL (Normal) Range: 65-99 :03 LIPID PANEL (90997) Comments: PATIENT WAS FASTINGPERFORMED BY: [facility] [id number] LDL/HDL Ratio 1.8 {ratio_units} (Normal) Range: 0.0-3.2 [...] Cholesterol, Total 166 mg/dL (Normal) Range: 100-199 :03 CBC W/AUTO DIFF WBC Comments: PATIENT WAS FASTINGPERFORMED BY: [employer]70 L[facility]pez [facility] [id number] Information: [id number] (06431) Immature Grans (Abs) 0.0 {x10E3/uL} (Normal) Range: [...] 3.77-5.28 WBC 4.8 {x10E3/uL} (Normal) Range: 3.4-10.8 26-Oct-20148:03 CALCIFIDIOL (28599) VIT D 25 Comments: PATIENT WAS FASTINGPERFORMED BY: [facility] [id number] Vitamin D, 25-Hydroxy 31.8 ng/mL (Normal) Range: 30.0-100.0 Comments: Vitamin D deficiency has been defined by the [place] ofMedicine and an Endocrine Society practice guideline as alevel of serum 25-OH vitamin D less than 20 ng/mL (1,2).The Endocrine Society went on to further define vitamin Dinsufficiency as a level between 21 and 29 ng/mL (2).1. IOM ([place] of Medicine). 2010. Dietary reference intakes for [...] 4.2-5.4 WBC 5.1 K/mm3 (Normal) Range: 4.4-11.0 :52 CBC, Platelets & Auto Comments: PATIENT NOT FASTINGPERFORMED BY: LabCoThe [facility] Hospital of Tinton FallsRvskar1296 [facility] [id number] Information: [id number] Diff (75299) Immature Grans (Abs) 0.0 {x10E3/uL} (Normal) Range: [...] 8.0 {x10E3/uL} (Normal) Range: 3.4-10.8 :53 CALCIFIDIOL (01147) VIT D 25 Comments: PATIENT WAS FASTINGPERFORMED BY: LabCoThe [facility] Hospital of Tinton FallsPnqfju9530 [facility] [id number] Vitamin D, 25-Hydroxy 33.8 ng/mL (Normal) Range: 30.0-100.0 Comments: Vitamin D deficiency has been defined by the [place] ofMedicine and an Endocrine Society practice guideline as alevel of serum 25-OH vitamin D less than 20 ng/mL (1,2).The Endocrine Society went on to further define vitamin Dinsufficiency as a level between 21 and 29 ng/mL (2).1. IOM ([place] of Medicine). 2010. Dietary reference intakes for calcium and D. [place]: The National Academies Press.2. Dusty MF, [place], Amrit GRIMM, et al. Evaluation, treatment, and prevention of vitamin D deficiency: an Endocrine Society clinical practice guideline. JCEM. 2010; 96(7):1911-30. :53 TSH (20770) Comments: PATIENT WAS FASTINGPERFORMED BY: [employer] Rtajhy8808 [employer] [facility] [id number] TSH 3.550 {uIU/mL} (Normal) Range: 0.450-4.500 :53 CBC with manual diff Comments: PATIENT WAS FASTINGPERFORMED BY: [employer] Ebvozd9967 L[facility]pez [facility] [id number] Information: [id number] (09746) Immature Grans (Abs) 0.0 {x10E3/uL} (Normal) Range: [...] Panel, Comprehensive Comments: PATIENT WAS FASTINGPERFORMED BY: LabCoThe [facility] Hospital of Tinton FallsCjwqqz4730 [facility] [id number] (48137) ALT (SGPT) 19 [iU]/L (Normal) Range: 0-32 [...] Glucose, Serum 91 mg/dL (Normal) Range: 65-99 :53 Lipid Panel (05437) Comments: PATIENT WAS FASTINGPERFORMED BY: Splash TechnologyThe Rehabilitation Hospital of Tinton FallsNepaes4370 [facility] [id number] LDL/HDL Ratio 1.5 {ratio_units} (Normal) Range: 0.0-3.2 LDL Cholesterol Calc 80 mg/dL (Normal) Range: 0-99 VLDL Cholesterol Norbert 14 mg/dL (Normal) Range: 5-40 HDL Cholesterol 53 mg/dL (Normal) Comments: According to ATP-III Guidelines, HDL-C >59 mg/dL is considered anegative risk factor for CHD. Triglycerides 68 mg/dL (Normal) Range: 0-149 Cholesterol, Total 147 mg/dL (Normal) Range: 100-199 8-Erx-068725:00 Fungus (Mycology) Culture Comments: PERFORMED BY: Splash TechnologyThe Rehabilitation Hospital of Tinton FallsAweown4180 [facility] [id number] BY: [address] [id number] Information: SRC:HEBERT [id number] Result 1 MA708 (Normal) Comments: No yeast or mold isolated after 4 weeks. Fungus (Mycology) Final report Culture (Normal) : Viral Culture, No virus isolated. Comments: PERFORMED BY: Splash TechnologyThe Rehabilitation Hospital of Tinton FallsHyaknx3302 [facility] [id number] BY: [address] [id number] General (Normal) 22-Jul-20139:05 Microscopic Examination Comments: PATIENT WAS FASTINGPERFORMED BY: Splash TechnologyThe Rehabilitation Hospital of Tinton FallsBcnsvs7924 [facility] [id number] Bacteria None seen (Normal) Mucus Threads Present (Normal) Epithelial Cells (non renal) 0-10 {/hpf} (Normal) Range: 0 - 10 RBC None seen {/hpf} (Normal) Range: 0 - 3 WBC 0-5 {/hpf} (Normal) Range: 0 - 5 :05 URINALYSIS, W/ MICRO (50400) Comments: PATIENT WAS FASTINGPERFORMED BY: [employer] Xqsvmy1268 [facility] [id number] Microscopic Examination See below: (Normal) Microscopic Examination MICRON (Normal) Comments: Microscopic follows if indicated. Nitrite, Urine Negative (Normal) Bilirubin Negative (Normal) Urobilinogen,Semi-Qn 0.2 mg/dL (Normal) Range: 0.0-1.9 Occult Blood Negative (Normal) Ketones Negative (Normal) Glucose Negative (Normal) Protein Negative (Normal) WBC Esterase Negative (Normal) Appearance Clear (Normal) Urine-Color Yellow (Normal) pH 7.0 (Normal) Range: 5.0-7.5 Specific [place] 1.010 (Normal) Range: 1.005-1.030 :05 METABOLIC PANEL, COMPREHENSIVE Comments: PATIENT WAS FASTINGPERFORMED BY: [employer] Dfprfx0201 [facility] [id number] (15726) ALT (SGPT) 21 [iU]/L (Normal) Range: 0-32 [...] mg/dL (Normal) Range: 65-99 :05 LIPID PANEL (81868) Comments: PATIENT WAS FASTINGPERFORMED BY: [employer] [facility]6370 [facility] [id number] LDL/HDL Ratio 1.8 {ratio_units} (Normal) Range: 0.0-3.2 [...] MANUAL DIFF Comments: PATIENT WAS FASTINGPERFORMED BY: [employer]6370 [facility] [id number] Information: [id number] (05419) Immature Grans (Abs) 0.0 {x10E3/uL} Range: 0.0-0.1 [...] nm 13 ol/L)Toxicity >100 ng/mL (250 nmol/L)Effective 201213-Lme-399991:01 DEXA BONE DENSITY STUDY (HP) Radiology Report See Note (Normal) Comments: PROCEDURE: [...] Barger M.D.December 15, 2012 at 8:02:59 AM [id number] Signed GP/GP If you are the referring physician and would like to consult with therleigh ann logisearl who provided this interpretation, please contact Rosa Barahona at [phone]. If this radiologist is unavailable, youwill be directed to another radiologist to assist. If you are a pa tient with a question regarding this report, pleasecontactyour referring physician directly. Professional Interpretation Provided By: IEV, Phone , These documents c ontain legally [...] 12/15/12 0808 Sign by: Julius Barger MD 70-Xjn-278206:50 CBCMD ANC 2.9 3/uL (Normal) Range: 2.0-7.7 [...] 4.2-5.4 WBC 4.6 {k/mm3} (Normal) Range: 4.4-11.0 33-Hui-122823:50 CMP GAP 5 (Normal) Range: 5-15 CO2 [...] 7-18 GLU 96 mg/dL (Normal) Range: 70-110 65-Qzf-949338:50 LIPID VLDL 18 mg/dL (Normal) Range: 5-40 [...] 4.2-5.4 WBC 5.7 K/mm3 (Normal) Range: 4.4-11.0 73-Edr-00109:57 COMP METABOLIC GAP 5 (Normal) Range: 5-15 [...] 7-18 GLU 100 mg/dL (Normal) Range: 70-110 :57 LIPID LDL 120 mg/dL (Normal) Range: 0-130 [...] 200-240 mg/dL Borderline >240 mg/dL High Risk :28 CBCD,SMEAR DIFF RED CELL MORPH SeeNote {NORMAL} [...] 0.6-1.0 GLU 85 mg/dL (Normal) Range: 70-110 18-Apr-20118:28 COMPLETE UA Comments: COLOR OF URINE MAY [...] (Normal) Comments: Result: NEGATIVE COLOR YELLOW (Normal) 18-Apr-20118:28 LIPID HDL 49 mg/dL (Normal) Comments: Reference [...] 200-240 mg/dL Borderline >240 mg/dL High Risk :32 CBCD,SMEAR DIFF PLT EST SeeNote (Normal) Comments: [...] 4.2-5.4 WBC 4.8 K/mm3 (Normal) Range: 4.4-11.0 9-Hyc-229947:32 COMP METABOLIC CL 104 mmol/L (Normal) Range: [...] (Normal) GLU 93 mg/dL (Normal) Range: 70-110 :32 LIPID VLDL 12 mg/dL (Normal) Range: 5-40 [...] Very High > or = 500 mg/dL :32 MICROALB:CRE UR MALB:CREAT 7.6 {mg/g_CRE} (Normal) MICROALBUMIN,UR 13.4 mg/L (Normal) UR CREAT 176.1 mg/dL (Normal) 65-Run-193533:04 UNILAT LT DIAG DIGITAL & CAD Radiology Report See Note (Normal) Comments: Exam Number: [id number] MAMMOGRAM, UNILATERAL LEFT DIAGNOSTIC DIGITAL AND CAD [...] or spot view obtained since the examination ofFebru2008. This is incompletely localized since it is [...] mammograms werealso examined with computer-aided detection software (ImageDEONTICSer, [employer] Reported By: MICHELE ROSADO M.D. 67-Kkh-060087:12 MICROALBUMIN: CREATININE RATIO Comments: PERFORMED BY: [facility]6[address] [facility] [id number] ([id number]) AND (06342) Creatinine, Urine 41.5 mg/dL (Normal) Range: 15.0-278.0 Microalb/Creat Ratio 10.6 {mg/g_creat} (Normal) Range: 0.0-30.0 Microalbumin, Urine 4.4 ug/mL (Normal) Range: 0.0-17.0 01-Fsi-743214:12 METABOLIC PANEL, COMPREHENSIVE Comments: PERFORMED BY: [facility] [id number] (78246) A/G Ratio 1.8 (Normal) Range: 1.1-2.5 Albumin, [...] Sodium, Serum 137 mmol/L (Normal) Range: 135-145 :12 LIPID PANEL (16849) Comments: PERFORMED BY: [employer] Csyagn8704 [facility] [id number] Cholesterol, Total 201 mg/dL (Abnormal) Range: 100-199 HDL Cholesterol 52 mg/dL (Normal) Comments: According to ATP-III Guidelines, HDL-C >59 mg/dL is considered anegative risk factor for CHD. LDL Cholesterol Calc 132 mg/dL (Abnormal) Range: 0-99 LDL/HDL Ratio 2.5 {ratio_units} (Normal) Range: 0.0-3.2 Triglycerides 87 mg/dL (Normal) Range: 0-149 VLDL Cholesterol Norbert 17 mg/dL (Normal) Range: 5-40 :12 CBC WITH MANUAL DIFF (43513) Comments: PERFORMED BY: [employer] Tohzdw2952 [facility] [id number] Baso (Absolute) 0.0 {x10E3/uL} (Normal) Range: 0.0-0.2 [...] 11.7-15.0 WBC 6.8 {x10E3/uL} (Normal) Range: 4.0-10.5 :03 COMP METABOLIC A/G 1.2 {RATIO} (Normal) Range: [...] T PROT 7.4 g/dL (Normal) Range: 6.4-8.2 :03 LIPID CHOL 176 mg/dL (Normal) Comments: <200 [...] mg/dL VLDL 18 mg/dL (Normal) Range: 5-40 2-Vml-457331:16 BREAST UNILATERAL US () Radiology Report See Note (Normal) Comments: Exam Number: [id number] TARGETED LEFT BREAST ULTRASOUND REASON FOR EXAMINATIONAbnormal [...] ultrasound. BIRADS category 3. Reported By: ANDREE SANCHEZ M.D. 4-Nnf-332839:31 BILAT DIAG DIGITAL & CAD Radiology Report See Note (Normal) Comments: Exam Number: [id number] BILATERAL DIAGNOSTIC MAMMOGRAMS REASON FOR EXAMINATIONAbnormal screening [...] werealso examined with computer-aided dete ction software ([employer].). Reported By: ANDREE SANCHEZ M.D. 01-Ayu-265303:04 BILAT SCRN DIGITAL & CAD Radiology Report See Note (Normal) Comments: Exam Number: [id number] MAMMOGRAM, BILATERAL SCREENING DIGITAL AND CAD HISTORYRoutine [...] werealso exami adelaida with computer-aided detection software (ImageStoneRiver, [employer] Reported By: MICHELE ROSADO M.D. 4-Brs-803512:07 Thin prep Pap Comments: Source.............Cervical;EndocervicalLMP / Prev Treat...RRL=[id number]. of containers..01 CYTYC Thin Prep VialPATIENT NOT FASTINGClinical Information: ADD [id number] ([id number]) PERFORMED BY: [facility] [id number] . . (Normal) DIAGNOSIS: SPRCS (Normal) Comments: NEGATIVE FOR INTRAEPITHELIAL LESION AND MALIGNANCY.Satisfactory for evaluation. No endocervical component is identified.V72.31 ; Routine gynecological examinationJesshunter Rizzo, Applique Cutter (ASCP) Note: PAPSMR (Normal) Comments: The Pap [...] resulttherefore, no HPV testing was performed. . 97-Tjf-34434:50 CBCD BASO% 0.4 % (Normal) Range: 0-1 [...] T PROT 7.2 g/dL (Normal) Range: 6.4-8.2 :50 LIPID CHOL 130 mg/dL (Normal) Comments: <200 [...] mg/dL VLDL 12 mg/dL (Normal) Range: 5-40 5-Prt-242413:33 DEXA BONE DENSITY STUDY () Radiology Report See Note (Normal) Comments: Exam Number: [id number] BONE DENSITOMETRY HISTORYOsteopenia. TECHNIQUE Bone densitometry of [...] normal limits. Reported By: MICHELE ROSADO M.D. 24-Yje-24796:37 TRANSVAGINAL NON- Radiology Report See Note (Normal) Comments: Exam Number: [id number] TRANSVAGINAL PELVIC ULTRASOUND. HISTORYOvarian cyst, left. Pelvic pain. TECHNIQUEHigh resolution real time sector images were obtained transvaginally. COMPARISONThe current st udy is compared to the examination of September [...] a follicle. There is minimal fluid in faftmi-eq-ozp. IMPRESSION1. The endometrium is 7 mm in thickness, which is within normal limits for a premenopausal patient. A sma ll amount of fluid in the endometrium can also be normal in a premenopausal patient. 2. The right ovary is normal. 3. There is a 9-mm cyst in the left ovary, most likely representing a small cyst. Reported By: MICHELE ROSADO M.D. 09-Btw-764451:25 CBC, Platelets & Auto Diff Comments: PATIENT NOT FASTINGClinical Information: ADD DRAW FEE [id number] ADD J0 3378 DIFFICULT DRAW PERFORMED BY: [facility] Hsksev7906 [facility] [id number] (10606) Baso (Absolute) 0.0 {x10E3/uL} (Normal) Range: 0.0-0.2 [...] 11.7-15.0 WBC 7.5 {x10E3/uL} (Normal) Range: 4.0-10.5 :25 Metabolic Panel, Comprehensive Comments: PATIENT NOT FASTINGPERFORMED BY: [facility] Ragprh0283 [facility] [id number] (11291) A/G Ratio 1.8 (Normal) Range: 1.1-2.5 Albumin, [...] Sodium, Serum 134 mmol/L (Abnormal) Range: 135-148 91-Ikr-732587:10 Urinalysis, Office (68085) UA - BILIRUBIN Negative (Normal) UA - BLOOD Negative (Normal) UA - GLUCOSE Negative (Normal) UA - KETONES Negative mg/dL (Normal) UA - LEUKOCYTE ESTERASE Negative (Normal) UA - NITRITE Negative (Normal) UA - PH 7.0 (Normal) UA - PROTEIN Negative mg/dL (Normal) UA - SPECIFIC GRAVITY 1.010 (Normal) URINE UROBILINGN TELLO TIMED Normal mg/dL (Normal) 5-Eks-004095:35 HAND,MIN 3 VIEWS Radiology Report See Note (Normal) Comments: Exam Number: [id number] THREE VIEWS RIGHT HAND AP, LATERAL AND [...] degenerative changes. Reported By: LON FALL M.D. 1-Ygy-245954:34 HAND,MIN 3 VIEWS Radiology Report See Note (Normal) Comments: Exam Number: [id number] THREE VIEWS RIGHT HAND AP, LATERAL AND [...] degenerative changes. Reported By: LON FALL M.D. :04 VICTORINO-D 255804 VICTORINO-DIRECT 24 AU/mL (Normal) Range: 0-99 Comments: Negative <100 Equivocal 100 - 120 Positive >120 :04 ESR SED RATE 6 mm/h (Normal) Range: 0-20 :04 RA LATEX 6502 3.4 {IU/mL} (Normal) Range: 0.0-13.9 Comments: Performed At: [address] [id number] :45 LIPID CHOL 135 mg/dL (Normal) Comments: <200 [...] gynecological exam Planned Observations Sed Rate Erythrocyte (03665)Indication: Hand pain, left On: :26 Request Metabolic Panel, Comprehensive (72430)Indication: Hand pain, left On: :26 Request CBC (Auto) (76367)Indication: Hand pain, left On: :26 Request CPK MB FRACTION (72392)Indication: Chest pain, central On: :57 Request Comments: STAT ASSAY, TROPONIN, QUANTITATIVE (aka Troponin I) (09108)Indication: Chest pain, central On: :57 Request Comments: STAT METABOLIC PANEL, COMPREHENSIVE (83712)Indication: Chest pain, central On: :53 Request CBC, PLATELETS & MANUAL DIFF (87088)Indication: Chest pain, central On: :53 Request TSH (19533)Indication: Anxiety On: :36 Request Comments: in six months (approximately) URINALYSIS, W/ MICRO (20178)Indication: Hypertension On: :36 Request Comments: in six months (approximately) LIPID PANEL (47893)Indication: Hypertension On: :35 Request Comments: in six months (approximately) CBC with auto diff (10327)Indication: Hypertension On: :35 Request Comments: in six months (approximately) METABOLIC PANEL, COMPREHENSIVE (85492)Indication: Hypertension On: :35 Request Comments: today and in six months (approximately) CBC with manual diff (29774)Indication: Hypertension On: :12 Request OVA & PARASITE DIR SMEAR (35750)Indication: Diarrhea On: :19 Request OCCULT BLOOD FECES SCREEN (92677)Indication: Diarrhea On: 73-Vdy-023223:19 Request LEUKOCYTE COUNT, FECAL (17619)Indication: Diarrhea On: :19 Request C-DIFFICILE, STOOL (92044)Indication: Diarrhea On: :19 Request ARABELLA CULTURE-STOOL (20555)Indication: Diarrhea On: :19 Request URINALYSIS, W/ MICRO (40141)Indication: Hypertension On: :25 Request METABOLIC PANEL, COMPREHENSIVE (35488)Indication: Hypertension On: :25 Request LIPID PANEL (96702)Indication: Hypertension On: :25 Request CBC WITH MANUAL DIFF (38071)Indication: Hypertension On: :25 Request CULTURE,FUNGUS W/STAIN 313782 (66003)Indication: Mouth lesion On: :40 Request CULTURE, VIRUS GENERAL 8573 (07659)Indication: Mouth lesion On: :40 Request CALCIFIDIOL (93236) VIT D 25Indication: Osteopenia On: :57 Request URINALYSIS, W/ MICRO (96995)Indication: Hypertension On: :27 Request METABOLIC PANEL, COMPREHENSIVE (09405)Indication: Hypertension On: :27 Request LIPID PANEL (64071)Indication: Hypertension On: :27 Request CBC WITH MANUAL DIFF (89559)Indication: Hypertension On: :27 Request CBC, PLATELETS & MANUAL DIFF (65673)Indication: Hypercholesterolemia On: :33 Request METABOLIC PANEL, COMPREHENSIVE (28201)Indication: Hypercholesterolemia On: :33 Request LIPID PANEL (57734)Indication: Hypercholesterolemia On: :33 Request TSH (54623)Indication: Physical exam, routine On: :29 Request METABOLIC PANEL, COMPREHENSIVE (37863)Indication: Physical exam, routine On: :29 Request LIPID PANEL (29794)Indication: Physical exam, routine On: :29 Request CBC WITH MANUAL DIFF (28780)Indication: Physical exam, routine On: :29 Request URINALYSIS, W/ MICRO (74070)Indication: Hypertension On: :57 Request METABOLIC PANEL, COMPREHENSIVE (59529)Indication: Hypertension On: :57 Request LIPID PANEL (04417)Indication: Hypertension On: :57 Request CBC WITH MANUAL DIFF (17571)Indication: Hypertension On: :57 Request MICROALBUMIN: CREATININE RATIO (10631) AND (16455)Indication: Hypertension On: :31 Request METABOLIC PANEL, COMPREHENSIVE (19767)Indication: Hypertension On: :31 Request LIPID PANEL (77314)Indication: Hypertension On: :31 Request CBC WITH MANUAL DIFF (86143)Indication: Hypertension On: :31 Request METABOLIC PANEL, COMPREHENSIVE (09305)Indication: Hypertension On: :52 Request LIPID PANEL (68725)Indication: Hypertension On: :52 Request CBC WITH MANUAL DIFF (93833)Indication: Hypertension On: :52 Request METABOLIC PANEL, COMPREHENSIVE (26004)Indication: Hypertension On: :48 Request LIPID PANEL (67166)Indication: Hypertension On: :48 Request CBC WITH MANUAL DIFF (50841)Indication: Hypertension On: :48 Request Comments: 01-25 Metabolic Panel, Comprehensive (63902)Indication: Hypertension On: 4-Fby-357489:26 Request Lipid Panel (09720)Indication: Hypertension On: 0-Lvl-221999:26 Request CBC (Auto) (79978)Indication: Hypercholesterolemia On: 19-Hqn-891948:06 Request Metabolic Panel, Comprehensive (94473)Indication: Hypercholesterolemia On: 91-Uuy-588564:06 Request Lipid Panel (01497)Indication: Hypercholesterolemia On: 80-Aqi-304170:06 Request Comments: in six months (approximately) Sed Rate Erythrocyte (89437)Indication: Arthralgia On: 89-Max-706091:13 Request RHEUMATOID FACTOR-QUANT (07652)Indication: Arthralgia On: 21-Wsf-601053:13 Request VICTORINO (ANTINUCLEAR ANTIBODY) (38080)Indication: Arthralgia On: 68-Hkb-433838:13 Request TSH (07374)Indication: Hypercholesterolemia On: 98-Epu-643715:04 Request HEPATIC FUNCTION PANEL (05742)Indication: Hypercholesterolemia On: 49-Xph-599107:04 Request Lipid Panel (87548)Indication: Hypercholesterolemia On: 49-Rbk-257596:04 Request Thin prep Pap (85061)Indication: Well woman exam with routine gynecological exam On: 30-Ciu-943259:52 Request Planned Encounters Medical; 6 Month FU - On: 25-Nov-2018 8:00 [facility] Jeanine Gramajo DO, DO, Kathleen Planned Procedures RUQ US (RIGHT UPPER QUADRANT On: 01-Nov-2018 Intent ULTRASOUND) (16282)By: Avila PORTILLO, Comments: attention CBD size -- s/p choley Jeanine Castro DO X-RAY LEFT HAND, 3+ VIEWS (64982)By: On: 01-Nov-2018 Intent Jeanine Gramajo DO, DO, Jeanine X-RAY OF WRIST, FOUR VIEWS On: 01-Nov-2018 Intent (54220)By: Jeanine Gramajo DO, DO, Kathleen GALLBLADDER ULTRASOUND (48516)By: On: 20-May-2018 Intent Jeanine Gramajo DO, DO, Kathleen SCREENING DIGITAL TOMOSYNTHESIS OF On: 29-Dec-2017 Intent BREAST (25996)By: Holly Martines CHEST XRAY, PA & LATERAL (14710)By: On: 17-Nov-2017 Intent Christianne Pepper STRESS ECHO-EXERCISE (60107)By: On: 17-Nov-2017 Intent Christianne Pepper ELECTROCARDIOGRAM, COMPLETE (ECG) On: 17-Nov-2017 Intent (06173)By: Christianne Pepper Comments: Sinus Rhythm-Rate 72, -Negative precordial t-waves. ? lead placement, EKG (38287)By: Jeanine Gramajo DO On: 05-May-2017 Intent Jeanine Gramajo DO Comments: nsr no acute chg MAMMOGRAM, BOTH SIDES (51768)By: On: 04-Dec-2016 Jeanine Barber DO, DO, Kathleen DEXA SCAN AXIAL SKELETON (26451)By: On: 04-Dec-2016 Intent Jeanine Gramajo DO, DO, Kathleen EKG (60415)By: Jeanine Gramajo DO On: 04-Dec-2016 Intent Jeanine Gramajo DO Comments: nsr no acute chg MAMMOGRAM, SCREENING, BOTH BREAST On: 26-Oct-2014 Intent (13242)By: Coral Ray MD DEXA SCAN AXIAL SKELETON (83262)By: On: 26-Oct-2014 Intent Coral Ray MD INFUSION, NORMAL SALINE SOLUTION , On: 01-Feb-2014 Intent 1000 CC (Special Coverage Instructions Apply. See MCM: 9) (J7030)By: Caitlyn Gonzales CNP HYDRATION IV INFUSION, INIT On: 01-Feb-2014 Intent (62373)By: Caitlyn Gonzales CNP Phenergan Injection, up to 50 mg On: 01-Feb-2014 Intent (J2550)By: Caitlyn Gonzales CNP Comments: lot: [id number]: 04/02site/route: LGM/IMamt: 25mgVIS signed when applicableChels, [facility] EKG (44506)By: Coral Ray MD On: 22-Dec-2013 Intent Comments: see scanned document of test done to see results reviewed today with patient EKG (01361)By: Coral Ray MD On: 18-Nov-2012 Intent Comments: see scanned document of test done to see results reviewed today with patient DXA, BONE DENSITY, AXIAL SKELETON On: 18-Nov-2012 Intent (81642)By: Coral Ray MD EKG (36418)By: Coral Ray MD On: 18-Apr-2011 Intent FLU VAC, SPLIT, >3 YEARS, INTRAMUSC On: 25-Jul-2009 Intent (28290)By: Huogn Christy RN IMMUNIZ ADMNIN, 1 VAC, SNGL/COMBO On: 25-Jul-2009 Intent (75506)By: Huong Christy RN Breast Ultrasound - LeftBy: Flor On: 28-Mar-2009 Intent Coral MCHUGH Breast Diagnostic - LeftBy: Flor On: 28-Mar-2009 Intent Coral MCHUGH MAMMOGRAM, SCREENING, BOTH BREASTS On: 23-Aug-2008 Intent (17310)By: Coral Ray MD IMMUNIZ ADMNIN, 1 VAC, SNGL/COMBO On: 07-Aug-2008 Intent (37781)By: SWATHI Whipple FLU VAC, SPLIT, >3 YEARS, INTRAMUSC On: 07-Aug-2008 Intent (01092)By: SWATHI Whipple Comments: Lot #:Expiration date:Amount given:Route: IMSite given:left deltoid Given by: [facility] Bone Density StudyBy: Flor MCHUGH, On: 08-Mar-2008 Intent Coral Rodriguez EKG (43056)By: Coral Ray MD On: 08-Mar-2008 Intent Ultrasound - Abdomen Complete & On: 03-Sep-2007 Intent PelvisBy: Caitlyn Gonzales CNP Comments: stat Call results to [employer] FLU VAC, SPLIT, >3 YEARS, INTRAMUSC On: 10-Aug-2007 Intent (09016)By: Shana Dai Comments: given 0.5cc im in left deltoid lot#[id number] exp.04/17/08-aw IMMUNIZ ADMNIN, 1 VAC, SNGL/COMBO On: 10-Aug-2007 Intent (94156)By: Shana Dai Radiology - Hand - BilateralBy: On: 05-Jul-2007 Intent Coral Ray MD Comments: proximal joint ache DXA, BONE DENSITY, AXIAL SKELETON On: 09-Dec-2006 Intent (05595)By: Coral Ray MD Comments: strong family history MAMMOGRAM, SCREENING, BOTH BREASTS On: 09-Dec-2006 Intent (78495)By: Coral Ray MD Planned Medications INFUSION, NORMAL [...] Advance Directives Name Dates Details Immunization Registry [place] - Effective on Effective: 01-Nov-201811/01/2018. Expiration date [...] prophylactic vaccination and inoculation against influenza (V04.81), WWV V72.31 (Renamed from WWV) [facility] Office Visit On: 07-Dec-2008 [...] Calcium intake includes 1200 mg daily supplment (womens daily vitamin). The patient denies the use [...] Diagnosis End: 21-Sep-2006 17:30 [facility] alejandro guarantor
--- OUTSIDE RECORDS SUMMARY | 2019-01-12 04:51 | XMS RPT_ITS | Continuity of Care Document ---
:1960 External Reference #:[id number] Author Organization [facility] Address [facility] [address] [place] [address] Phone Care Team Providers Name Role Phone Jeanine Gramajo DO Unavailable John Sol MD Unavailable Physical Therapy, [facility] Unavailable Dr. Garrett Sandy Unavailable Moises Asencio Unavailable HORACIO Amador Unavailable Unavailable maddison farley Unavailable Unavailable Unavailable Unavailable Problems Name Dates [...] of heart disease (Z82.49, V17.49) Status: Active Hypercholesterolemia (E78.00, 272.0) Status: Active [...] 2 Status: Active RUQ pain (R10.11, 789.01) Status: Active WWV V73.21 Comments: colonscopy 2011 [facility] Status: Active Medications Name Dates Details [...] : 19-Aug-2010 End : 04-Nov-2011 Inactive NYSTATIN, 983232TYBR/ML (Mouth/Throat Suspension) 1 Suspension 5 ml 5 [...] days Quantity: 12 {Tablet} Refills: 3 Ordered:07-May-2015 SlaGisela taylor LPN Start : 17-Jan-2015 End : 07-May-2015 Discontinued [...] in six months (approximately) for routine. pap - good. mammo 08-29. colonscopy due this year Status: Inactive as [...] at 49 Status: Inactive as of 28-Mar-2009 [facility] V72.31 (Renamed from [facility]) Comments: talk about colonscnopy. pap 2-09, side effects Dr. diaz. Status: Inactive as of 18-Nov-2012 Procedures Procedure Dates Details Arthroscopy of Knee Completed Comments: 1998 Dr. Rajput Deviated septum Completed Foot sx Completed Comments: 06/06/17 b/l Shoulder Surgery Completed Comments: rt 03/28/14 Tonsillectomy Completed Date Value Details 22-Jul-2018 Surgery Visit Report Result: Comments: See Note; NOTES: [facility] [place] [address] [place] [address] OFFICE VISIT Date of Service: 07/22/18 MR#: [id number] Acct: [id number] Name: HANNAH STANLEY Rep #: [id number] : 1960 Provider: Lana Quinn PA-C Age/Sex: 58/F [place] [facility] Status: Signed with Addenda ADDENDUM by Lana [...] update H AND P alex hodge 07-12 Financial Services Education Consultant Required: No Is patient in pain?: No [...] [History Confirmed 07/22/18] Hydrocodone Bitart/Apap 5- 325 [Evanston 5MG-325MG] 1 tab PO Q6H PRN PRN [...] Visit Report Result: Comments: See Note; NOTES: [facility] [address] [place] [address] OFFICE VISIT Date of Service: 07/22/18 MR#: [id number] Acct: [id number] Name: HANNAH STANLEY Rep #: [id number] : 1960 Provider: Lana Quinn PA-C Age/Sex: 58/F Location[place] [facility] Status: Signed Intake Intake Visit Reasons: Lap Armida RC 07/12 Chief Complaint: update H AND P la p armida 07-12 RC Financial Services Education Consultant Required: No Is patient in pain?: No [...] 07/07/18 [History Confirmed 07/22/18] Hydrocodone Bitart/Apap 5-325 [[place] 5MG-325MG] 1 tab PO Q6H PRN PRN [...] Lead Electrocardiogram Result: Comments: See Note; NOTES: [facility] Services [address] [place] [address] 12 Lead EKG 07/08/18 1451 MR#: [id number] Acct: [id number] Name: HANNAH STANLEY Rep #: [id number] : 1960 58 From: Gerber Agrawal MD Attending Dr: John Sol MD Status: [facility] Ordering Dr: John Sol MD Date: 07/08/18 Location: [facility] Sex: F C Admitted: Test Reason [...] ECG Confirmed by GERBER AGRAWAL MD ([id number]), editorial intern SRINIVAS DEE ([id number]) on 07/14/2018 9:23:26 AM Referred By: John Sol Confirmed By: GERBER AGRAWAL MD 07/14/18 0923 Date Gerber Agrawal MD CC: Jeanine Gramajo DO; John Sol MD Signed 13-Jul-2018 Discharge Instruction Result: Comments: See Note; NOTES: [facility] Medical Records Department [address] [place] [address] Instructions for Home/Discharge Instructions 07/12/18 1152 MR#: [id number] Acct: [id number] Name: HANNAH STANLEY Rep #: [id number] : 1960 58 From: John Sol MD PCP: Jeanine Gramajo DO Status: DEP [facility] Discharge Diet: Light diet - advance [...] 1 ea PO DAILY 07/13/16 Paroxetine HCl [Sidney il] 10 mg PO DAILY 07/13/16 Vitamin E 400 unit PO DAILY 07/13/16 Hydrochlorothiazide [Hctz] 25 mg PO DAILY 07/07/18 Hydrocodone Bitart/Apap 5-325 [E[place] 5MG-325MG] 1 tablet PO Q6H PRN PRN 3 Days #8 tabl et 07/12/18 The following prescriptions were given: Hydrocodone Bitart/Apap 5-325 [E[place] 5MG-325MG] 1 tablet PO Q6H PRN PRN [...] Operative Report Result: Comments: See Note; NOTES: [facility] Medical Records Department [address] [place] [address] Operative Report 07/12/18 1254 MR#: [id number] Acct: [id number] Name: HANNAH STANLEY Rep #: [id number] : 1960 58 From: John Sol MD PCP: Jeanine Gramajo DO Status: DEP [facility] Y Location: [facility] Problem List (1) Cholelithiasis with chronic [...] hernia was approximated with interrupted 0 Nurolon hofdaa-tk-lkalj suture. Skin edges were ap proximated interrupted [...] O R,Initial Result: Comments: See Note; NOTES: [facility] Imaging Services [address] [place] [address] Cholangiogram/ O R,Initial MR#: [id number] Acct: [id number] Name: HANNAH STANLEY Rep #: [id number] : 1960 F 58 From: Julius Barger MD PCP: Jeanine Gramajo DO Status: [facility] Study: Cholangiogram/ O R,Initial Date of Exam: 07/12/18 Exam# [id number] Ordering Dr: John Sol MD STUDY: INTRAOPERATIVE [...] Julius Barger MD at 15:37 EDT Tel [phone], Service support , CC: Jeanine anderson DO; John Sol MD Workday Financials Consultant: Signed 20-Sep-2018 Surgery Visit Report Result: Comments: See Note; NOTES: [facility] [address] [place], [place] [address] OFFICE VISIT Date of Service: 07/08/18 MR#: [id number] Acct: [id number] Name: HANNAH STANLEY Rep #: [id number] : 1960 Provider: Lana Quinn PA-C Age/Sex: 58/F Location: [facility] Status: Signed Intake Vital Signs07/08/18 Height 5 ft 2 in 07/08/18 Weight: 175 lb 4 oz 07/08/18 Body Mass Index (BMI) 32.0 07/08/18 Blood Pressure 151/85 Intake Visit Reasons: update h AND p lap armida 07-14 RC Chief Complaint: update H AND P lap armida RC Financial Services Education Consultant Required: No Is patient i n pain?: [...] unit PO DAILY 07/13/16 [History Confirmed 07/07/18] Chilo chlorothiazide [Hctz] 25 mg PO DAILY 07/07/18 [...] History Smoking Status: Never smoker alcohol intake: marye guzman HPI HPI HPI: Patient is a 58 [...] a syncopal spells. She went to the [facility] emerg ency room and CT scan showed [...] developed right sided abdominal pain. At the [facility] on May 26, 2018 she had a [...] healthy appearing, comfortable, n o acute distress HENMT Head: normal to inspection Eyes General: appearance [...] pain R10.11 Update H AND P 07/08/18 6592 <Electronically signed by Lana Quinn PA-C> Date Lana barrios PA-C Cosigner Signature: Date (if applicable) CC: 10-Jun-2018 Operative Report Result: Comments: See Note; NOTES: [facility] Medical Records Department [address] [place] [address] Operative Report 06/10/18 0642 MR#: [id number] Acct: [id number] Name: HANNAH STANLEY Rep #: [id number] : 1960 58 From: John Sol MD PCP: Jeanine Gramajo DO Status: [facility] Y Location: [place] [address] Problem List (1) Abdominal pain Status: Acute [...] Visit Report Result: Comments: See Note; NOTES: [facility] [address] [place] [address]. [address] [place] [address] OFFICE VISIT Date of Service: 06/02/18 MR#: [id number] Acct: [id number] Name: HANNAH STANLEY Rep #: [id number] : 1960 Provider: John Sol MD Age/Sex: 58/F Location: [facility] Status: Signed Intake Vital Signs06/02/18 Height 5 ft 2 in 06/02/18 Weight: 175 lb 4 oz 06/02/18 Body Mass Index (BMI) 32.0 Intake Visit Reasons: RUQ Pain [facility] Chief Complaint: RUQ pain into back, gallstones Financial Services Education Consultant Required: No Is patient in pain?: Yes [...] syncopa l spells. She went to the [facility] emergency room and CT scan showed acute [...] right si ded abdominal pain. At the [facility] on May 26, 2018 she had a [...] distress Nutritional Appearance: overweight Orientation: alert, awake HENWY Head: normal to inspection Eyes General: appearance [...] John Sol MD> Date John Sol MD Cosigner Signature: Date (if applicable) CC: Jeanine Avila PORTILLO 26-May-2018 Gallbladder Result: Comments: See Note; NOTES: [facility] Imaging Services [address] [place] [address] Gallbladder MR#: [id number] Acct: [id number] Name: HANNAH STANLEY Rep #: [id number] : F 58 From: Martin Melton MD PCP: Jeanine Gramajo DO Status: REG CLI Study: Gallbladder Date of Exam: 05/26/18 Exam# [id number] Ordering Dr: Jeanine Gramajo DO STUDY: ABDOMINAL [...] Service support , CC: Jeanine Gramajo DO Workday Financ[employer] Consultant: Signed 24-Feb-2018 Emergency Department Summary Result: Comments: See Note; NOTES: [facility] Medical Records Department [address] [place] [address] Emergency Department Summary 02/24/18 0806 MR#: [id number] Acct: [id number] Name: HANNAH STANLEY Rep #: [id number] : 1960 57 From: Dolores Paz MD [...] Barger MD at 9:12 ED T Tel [phone], Service support , Emergency Department Course and Treatment: Patient's presentation is concerning for renal colic, diverticulitis or pyelonephritis. L abs showed no hematuria or infection on urinalysis, no leukocytosis, no electrolyte or renal derangements. CT flank showed sigmoid diverticulitis, uncomplicated. Patient was started on Cipro and Flagyl for treatment. She was given a prescription for Zofran and [place] for symptomatic management. Return precautions given. Patient discharged home. Treatment Plan: [] Disposition: [] Impression: Acute si gmoid diverticulitis, uncomplicated This note was generated with Artillery dictation software. It may contain incorrect words, spelling, and punctuation that were not noted in review of the chart prior to signing ED Disposition - Plan for ED Patient: Disposition: Home or Assisted Living Chief Complaint: Flank Pain Instructions: ED Diverticulitis Prescriptions: Hydrocodone Bitart/Apap 5-325 [Evanston 5 MG-325MG] 1 tab PO Q6H PRN PRN 3 Days #12 tab PRN Reason: Pain Ondansetron [Zofran Odt] 4 mg PO Q8H PRN PRN #20 tab.rapdis PRN Reason: Nausea Metronidazole [Flagyl] 500 mg PO Q8H #21 tab Ciprofloxacin [ Cipro] 500 mg PO BID #14 tab Referrals: Jeanine Gramajo, DO [Primary Care Provider] - 3-5 Days if not improving Additional Instructions: Take the antibiotics as prescribed for the entire 7 days, even if you feel better before you have finished them. Do not drink alcohol while taking the antibiotics. You may use the ondansetron 30 minutes before taking your dose if the antibiotics make you sick to stom ach. You may use cmpe-jwf-kkqpfyv pain medication as needed for pain, or [...] your Primary Care Provider. Call [facility] ([phone]) or report to the closest Emergency Room. Call 911 if necessary. 02/24/18 1907 <Electronically signed by Dolores Paz MD&# 62; Date Dolores Paz MD Cosigner Signature (If Indicated): Date CC: Jeanine Gramajo DO 24-Feb-2018 Discharge Instruction Result: Comments: See Note; NOTES: [facility] Medical Records Department [address] [place] [address] Discharge Instruction 02/24/18 0949 MR#: [id number] Acct: [id number] Name: HANNAH STANLEY Rep #: [id number] : 1960 57 From: Dolores Paz MD PCP: Jeanine Gramajo DO Status: DEP ER ED Disposition - Plan for ED Patient: Disposition: Home or Assisted Living Chief Complaint: Fl ank Pain Instructions: ED Diverticulitis Prescriptions: Hydrocodone Bitart/Apap 5-325 [E[place]ston 5MG-325MG] 1 tab PO Q6H PRN PRN [...] you sick to stomach. You may use ushd-fpy-xcmvfpt pain medication as needed for pain, or [...] your Primary Care Provider. Call [facility] ([phone]) or report to the closest Emergency Room. Call 911 if necessary. 02/24/18 8842 <Electronically signed by Dolores Paz MD> Date Dolores Paz MD Cosigner Signature (If Indicat ed): Date CC: eJanine Gramajo DO 24-Feb-2018 Abdomen/Pelvis without Cont Result: Comments: See Note; NOTES: [facility] Imaging Services [address] [place] [address] Abdomen/Pelvis without Cont MR#: [id number] Acct: [id number] Name: HANNAH STANLEY Rep #: : 1960 F 57 From: Julius Barger MD PCP: Jeanine Gramajo DO Status: REG ER Study: Abdomen/Pelvis without Cont Date of Exam: 02/24/18 Exam# [id number] Ordering Dr: Dolores Paz MD STUDY: CT [...] Julius Barger MD at 9:12 EDT Tel [phone], Service support , CC: Jeanine Gramajo DO; Dolores Paz MD Workday Financials Consultant: Signed 20-Jan-2018 SCREENING MAMM (CAD), BILAT Result: Comments: See Note; NOTES: [facility] Imaging Services [address] [place] [address] SCREENING MAMM (CAD), BILAT MR#: [id number] Acct: [id number] Name: HANNAH STANLEY Rep #: [id number] : 1960 F 57 From: Julius Barger MD PCP: Jeanine Gramajo DO Status: REG CLI Study: SCREENING MAMM (CAD), BILAT Date of Exam: 01/20/18 Exam# [id number] Ordering Dr: Jeanine Gramajo DO MAMMOGRAPHY - [...] delay biopsy of a clinically suspicious abnormality. [id number] Electronically Signed: Julius Barger MD at 9:07 EDT Tel [phone], Service support , CC: Jeanine Gramajo DO Workday Financials Consultant: Signed 16-Dec-2017 Stress Test Echo w/o Contrast Result: Comments: See Note; NOTES: [facility] Cardiovascular Services [address] [place] [address] Stress Test Echo w/o Contrast MR#: [id number] Acct: [id number] Name: HANNAH STANLEY Rep #: [id number] : 1960 57 From: Vicente Lemus MD Primary Care: Jeanine Gramajo DO Status: REG CLI Ordering Dr: Christianne Pepper BELT MAKER HELPER-C Sex: F C Reason For Study: Chest [...] 171 bpmM ETS: 8 Baseline Echocardiogram Findings e estimated ejection fraction is 65 %. [...] is 75%. Ordering Physician: LETY Nielson Referring Phy sician: Vicente Lemus MD Performed By: Ashley Rob, MAKENZIE, RVT 12/16/17 1545 Date __ Vicente Lemus MD CC: LETY Pepper; Jeanine Gramajo DO Date Dictated: 12/16/17 1316 Date Transcribed: 12/16/171544 Workday Financials Consultant: Signed 17-Nov-2017 Chest PA and Lateral Result: Comments: See Note; NOTES: [facility] Imaging Services [address] [place] [address] Chest PA and Lateral MR#: [id number] Acct: [id number] Name: HANNAH STANLEY Rep #: [id number] : 1960 F 57 From: Julius Barger MD PCP: Jeanine Gramajo DO Status: REG CLI Study: Chest PA and Lateral Date of Exam: 11/17/17 Exam# [id number] Ordering Dr: Christianne Pepper STUDY: X- RAY [...] Julius Barger MD at 12:46 EST Tel [phone], Service support , CC: LETY Pepper; Jeanine Gramajo DO Workday Financials Consultant: Signed 16-Nov-2017 Urgent Care Visit Report Result: Comments: See Note; NOTES: [facility] [address] [place] [address] OFFICE VISIT Date of Service: 11/16/17 MR#: [id number] Acct: [id number] Name: HANNAH STANLEY Rep #: [id number] : 1960 Provider: Navneet VIERA Age/Sex: 57/F Location[place] [facility] Status: Signed Intake Vital Signs11/16/17 Height 5 [...] history of her mot her having an ID at approximate age 59. No other associated [...] fatigue Exam Const General: cooperative, healthy appearing [facility] Head: normocephalic, atraumatic Ears: hearing grossly [...] state that she will go immediatly to [facility] ED. Tried to perform EKG on site however EKG was n ot functioning properly. This note was generated with Artillery dictation software. It may contain incorrect words, spelling, and punctuation that were not noted in checking the note before signing. Orde rs Orders: Coding Level of Care Code Off vis,new,level 4 Diagnoses Chest pain on exertion R07.9 Chest pain radiating to arm R07.89 11/16/17 7503 <Electronically signed by Navneet VIERA&am p;#62; Date Navneet VIERA Cosigner Signature: Date (if applicable) CC: 08-Jun-2017 Operative Report Result: Comments: See Note; NOTES: [facility] Medical Records Department [address] [place] [address] Operative Report 05/29/17 0857 MR#: [id number] Acct: [id number] Name: HANNAH STANLEY Rep #: [id number] : 1960 57 From: Beatris Stokes DPM PCP: Jeanine Gramajo DO Status: DEP [facility] Y Location: [facility] Problem List (1) Hammer toe of [...] 250 mmHg Materials: 3-0 vicryl, 4-0 nylon microsoft application developer: Yomi PGY3 Type of Anesthesia:: Local MAC - [...] and elects to proceed at this time. [facility] med surgical consent and the surgical limb were [...] Discharge Instruction Result: Comments: See Note; NOTES: [facility] Medical Records Department [address] [place] [address] Instructions for Home/Discharge Instructions 05/29/17 0856 MR#: [id number] Acct: [id number] Name: HANNAH STANLEY Rep #: [id number] : 1960 57 From: Beatris Stokes DPM PCP: Jeanine Gramajo DO Status: REG SDC Weight Bearing Status: Partial weight bearing - [...] 05/22/17 11:22) Hives Medic[facility] Alendronate Sodium [Fosamax] 70 mg PO Q7D@0700 [...] [facility]. Call sooner if questions: [phone] Proposed Discharge Date: 05/29/17 05/29/17 0857 <Electronically signed by Beatris gomez DPM> Date Beatris Stokes DPM CC: Jeanine Gramajo DO 29-May-2017 Foot 2 Views Result: Comments: See Note; NOTES: [facility] Imaging Services [address] [place] [address] Foot 2 Views MR#: [id number] Acct: [id number] Name: HANNAH STANLEY Rep #: [id number] : F 57 From: Julius Barger MD PCP: Jeanine Gramajo DO Status: [facility] Study: Foot 2 Views Date of Exam: 05/29/17 Exam# [id number] Ordering Dr: Beatris Stokes DPM STUDY: X-RAY [...] Ball i, MD at 9:41 EDT Tel [phone], Service support , CC: Beatris Stokes DPM; Jeanine Gramajo DO Workday Financials Consultant: Signed 29-May-2017 Foot 2 Views Result: Comments: See Note; NOTES: [facility] Imaging Services [address] [place] [address] Foot 2 Views MR#: [id number] Acct: [id number] Name: HANNAH STANLEY Rep #: [id number] : F 57 From: Julius Barger MD PCP: Jeanine Grmaajo DO Status: [facility] Study: Foot 2 Views Date of Exam: 05/29/17 Exam# [id number] Ordering Dr: Beatris Stokes DPM STUDY: X-RAY [...] Mary Barger MD at 9:43 EDT Tel [phone], Service support , CC: Beatris Stokes DPM; Jeanine Gramajo DO Workday Financials Consultant: Signed 29-May-2017 Foot 2 Views Result: Comments: See Note; NOTES: [facility] Imaging Services [address] [place] [address] Foot 2 Views MR#: [id number] Acct: [id number] Name: HANNAH STANLEY Rep #: [id number] : F 57 From: Julius Barger MD PCP: Jeanine Gramajo DO Status: [facility] Study: Foot 2 Views Date of Exam: 05/29/17 Exam# [id number] Ordering Dr: Beatris Stokes DPM STUDY: X-RAY [...] Julius Barger MD at 12:50 EDT Tel [phone], Service support , CC: Beatris Stokes DPM; Jeanine Gramajo DO Workday Financials Consultant: Signed 29-May-2017 Foot 2 Views Result: Comments: See Note; NOTES: [facility] Imaging Services [address] [place] [address] Foot 2 Views MR#: [id number] Acct: [id number] Name: HANNAH STANLEY Rep #: [id number] : F 57 From: Julius Barger MD PCP: Jeanine Gramajo DO Status: [facility] Study: Foot 2 Views Date of Exam: 05/29/17 Exam# [id number] Ordering Dr: Beatris Stokes DPM STUDY: X-RAY [...] of the fifth toe. OR LEANDRO #: [id number] RAD/Foot 2 Views IMPRESSION: Resection of the distal portion of the proximal pharynx of the fifth toe as well as resection of the middle phalanx of the fifth toe. Postoperative soft tis rei changes. Electronically Signed: Julius Barger MD at 12:51 EDT Tel [phone], Service support , CC: Beatris tSokes DPM; Jeanine Gramajo DO Workday Financials Consultant: Signed 25-Feb-2017 PT D/C Summary (1) Result: Comments: See Note; NOTES: [facility] Physical Therapy [facility] [address] [place] [address] Fax REHABILITATION SERVICES DARSHAN PERRY SUMMARY MR#: [id number] Acct: [id number] Name: HANNAH STANLEY Rep #: [id number] : 1960 56 From: Gisela BOLDEN Referring Dr.: Jeanine Gramajo DO Status: REG RCR Insurance: [employer] [facility] C ARE HP - PT D/C [...] please feel free to call me at [phone]. Th ank you for the referral of this patient. Sincerely, Gisela Yanez <Electronically signed by Gisela Yanez MPT> 02/25/17 1631 CC: Jeanine Gramajo DO Signed 27-Jan-2017 Inital Evaluation (1) - PT Result: Comments: See Note; NOTES: [facility] Physical Therapy [facility] [address] [place] [address] Fax REHABILITATION SERVICES INITIAL EVALUATION MR#: [id number] Acct: [id number] Name: HANNAH STANLEY Rep #: [id number] : 1960 56 From: Gisela Yanez MPT Referring Dr.: Jeanine Gramajo DO Status: REG RCR Insurance: [facility] Patient's Visit Information HANNAH STANLEY is a [...] to be FAXED BACK to us at [phone] for Medicare purposes. Please let me know if there are questions or concerns regarding this plan of care. Physician Signature: Date: <Electronically si gned by Gisela Yanez MPT> 01/27/17 0950 CC: Jeanine Gramajo DO Signed For Medicare only, by signing this I certify the plan of care. ___ Physicians Signature Date 08-Jan-2017 Dexa Bone Density Study () Result: Comments: See Note; NOTES: [facility] Imaging Services [address] [place] [address] Verdana 4d Dexa Bone Density Study () MR#: [id number] Acct: [id number] Name: HANNAH STANLEY Araceli Rep #: [id number] : 1960 F 56 From: Julius Barger MD PCP: Jeanine Gramajo DO Status: [facility] Study: Dexa Bone Density Study () Date of Exam: 01/08/17 Exam# [id number] Ordering Dr: Jeanine Ngo DO STUDY: DUAL [...] Julius Barger MD at 9:26 EDT Tel [phone], Service support [phone], CC: Jeanine Gramajo DO Workday Financials Consultant: Signed 08-Jan-2017 SCREENING MAMM (CAD), BILAT Result: Comments: See Note; NOTES: [facility] Imaging Services [address] [place] [address] Verdana 4d SCREENING MAMM (CAD), BILAT MR#: [id number] Acct: [id number] Name: HANNAH STANLEY Rep #: [id number] : 1960 F 56 From: Julius Barger MD PCP: Jeanine Gramajo DO Status: REG CLI Study: SCREENING MAMM (CAD), BILAT Date of Exam: 01/08/17 Exam# [id number] Ordering Dr: Jeanine Gramajo DO MAMMOGRAPHY - [...] delay biopsy of a clinically suspicious abnormality. [id number] Electronically Signed: Julius Barger MD 201 04/20/23 at 10:53 EDT Tel [phone], Service support [phone], CC: Jeanine Gramajo DO Workday Financials Consultant: Signed 13-Jul-2016 Emergency Department Summary Result: Comments: See Note; NOTES: [facility] Medical Records Department [address] [place] [address] Emergency Department Summary MR#: [id number] Acct: [id number] Name: HANNAH STANLEY Rep #: [id number] : 1960 56 From: Omega Van MD PCP: Jeanine Gramajo DO Status: DEP ER DATE OF SERVICE: 07/13/2016 CHIEF COMPLAINT: Headache. [...] Discharge. Omega Van MD T: NTS JOB: [id number] 07/13/16 2245 &#6 0;Electronically signed by Omega Van MD> Date Omega Van MD Cosigner Signature (If Indicated): Date CC: Jeanine Gramajo DO Date Dictated: 07/13/161555 Date Transcribed: 07/13/161555 Workday Financials Consultant: Signed 13-Jul-2016 Discharge Instruction Result: Comments: See Note; NOTES: [facility] Medical Records Department [address] [place] [address] Discharge Instruction 07/13/161555 MR#: [id number] Acct: [id number] Name: HANNAH STANLEY Rep #: [id number] : 1960 56 From: Omega Van MD [...] any unexpected problems, contact your doctor. Call [facility] ([phone]) or report to the closest Emergency Room. Call 911 if necessary. 07/13/16 1630 &amp ;#60;Electronically signed by Omega Van MD> Date Omega Mckeon Signature (If Indicated): Date CC: Jeanine Gramajo DO 09-Jul-2016 PT D/C Summary (1) Result: Comments: See Note; NOTES: [facility] [address] [place] [address] Fax REHABILITATION SERVICES DISCHA RGE SUMMARY MR#: [id number] Acct: [id number] Name: HANNAH STANLEY Rep #: [id number] : 1960 56 From: Gisela Yanez MPT Referring Dr.: Jeanine Gramajo DO Status: REG R Insurance: [facility] - PT D/C Summary It has been [...] please feel free to call me at [phone]. Thank you for the referral of this patien t. Sincerely, Gisela Yanez <Electronically signed by Gisela Yanez MPT> 07/09/161926 CC: Coral Ray MD; Jeanine Gramajo DO Signed 04-Jun-2016 Inital Evaluation (1) - PT Result: Comments: See Note; NOTES: [facility] [address] [place] [address] Fax REHABILITATION SERVICES CHAR Newman EVALUATION MR#: [id number] Acct: [id number] Name: HANNAH STANLEY Rep #: [id number] : 1960 56 From: Gisela BOLDEN Referring Dr.: Jeanine Gramajo DO Status: REG R Insurance: [facility] Patient's Visit Information HANNAH STANLEY is a 56 year old F referred to Physical Therapy by Jeanine Gramajo with a diagnosis of LBP with radiculopathy. Date of Evaluation: 06/04/16 Nam newman Therapist: Gisela Yanez - Visit Plan Frequency: [...] to be FAXED BACK to us at [phone] for Medicare purposes. Please let me know [...] AND CAD Result: Comments: See Note; NOTES: [facility] Imaging Services [address] [place] [address] Verdana 4d Unilat Rt Diag Digital AND CAD MR#: [id number] Acct: [id number] Na me: HANNAH STANLEY Rep #: [id number] : 1960 F 55 From: Julius Barger MD PCP: Coral Ray MD Status: REG CLI Study: Unilat Rt Diag Digital AND CAD Date of Exam: 12/28/15 Exam# [id number] Ordering Dr: Coral Ray MD MAMMOGRAPHY - [...] Julius Barger MD at 8:28 EST Tel [phone], Service support [phone], CC: Coral Ray MD [employer] Consultant: Signed 24-Dec-2015 Bilat Scrn Digital AND CAD Result: Comments: See Note; NOTES: [facility] Imaging Services [address] [place] [address] Verdana 4d Bilat Scrn Digital AND CAD MR#: [id number] Acct: [id number] Name: HANNAH STANLEY Rep #: [id number] : 1960 F 55 From: Julius Barger MD PCP: Coral Ray MD Status: REG CLI Study: Bilat Scrn Digital AND CAD Date of Exam: 12/24/15 Exam# [id number] Haleigh cordon Dr: Corla Ray MD MAMMOGRAPHY - BILATERAL SCREENING REASON [...] delay biopsy of a clinically suspicious abnormality. [id number] Electronically Signed: Julius Barger MD at 8:01 EST Tel [phone], Service support [phone], Fax CC: Coral Ray MD [employer] Consultant: Signed 26-Oct-2015 ELECTROCARDIOGRAM, COMPLETE (ECG) (56140) Result: [MEASUREMENTS ANALYSIS] Date of Test: 10/26/2015 07:44:39; Heart Rate: 78; ME Interval: 154; QRS: 86; QT Interval: 380; Corrected QT Interval (QTc): 411; P Wave [place]: 3; QRS Wave [place]: 2; T Wave [place]: 9 0; Blood Pressure: 126/80 [ECG DIAGNOSTIC STATEMENTS] Date of Test: 10/26/2015 07:44:39; Summary: Sinus Rhythm - Nonspecific T-abnormality. ABNORMAL 19-Dec-2014 Bilat Scrn Digital AND CAD Result: Comments: See Note; NOTES: [facility] Imaging Services [address] [place] [address] Breast Imaging Report MR#: [id number] Acct: [id number] Name: HANNAH STANLEY Rep #: [id number] : 1960 F 54 From: Juluis Barger MD PCP: Coral Ray MD Status: REG CLI Study: Bilat Scrn Digital AND CAD Date of Exam: 12/19/14 Exam# [id number] Ordering Dr: Coral Ray MD MAMMOGRAPHY - [...] will be sent to the patient by [facility] facility within 30 days. Approximately 10% of breast cancers are not detected by mammography. A normal mammogram should not delay biopsy of a clinically suspicious abnormality. Electronically Si gned: Julius Barger MD at 8:40 EST Tel [phone], Service support [phone], CC: Coral Ray MD [employer] Consultant: Signed 19-Dec-2014 Dexa Bone Density Study (HP) Result: Comments: See Note; NOTES: [facility] Imaging Services [address] [place] [address] Bone Density Report MR#: [id number] Acct: [id number] Name: HANNAH STANLEY Rep #: [id number] : 1960 F 54 From: Julius Barger MD PCP: Coral Ray MD Status: REG CLI Study: Dexa Bone Density Study (HP) Date of Exam: 12/19/14 Exam# [id number] Ordering Dr: Coral Ray MD STUDY: DUAL [...] Julius Barger MD at 16:00 EST Tel [phone], Service support [phone], CC: Coral Ray MD [employer] Consultant: Signed 10-Jul-2014 PT Discharge Summary Result: Comments: See Note; NOTES: [facility] [address] [place] [address]. [address] [place], [place] [address] Fax REHABILITATION SERVICES DISCHARGE SUMMARY MR#: [id number] Acct: [id number] Name: HANNAH STANLEY Rep #: [id number] : 1960 54 From: Marilia Chance Referring DrPaty: Omega Joy Status: REG RCR Eval Date: Discharg e Date: DATE OF SERVICE: Hannah was [...] concerns. Marilia Chance DPT T: KAMLESH JOB: [id number] <Electronically signed by Marilia Chance > 07/10/14 0724 CC: Signed 11-Apr-2014 Inital Evaluation - PT Result: Comments: See Note; NOTES: [facility] Physical Therapy [address] [place], [place] [address] Fax REHABILITATION SERVICES INITIAL EVALUATION MR#: [id number] Acct: [id number] Name: HANNAH STANLEY Rep #: [id number] : 1960 54 From: Marilia Chance Referring : Omega Joy Status: REG RCR Insurance: [facility] Eval Date: DATE OF SERVICE: 04/10/2014 REASON FOR EVALUATION: Hannah Stanley is a 54-year-old female referred to physical therapy by Dr. Joy with a medial diagnosis of right rotator cuff repair on March 28. SUBJECTIVE: The patient reports she went to therapy at [facility] did not get any better, so she [...] and increased function. Marilia Chance DPT T: NTS JOB: [id number] &# 60;Electronically signed by Marilia Chance > 04/11/14 0859 CC: Signed For Medicare only, by signing this I certify the plan of care. ____ Physicians Signature Date Immunization Name Dates Details Influenza (3 years and up) on: 10-Aug-2007 Comments: given 0.5cc im in left deltoid lot#[id number] exp.04/17/08-aw Influenza (3 years and up) on: 07-Aug-2008 Comments: Lot #:Expiration date:Amount given:Route: IMSite given:left deltoid Given by: aneudy Influenza (3 years and up) on: 25-Jul-2009 Family History Unknown Family Member Name Dates [...] Status: Active Most Recent Primary Occupation Comments: [employer] Insurance Status: Active No Drug Use Status: Active Non Drinker/No Alcohol Use Status: Active Non Smoker/No Tobacco Use Status: Active Tobacco use: Never smoker. Status: Active Smoking Status Name Dates Details Never smoker Vital Signs Date Test Result Details :56 Temperature 97.2 f Comments: Method: Temporal [...] kg/m2 Body Surface Area Calculated 1.83 m2 49-Esw-314246:03 Pulse 72 /min Comments: Pattern: Regular Respiration [...] 0.00 cm Results Date Description Value Details 2-Rbc-628044:59 Liver Profile Comments: [facility] [address] [place], [address] D BILI 0.19 mg/dL (Normal) Range: 0.00-0.30 T BILI 0.70 mg/dL (Normal) Range: 0.20-1.00 ALT 31 U/L (Normal) Range: 13-56 ALK P 101 U/L (Normal) Range: 45-117 AST 15 U/L (Normal) Range: 15-37 GLOB 3.7 g/dL (Normal) Range: 2.2-4.2 ALB 4.2 g/dL (Normal) Range: 3.2-5.0 T PROT 7.9 g/dL (Normal) Range: 6.4-8.2 11-Nti-38969:00 GALLBLADDER See Note (Normal) Comments: [facility] [address] [place], [place], [address] Comments: Patient: HANNAH STANLEY : 1960 (58/F) Acct Num: [id number] Phys: Ebenezer MCHUGH,John Unit Num: [id number] Loc: [facility] Specimen: [id number] Received: 07/12/181328 Spec Type: GALLBL ADDE TISSUES [...] one cassette. / AM:oma 07/12/18 TC:3 CPT: 33272 HEADER OPERATION: Laparoscopic cholecystectomy with IOC PRE-OP DIAGNOSIS : Acute cholelithiasis TISSUE SUBMITTED: Gallbladder MICROSCOPIC DESCRIPTION Slides are reviewed. MICROSCOPIC DIAGNOSIS Gallbladder: Mild chronic cholecystitis and cholelithiasis. SJ:oma 07/13/18 Signed Michael Vaughn 07/13/18 <signature on file> 81-Len-363808:38 Basic Metabolic Profile (BMP) Comments: [facility] [address] [place], [place], [address] GAP 6 (Normal) Range: 5-15 CO2 29.0 [...] Comments: Please note revised GLUCOSE reference range ksuxwbgwf86/02/2018. 18-Feb-711843:38 CBC-Complete Blood Cnt No Diff Comments: [facility] [address] [place], [place], [address] MPV 9.4 fL (Normal) Range: 6.2-12.0 PLT [...] 4.2-5.4 WBC 5.2 K/mm3 (Normal) Range: 4.4-11.0 54-Cqs-13939:00 COLON BIOPSY (CHOOSE See Note (Normal) Comments: [facility] [address] [place], [place], [address] SITE) Comments: Patient: HANNAH STANLEY : 1960 (58/F) Acct Num: [id number] Phys: Ebenezer MCHUGH,John Unit Num: [id number] Loc: EN Specimen: [id number] Received: 06/10/18 - 1215 Spec Type: COLON [...] one cassette. / AM:oma 06/10/18 TC:5 CPT: 83253 HEADER OPERATION: Colonoscopy PRE-OP DIAGNOSIS: RUQ abdominal pain TISSUE SUBMITTED: Random colon biopsy MICROSCOPIC DESCRIPTION Slides are reviewed. MICROSCOPIC DIAGNOSIS [place] n, random biopsy: No significant pathologic change. No evidence of colitis. AM:oma 06/11/18 Signed Norberto [facility] 06/11/18 <signatu re on file> 75-Lyd-251043:39 CDIFF (Molecular) Comments: [facility] [address] [place], [place], [address] CDIFF See Note (Normal) Comments: Reason for Exam: diarrhea Cdiff-MolecularNormal Reference Range = Negative C. Diff DNA Negative- No toxigenic C. Diff DNA DetectedNAAT METHOD Testing was performed using nucleic acid amplification 88-Ybw-676912:39 ENTERIC PATHOGEN PANEL STOOL Comments: [facility] [address] [place], [place], [address] EP PANEL See Note (Normal) Comments: Reason [...] DetectedVIBRIO Not DetectedNorovirus Not DetectedRotavirus Not Detected 95-Fzr-988138:39 Ova and Parasites Comments: [facility] [address] [place], [place], [phone] OP See Note Comments: Reason for Exam: diarrhea O + POVA AND PARASITES EXAM, ROUTINE These results were obtained using wet preparation(s) and trichrome stained smear. This test does not include testing for Cryt (Normal) osporidium parvum, Cyclospora, or Microsporidia. TESTING PERFORMED AT [facility]. ORIGINAL REPORT ON FILE IN LAB CONTAINS ADDITIONAL TEST S ITE INFORMATION. Ova/Parasite Exam NO OVA, CYSTS, OR PARASITES FOUND. :42 Microscopic Examination Comments: PATIENT WAS FASTINGPERFORMED BY: [employer] Vcvtkf5629 [facility] [id number] Bacteria None seen (Normal) Mucus Threads Present (Normal) Crystal Type Amorphous Sediment (Normal) Crystals Present (Abnormal) Epithelial Cells (non renal) 0-10 {/hpf} (Normal) Range: 0 - 10 RBC 0-2 {/hpf} (Normal) Range: 0 - 2 WBC 0-5 {/hpf} (Normal) Range: 0 - 5 :42 TSH (48166) Comments: PATIENT WAS FASTINGPERFORMED BY: [facility] CorporationH[facility] Meadowview HospitalPjhdkl2572 [facility] [id number] TSH 2.620 {uIU/mL} (Normal) Range: 0.450-4.500 2-Aug-39831:42 URINALYSIS, W/ MICRO (22485) Comments: PATIENT WAS FASTINGPERFORMED BY: [employer] Wklmnq0409 [facility] [id number] Microscopic Examination See below: (Normal) Comments: Microscopic was indicated and was performed. Nitrite, Urine Negative (Normal) Urobilinogen,Semi-Qn 0.2 mg/dL (Normal) Range: 0.2-1.0 Bilirubin Negative (Normal) Occult Blood Negative (Normal) Ketones Negative (Normal) Glucose Negative (Normal) Protein Trace (Normal) WBC Esterase Trace (Abnormal) Appearance Clear (Normal) Urine-Color Yellow (Normal) pH 7.0 (Normal) Range: 5.0-7.5 Specific [place] 1.020 (Normal) Range: 1.005-1.030 :42 MICROALBUMIN: CREATININE RATIO Comments: PATIENT WAS FASTINGPERFORMED BY: [employer] [address] Ohkzkt2817 [facility] [id number] (87887) AND (79343) Alb/Creat Ratio 22.6 {mg/g_creat} (Normal) Range: 0.0-30.0 Albumin, Urine 37.5 ug/mL (Normal) Creatinine, Urine 165.9 mg/dL (Normal) :42 CBC W/AUTO DIFF WBC Comments: PATIENT WAS FASTINGPERFORMED BY: [facility] CorporationH[facility] Meadowview HospitalJtejfd8696 [facility] [id number] Information: [id number] (93859) Immature Grans (Abs) 0.0 {x10E3/uL} (Normal) Range: [...] PANEL, COMPREHENSIVE Comments: PATIENT WAS FASTINGPERFORMED BY: [facility]CoH[facility]ow[facility] HospitalSeqgtt5673 [facility] [id number] (53278) ALT (SGPT) 26 [iU]/L (Normal) Range: 0-32 [...] Order Date: 02/24/18How was Urine Obtained? CLEAN [facility] [address] [facility] [place], [place], [phone] MUCUS, URINE 0 SEEN {/hpf} (Normal) BACTERIA [...] (Normal) 24-Feb-20188:10 Basic Metabolic Profile (BMP) Comments: [facility] [address] [facility]. [place], [place], [address] GAP 4 (Abnormal) Range: 5-15 CO2 30.0 [...] A.D.A. criteria.Please note revised GLUCOSE reference range aksopuyfm34/02/2018. 24-Feb-20188:10 CBC W/Diff, Automated Comments: [facility] [address] [place], [address] Absolute Lymph 0.78 {X10_3/ul} (Abnormal) Range: 0.83-4.51 [...] 8.1 K/mm3 (Normal) Range: 4.4-11.0 :51 GLUCOSE (30607) Comments: PATIENT WAS FASTINGPERFORMED BY: [facility] Xmpyhq9304 [facility] [id number] Glucose, Serum 90 mg/dL (Normal) Range: 65-99 :51 LIPID PANEL (74364) Comments: PATIENT WAS FASTINGPERFORMED BY: [facility] Tovoqn9168 [facility] [id number] LDL/HDL Ratio 1.6 {ratio_units} (Normal) Range: 0.0-3.2 [...] Range: 100-199 :40 CBC W/Diff, Automated Comments: [facility] [address] [place], [place], [address] Absolute Lymph 1.03 {X10_3/ul} (Normal) Range: 0.83-4.51 [...] 4.2-5.4 WBC 4.8 K/mm3 (Normal) Range: 4.4-11.0 96-Fts-86106:40 Comprehensive Metabolic Profil Comments: 'TROP' Serial specimen #1, #2, #3, or #4: 1[facility] [address] [place], [address] GAP 8 (Normal) Range: 5-15 CO2 28.0 mmol/L (Normal) Range: 21.0-32.0 CL 96 mmol/L (Abnormal) Range: 98-107 K 3.5 mmol/L (Normal) Range: 3.5-5.1 NA 132 mmol/L (Abnormal) Range: 136-145 T BILI 1.00 mg/dL (Normal) Range: 0.20-1.00 ALT 33 U/L (Normal) Range: 13-56 Comments: Please note revised ALT reference range azinukcwg18/28/2018. ALK P 84 U/L (Normal) Range: 45-117 [...] <126 mg/dLsuggests IMPAIRED HOMEOSTASIS per A.D.A. criteria. 38-Qjv-38443:40 CPK Total, Creatine Kinase Comments: 'TROP' Serial specimen #1, #2, #3, or #4: [address] [place] [address] [address] [facility] [address]. [place], [place], [address] CPK TOTAL 84 U/L (Normal) Range: 26-192 24-Gne-34545:40 Troponin-I Comments: 'TROP' Serial specimen #1, #2, #3, or #4: [address] [place] [address] [address] [place], [place], [address] TROPONIN-I < 0.02 ng/mL (Normal) Comments: TROPONIN-I EXPECTED VALUES <0.05 NEGATIVE 0.06 - 0.59 AT RISK OF ID > OR = 0.60 SUGGEST ID 3-Qoc-882222:01 CBC W/Diff, Automated Comments: [facility] [address] [place], [place], [address] Absolute Lymph 0.77 {X10_3/ul} (Abnormal) Range: 0.83-4.51 [...] 4.2-5.4 WBC 4.0 K/mm3 (Abnormal) Range: 4.4-11.0 2-Ozr-236403:01 Comprehensive Metabolic Profil Comments: [facility] [address] [place], [place], [address] GAP 6 (Normal) Range: 5-15 CO2 31.0 [...] 7-18 GLU 101 mg/dL (Normal) Range: 70-110 75-Zmk-886917:3 Lesion (choose site) See Note (Normal) Comments: [facility] [address] [place], [address] 0 Comments: Patient: HANNAH STANLEY : 1960 (56/F) Acct Num: [id number] Phys: Jyothi MCHUGH,Emmons Unit Num: [id number] [facility] Spec[facility]: [id number] Received: 02/09/17 - 1501 Spec Type: Les ion TISSUES TISSUES: GROSS DESCRIPTION Received is one container labeled with the patient's name and designated right upper lid. The specimen consists of a piece of an-white skin measuring 0.3 x 0.1 x <0.1 cm. The specimen is totally submitted in one cassette. / KEATON:oma 02/09/17 TC:5 CPT: 31640 HEADER OPERATION: Right upper eyelid lesion PRE-OP DIAGNOSIS: Cyst versu s nevus TISSUE SUBMITTED: Right upper eyelid lesion MICROSCOPIC DESCRIPTION Slides are reviewed. MICROSCOPIC DIAGNOSIS Right upper eyelid lesion, biopsy: Epidermal inclusion cyst. KEATON:oma 02/10/17 Signed Michael Vaughn 02/10/17 <signature on file> 09-Xvk-952069:26 Microscopic Examination Comments: PATIENT WAS FASTINGPERFORMED BY: [employer] [facility] Jufwxc1148 [facility] [id number] Bacteria None seen (Normal) Mucus Threads Present (Normal) Epithelial Cells (non renal) 0-10 {/hpf} (Normal) Range: 0 - 10 RBC 0-2 {/hpf} (Normal) Range: 0 - 2 WBC 0-5 {/hpf} (Normal) Range: 0 - 5 13-Vkz-563783:26 CALCIFIDIOL (08244) VIT D 25 Comments: PATIENT WAS FASTINGPERFORMED BY: [employer] Astglq0077 [facility] [id number] Vitamin D, 25-Hydroxy 38.0 ng/mL (Normal) Range: 30.0-100.0 Comments: Vitamin D deficiency has been defined by the [place] [facility] and an Endocrine Society practice guideline as alevel of serum 25-OH vitamin D less than 20 ng/mL (1,2).The Endocrine Society went on to further define vitamin Dinsufficiency as a level between 21 and 29 ng/mL (2).1. IOM ([place] of Medicine). 2010. Dietary reference intakes for calcium and D. [place]: The National Academies Press.2. Dusty MF, Cliff NC, Amrit GRIMM, et al. Evaluation, treatment, and prevention of vitamin D deficiency: an Endocrine Society clinical practice guideline. JCEM. 2010; 96(7):1911-30. :26 TSH (40594) Comments: PATIENT WAS FASTINGPERFORMED BY: [employer] Weosbp6486 [facility] [id number] TSH 2.830 {uIU/mL} (Normal) Range: 0.450-4.500 88-Clh-958355:26 URINALYSIS, W/ MICRO (23770) Comments: PATIENT WAS FASTINGPERFORMED BY: [employer] Beudin2212 [facility] [id number] Microscopic Examination See below: (Normal) Comments: Microscopic was indicated and was performed. Nitrite, Urine Negative (Normal) Urobilinogen,Semi-Qn 0.2 mg/dL (Normal) Range: 0.2-1.0 Bilirubin Negative (Normal) Occult Blood Negative (Normal) Ketones Negative (Normal) Glucose Negative (Normal) Protein 1+ (Abnormal) WBC Esterase Negative (Normal) Appearance Clear (Normal) Urine-Color Yellow (Normal) pH 7.0 (Normal) Range: 5.0-7.5 Specific [place] 1.022 (Normal) Range: 1.005-1.030 78-Jpf-882801:26 MICROALBUMIN: CREATININE RATIO Comments: PATIENT WAS FASTINGPERFORMED BY: [facility] CorporationH[facility] Meadowview HospitalMjfuud5244 [facility] [id number] (81605) AND (14526) Microalb/Creat Ratio 19.2 {mg/g_creat} (Normal) Range: 0.0-30.0 Microalbumin, Urine 28.8 ug/mL (Normal) Creatinine, Urine 149.9 mg/dL (Normal) :26 METABOLIC PANEL, COMPREHENSIVE Comments: PATIENT WAS FASTINGPERFORMED BY: [employer] Gyxxuv3757 [facility] [id number] (48032) ALT (SGPT) 19 [iU]/L (Normal) Range: 0-32 [...] Glucose, Serum 95 mg/dL (Normal) Range: 65-99 63-Iug-937893:26 CBC W/AUTO DIFF WBC (31713) Comments: PATIENT WAS FASTINGPERFORMED BY: [facility] Ewycbo0604 [facility] [id number] Immature Grans (Abs) 0.0 {x10E3/uL} (Normal) Range: [...] {x10E3/uL} (Normal) Range: 3.4-10.8 :26 LIPID PANEL (01653) Comments: PATIENT WAS FASTINGPERFORMED BY: [employer] CorporationMimbres Memorial HospitalNdduyc4308 [facility] [id number] LDL/HDL Ratio 1.4 {ratio_units} (Normal) Range: 0.0-3.2 [...] Microscopic Examination Comments: PATIENT WAS FASTINGPERFORMED BY: [facility] CorporationH[facility] Meadowview HospitalYxdlas5096 [facility] [id number] Bacteria None seen (Normal) Mucus Threads Present (Normal) Epithelial Cells (non renal) 0-10 {/hpf} (Normal) Range: 0 - 10 RBC 0-2 {/hpf} (Normal) Range: 0 - 2 WBC 0-5 {/hpf} (Normal) Range: 0 - 5 :50 TSH (70986) Comments: PATIENT WAS FASTINGPERFORMED BY: [facility] CorporationH[facility] Meadowview HospitalPuoknt8071 [facility] [id number] TSH 3.280 {uIU/mL} (Normal) Range: 0.450-4.500 :50 URINALYSIS, W/ MICRO (78514) Comments: PATIENT WAS FASTINGPERFORMED BY: [facility]6370 [facility] [id number] Microscopic Examination See below: (Normal) Comments: Microscopic was indicated and was performed. Microscopic Examination MICRON (Normal) Comments: Microscopic follows if indicated. Nitrite, Urine Negative (Normal) Urobilinogen,Semi-Qn 0.2 mg/dL (Normal) Range: 0.2-1.0 Bilirubin Negative (Normal) Occult Blood Negative (Normal) Ketones Negative (Normal) Glucose Negative (Normal) Protein Negative (Normal) WBC Esterase Negative (Normal) Appearance Clear (Normal) Urine-Color Yellow (Normal) pH 8.0 (Abnormal) Range: 5.0-7.5 Specific [place] 1.014 (Normal) Range: 1.005-1.030 :50 MICROALBUMIN: CREATININE RATIO Comments: PATIENT WAS FASTINGPERFORMED BY: [facility] CorporationH[facility] Meadowview HospitalPzhycn2963 [facility] [id number] (83668) AND (38579) Microalb/Creat Ratio 16.8 {mg/g_creat} (Normal) Range: 0.0-30.0 Microalbumin, Urine 10.1 ug/mL (Normal) Creatinine, Urine 60.1 mg/dL (Normal) :50 METABOLIC PANEL, COMPREHENSIVE Comments: PATIENT WAS FASTINGPERFORMED BY: [facility] CorporationH[facility] Meadowview HospitalEsejnr4099 [facility] [id number] (03406) ALT (SGPT) 19 [iU]/L (Normal) Range: 0-32 [...] mg/dL (Normal) Range: 65-99 :50 LIPID PANEL (81175) Comments: PATIENT WAS FASTINGPERFORMED BY: [employer]70 [facility] [id number] LDL/HDL Ratio 1.4 {ratio_units} (Normal) Range: 0.0-3.2 [...] DIFF WBC Comments: PATIENT WAS FASTINGPERFORMED BY: [employer] [address] Frvprq1515 [facility] [id number] Information: [id number] (06035) Immature Grans (Abs) 0.0 {x10E3/uL} (Normal) Range: [...] Microscopic Examination Comments: PATIENT WAS FASTINGPERFORMED BY: [facility] [facility] Scigpm9483 [facility] [id number] Bacteria None seen (Normal) Mucus Threads Present (Normal) Epithelial Cells (non renal) 0-10 {/hpf} (Normal) Range: 0 - 10 RBC 0-2 {/hpf} (Normal) Range: 0 - 2 WBC 0-5 {/hpf} (Normal) Range: 0 - 5 :35 TSH (91209) Comments: PATIENT WAS FASTINGPERFORMED BY: [employer] [facility] Yjbglq2333 [facility] [id number] TSH 2.910 {uIU/mL} (Normal) Range: 0.450-4.500 :35 URINALYSIS, W/ MICRO (45408) Comments: PATIENT WAS FASTINGPERFORMED BY: LabCoH[facility] Meadowview HospitalVyhsdn3041 [facility] [id number] Microscopic Examination See below: (Normal) Comments: Microscopic was indicated and was performed. Microscopic Examination MICRON (Normal) Comments: Microscopic follows if indicated. Nitrite, Urine Negative (Normal) Urobilinogen,Semi-Qn 0.2 mg/dL (Normal) Range: 0.2-1.0 Bilirubin Negative (Normal) Occult Blood Negative (Normal) Ketones Negative (Normal) Glucose Negative (Normal) Protein Negative (Normal) WBC Esterase Negative (Normal) Appearance Clear (Normal) Urine-Color Yellow (Normal) pH 6.0 (Normal) Range: 5.0-7.5 Specific [place] 1.019 (Normal) Range: 1.005-1.030 :35 METABOLIC PANEL, COMPREHENSIVE Comments: PATIENT WAS FASTINGPERFORMED BY: [employer] LabCoH[facility] Meadowview HospitalVwqknp1646 [facility] [id number] (64551) ALT (SGPT) 16 [iU]/L (Normal) Range: 0-32 [...] mg/dL (Normal) Range: 65-99 :35 LIPID PANEL (59301) Comments: PATIENT WAS FASTINGPERFORMED BY: [employer] CorporationH[facility] County Meadowview HospitalXnbtlk7324 [facility] [id number] LDL/HDL Ratio 1.6 {ratio_units} (Normal) Range: 0.0-3.2 [...] auto diff Comments: PATIENT WAS FASTINGPERFORMED BY: Intradigm CorporationHudson County Meadowview HospitalDsklbw9424 [facility] [id number] Information: [id number] (68437) Immature Grans (Abs) 0.0 {x10E3/uL} (Normal) Range: [...] Panel (14) Comments: PATIENT NOT FASTINGPERFORMED BY: LabCoHudson County Meadowview HospitalSsscqo7498 [facility] [id number] Information: [id number] ALT (SGPT) 25 [iU]/L (Normal) Range: 0-32 [...] Microscopic Examination Comments: PATIENT WAS FASTINGPERFORMED BY: [employer] [facility] [id number] Bacteria Few (Normal) Mucus Threads Present (Normal) Crystal Type Calcium Oxalate (Normal) Crystals Present (Abnormal) Epithelial Cells (non renal) None seen {/hpf} (Normal) Range: 0 - 10 RBC 0-2 {/hpf} (Normal) Range: 0 - 2 WBC 0-5 {/hpf} (Normal) Range: 0 - 5 :03 TSH (82075) Comments: PATIENT WAS FASTINGPERFORMED BY: [employer] [address] [employer] Dwxhjn2742 [facility] [id number] TSH 4.030 {uIU/mL} (Normal) Range: 0.450-4.500 :03 URINALYSIS, W/ MICRO (75740) Comments: PATIENT WAS FASTINGPERFORMED BY: [employer] [address] Jmsehy5056 [facility] [id number] Microscopic Examination See below: (Normal) Comments: Microscopic was indicated and was performed. Nitrite, Urine Negative (Normal) Urobilinogen,Semi-Qn 0.2 mg/dL (Normal) Range: 0.0-1.9 Bilirubin Negative (Normal) Occult Blood Negative (Normal) Ketones Negative (Normal) Glucose Negative (Normal) Protein Trace (Normal) WBC Esterase Trace (Abnormal) Appearance Clear (Normal) Urine-Color Yellow (Normal) pH 6.0 (Normal) Range: 5.0-7.5 Specific [place] 1.024 (Normal) Range: 1.005-1.030 :03 METABOLIC PANEL, COMPREHENSIVE Comments: PATIENT WAS FASTINGPERFORMED BY: LabCoH[facility] County Meadowview HospitalSwquba4256 [facility]ibel BoldenSampson [facility] [id number] ([id number]) ALT (SGPT) 29 [iU]/L (Normal) Range: 0-32 [...] mg/dL (Normal) Range: 65-99 :03 LIPID PANEL (74948) Comments: PATIENT WAS FASTINGPERFORMED BY: Intradigm CorporationHudson County Meadowview HospitalQzpezp4040 [facility] [id number] LDL/HDL Ratio 1.8 {ratio_units} (Normal) Range: 0.0-3.2 [...] DIFF WBC Comments: PATIENT WAS FASTINGPERFORMED BY: [employer]6370 [facility] [id number] Information: [id number], [id number] (84113) Immature Grans (Abs) 0.0 {x10E3/uL} (Normal) Range: [...] 4.8 {x10E3/uL} (Normal) Range: 3.4-10.8 :03 CALCIFIDIOL (71813) VIT D 25 Comments: PATIENT WAS FASTINGPERFORMED BY: LabCoH[facility] Meadowview HospitalQbazhq1793 [facility] [id number] Vitamin D, 25-Hydroxy 31.8 ng/mL (Normal) Range: 30.0-100.0 Comments: Vitamin D deficiency has been defined by the [place] ofGalion Hospitalcine and an Endocrine Society practice guideline as alevel of serum 25-OH vitamin D less than 20 ng/mL (1,2).The Endocrine Society went on to further define vitamin Dinsufficiency as a level between 21 and 29 ng/mL (2).1. IOM ([place] of Medicine). 2010. Dietary reference intakes for calcium and D. [place]: The National Academies Press.2. Dusty MF, Cliff [place], Amrit GRIMM, et al. Evaluation, treatment, and prevention of vitamin D deficiency: an Endocrine Society clinical practice guideline. JCEM. 2010; 96(7):1911-30. -:35 BMP GAP 6 (Normal) Range: 5-15 CL [...] & Auto Comments: PATIENT NOT FASTINGPERFORMED BY: LabCoH[facility] Meadowview HospitalVrxeho3202 [facility] [id number] Information: [id number] Diff (51850) Immature Grans (Abs) 0.0 {x10E3/uL} (Normal) Range: [...] 8.0 {x10E3/uL} (Normal) Range: 3.4-10.8 :53 CALCIFIDIOL (69383) VIT D 25 Comments: PATIENT WAS FASTINGPERFORMED BY: [employer]6370 redealizeECU [facility] [id number] Vitamin D, 25-Hydroxy 33.8 ng/mL (Normal) Range: 30.0-100.0 Comments: Vitamin D deficiency has been defined by the [place] ofMedicine and an Endocrine Society practice guideline as alevel of serum 25-OH vitamin D less than 20 ng/mL (1,2).The Endocrine Society went on to further define vitamin Dinsufficiency as a level between 21 and 29 ng/mL (2).1. IOM ([place] of Medicine). 2010. Dietary reference intakes for calcium and D. [place]: The National Academies Press.2. Dusty MF, [place], Amrit GRIMM, et al. Evaluation, treatment, and prevention of vitamin D deficiency: an Endocrine Society clinical practice guideline. JCEM. 2010; 96(7):1911-30. :53 TSH (06692) Comments: PATIENT WAS FASTINGPERFORMED BY: LabuFaber Cnscuf0289 L[facility]pez [facility]bl[facility] [place] [id number] TSH 3.550 {uIU/mL} (Normal) Range: 0.450-4.500 :53 CBC with manual diff Comments: PATIENT WAS FASTINGPERFORMED BY: DERIK L[facility]pez [facility] [id number] Information: [id number] (80005) Immature Grans (Abs) 0.0 {x10E3/uL} (Normal) Range: [...] Panel, Comprehensive Comments: PATIENT WAS FASTINGPERFORMED BY: DERIK [facility] Jkdeqq0264 [facility] [id number] (96798) ALT (SGPT) 19 [iU]/L (Normal) Range: 0-32 [...] Glucose, Serum 91 mg/dL (Normal) Range: 65-99 78-Ckq-88953:53 Lipid Panel (71985) Comments: PATIENT WAS FASTINGPERFORMED BY: [facility] Zveeng4520 [facility] [id number] LDL/HDL Ratio 1.5 {ratio_units} (Normal) Range: 0.0-3.2 LDL Cholesterol Calc 80 mg/dL (Normal) Range: 0-99 VLDL Cholesterol Norbert 14 mg/dL (Normal) Range: 5-40 HDL Cholesterol 53 mg/dL (Normal) Comments: According to ATP-III Guidelines, HDL-C >59 mg/dL is considered anegative risk factor for CHD. Triglycerides 68 mg/dL (Normal) Range: 0-149 Cholesterol, Total 147 mg/dL (Normal) Range: 100-199 5-Ogf-856274:00 Fungus (Mycology) Culture Comments: PERFORMED BY: [employer] Bozvjm7569 [facility] [id number] BY: [address] [id number] Information: SRC:HEBERT [id number] Result 1 MA708 (Normal) Comments: No yeast or mold isolated after 4 weeks. Fungus (Mycology) Final report Culture (Normal) : Viral Culture, No virus isolated. Comments: PERFORMED BY: [employer] [facility] [id number] BY: [address] [id number] General (Normal) 22-Jul-20139:05 Microscopic Examination Comments: PATIENT WAS FASTINGPERFORMED BY: Intradigm CorporationJohn Ville 0451970 [facility] [id number] Bacteria None seen (Normal) Mucus Threads Present (Normal) Epithelial Cells (non renal) 0-10 {/hpf} (Normal) Range: 0 - 10 RBC None seen {/hpf} (Normal) Range: 0 - 3 WBC 0-5 {/hpf} (Normal) Range: 0 - 5 :05 URINALYSIS, W/ MICRO (82485) Comments: PATIENT WAS FASTINGPERFORMED BY: [employer] [id number] Microscopic Examination See below: (Normal) Microscopic Examination MICRON (Normal) Comments: Microscopic follows if indicated. Nitrite, Urine Negative (Normal) Bilirubin Negative (Normal) Urobilinogen,Semi-Qn 0.2 mg/dL (Normal) Range: 0.0-1.9 Occult Blood Negative (Normal) Ketones Negative (Normal) Glucose Negative (Normal) Protein Negative (Normal) WBC Esterase Negative (Normal) Appearance Clear (Normal) Urine-Color Yellow (Normal) pH 7.0 (Normal) Range: 5.0-7.5 Specific [place] 1.010 (Normal) Range: 1.005-1.030 :05 METABOLIC PANEL, COMPREHENSIVE Comments: PATIENT WAS FASTINGPERFORMED BY: [employer]70 redealizeECU [facility] Hospital [id number] (88455) ALT (SGPT) 21 [iU]/L (Normal) Range: 0-32 [...] mg/dL (Normal) Range: 65-99 :05 LIPID PANEL (82484) Comments: PATIENT WAS FASTINGPERFORMED BY: [employer]70 LópezpocketfungamesECU Health Chowan Hospital [id number] LDL/HDL Ratio 1.8 {ratio_units} (Normal) Range: 0.0-3.2 LDL Cholesterol Calc 88 mg/dL (Normal) Range: 0-99 VLDL Cholesterol Norbert 18 mg/dL (Normal) Range: 5-40 HDL Cholesterol 49 mg/dL (Normal) Comments: According to ATP-III Guidelines, HDL-C >59 mg/dL is considered anegative risk factor for CHD. Cholesterol, Total 155 mg/dL (Normal) Range: 100-199 Triglycerides 92 mg/dL (Normal) Range: 0-149 22-Jul-20139:05 CBC WITH MANUAL DIFF Comments: PATIENT WAS FASTINGPERFORMED BY: [facility]Select [facility]6370 [facility] [id number] Information: [id number] (48865) Immature Grans (Abs) 0.0 {x10E3/uL} Range: 0.0-0.1 [...] nm 13 ol/L)Toxicity >100 ng/mL (250 nmol/L)Effective 201243-Xoy-882631:01 DEXA BONE DENSITY STUDY (HP) Radiology Report [...] Barger M.D.December 15, 2012 at 8:02:59 AM [id number] Signed GP/GP If you are the referring physician and would like to consult with myranda carlton who provided this interpretation, please contact Rosa Barahona at [phone]. If this radiologist is unavailable, youwill be directed to another radiologist to assist. If you are a pa tient with a question regarding this report, pleasecontactyour referring physician directly. Professional Interpretation Provided By: [facility], Phone , These documents c ontain legally [...] uctionofthese documents. Dictated on 12/14/12 1605 by Yudith Barger MDscribed on 12/15/12 0807 by ITS IMPORTSign by Julius Barger MD on 12/15/12 0808 Sign by: Julius Barger MD :50 CBCMD ANC 2.9 3/uL (Normal) Range: 2.0-7.7 [...] 4.2-5.4 WBC 4.6 {k/mm3} (Normal) Range: 4.4-11.0 :50 CMP GAP 5 (Normal) Range: 5-15 CO2 [...] 7-18 GLU 96 mg/dL (Normal) Range: 70-110 15-Goy-596766:50 LIPID VLDL 18 mg/dL (Normal) Range: 5-40 [...] 200-240 mg/dL Borderline >240 mg/dL High Risk 97-Amn-03369:57 CBCD,SMEAR DIFF RED CELL MORPH SeeNote {NORMAL} [...] 4.2-5.4 WBC 4.8 K/mm3 (Normal) Range: 4.4-11.0 7-Msj-132992:32 COMP METABOLIC CL 104 mmol/L (Normal) Range: [...] (Normal) GLU 93 mg/dL (Normal) Range: 70-110 4-Wcp-839473:32 LIPID VLDL 12 mg/dL (Normal) Range: 5-40 [...] Very High > or = 500 mg/dL 0-Aoj-453535:32 MICROALB:CRE UR MALB:CREAT 7.6 {mg/g_CRE} (Normal) MICROALBUMIN,UR 13.4 mg/L (Normal) UR CREAT 176.1 mg/dL (Normal) 14-Oqv-369354:04 UNILAT LT DIAG DIGITAL & CAD Radiology Report See Note (Normal) Comments: Exam Number: [id number] MAMMOGRAM, UNILATERAL LEFT DIAGNOSTIC DIGITAL AND CAD [...] mammograms werealso examined with computer-aided detection software ([employer], [employer] Reported By: MICHELE ROSADO M.D. 42-Xmp-376763:12 MICROALBUMIN: CREATININE RATIO Comments: PERFORMED BY: Intradigm CorporationHudson County Meadowview HospitalYqwnte0646 [facility] [id number] ([id number]) AND (97885) Creatinine, Urine 41.5 mg/dL (Normal) Range: 15.0-278.0 Microalb/Creat Ratio 10.6 {mg/g_creat} (Normal) Range: 0.0-30.0 Microalbumin, Urine 4.4 ug/mL (Normal) Range: 0.0-17.0 86-Bne-979161:12 METABOLIC PANEL, COMPREHENSIVE Comments: PERFORMED BY: KinDex TherapeuticsSelect Specialty Hospital-Flint6370 [facility] [id number] (93782) A/G Ratio 1.8 (Normal) Range: 1.1-2.5 Albumin, [...] Sodium, Serum 137 mmol/L (Normal) Range: 135-145 18-Sns-626726:12 LIPID PANEL (57814) Comments: PERFORMED BY: LabCoH[facility] County Meadowview HospitalKzlxuc3308 [facility] [id number] Cholesterol, Total 201 mg/dL (Abnormal) Range: 100-199 HDL Cholesterol 52 mg/dL (Normal) Comments: According to ATP-III Guidelines, HDL-C >59 mg/dL is considered anegative risk factor for CHD. LDL Cholesterol Calc 132 mg/dL (Abnormal) Range: 0-99 LDL/HDL Ratio 2.5 {ratio_units} (Normal) Range: 0.0-3.2 Triglycerides 87 mg/dL (Normal) Range: 0-149 VLDL Cholesterol Norbert 17 mg/dL (Normal) Range: 5-40 :12 CBC WITH MANUAL DIFF (58967) Comments: PERFORMED BY: LabCoH[facility] County Meadowview HospitalIcpimv9492 [facility] [id number] Baso (Absolute) 0.0 {x10E3/uL} (Normal) Range: 0.0-0.2 [...] T PROT 7.4 g/dL (Normal) Range: 6.4-8.2 1-Ymp-979023:03 LIPID CHOL 176 mg/dL (Normal) Comments: <200 [...] mg/dL VLDL 18 mg/dL (Normal) Range: 5-40 4-Avu-187043:16 BREAST UNILATERAL US () Radiology Report See Note (Normal) Comments: Exam Number: [id number] TARGETED LEFT BREAST ULTRASOUND REASON FOR EXAMINATIONAbnormal [...] category 3. Reported By: ANDREE SANCHEZ M.D. 0-Fgq-786253:31 BILAT DIA DIGITAL & CAD Radiology Report See Note (Normal) Comments: Exam Number: [id number] BILATERAL DIAGNOSTIC MAMMOGRAMS REASON FOR EXAMINATIONAbnormal screening [...] werealso examined with computer-aided dete ction software ([place], [employer] Reported By: ANDREE SANCHEZ M.D. 80-Kgp-517618:04 BILAT SCRN DIGITAL & CAD Radiology Report See Note (Normal) Comments: Exam Number: [id number] MAMMOGRAM, BILATERAL SCREENING DIGITAL AND CAD HISTORYRoutine [...] werealso exami adelaida with computer-aided detection software ([employer], [employer] Reported By: MICHELE ROSADO M.D. 0-Sfe-275676:07 Thin prep Pap Comments: Source.............Cervical;EndocervicalLMP / Prev Treat...RNY=[id number]. of containers..01 CYTYC Thin Prep VialPATIENT NOT FASTINGClinical Information: ADD [id number] ([id number]) PERFORMED BY: [address] [place] [id number] . . (Normal) DIAGNOSIS: SPRCS (Normal) Comments: NEGATIVE FOR INTRAEPITHELIAL LESION AND MALIGNANCY.Satisfactory for evaluation. No endocervical component is identified.V72.31 ; Routine gynecological examinationApril Rizzo, Wind Tunnel Technician (ASCP) Note: PAPSMR (Normal) Comments: The Pap [...] mg/dL VLDL 12 mg/dL (Normal) Range: 5-40 :33 DEXA BONE DENSITY STUDY (HP) Radiology Report See Note (Normal) Comments: Exam Number: [id number] BONE DENSITOMETRY HISTORYOsteopenia. TECHNIQUE Bone densitometry of [...] normal limits. Reported By: MICHELE ROSADO M.D. 79-Ynk-30089:37 TRANSVAGINAL NON- Radiology Report See Note (Normal) Comments: Exam Number: [id number] TRANSVAGINAL PELVIC ULTRASOUND. HISTORYOvarian cyst, left. Pelvic [...] a follicle. There is minimal fluid in qoncrt-gb-rjr. IMPRESSION1. The endometrium is 7 mm in thickness, which is within normal limits for a premenopausal patient. A sma ll amount of fluid in the endometrium can also be normal in a premenopausal patient. 2. The right ovary is normal. 3. There is a 9-mm cyst in the left ovary, most likely representing a small cyst. Reported By: MICHELE ROSADO M.D. 12-Xof-884200:25 CBC, Platelets & Auto Diff Comments: PATIENT NOT FASTINGClinical Information: ADD DRAW FEE [id number] ADD J0 5708 DIFFICULT DRAW PERFORMED BY: [facility]6370 [facility] [id number] (21178) Baso (Absolute) 0.0 {x10E3/uL} (Normal) Range: 0.0-0.2 [...] 11.7-15.0 WBC 7.5 {x10E3/uL} (Normal) Range: 4.0-10.5 24-Voj-719033:25 Metabolic Panel, Comprehensive Comments: PATIENT NOT FASTINGPERFORMED BY: LabCoH[facility] Meadowview HospitalNemgzt6035 [facility] [id number] (68715) A/G Ratio 1.8 (Normal) Range: 1.1-2.5 Albumin, [...] Sodium, Serum 134 mmol/L (Abnormal) Range: 135-148 26-Qtx-097230:10 Urinalysis, Office (44315) UA - BILIRUBIN Negative (Normal) UA - BLOOD Negative (Normal) UA - GLUCOSE Negative (Normal) UA - KETONES Negative mg/dL (Normal) UA - LEUKOCYTE ESTERASE Negative (Normal) UA - NITRITE Negative (Normal) UA - PH 7.0 (Normal) UA - PROTEIN Negative mg/dL (Normal) UA - SPECIFIC GRAVITY 1.010 (Normal) URINE UROBILINGN TELLO TIMED Normal mg/dL (Normal) 3-Etl-216684:35 HAND,MIN 3 VIEWS Radiology Report See Note (Normal) Comments: Exam Number: [id number] THREE VIEWS RIGHT HAND AP, LATERAL AND [...] degenerative changes. Reported By: LON FALL M.D. 4-Mkv-341089:34 HAND,MIN 3 VIEWS Radiology Report See Note (Normal) Comments: Exam Number: [id number] THREE VIEWS RIGHT HAND AP, LATERAL AND [...] degenerative changes. Reported By: LON FALL M.D. 7-Hza-694402:04 VICTORINO-D 954779 VICTORINO-DIRECT 24 AU/mL (Normal) Range: 0-99 Comments: Negative <100 Equivocal 100 - 120 Positive >120 6-Rny-035764:04 ESR SED RATE 6 mm/h (Normal) Range: 0-20 8-Xlm-225342:04 RA LATEX 6502 3.4 {IU/mL} (Normal) Range: 0.0-13.9 Comments: Performed At: [place] [id number] [place], [place] [id number] 61-Cst-03850:45 LIPID CHOL 135 mg/dL (Normal) Comments: <200 [...] Plan of Care Name Dates Details Instructions Osteopenia : Continue Current Prescription(s) Indication: Osteopenia [...] exam with routine gynecological exam Planned Observations CPK MB FRACTION (22373)Indication: Chest pain, central On: :57 Request Comments: STAT ASSAY, TROPONIN, QUANTITATIVE (aka Troponin I) (48070)Indication: Chest pain, central On: :57 Request Comments: STAT METABOLIC PANEL, COMPREHENSIVE (93485)Indication: Chest pain, central On: :53 Request CBC, PLATELETS & MANUAL DIFF (24996)Indication: Chest pain, central On: :53 Request TSH (35322)Indication: Anxiety On: :36 Request Comments: in six months (approximately) URINALYSIS, W/ MICRO (90238)Indication: Hypertension On: :36 Request Comments: in six months (approximately) LIPID PANEL (64786)Indication: Hypertension On: :35 Request Comments: in six months (approximately) CBC with auto diff (85343)Indication: Hypertension On: :35 Request Comments: in six months (approximately) METABOLIC PANEL, COMPREHENSIVE (36224)Indication: Hypertension On: :35 Request Comments: today and in six months (approximately) CBC with manual diff (64874)Indication: Hypertension On: :12 Request OVA & PARASITE DIR SMEAR (17134)Indication: Diarrhea On: :19 Request OCCULT BLOOD FECES SCREEN (95270)Indication: Diarrhea On: : Request LEUKOCYTE COUNT, FECAL (98331)Indication: Diarrhea On: : Request C-DIFFICILE, STOOL (39582)Indication: Diarrhea On: : Request ARABELLA CULTURE-STOOL (75330)Indication: Diarrhea On: : Request URINALYSIS, W/ MICRO (88646)Indication: Hypertension On: : Request METABOLIC PANEL, COMPREHENSIVE (67293)Indication: Hypertension On: : Request LIPID PANEL (58537)Indication: Hypertension On: : Request CBC WITH MANUAL DIFF (08911)Indication: Hypertension On: : Request CULTURE,FUNGUS W/STAIN [id number] (13598)Indication: Mouth lesion On: :40 Request CULTURE, VIRUS GENERAL 8573 (60558)Indication: Mouth lesion On: :40 Request CALCIFIDIOL (75492) VIT D 25Indication: Osteopenia On: :57 Request URINALYSIS, W/ MICRO (84941)Indication: Hypertension On: :27 Request METABOLIC PANEL, COMPREHENSIVE (43240)Indication: Hypertension On: :27 Request LIPID PANEL (15722)Indication: Hypertension On: :27 Request CBC WITH MANUAL DIFF (69188)Indication: Hypertension On: :27 Request CBC, PLATELETS & MANUAL DIFF (05506)Indication: Hypercholesterolemia On: :33 Request METABOLIC PANEL, COMPREHENSIVE (77320)Indication: Hypercholesterolemia On: :33 Request LIPID PANEL (51844)Indication: Hypercholesterolemia On: :33 Request TSH (48906)Indication: Physical exam, routine On: :29 Request METABOLIC PANEL, COMPREHENSIVE (11910)Indication: Physical exam, routine On: 95-Aas-44849:29 Request LIPID PANEL (35107)Indication: Physical exam, routine On: :29 Request CBC WITH MANUAL DIFF (63811)Indication: Physical exam, routine On: :29 Request URINALYSIS, W/ MICRO (95152)Indication: Hypertension On: :57 Request METABOLIC PANEL, COMPREHENSIVE (56898)Indication: Hypertension On: :57 Request LIPID PANEL (82403)Indication: Hypertension On: :57 Request CBC WITH MANUAL DIFF (19156)Indication: Hypertension On: :57 Request MICROALBUMIN: CREATININE RATIO (05145) AND (36622)Indication: Hypertension On: :31 Request METABOLIC PANEL, COMPREHENSIVE (64879)Indication: Hypertension On: :31 Request LIPID PANEL (18181)Indication: Hypertension On: :31 Request CBC WITH MANUAL DIFF (79180)Indication: Hypertension On: :31 Request METABOLIC PANEL, COMPREHENSIVE (42448)Indication: Hypertension On: :52 Request LIPID PANEL (17701)Indication: Hypertension On: :52 Request CBC WITH MANUAL DIFF (85833)Indication: Hypertension On: :52 Request METABOLIC PANEL, COMPREHENSIVE (07243)Indication: Hypertension On: :48 Request LIPID PANEL (65541)Indication: Hypertension On: :48 Request CBC WITH MANUAL DIFF (62539)Indication: Hypertension On: :48 Request Comments: 01-25 Metabolic Panel, Comprehensive (77562)Indication: Hypertension On: 9-Bna-813702:26 Request Lipid Panel (48767)Indication: Hypertension On: :26 Request CBC (Auto) (98620)Indication: Hypercholesterolemia On: 39-Qkc-095223:06 Request Metabolic Panel, Comprehensive (23584)Indication: Hypercholesterolemia On: 28-Qik-105847:06 Request Lipid Panel (25893)Indication: Hypercholesterolemia On: 08-Bej-251968:06 Request Comments: in six months (approximately) Sed Rate Erythrocyte (64801)Indication: Arthralgia On: 13-Onm-363729:13 Request RHEUMATOID FACTOR-QUANT (03645)Indication: Arthralgia On: 31-Yhv-347711:13 Request VICTORINO (ANTINUCLEAR ANTIBODY) (16833)Indication: Arthralgia On: 81-Iqr-191557:13 Request TSH (50959)Indication: Hypercholesterolemia On: :04 Request HEPATIC FUNCTION PANEL (42271)Indication: Hypercholesterolemia On: 13-Bhv-204341:04 Request Lipid Panel (71925)Indication: Hypercholesterolemia On: :04 Request Thin prep Pap (61658)Indication: Well woman exam with routine gynecological exam On: 16-Oic-854598:52 Request Planned Encounters Medical; 6 Month FU - On: 25-Nov-2018 8:00 [facility] Jeanine Gramajo DO, DO, Kathleen Planned Procedures GALLBLADDER ULTRASOUND (28410)By: On: 20-May-2018 Intent Jeanine Gramajo DO, DO, Kathleen SCREENING DIGITAL TOMOSYNTHESIS OF On: 29-Dec-2017 Intent BREAST (95789)By: Holly Martines CHEST XRAY, PA & LATERAL (16328)By: On: 17-Nov-2017 Intent Christianne Pepper STRESS ECHO-EXERCISE (87541)By: On: 17-Nov-2017 Intent Christianne Pepper ELECTROCARDIOGRAM, COMPLETE (ECG) On: 17-Nov-2017 Intent (90651)By: Christianne Pepper Comments: Sinus Rhythm-Rate 72, -Negative precordial t-waves. ? lead placement, EKG (20869)By: Jeanine Gramajo DO On: 05-May-2017 Intent Jeanine Gramajo DO Comments: nsr no acute chg MAMMOGRAM, BOTH SIDES (65864)By: On: 04-Dec-2016 Jeanine Barber DO, DO, Kathleen DEXA SCAN AXIAL SKELETON (09927)By: On: 04-Dec-2016 Intent Jeanine Gramajo DO, DO, Kathleen EKG (67157)By: Jeanine Gramajo DO On: 04-Dec-2016 Intent Jeanine Gramajo DO Comments: nsr no acute chg MAMMOGRAM, SCREENING, BOTH BREAST On: 26-Oct-2014 Intent (43925)By: Coral Ray MD DEXA SCAN AXIAL SKELETON (17168)By: On: 26-Oct-2014 Intent Coral Ray MD INFUSION, NORMAL SALINE SOLUTION , On: 01-Feb-2014 Intent 1000 CC (Special Coverage Instructions Apply. See MCM: 2049) (J7030)By: Caitlyn Gonzales CNP HYDRATION IV INFUSION, INIT On: 01-Feb-2014 Intent (61213)By: Caitlyn Gonzales CNP Phenergan Injection, up to 50 mg On: 01-Feb-2014 Intent (J2550)By: Caitlyn Gonzales CNP Comments: lot: [id number]: 04/02site/route: LGM/IMamt: 25mgVIS signed when applicableLIANE Gill EKG (69309)By: Coral Ray MD On: 22-Dec-2013 Intent Comments: see scanned document of test done to see results reviewed today with patient EKG (60740)By: Coral Ray MD On: 18-Nov-2012 Intent Comments: see scanned document of test done to see results reviewed today with patient DXA, BONE DENSITY, AXIAL SKELETON On: 18-Nov-2012 Intent (99634)By: Coral Ray MD EKG (04720)By: Coral Ray MD On: 18-Apr-2011 Intent FLU VAC, SPLIT, >3 YEARS, INTRAMUSC On: 25-Jul-2009 Intent (77473)By: Huong Christy RN IMMUNIZ ADMNIN, 1 VAC, SNGL/COMBO On: 25-Jul-2009 Intent (40868)By: Huong Christy RN Breast Ultrasound - LeftBy: Flor On: 28-Mar-2009 Intent Coral MCHUGH Breast Diagnostic - LeftBy: Flor On: 28-Mar-2009 Intent Coral MCHUGH MAMMOGRAM, SCREENING, BOTH BREASTS On: 23-Aug-2008 Intent (85543)By: Coral Ray MD IMMUNIZ ADMNIN, 1 VAC, SNGL/COMBO On: 07-Aug-2008 Intent (94785)By: SWATHI Whipple FLU VAC, SPLIT, >3 YEARS, INTRAMUSC On: 07-Aug-2008 Intent (83073)By: SWATHI Whipple Comments: Lot #:Expiration date:Amount given:Route: IMSite given:left deltoid Given by: aneudy Bone Density StudyBy: Flor MCHUGH, On: 08-Mar-2008 Intent Coral Rodriguez EKG (14944)By: Coral Ray MD On: 08-Mar-2008 Intent Ultrasound - Abdomen Complete & On: 03-Sep-2007 Intent PelvisBy: Caitlyn Gonzales CNP Comments: stat Call results to [facility] Dr. Nunes environmental health manager FLU VAC, SPLIT, >3 YEARS, INTRAMUSC On: 10-Aug-2007 Intent (86245)By: Shana Dai Comments: given 0.5cc im in left deltoid lot#[id number] exp.04/17/08-aw IMMUNIZ ADMNIN, 1 VAC, SNGL/COMBO On: 10-Aug-2007 Intent (59198)By: Shana Dai Radiology - Hand - BilateralBy: On: 05-Jul-2007 Intent Coral Ray MD Comments: proximal joint ache DXA, BONE DENSITY, AXIAL SKELETON On: 09-Dec-2006 Intent (63224)By: Coral Ray MD Comments: strong family history MAMMOGRAM, SCREENING, BOTH BREASTS On: 09-Dec-2006 Intent ([id number])By: Coral Ray MD Planned Medications INFUSION, NORMAL [...] Hypercholesterolemia Hypercholesterolemia : Patient Instructions Indication: Hypercholesterolemia Encounters Phone Encounter On: 27-May-2018 7:33 Encounter Diagnosis: [...] prophylactic vaccination and inoculation against influenza (V04.81), [facility] V72.31 (Renamed from WW[facility]) [facility] [...] Diagnosis End: 21-Sep-2006 17:30 [facility]
--- OUTSIDE RECORDS SUMMARY | 2019-01-12 04:52 | XMS RPT_ITS ---
:1960 Author Organization [place] Support Name Relationship Address Phone Cynthia[address]LL[address] + [place] [address] ABIGAIL HUGO Unavailable [address] + [place] [address] WESCO Unavailable [address] + [place] [address] OYER, WILLI Unavailable [address] + [place] [address] ABIGAIL, HUGO Unavailable [address] + [place] [address] WESCO Unavailable [address] + [facility] [place] [address] OYER, WILLI Unavailable [address] + [place] [address] ABIGAIL HUGO Unavailable [address] + [place] [address] WESCO Unavailable [address] + [facility] [place] [address] OYER, WILLI Unavailable [address] + [place] [address] ABIGAIL, HUGO Unavailable [address] + [place] [address] WESCO Unavailable [address] + [place] [address] OYER, WILLI Unavailable [address] + [place] [address] ABIGAIL HUGO Unavailable [address] + [place] [address] WESCO Unavailable [address] + [facility] [place] [address] OYER, WILLI Unavailable [address] + [place] [address] SPEECE, HUGO Unavailable [address] + [place] [address] WESCO Unavailable [address] + [facility] [place] [address] OYER, WILLI Unavailable [address] + [place] [address] SPEECE, HUGO Unavailable [address] + [place] [address] WESCO Unavailable [address] + [facility] [place] [address] OYER, WILLI Unavailable [address] + [place] [address] SPEECE, HUGO Unavailable [address] + [place] [address] WESCO Unavailable [address] + [place] [address] OYER, WILLI Unavailable [address] + [place] [address] SPEECE, HUGO Unavailable [address] + [place] [address] WESCO Unavailable [address] + [facility] [place] [address] OYER, WILLI Unavailable [address] + [place] [address] SPEECE, HUGO Unavailable [address] + [place] [address] WESCO Unavailable [address] + [facility] [place] [address] OYER, WILLI Unavailable [address] + [place] [address] SPEECE, HUGO Unavailable [address] + [place] [address] WESCO Unavailable [address] + [facility] [place] [address] OYER, WILLI Unavailable [address] + [place] [address] SPEECE, HUGO Unavailable [address] + [place] [address] WESCO Unavailable [address] + [facility] [place] [address] OYER, WILLI Unavailable [address] + [place] [address] SPEECE, HUGO Unavailable [address] + [place] [address] WESCO Unavailable [address] + [facility] [place] [address] OYER, WILLI Unavailable [address] + [place] [address] SPEECE, HUGO Unavailable [address] + [place] [address] WESCO Unavailable [address] + [facility] [place] [address] OYER, WILLI Unavailable [address] + [place] [address] SPEECE, HUGO Unavailable [address] + [place] [address] WESCO Unavailable [address] + [facility] [place] [address] OYER, WILLI Unavailable [address] + [place] [address] SPEECE, HUGO Unavailable [address] + [place] [address] WESCO Unavailable [address] + [facility] [place] [address] OYER, WILLI Unavailable [address] + [place] [address] SPEECE, HUGO Unavailable [address] + [place] [address] WESCO Unavailable [address] + [facility] [place] [address] OYER, WILLI Unavailable [address] + [place] [address] ROB HAYESNETH Unavailable [address] + [place] [address] WESCO Unavailable 1 [facility] + [place] [address] WILLI ALTAMIRANO Unavailable [address] + [place] [address] ROB HAYESNETH Unavailable [address] + [place] [address] WESCO Unavailable 1 [facility] + [place] [address] Care Team Providers Name Role Phone Avila DO, Jeanine Attending Unavailable Avila DO, Jeanine Referring Unavailable Avila DO, Jeanine Consulting Unavailable Avila, Jeanine Attending Unavailable Avila, Jeanine Referring Unavailable Avila, Jeanine Primary Care Unavailable Avila, Jeanine Attending Unavailable Avila, Jeanine Referring Unavailable Avila, Jeanine Primary Care Unavailable Navneet Garcia Attending Unavailable Avila, Jeanine Referring Unavailable Avila, Jeainne Primary Care Unavailable Christianne Pepper ENGINEERING PROJECT MANAGER-C Attending Unavailable Avila, Jeanine Primary Care Unavailable Christianne Pepper ENGINEERING PROJECT MANAGER-C Attending Unavailable Christianne Pepper ENGINEERING PROJECT MANAGER-C Referring Unavailable Avila, Jeanine Primary Care Unavailable Avila, Jeanine Attending Unavailable Avila, Jeanine Referring Unavailable Avila, Jeanine Primary Care Unavailable Vicente Lemus Attending Unavailable Christianne Pepper ENGINEERING PROJECT MANAGER-C Referring Unavailable Avila, Jeanine Primary Care Unavailable Dolores Paz Attending Unavailable Avila, Jeanine Attending Unavailable Avila, Jeanine Referring Unavailable Avila, Jeanine Primary Care Unavailable Cebul John Attending Unavailable Avila, Jeanine Referring Unavailable Avila, Jeanine Primary Care Unavailable Cebul John Attending Unavailable Cebul, John Referring Unavailable Avila, Jeanine Primary Care Unavailable Cebul, John Attending Unavailable Cebul, John Referring Unavailable Avila, Jeanine Primary Care Unavailable Cebul, John Attending Unavailable Cebul, John Referring Unavailable Avila, Jeanine Primary Care Unavailable Cebul, John Consulting Unavailable Cebul, John Attending Unavailable Cebul, John Referring Unavailable Avila, Jeanine Primary Care Unavailable Lana Quinn PA-C Attending Unavailable Avila, Jeanine Referring Unavailable Avila, Jeanine Primary Care Unavailable Kai ZELAYA Lana Attending Unavailable Jeanine Gramajo Referring Unavailable Ceshaylal, John Attending Unavailable Cebul, John Referring Unavailable Jeanine Gramajo Primary Care Unavailable Gerber Agrawal Attending Unavailable Cebul, John Referring Unavailable Ebenezer, John Attending Unavailable PROBLEMS PROBLEMS DATE TYPE CONDITION / CODE ATTENDING STATUS SOURCE 07/22/2018 Unknown R10.9 - Unspecified Kai ZELAYA, Active [place] abdominal pain / [facility] R10.9(ICD-10) Hospital Repository 07/12/2018 Unknown G89.18 - Other acute CebuJohn newman Active [place] postprocedural pain / [facility] G89.18(ICD-10) Hospital Repository 08/10/2018 Unknown K80.20 - Calculus of CeJohn burnett Active [place] gallbladder without [facility] cholecystitis without Hospital obstruction / Repository K80.20(ICD-10) 08/09/2018 Unknown R94.31 - Abnormal Nghia, Gerber Active [place] electrocardiogram Community [ECG] [EKG] / Hospital R94.31(ICD-10) Repository 08/09/2018 Unknown I10 - Essential NghiaJose D garayril Active [facility] (primary) hypertension Community / I10(ICD-10) Hospital Repository 07/08/2018 Unknown R10.11 - Right upper CebuJohn newman Active [place] quadrant pain / Community R10.11(ICD-10) Hospital Repository 06/02/2018 Unknown R19.7 - Diarrhea, CeJohn burnett Active [place] unspecified / [facility] R19.7(ICD-10) Hospital Repository 02/24/2018 Unknown K57.92 - Dolores Paz Active [place] Diverticulitis of Community intestine, part Hospital unspecified, without Repository perforation or abscess without bleeding / K57.92(ICD-10) 01/20/2018 Unknown Z12.31 - Encounter for Jesus Gramajo [facility] screening mammogram [facility] for malignant neoplasm [facility] breast / Repository Z12.31(ICD-10) 01/18/2018 Unknown R07.9 - Chest pain, Vicente Lemus Active [place] unspecified / Community R07.9(ICD-10) Hospital Repository PROCEDURES PROCEDURES No Procedure Records FoundRESULTS RESULTS ABDOMEN LIMITED Observed: 11/10/2018 Status: F Source: [place] 8:46 AM [facility] Imaging Services [address] [place] [address] Abdomen Limited MR#: [id number] Acct: [id number] Name: ELIN HAYES Rep #: [id number] : 1960 F 58 From: Vinicius Green MD PCP: Jeanine Gramajo DO Status: REG CLI Study: Abdomen Limited Date of Exam: 11/10/18 Exam# [id number] Ordering Dr: Jeanine Gramajo DO HISTORY: CHOLECYSTECTOMY 07/06 RUQ PAIN SINCE 07/06 TECHNIQUE: Martinez scale and color doppler imaging was performed of the liver, pancreas, and right upper quadrant abdomen. COMPARISON: Gallbladder ultrasound 07/12/[address] abdomen and pelvis 02/24/2018 FINDINGS: Cholecystectomy. The common duct measures 5 mm in diameter which is normal. No intrahepatic biliary dilatation. No free fluid to suggest bile leak. The liver is upper normal in size. The right hepatic lobe shows a stable benign appearing 11 mm cyst. The right kidney is visualized and appears normal. No hydronephrosis. Visualized portions of the pancreas are unremarkable. US/Abdomen Limited IMPRESSION: 1. Cholecystectomy. No biliary dilatation, free fluid, or suspicious findings. 2. Simple hepatic cyst, unchanged. 3. No acute disease. at 0543 Reported and signed by: Vinicius Green MD Electronically Signed: Vinicius Green, at 5:42 EST Tel , Service support , CC: Jeanine Gramajo DO Cornetist: Signed CBC-COMPLETE BLOOD CNT Collected: 11/01/2018 Status: F Source: [place] NO DIFF 4:53 PM [facility] TYPE CODE TESTS RESULT OUT OF RANGE REFERENCE UNITS LAB L100.1000 4.4-11.0 K/mm3 Normal WBC 5.1 LAB L100.1200 4.2-5.4 M/mm3 Normal RBC 4.62 LAB L100.1300 12.0-15.0 g/dl Normal HGB 13.9 LAB L100.1400 37-47 % Normal HCT 40.9 LAB L100.1500 81-99 fL Normal MCV 88.5 LAB L100.1600 27.0-32.0 pg Normal MCH 30.1 LAB L100.1700 32-36 g/gl Normal MCHC 34.0 LAB L100.1810 11.6-14.6 % Normal RDW CV 11.9 LAB L100.1820 35.1-43.9 fl Normal RDW SD 38.1 LAB L100.1900 150-450 K/mm3 Normal PLT 336 LAB L100.2000 6.2-12.0 fl Normal MPV 9.7 Performed By: #### L100.0500, L101.9900 #### [facility] [address] [place], [place], [address] ERYTHROCYTE SED RATE Collected: 11/01/2018 Status: F Source: [place] 4:53 PM [facility] TYPE CODE TESTS RESULT OUT OF RANGE REFERENCE UNITS LAB L102.0000 0-30 mm/hr Normal SED RATE 3 Performed By: #### L100.0500, L101.9900 #### [facility] [address] [place], [place], [address] COMPREHENSIVE METABOLIC Collected: 11/01/2018 Status: F Source: [facility] 4:53 PM [facility] TYPE CODE TESTS RESULT OUT OF RANGE REFERENCE UNITS LAB L501.0100 74-106 mg/dL Normal GLU 87 Result Comment: Please note revised GLUCOSE reference range effective 2017. LAB L501.1000 7-18 mg/dL Normal BUN 12 LAB L501.1100 0.55-1.02 mg/dL Normal CREAT,SERUM 0.61 Result Comment: The validity of the calculated GFR AND GFRAA in patients over 70 years has not been determined. Clinical correlation is essential. LAB L501.1110 >60 mL/min Normal EST GFR 106 Result Comment: Non- GFR Calc LAB L501.1115 >60 mL/min Normal EST GFR - AA 128 Result Comment: GFR Calc LAB L501.1300 10-20 RATIO Normal BUN/CRE 19.6 LAB L501.1500 6.4-8.2 g/dL T Normal PROT 7.6 LAB L501.1800 3.2-5.0 g/dL Normal ALB 4.2 LAB L501.1950 2.2-4.2 g/dL Normal GLOB 3.4 LAB L501.2000 0.9-2.4 RATIO Normal A/G 1.2 LAB L501.2200 8.5-10.1 mg/dL CA Normal 9.5 LAB L501.4100 15-37 U/L Normal AST 19 LAB L501.4305 45-117 U/L Normal ALK P 85 LAB L501.4405 13-56 U/L Normal ALT 36 LAB L501.4600 0.20-1.00 mg/dL T Normal BILI 0.50 LAB L501.5300 136-145 mmol/L NA Normal 137 LAB L501.5600 3.5-5.1 mmol/L K Normal 3.8 LAB L501.5900 98-107 mmol/L Low CL 97 LAB L501.6100 21.0-32.0 mmol/L Normal CO2 30.0 LAB L501.6200 5-15 Normal GAP 10 Performed By: #### L500.4050 #### [facility] [address] [facility] [place], [address] HAND MIN 3 VIEWS Observed: 11/01/2018 Status: F Source: [place] 4:51 PM [facility] Imaging Services [address] [place] [address] Hand Min 3 Views MR#: [id number] Acct: [id number] Name: ELIN HAYES Rep #: [id number] : 1960 F 58 From: Wilmer Bowen DO PCP: Jeanine Gramajo DO Status: REG CLI Study: Hand Min 3 Views Date of Exam: 11/01/18 Exam# [id number] Ordering Dr: Jeanine Gramajo DO STUDY: X-RAY - LEFT HAND REASON FOR EXAM: Female, 58 years old. Pain in the left hand. TECHNIQUE: 3 view(s) of the hand. COMPARISON: None. FINDINGS: Normal radiocarpal articulation. Normal distal radioulnar joint. Normal visualized carpal bones. Normal carpal articulations Normal carpometacarpal articulation of the thumb. Normal second through fifth carpometacarpal joints. Normal metacarpi. There is minimal degenerative arthrosis of the first metacarpophalangeal (MCP) joint. Normal interphalangeal joint of the thumb. Normal proximal and distal phalanges of the thumb. Normal metacarpophalangeal joints of the second through fifth fingers. Normal proximal and distal interphalangeal joints of the second through fifth fingers. Normal phalanges of the second through fifth fingers. The soft tissue structures are unremarkable. RAD/Hand Min 3 Views IMPRESSION: Minimal degenerative changes of the first metacarpophalangeal joint. Electronically Signed: Wilmer Bowen DO at 23:58 EST Tel [phone], Service support , CC: Jeanine Gramajo DO Cornetist: Signed WRIST MIN 3 VIEWS Observed: 11/01/2018 Status: F Source: [place] 4:51 PM [facility] Imaging Services [address] [place] [address] Wrist min 3 Views MR#: [id number] Acct: [id number] Name: ELIN HAEYS Rep #: [id number] : 1960 F 58 From: Akhil Chong MD PCP: Jeanine Gramajo DO Status: REG CLI Study: Wrist min 3 Views Date of Exam: 11/01/18 Exam# [id number] Ordering Dr: Jeanine Gramajo DO STUDY: X-RAY - LEFT WRIST REASON FOR EXAM: Female, 58 years old. Left lateral wrist pain. TECHNIQUE: 3 view(s) of the wrist were obtained. COMPARISON: None. FINDINGS: Normal visualized distal radius and ulna. Normal radiocarpal articulation. Normal distal radioulnar articulation. Normal carpal bones. Normal carpal articulations. Normal carpometacarpal articulation of the thumb. Normal second through fifth carpometacarpal articulations. Normal visualized metacarpal bones. As seen on PA view, there is a faint calcific density lateral to the body of the navicular bone, which is likely to represent represent chondrocalcinosis, and may be associated with calcium prior phosphate deposition disease.. RAD/Wrist min 3 Views IMPRESSION: Tentative identification of a small focus of chondrocalcinosis proximal lateral wrist. Otherwise, normal exam. Electronically Signed: Akhil Chong MD at 4:46 EST , Service support , CC: Jeanine Gramajo DO Cornetist: Signed SURGERY VISIT REPORT Observed: 07/22/2018 Status: F Source: [place] 3:51 PM [facility] [address] [place] [address]. [address] [place] [address] OFFICE VISIT Date of Service: 07/22/18 MR#: [id number] Acct: [id number] Name: ELIN HAYES Rep #: [id number] : 1960 Provider: Lana Quinn PA-C Age/Sex: 58/F Location: [facility] Status: Signed with Addenda ADDENDUM by Lana Quinn PA-C on 07/22/18 at 1551 Addendum entered and electronically signed by Lana Quinn PA-C 07/22/18 15:51: Pathology demonstrated chronic cholecystitis with cholelithiasis. 07/22/18 1551 <Electronically signed by Lana Quinn PA-C> Date Lana Quinn PA-C cc: Jeanine Gramajo DO * Signed Intake Intake Visit Reasons: Alex ESCOBAR 07/12 Chief Complaint: update H AND P lap naveen 07-12 Metal Trimmer Required: No Is patient in pain?: No Allergies topiramate [From Topamax] Allergy (Verified 07/22/18 10:16) Hives Medications Atorvastatin Calcium [Lipitor] 40 mg PO QHS 07/13/16 [History Confirmed 07/22/18] Cholecalciferol (VIT D3) [Vitamin D3] 1,000 unit PO DAILY 07/13/16 [History Confirmed 07/22/18] Eletriptan Hydrobromide [Relpax] 40 mg PO .X1 PRN 07/13/16 [History Confirmed 07/22/18] Multivitamin [Daily Multiple Vitamin] 1 ea PO DAILY 07/13/16 [History Confirmed 07/22/18] Paroxetine HCl [Paxil] 10 mg PO DAILY 07/13/16 [History Confirmed 07/22/18] Vitamin E 400 unit PO DAILY 07/13/16 [History Confirmed 07/22/18] Hydrochlorothiazide [Hctz] 25 mg PO DAILY 07/07/18 [History Confirmed 07/22/18] Hydrocodone Bitart/Apap 5-325 [[place]iterocks 5MG-325MG] 1 tab PO Q6H PRN PRN 3 Days #8 tab 07/12/18 [Rx Confirmed 07/22/18] Subjective Details: Patient is a 58 y/o female I am following for RUQ pain. Dr. Sol performed a laparoscopic cholecystectomy with intraoperative cholangiogram on 07/12/2018. Patient tolerated the procedure well. She continues to note intermittent RUQ pain/back pain. Patient denies nausea, vomiting, fever. She notes diarrhea intermittently. Patient notes increased anxiety. Objective Details: Abdomen- soft, nontender, positive bowel sounds. Incisions c/d/i. No erythema or infection noted. No deep tenderness palpations. Assessment AND Plan Problems 1. Calculus of gallbladder with chronic cholecystitis without obstruction K80.10 Plan - Follow-up as needed - RTW letter was given. - Obtain liver enzymes Orders Orders: Coding Level of Care Code Global Post Op Diagnoses Calculus of gallbladder with chronic cholecystitis without obstruction K80.10 Cholelithiasis location: gallbladder Biliary obstruction: without biliary obstruction 07/22/18 1550 <Electronically signed by Lana Quinn PA-C> Date Lana Quinn GARCIA Mckeon Signature: Date (if applicable) CC: Jeanine Avila LIVER PROFILE Collected: 07/22/2018 Status: F Source: [place] 10:59 AM [facility] TYPE CODE TESTS RESULT OUT OF RANGE REFERENCE UNITS LAB L501.1500 6.4-8.2 g/dL Normal T PROT 7.9 LAB L501.1800 3.2-5.0 g/dL Normal ALB 4.2 LAB L501.1950 2.2-4.2 g/dL Normal GLOB 3.7 LAB L501.4100 15-37 U/L Normal AST 15 LAB L501.4305 45-117 U/L Normal ALK P 101 LAB L501.4405 13-56 U/L Normal ALT 31 LAB L501.4600 0.20-1.00 mg/dL Normal T BILI 0.70 LAB L501.4700 0.00-0.30 mg/dL Normal D BILI 0.19 Performed By: #### L500.3400 #### [facility] [address] [facility] [place], [address] 12 LEAD ELECTROCARDIOGRAM Observed: 07/14/2018 Status: F Source: [place] 9:23 AM [facility] Cardiovascular Services [address] [place] [address] 12 Lead EKG 07/08/18 1451 MR#: [id number] Acct: [id number] Name: ELIN HAYES Rep #: [id number] : 1960 58 From: Gerber Agrawal MD Attending Dr: John Sol MD Status: [facility] Ordering Dr: John Sol MD Date: 07/08/18 Location: [facility] Sex: F C Admitted: Test Reason : PREOP Blood Pressure : / mmHG Vent. Rate : 080 BPM Atrial Rate : 080 BPM P-R Int : 154 ms QRS Dur : 086 ms QT Int : 372 ms P-R-T Axes : 038 013 049 degrees QTc Int : 429 ms Normal sinus rhythm Possible Left atrial enlargement Inferior infarct , age undetermined Abnormal ECG Confirmed by GERBER AGRAWAL MD ([id number]), digital editor SRINIVAS DEE ([id number]) on 07/14/2018 9:23:26 AM Referred By: John Sol Confirmed By:GERBER AGRAWAL MD 07/14/18922 Date Gerber Agrawal MD CC: Jeanine Gramajo DO; John Sol MD Signed DISCHARGE INSTRUCTION Observed: 07/13/2018 Status: F Source: [place] 12:40 PM [facility] Medical Records Department [address] [place] [address] Instructions for Home/Discharge Instructions 07/12/18 1152 MR#: [id number] Acct: [id number] Name: ELIN HAYES Rep #: [id number] : 1960 58 From: John Sol MD PCP: Jeanine Gramajo DO Status: DEP [facility] Discharge Diet: Light diet - advance as tolerated - if you have questions about your diet instructions, please talk to you doctor. Discharge Activity: May Not Drive - for 1 week or while taking narcotic pain medicine. May shower in (days): 1 Lifting Restrictions: 10 pounds Call your doctor if your incision/area has: Continuous Slow Oozing, Sudden Increased Bleeding, Increased Pain/ Swelling, Increased Redness, Foul Smelling Discharge Call your doctor if you observe: Fever of 101 or Higher Suture Line Care: Avoid Pulling/Pushing, Avoid Pinching/Bending Additional Dressing/Incision Instructions:: Change or remove dressing in 4 days. Leave steri-strips in place for 1 week. Allergies/Adverse Reactions: Allergies topiramate [From Topamax] Allergy (Verified 07/07/18 15:11) Hives Medications to take at Discharge Atorvastatin Calcium [Lipitor] 40 mg PO QHS 07/13/16 Cholecalciferol (VIT D3) [Vitamin D3] 1,000 unit PO DAILY 07/13/16 Eletriptan Hydrobromide [Relpax] 40 mg PO .X1 PRN 07/13/16 Multivitamin [Daily Multiple Vitamin] 1 ea PO DAILY 07/13/16 Paroxetine HCl [Paxil] 10 mg PO DAILY 07/13/16 Vitamin E 400 unit PO DAILY 07/13/16 Hydrochlorothiazide [Hctz] 25 mg PO DAILY 07/07/18 Hydrocodone Bitart/Apap 5-325 [[place] 5MG-325MG] 1 tablet PO Q6H PRN PRN 3 Days #8 tablet 07/12/18 The following prescriptions were given: Hydrocodone Bitart/Apap 5-325 [[place] 5MG-325MG] 1 tablet PO Q6H PRN PRN 3 Days #8 tablet PRN Reason: Pain Primary Care Physician: Jeanine Gramajo DO [Primary Care Provider] - Test Results: Test results from this visit will be discussed in further detail at your follow-up appointment, if applicable. Please Follow Up With: John Sol MD - [phone] When: Call to make an appointment to be seen in about 10 days. 07/13/18 1240 <Electronically signed by Jonh Sol MD> Date John Sol MD CC: Jeanine Gramajo DO OPERATIVE REPORT Observed: 07/13/2018 Status: F Source: [place] 12:40 PM [facility] Medical Records Department [address] [place] [address] Operative Report 07/12/18 1254 MR#: [id number] Acct: [id number] Name: ELIN HAYES Rep #: [id number] : 1960 58 From: John Sol MD PCP: Jeanine Gramajo DO Status: DEP [facility] Y Location: [facility] Problem List (1) Cholelithiasis with chronic cholecystitis Status: Acute Qualifiers: Cholelithiasis location: gallbladder Biliary obstruction: without biliary obstruction Qualified Code(s): K80.10 - Calculus of gallbladder with chronic cholecystitis without obstruction Report of Operation Date of Procedure: 07/12/18 Pre-Operative Diagnosis: Chronic cholecystitis cholelithiasis Post-Operative Diagnosis: Same plus umbilical hernia Surgery/Procedure Performed:: Laparoscopic cholecystectomy with cholangiography. Umbilical herniorrhaphy Description of Surgical Findings:: Timeout and informed consent was obtained. 58-year-old female taken out from placement of the table. She underwent general endotracheal intubation and anesthesia. Ancef 2 g given intravenous preoperatively. Because of the patient's previous infraumbilical midline incision I injected local 0.5% Marcaine of which total 30 cc was used then made a vertical supraumbilical incision. Sharp dissection was carried down through the substance tissue and and so doing a umbilical hernia was encountered. The tissue was carefully dissected free. Holding sutures of 0 Vicryl placed. Direct access was gained through the peritoneum. 10 minute trocar was inserted. The abdomen was insufflated CO2 to pressure of tenderness from her pressure. Elvia laparoscope inserted. Abdomen suspected no evidence of any superficial abnormalities. There was adhesions of omentum to the right lobe of the liver the gallbladder was mostly free. The gallbladder was distracted and blunt dissection was instituted the infundibulum until clearly the cystic duct and cystic artery were identified. The patient had both an anterior and posterior cystic artery. The anterior artery was clipped twice proximally once distally prior to transecting it. A Hem-o-codie clip was placed on the cystic duct stump and then through a 14-gauge Angiocath plantar Sumeet cath was inserted and fluoroscopically controlled claims grams were obtained. This demonstrated normal ductal anatomy and free flow to the small bowel. Claims grams catheter was removed and 2 Hem-o-codie clips were placed on the cystic duct stump prior to transecting it. The gallbladder was then dissected free from liver bed great care was needed to be taken because the posterior cystic artery seemed to run the entire length of the liver bed. About midway up the liver bed score I secured it with hemoclips. The gallbladder was then dissected free from the liver bed. Complete hemostasis was intact. Gallbladder was placed in retrieval bag. The right upper quadrant was irrigated and aspirated free. Hemostasis was intact. The gallbladder was exited the umbilicus. The remaining trochars removed under visualization. The abdomen was allowed to deflate of the CO2. The fascia at the umbilicus because of the umbilical hernia was approximated with interrupted 0 Nurolon [id number] suture. Skin edges were approximated interrupted 4 Monocryl subdermal stitches. Steri-Strips Telfa and OpSite dressings applied. Sponge and instrument and needle counts were reported the surgeon be correct. Blood loss was minimal. She tired procedure well was taken to the recovery or insect condition without apparent complication. Specimens include gallbladder. Drains none. Blood loss minimal. John Sol M.D., F.A.C.S. Type of Anesthesia:: General Anesthesiologist: Tiffanie Corral 07/13/18 1240 <Electronically signed by John Sol MD> Date John Sol MD CC: Jeanine Gramajo DO; John Sol MD Signed GALLBLADDER Observed: 07/12/2018 Status: F Source: [place] 12:00 AM [facility] REPOSITORY Patient: ELIN HAYES : 1960 (58/F) Acct Num: [id number] Phys: John Sol MD Unit Num: [id number] Loc: [facility] [place] Specimen: [id number] Received: 07/12/18 - 1329 Spec Type: GALLBLADDE TISSUES 1 TISSUES: Gallbladder, NOS GROSS DESCRIPTION Received is one container labeled with the patient's name and designated gallbladder. The specimen consists of a gallbladder measuring 7.5 x 3.3 x 2.7 cm. The external surface is smooth and glistening. Focally, it is granular, hemorrhagic and contains cautery artifact. The lumen of the gallbladder contains yellow mucoid bile and one black calculus measuring 0.7 cm. The mucosa is bile-stained and without any mass lesions. The gallbladder wall averages 1 cm in average thickness and is free of mass lesions. Pattern Changer And Repairer sections of the gallbladder and the cystic duct are submitted in one cassette. / AM:oma 07/12 TC:3 CPT: 72716 HEADER OPERATION: Laparoscopic cholecystectomy with IOC PRE-OP DIAGNOSIS: Acute cholelithiasis TISSUE SUBMITTED: Gallbladder MICROSCOPIC DESCRIPTION Slides are reviewed. MICROSCOPIC DIAGNOSIS Gallbladder: Mild chronic cholecystitis and cholelithiasis. SJ:oma 07/13/18 Signed Michael Wuin 07/13/18 <signature on file> Performed By: #### PGALL #### [facility] [address] [place], [address] CHOLANGIOGRAM/ O Observed: 07/11/2018 Status: F Source: [place] R,INITIAL 11:35 PM [facility] REPOSITORY [facility] Imaging Services [address] [place] [address] Cholangiogram/ O R,Initial MR#: [id number] Acct: [id number] Name: ELIN HAYES Rep #: [id number] : 1960 F 58 From: Julius Barger MD PCP: Jeanine Gramajo DO Status: [facility] Study: Cholangiogram/ O R,Initial Date of Exam: 07/12/18 Exam# [id number] Ordering Dr: John Sol MD STUDY: INTRAOPERATIVE CHOLANGIOGRAM. REASON FOR EXAM: Female, 58 years old. Laparoscopic cholecystectomy. FLUOROSCOPY TIME (if supplied): (0:11) minutes/seconds TECHNIQUE: An intraoperative cholangiogram was performed by the surgeon. Imaging was submitted. COMPARISON: None. FINDINGS: The intrahepatic biliary ducts are unremarkable. The common bile duct is not dilated. No intraluminal filling defect is seen. There is free flow of contrast into the duodenum. RAD/Cholangiogram/ O R,Initial IMPRESSION: Unremarkable intraoperative cholangiogram. Electronically Signed: Julius Barger MD at 15:37 EDT Tel [phone], Service support , CC: Jeanine Gramajo DO; John Sol MD Cornetist: Signed SURGERY VISIT REPORT Observed: 07/08/2018 Status: F Source: [place] 4:39 PM [facility] REPOSITORY [facility] [address] [place] [address] OFFICE VISIT Date of Service: 07/08/18 MR#: [id number] Acct: [id number] Name: ELIN HAYES Rep #: [id number] : 1960 Provider: Lana Quinn PA-C Age/Sex: 58/F Location: [facility] Status: Signed Intake Vital Signs07/08/18 Height 5 ft 2 in 07/08/18 Weight: 175 lb 4 oz 07/08/18 Body Mass Index (BMI) 32.0 07/08/18 Blood Pressure 151/85 Intake Visit Reasons: update h AND p lap naveen 07-14 Chief Complaint: update H AND P lap naveen 07-12 RC Metal Trimmer Required: No Is patient in pain?: No Allergies topiramate [From Topamax] Allergy (Verified 07/07/18 15:11) Hives Medications Atorvastatin Calcium [Lipitor] 40 mg PO QHS 07/13/16 [History Confirmed 07/07/18] Cholecalciferol (VIT D3) [Vitamin D] 1,000 unit PO DAILY 07/13/16 [History Confirmed 07/07/18] Eletriptan Hydrobromide [Relpax] 40 mg PO .X1 PRN 07/13/16 [History Confirmed 07/07/18] Multivitamin [Daily Multiple Vitamin] 1 ea PO DAILY 07/13/16 [History Confirmed 07/07/18] Paroxetine HCl [Paxil] 10 mg PO DAILY 07/13/16 [History Confirmed 07/07/18] Vitamin E 400 unit PO DAILY 07/13/16 [History Confirmed 07/07/18] Hydrochlorothiazide [Hctz] 25 mg PO DAILY 07/07/18 [...] smoker alcohol intake: never HPI HPI HPI: Patient is a 58 y/o female I am following for RUQ pain and cholelithiasis. Patient presents for an update history and physical. Patient denies recent hospitalizations or illnesses. Patient denies previous myocardial infarction, stroke, blood clots. Dr. Sol performed a colonoscopy on 06/10/18 demonstrating diverticulosis. Random biopsies were taken which demonstrated no colonic abnormalities. Patient's previous history per Dr. Sol: ELIN HAYES, is a 58 F who presents to [...] a syncopal spells. She went to the [facility] emergency room and CT scan [...] developed right sided abdominal pain. At the [facility] on May 26, 2018 she had [...] Exam Const General: cooperative, healthy appearing, comfortable, no acute distress [facility] Head: normal to inspection Eyes General: appearance normal, both eyes and all related structures Neck Neck: normal visual inspection Neck mass: No Resp Effort AND Inspection: normal respiratory effort Auscultation: clear to auscultation bilaterally Cardio Rate: regular rate Rhythm: regular rhythm Heart Sounds: no murmurs GI Inspection: normal to inspection Palpation: soft, tender (RUQ) Auscultation: normal bowel sounds Skin General: no rashes or lesions noted Neuro General: no focal motor deficits, CN's II-XI intact bilaterally Extrem General: normal to inspection Psych Appearance: grossly normal Affect: normal affect Assessment AND Plan Problems 1. RUQ pain R10.[address] Sol will plan to perform a laparoscopic cholecystectomy with intraoperative cholangiogram. Procedure details, risks and benefits have been reviewed. Patient has had the opportunity to ask and have questions answered. Patient verbally understands and agrees with the plan. Coding Level of Care Code No Charge Diagnoses RUQ pain R10.11 Comment Update H AND P 07/08/18 4568 <Electronically signed by Lana Quinn PA-C> Date Lana Quinn PA-C Cosigner Signature: Date (if applicable) CC: CBC-COMPLETE BLOOD CNT Collected: 07/08/2018 Status: F Source: [place] NO DIFF 2:38 PM [facility] REPOSITORY TYPE CODE TESTS RESULT OUT OF RANGE REFERENCE UNITS LAB L100.1000 4.4-11.0 K/mm3 Normal WBC 5.2 LAB L100.1200 4.2-5.4 M/mm3 Normal RBC 4.62 LAB L100.1300 12.0-15.0 g/dl Normal HGB 13.6 LAB L100.1400 37-47 % Normal HCT 40.4 LAB L100.1500 81-99 fL Normal MCV 87.4 LAB L100.1600 27.0-32.0 pg Normal MCH 29.4 LAB L100.1700 32-36 g/gl Normal MCHC 33.7 LAB L100.1810 11.6-14.6 % Normal RDW CV 12.3 LAB L100.1820 35.1-43.9 fl Normal RDW SD 39.3 LAB L100.1900 150-450 K/mm3 Normal PLT 297 LAB L100.2000 6.2-12.0 fl Normal MPV 9.4 Performed By: #### L100.0500 #### [facility] [address] [place], [place], [id number] BASIC METABOLIC Collected: 07/08/2018 Status: F Source: [place] PROFILE (BMP) 2:38 PM [facility] REPOSITORY TYPE CODE TESTS RESULT OUT OF RANGE REFERENCE UNITS LAB L501.0100 74-106 mg/dL Normal GLU 93 Result Comment: Please note revised GLUCOSE reference range effective 2017. LAB L501.1000 7-18 mg/dL Normal BUN 13 LAB L501.1100 0.55-1.02 mg/dL Normal CREAT,SERUM 0.70 Result Comment: The validity of the calculated GFR AND GFRAA in patients over 70 years has not been determined. Clinical correlation is essential. LAB L501.1110 >60 mL/min Normal EST GFR 91 Result Comment: Non- GFR Calc LAB L501.1115 >60 mL/min Normal EST GFR - AA 110 Result Comment: GFR Calc LAB L501.1300 10-20 RATIO Normal BUN/CRE 18.5 LAB L501.2200 8.5-10.1 mg/dL CA Normal 8.9 LAB L501.5300 136-145 mmol/L Low NA 134 LAB L501.5600 3.5-5.1 mmol/L K Normal 3.9 LAB L501.5900 98-107 mmol/L CL Normal 99 LAB L501.6100 21.0-32.0 mmol/L Normal CO2 29.0 LAB L501.6200 5-15 Normal GAP 6 Performed By: #### L500.2500 #### [facility] [address] [facility] [place], [address] OPERATIVE REPORT Observed: 06/10/2018 Status: F Source: [place] 6:46 AM [facility] REPOSITORY [facility] Medical Records Department [address] [place] [address] Operative Report 06/10/18 0642 MR#: [id number] Acct: [id number] Name: ELIN HAYES Araceli Rep #: [id number] : 1960 58 From: John Sol MD PCP: Jeanine Gramajo DO Status: REG SD Y Location: [place] [address] Problem List (1) Abdominal pain Status: Acute Qualifiers: Abdominal location: lower abdomen, unspecified Qualified Code(s): R10.30 - Lower abdominal pain, unspecified (2) Diarrhea Status: Acute Qualifiers: Diarrhea type: unspecified type Qualified Code(s): R19.7 - Diarrhea, unspecified Report of Operation Date of Procedure: 06/10/18 Pre-Operative Diagnosis: Abdominal pain lower abdomen but also upper abdomen, history of diarrhea Post-Operative Diagnosis: Sigmoid diverticulosis. Random biopsies pending Surgery/Procedure Performed:: Colonoscopy with cold forcep random biopsies Description of Surgical Findings:: Timeout informed consent was obtained. 58-year-old female was taken to the endoscopy suite. She was placed in the left lateral decubitus position. Throughout the procedure in aliquots she received total 100 g Demerol 3.5 mg of Versed is intravenous sedation. Digital rectal exam performed normal anal tone minimal hemorrhoidal changes flexible colonoscope was in the rectum advanced readily through the sigmoid and descending colon. The scope was then nicely advanced to the transverse colon and with transabdominal pressure is advanced to the cecum. Bowel prep was very good. The cecum ileocecal valve area was nicely achieved. The scope was withdrawn from the ascending transverse descending sigmoid colon. Random colonic biopsies were obtained throughout because of the patient's previous history of diarrhea. No gross mucosal abnormalities were identified. Sigmoid diverticulosis was indeed noted but I did not see any evidence of acute inflammatory change. The scope was withdrawn to the rectum retroflex the anorectal verge inspected this did not appear to be remarkable. Excess fluid and air was aspirated free the procedure was completed with the patient tolerating it well. Impression No evidence of mucosal abnormality. Sigmoid diverticulosis. The patient's previous colonoscopy was approximately 9 years prior. Next screening colonoscopy recommended in 10 years. The patient does have cholelithiasis which may be the source of her abdominal pain and a laparoscopic cholecystectomy will be offered to her. Procedure was started 0625. The cecum was reached at 0631. The procedure was completed at 0638. Cc: Dr. Jeanine Sol M.D., F.A.C.S. Type of Anesthesia:: IV Sedation 06/10/18 0646 <Electronically signed by John Sol MD> Date John Sol MD CC: Jeanine Gramajo DO; John Sol MD Signed COLON BIOPSY (CHOOSE Observed: 06/10/2018 Status: F Source: [place] SITE) 12:00 AM [facility] REPOSITORY Patient: ELIN HAYES : 1960 (58/F) Acct Num: [id number] Phys: Ebenezer MCHUGH,John Unit Num: [id number] Loc: [place] Specimen: [id number] Received: 06/10/18 - 1215 Spec Type: COLON BX TISSUES TISSUES: COLON BIOPSY GROSS DESCRIPTION Received in fixative is one container labeled with the patient's name and designated random colon biopsy. The specimen consists of multiple irregular fragments of light an soft tissue that in aggregate measure 1 x 0.6 x 0.1 cm. The specimen is totally submitted in one cassette. / AM:oma 06/10/18 TC:5 CPT: 30708 HEADER OPERATION: Colonoscopy PRE-OP DIAGNOSIS: RUQ abdominal pain TISSUE SUBMITTED: Random colon biopsy MICROSCOPIC DESCRIPTION Slides are reviewed. MICROSCOPIC DIAGNOSIS Colon, random biopsy: No significant pathologic change. No evidence of colitis. AM:oma 06/11/18 Signed Norberto Jefe 06/11/18 <signature on file> Performed By: #### PCOLBX #### [facility] [address] [place], [place], [address] Observed: 06/03/2018 Status: F Source: [place] CDIFF (MOLECULAR) 5:39 PM [facility] REPOSITORY Reason for Exam: diarrhea Cdiff-Molecular Normal Reference Range = Negative C. Diff DNA Negative- No toxigenic C. Diff DNA Detected NAAT METHOD Testing was performed using nucleic acid amplification Performed By: #### M100.6796, M100.637, M600.5000 #### [facility] [address] [place], [address] Observed: 06/03/2018 Status: F Source: [place] ENTERIC PATHOGEN 5:39 PM [facility] PANEL STOOL REPOSITORY Reason for Exam: diarrhea EP PANEL STOOL Normal Reference Range = Not Detected Not detected for Campylobacter group, Salmonella species, Shigella species, Vibrio Group, Yersinia enterocolitica, EHEC (Shiga Toxin 1, Shiga Toxin 2), Norovirus Gl/Gll, and Rotavirus A. Other common stool pathogens are not detected on this panel include: Aeromonas/Plesiomonas or parasites. Order testing for these organisms separately if suspected. This is an amplified DNA test which makes it both specific and sensitive. CAMPYLOBACTER Not Detected Salmonella Not Detected Shigella sp. Not Detected Shiga Toxin Not Detected Yersinia Not Detected VIBRIO Not Detected Norovirus Not Detected Rotavirus Not Detected Performed By: #### M100.6796, M100.637, M600.5000 #### [facility] [address] [place], [address] Observed: 06/03/2018 Status: F Source: [place] OVA AND PARASITES 5:39 PM [facility] REPOSITORY Reason for Exam: diarrhea O + P OVA AND PARASITES EXAM, ROUTINE These results were obtained using wet preparation(s) and trichrome stained smear. This test does not include testing for Crytosporidium parvum, Cyclospora, or Microsporidia. TESTING PERFORMED AT [facility]. ORIGINAL REPORT ON FILE IN LAB CONTAINS ADDITIONAL TEST SITE INFORMATION. Ova/Parasite Exam NO OVA, CYSTS, OR PARASITES FOUND. Performed By: #### M100.6796, M100.637, M600.5000 #### [facility] [address] [place], [address] SURGERY VISIT REPORT Observed: 06/02/2018 Status: F Source: [place] 7:12 PM [facility] REPOSITORY [facility] [address] [address] [place] [address] OFFICE VISIT Date of Service: 06/02/18 MR#: [id number] Acct: [id number] Name: ELIN HAYES Rep #: [id number] : 1960 Provider: John Sol MD Age/Sex: 58/F Location: [facility] Status: Signed Intake Vital Signs06/02/18 Height 5 ft 2 in 06/02/18 Weight: 175 lb 4 oz 06/02/18 Body Mass Index (BMI) 32.0 Intake Visit Reasons: RUQ Pain US [facility] 05/26 Chief Complaint: RUQ pain into back, gallstones Metal Trimmer Required: No Is patient in pain?: Yes Pain scale (1-10): 4 Allergies topiramate [From Topamax] Allergy (Verified 06/02/18 16:17) Hives Medications Atorvastatin Calcium [Lipitor] 40 mg PO QHS 07/13/16 [History Confirmed 06/02/18] Cholecalciferol (VIT D3) [Vitamin D] 1,000 unit PO DAILY 07/13/16 [History Confirmed 06/02/18] Eletriptan Hydrobromide [Relpax] 40 mg PO .X1 PRN 07/13/16 [History Confirmed 06/02/18] Multivitamin [Daily Multiple Vitamin] 1 ea PO DAILY 07/13/16 [History Confirmed 06/02/18] Paroxetine HCl [Paxil] 10 mg [...] smoker alcohol intake: never HPI HPI HPI: ELIN HAYES, is a 58 F who presents to [...] a syncopal spells. She went to the [facility] emergency room and CT scan [...] developed right sided abdominal pain. At the [facility] on May 26, 2018 she had [...] Exam Const General: cooperative, healthy appearing, comfortable, no acute distress Nutritional Appearance: overweight Orientation: alert, awake [facility] Head: normal to inspection Eyes General: appearance normal, both eyes and all related structures Neck Neck: normal visual inspection Chest Chest palpation AND inspection: normal inspection of the chest Resp Effort AND Inspection: normal respiratory effort Auscultation: clear to auscultation bilaterally Cardio Rate: regular rate Rhythm: regular rhythm Heart Sounds: no murmurs GI Palpation: soft, no hepatosplenomegaly, nontender Auscultation: normal bowel sounds Musc Cervical Spine: normal cervical lordosis Skin General: no rashes or lesions noted Neuro Cranial Nerves: CN's II-XI intact bilaterally Extrem General: no clubbing, cyanosis or edema Psych Affect: normal affect Assessment AND Plan Plan 58-year-old female [...] AND P and C. difficile. I am recommending a colonoscopy to assess the left colon and indeed the right colon for possible signs of diffuse colitis possibly even C. difficile colitis. If those findings are remarkable then would treat appropriately. If those findings are not remarkable that I will revisit the concept of possibly pursuing a laparoscopic cholecystectomy with the patient. She has had an opportunity to ask and have questions answered. She is agreeable to proceeding as noted. We will obtain stool analysis and then schedule her in a timely fashion for colonoscopy with possible biopsy or polypectomy is indicated. I very much appreciate the kind opportunity of assisting with her surgical care. John Sol M.D., F.A.C.S. cc:Dr Gramajo Orders Orders: Coding Level of Care Code Comprehensive,moderate 06/02/181911 <Electronically signed by John Sol MD> Date John Sol MD Cosigner Signature: Date (if applicable) CC: Jeanine Avila PORTILLO GALLBLADDER Observed: 05/26/2018 Status: F Source: [place] 8:04 AM [facility] REPOSITORY [facility] Imaging Services [address] [place] [address] Gallbladder MR#: [id number] Acct: [id number] Name: ELIN HAYES Rep #: [id number] : 1960 F 58 From: Martin Melton MD PCP: Jeanine Gramajo DO Status: REG CLI Study: Gallbladder Date of Exam: 05/26/18 Exam# [id number] Ordering Dr: Jeanine Gramajo DO STUDY: ABDOMINAL ULTRASOUND - RIGHT UPPER QUADRANT REASON FOR VISIT: Female, 58 years old. Right upper quadrant pain. TECHNIQUE: Ultrasound evaluation of the right upper quadrant was performed with real-time and static martinez-scale imaging. TECHNICAL QUALITY: Limited by body habitus COMPARISON: CT dated 02/24/2018 FINDINGS: Liver: The liver measures 14.5 cm. There is normal echogenicity of the liver. The bile ducts are within normal limits. There is hepatic color flow. The direction of portal flow is hepatopetal. There is a 1.1 x 1.0 cm simple cyst in the right lobe of the liver. Gallbladder: Normal distended gallbladder. The gallbladder wall measures 2 mm. There is a negative sonographic Pandey's sign. There is no pericholecystic fluid. There is a solitary echogenic gallstone within the gallbladder. Common Bile Duct (C.B.D.): The common bile duct measures 2 mm. Pancreas: Normal size of the head, body and tail of the pancreas. There is normal echogenicity of the pancreas. There is no demonstrated pancreatic mass or cyst. Right Kidney: Normal size of the right kidney. The right kidney measures 10.8 cm. Normal renal cortex. There is no demonstrated renal mass or cyst. There is no right hydronephrosis. US/Gallbladder IMPRESSION: Cholelithiasis without sonographic evidence of acute cholecystitis. Simple cyst in the liver. Electronically Signed: Martin Melton, at 15:54 EDT Tel , Service support , CC: Jeanine Gramajo DO Cornetist: Signed EMERGENCY DEPARTMENT Observed: 02/24/2018 Status: F Source: [place] SUMMARY 7:07 PM [facility] REPOSITORY [facility] Medical Records Department [address] [place] [address] Emergency Department Summary 02/24/18 0806 MR#: [id number] Acct: [id number] Name: ELIN HAYES Rep #: [id number] : 1960 57 From: Dolores Paz MD PCP: Jeanine Gramajo DO Status: DEP ER - ER Visit Summary Date of Service: 02/24/18 Chief Complaint: Left lower abdominal pain History of Present Illness: The patient is a 57 F with left lower abdominal pain since yesterday. Pain waxes and wanes in intensity, with crampiness and associated nausea. Patient also complains of dysuria and urgency. No hematuria, diarrhea, fever. Patient had a syncopal episode during a severe episode of the pain last night, which caused increased nausea, diaphoresis and then patient woke up on the floor. She is complaining of posterior head pain. History of kidney stones. Medical history remarkable for hypertension and high cholesterol. Patient is not on any blood thinners. Physical Examination: Vital signs: afebrile, hemodynamically stable, no hypoxia on room air General: well nourished, well developed, in no distress Skin: warm, dry, no rash, no pallor HEENT: normocephalic, tenderness to the posterior mid scalp without any swelling, deformities, abrasions, lacerations or hematoma; PERRL, EOMI, moist mucous membranes Cardiovascular: regular rate and rhythm without murmurs, no peripheral edema, 2+ pulses all distal extremities Respiratory: No increased work of breathing, lungs are clear to auscultation bilaterally, no rales, rhonchi or wheezing Abdominal: Abdomen is soft, tender in left lower quadrant, with normoactive bowel sounds, no guarding or rebound, no masses, mild left lower back tenderness question MSK: Moves all extremities, no deformities, normal strength Neuro: Awake and alert, oriented 4. No facial droop, sensation and motor function intact and symmetric Test Results: Abnormal Lab Results Clinical Impression(s) from Imaging Studies Abdomen/Pelvis CT 02/24/18 08:05 IMPRESSION: Solitary gallstone. Mild degree of sigmoid diverticulitis with no evidence of abscess or fluid collection at this time. Electronically Signed: Julius Barger MD at 9:12 EDT Tel [phone], Service support , Emergency Department Course and Treatment: Patient's presentation is concerning for renal colic, diverticulitis or pyelonephritis. Labs showed no hematuria or infection on urinalysis, no leukocytosis, no electrolyte or renal derangements. CT flank showed sigmoid diverticulitis, uncomplicated. Patient was started on Cipro and Flagyl for treatment. She was given a prescription for Zofran and [place] for symptomatic management. Return precautions given. Patient discharged home. Treatment Plan: [] Disposition: [] Impression: Acute sigmoid diverticulitis, uncomplicated This note was generated with [employer] dictation software. It may contain incorrect words, spelling, and punctuation that were not noted in review of the chart prior to signing ED Disposition - Plan for ED Patient: Disposition: Home or Assisted Living Chief Complaint: Flank Pain Instructions: ED Diverticulitis Prescriptions: Hydrocodone Bitart/Apap 5-325 [[place] 5MG-325MG] 1 tab PO Q6H PRN PRN [...] you sick to stomach. You may use [id number] pain medication as needed for pain, or [...] problems, contact your Primary Care Provider. Call [facility] ([phone]) or report to the closest Emergency Room. Call 911 if necessary. 02/24/18 190 <Electronically signed by Dolores Paz MD> Date Dolores Paz MD Cosigner Signature (If Indicated): Date CC: Jeanine Gramajo DO DISCHARGE INSTRUCTION Observed: 02/24/2018 Status: F Source: MERCER 5:49 PM [facility] Medical Records Department [address] [place] [address] Discharge Instruction 02/24/18 0949 MR#: [id number] Acct: [id number] Name: ELIN HAYES Rep #: [id number] : 1960 57 From: Dolores Paz MD PCP: Jeanine Gramajo DO Status: [facility] ED Disposition - Plan for ED Patient: Disposition: Home or Assisted Living Chief Complaint: Flank Pain Instructions: ED Diverticulitis Prescriptions: Hydrocodone Bitart/Apap 5-325 [[place] 5MG-325MG] 1 tab PO Q6H PRN PRN [...] you sick to stomach. You may use bjne-hno-ltuwkrs pain medication as needed for pain, or [...] your Primary Care Provider. Call [facility] ([phone]) or report to the closest Emergency Room. Call 911 if necessary. 02/24/18 3977 <Electronically signed by Dolores Paz MD> Date Dolores Paz MD Cosigner Signature (If Indicated): Date CC: Jeanine Gramajo DO URINALYSIS, COMPLETE Collected: 02/24/2018 Status: F Source: SHERRY 8:40 AM [facility] REPOS[facility] Order Comment: Order Date: 02/24/18 How was Urine Obtained? CLEAN CATCH TYPE CODE TESTS RESULT OUT OF RANGE REFERENCE UNITS LAB L400.3000 Yellow COLOR Normal Yellow LAB L400.3050 Clear Normal CLARITY Clear LAB L400.3200 Normal mg/dl Normal GLUCOSE, UR Normal LAB L400.3300 Negative mg/dL Normal BILIRUBIN URINE Negative LAB L400.3400 Negative mg/dl Normal KETONE UR Negative LAB L400.3465 1.002-1.030 Normal SP.GR. DIPSTX 1.005 LAB L400.3550 5.0 - 8.0 pH UR Normal 7.0 LAB L400.3600 Negative mg/dl PROT Normal DIPSTX Negative LAB L400.3700 Normal mg/dl Normal UROBILI Normal LAB L400.3750 Negative Normal NITRITE UR Negative LAB L400.3780 Negative /ul Normal OCCULT BLOOD-UR Negative LAB L400.3800 Negative /ul LEUK Normal ESTERASE Negative LAB L400.4050 0-5 /hpf WBC 0 Normal SEEN LAB L400.4100 0-5 /hpf 0 Normal RBC-UA SEEN LAB L400.4150 5-10 /hpf SQUAM 0 Normal EPI SEEN LAB L400.4300 None Seen /hpf 0 Normal BACTERIA SEEN LAB L400.4350 <or=2+ /hpf 0 Normal MUCUS, URINE SEEN Performed By: #### L400.0001 #### [facility] [address] [place], [address] CBC W/DIFF, AUTOMATED Collected: 02/24/2018 Status: F Source: SHERRY 8:10 AM [facility] TYPE CODE TESTS RESULT OUT OF RANGE REFERENCE UNITS LAB L100.1000 4.4-11.0 K/mm3 Normal WBC 8.1 LAB L100.1200 4.2-5.4 M/mm3 Normal RBC 4.47 LAB L100.1300 12.0-15.0 g/dl Normal HGB 13.1 LAB L100.1400 37-47 % Normal HCT 38.3 LAB L100.1500 81-99 fL Normal MCV 85.7 LAB L100.1600 27.0-32.0 pg Normal MCH 29.3 LAB L100.1700 32-36 g/gl Normal MCHC 34.2 LAB L100.1810 11.6-14.6 % Normal RDW CV 12.0 LAB L100.1820 35.1-43.9 fl Normal RDW SD 37.4 LAB L100.1900 150-450 K/mm3 Normal PLT 238 LAB L100.2000 6.2-12.0 fl Normal MPV 9.4 LAB L100.2100 47-70 % High NEUT% 80.9 LAB L100.2200 19-41 % Low LY% 9.7 LAB L100.2300 0-10 % Normal MONO% 8.1 LAB L100.2400 0-5 % Normal EO% 1.1 LAB L100.2500 0-1 % Normal BASO% 0.1 LAB L100.2550 0.0-0.9 % Normal IM GRAN % 0.100 Result Comment: IG% - Immature Granulocytes (promyelocytes, myelocytes and metamyelocytes) > 1% indicates that a LEFT SHIFT is Present. LAB L100.2620 2.0-7.7 X10 3/uL Normal Absolute Neut 6.5 LAB L100.2720 0.83-4.51 X10 3/ul Low Absolute Lymph 0.78 Performed By: #### L100.0100 #### [facility] [address] [place], [address] BASIC METABOLIC Collected: 02/24/2018 Status: F Source: MER[facility] PROFILE (BMP) 8:10 AM [facility] TYPE CODE TESTS RESULT OUT OF RANGE REFERENCE UNITS LAB L501.0100 74-106 mg/dL Normal GLU 106 Result Comment: Fasting Glucose result from 100 to 125 mg/dL suggests IMPAIRED HOMEOSTASIS per A.D.A. criteria. Please note revised GLUCOSE reference range effective 2017. LAB L501.1000 7-18 mg/dL Normal BUN 9 LAB L501.1100 0.55-1.02 mg/dL Normal CREAT,SERUM 0.64 Result Comment: The validity of the calculated GFR AND GFRAA in patients over 70 years has not been determined. Clinical correlation is essential. LAB L501.1110 >60 mL/min Normal EST GFR 101 Result Comment: Non- GFR Calc LAB L501.1115 >60 mL/min Normal EST GFR - AA 122 Result Comment: GFR Calc LAB L501.1255 ml/min Normal Estimated CRCL 75.78 LAB L501.1300 10-20 RATIO Normal BUN/CRE 14.1 LAB L501.2200 8.5-10 mg/dL Normal .1 CA 8.8 LAB L501.5300 136-14 mmol/L Low 5 NA 132 LAB L501.5600 3.5-5. mmol/L Normal 1 K 3.6 LAB L501.5900 98-107 mmol/L Normal CL 98 LAB L501.6100 21.0-3 mmol/L Normal 2.0 CO2 30.0 LAB L501.6200 5-15 Low GAP 4 Performed By: #### L500.2500 #### [facility] [address] [facility] [place], [address] ABDOMEN/PELVIS WITHOUT Observed: 02/24/2018 Status: F Source: [facility] CONT 8:06 AM [facility] RE[facility] Imaging Services [address] [place] [address] Abdomen/Pelvis without Cont MR#: [id number] Acct: [id number] Name: ELIN HAYES Rep #: [id number] : 1960 F 57 From: Julius Barger MD PCP: Jeanine Gramajo DO Status: REG ER Study: Abdomen/Pelvis without Cont Date of Exam: 02/24/18 Exam# [id number] Ordering Dr: Dolores Paz MD STUDY: CT ABDOMEN AND PELVIS WITHOUT CONTRAST REASON FOR EXAM: Female, 57 years old. Left-sided pain. RADIATION DOSAGE (If Supplied By Facility): CTDIvol = ( 13.8 ) mGy, DLP = ( 649.43 ) mGycm TECHNIQUE: Transaxial images were obtained from the dome of the diaphragm to the symphysis pubis without oral contrast, and without intravenous contrast. Sagittal and coronal images were reconstructed. Individualized dose optimization techniques were used for this CT. COMPARISON: None. FINDINGS: Minimal degree of dependent bibasilar atelectasis. The visualized portions of the heart are within normal limits. [...] and pericolonic inflammation changes consistent with acute diverticulitis. The appendix is visualized and appears normal. Normal abdominal aorta. Normal inferior vena cava. Normal retroperitoneum. Normal urinary bladder. Normal abdominal wall. Normal osseous structures. CT/Abdomen/Pelvis without Cont IMPRESSION: Solitary gallstone. Mild degree of sigmoid diverticulitis with no evidence of abscess or fluid collection at this time. Electronically Signed: Julius Barger MD at 9:12 EDT Tel [phone], Service support , CC: Jeanine Gramajo DO; Dolores Paz MD Cornetist: Signed SCREENING MAMM (CAD), Observed: 01/20/2018 Status: F Source: [facility] BIL 7:01 AM [facility] RE[facility] Imaging Services [address] [place] [address] SCREENING MAMM (CAD), BILAT MR#: [id number] Acct: [id number] Name: ELIN HAYES Rep #: [id number] : 1960 F 57 From: Julius Barger MD PCP: Jeanine Gramajo DO Status: REG CLI Study: SCREENING MAMM (CAD), BILAT Date of Exam: 01/20/18 Exam# [id number] Ordering Dr: Jeanine Gramajo DO MAMMOGRAPHY - BILATERAL SCREENING REASON FOR EXAM: Female, 57 years old. Routine annual screening examination. PERTINENT HISTORY: Non-contributory. TECHNIQUE: Digital bilateral breast eneida (3D mammographic [...] no significant change since the prior study. BI/SCREENING MAMM (CAD), BILAT IMPRESSION: Stable bilateral screening mammogram. Yearly follow-up mammogram recommended. (A) ASSESSMENT CATEGORY: BIRADS Category 1: Negative. A letter regarding these results will be sent to the patient by the facility within 30 days. Approximately 10% of breast cancers are not detected by mammography. A normal mammogram should not delay biopsy of a clinically suspicious abnormality. [id number] Electronically Signed: Julius Barger MD at 9:07 EDT Tel [phone], Service support , CC: Jeanine Gramajo DO Cornetist: Signed STRESS TEST ECHO W/O Observed: 12/16/2017 Status: F Source: [facility] CONTRAST 3:45 PM [facility] Cardiovascular Services [address] [place] [address] Stress Test Echo w/o Contrast MR#: [id number] Acct: [id number] Name: ELIN HAYES Rep #: [id number] : 1960 57 From: Vicente Lemus MD Primary Care: Jeanine Gramajo DO Status: REG CLI Ordering Dr: Christianne Pepper ENGINEERING PROJECT MANAGER-C Sex: F C Reason For Study: Chest Pain Stress Results Protocol: Marvin Protocol Maximum Predicted HR: 162 bpm Target HR: 138 bpm% Max imum Predicted HR: 106 % DurationHeart Rate Stage (mm:ss) (bpm) BP Baseline 72 128/70 Marvin Protocol Stage I 3:00 13 3 140/70 Marvin Protocol Stage II 3:00 15 5 150/72 Marvin Protocol Stage III 0:36 17 1 / Recovery 91 128/88 Stress Duration: 6:36 mm:ss Maximum Stress HR: 171 bpmM ETS: 8 Baseline Echocardiogram Findings The estimated ejection fraction is 65 %. Stress Echo Wall motion Data Resting WMIntermediate WMStress WM Resting Wall Motion Wall Motion Stress No regional wall motion No regional wall motion abnormalities noted. abnormalities noted. EKG Data Normal intervals [...] echocardiogram. Negative for ischemia by EKG and echocardiographic criteria. No anginal symptoms noted. Rare PVC noted. Appropriate blood pressure response to exercise. Average exercise capacity for age. Test terminated due to dyspnea. Patient tolerated procedure well. No complications. Final LVEF is 75%. Ordering Physician: LETY Nielson Referring Physician: Vicente Lemus MD Performed By: Ashley Rob RDCS, RVT 12/16/17 1545 Date Vicente Lemus MD CC: LETY Pepper; Jeanine Gramajo DO Date Dictated: 12/16/17 1316 Date Transcribed: 12/16/17 2154 Cornetist: Signed CHEST PA AND LATERAL Observed: 11/17/2017 Status: F Source: SHERRY 9:52 AM [facility] REPOSITORY [facility] Imaging [place] [address] Chest PA and Lateral MR#: [id number] Acct: [id number] Name: ELIN HAYES Rep #: [id number] : 1960 F 57 From: Julius Barger MD PCP: Jeanine Gramajo DO Status: REG CLI Study: Chest PA and Lateral Date of Exam: 11/17/17 Exam# [id number] Ordering Dr: Christianne Pepper STUDY: X-RAY CHEST REASON FOR EXAM: Female, 57 years old. Cough. Chest pain. TECHNIQUE: PA and lateral views of the chest. COMPARISON: None. FINDINGS: The lungs are clear and expanded. Scattered calcified granulomas. There is no demonstrated pleural abnormality. Normal size heart. Normal mediastinum and denny. Normal visualized pulmonary arteries. There is atherosclerotic tortuosity of the aortic arch and descending thoracic aorta. There are degenerative changes of the visualized thoracic spine. Metallic anchor is seen overlying the right humeral head most likely secondary to prior rotator cuff surgery. There is no demonstrated abnormality of the visualized soft tissue structures of the upper abdomen. RAD/Chest PA and Lateral IMPRESSION: Scattered calcified granulomas. Electronically Signed: Julius Barger MD at 12:46 EST Tel [phone], Service support , CC: LETY Pepper; Jeanine Gramajo DO Cornetist: Signed CBC W/DIFF, AUTOMATED Collected: 11/17/2017 Status: F Source: SH[facility]Y 9:40 AM [facility] TYPE CODE TESTS RESULT OUT OF RANGE REFERENCE UNITS LAB L100.1000 4.4-11.0 K/mm3 Normal WBC 4.8 LAB L100.1200 4.2-5.4 M/mm3 Normal RBC 4.79 LAB L100.1300 12.0-15.0 g/dl Normal HGB 14.3 LAB L100.1400 37-47 % Normal HCT 41.9 LAB L100.1500 81-99 fL Normal MCV 87.5 LAB L100.1600 27.0-32.0 pg Normal MCH 29.9 LAB L100.1700 32-36 g/gl Normal MCHC 34.1 LAB L100.1810 11.6-14.6 % Normal RDW CV 12.1 LAB L100.1820 35.1-43.9 fl Normal RDW SD 38.7 LAB L100.1900 150-450 K/mm3 Normal PLT 278 LAB L100.2000 6.2-12.0 fl Normal MPV 9.5 LAB L100.2100 47-70 % Normal NEUT% 64.1 LAB L100.2200 19-41 % Normal LY% 21.5 LAB L100.2300 0-10 % Normal MONO% 8.8 LAB L100.2400 0-5 % High EO% 5.2 LAB L100.2500 0-1 % Normal BASO% 0.2 LAB L100.2550 0.0-0.9 % Normal IM GRAN % 0.200 Result Comment: IG% - Immature Granulocytes (promyelocytes, myelocytes and metamyelocytes) > 1% indicates that a LEFT SHIFT is Present. LAB L100.2620 2.0-7.7 X10 3/uL Normal Absolute Neut 3.1 LAB L100.2720 0.83-4.51 X10 3/ul Normal Absolute Lymph 1.03 Performed By: #### L100.0100 #### [facility] [address] [place], [address] COMPREHENSIVE METABOLIC Collected: 11/17/2017 Status: F Source: [facility] 9:40 AM [facility] Order Comment: 'TROP' Serial specimen #1, #2, #3, or #4: 1 TYPE CODE TESTS RESULT OUT OF RANGE REFERENCE UNITS LAB L501.0100 70-110 mg/dL High GLU 113 Result Comment: Fasting Glucose result from 110 to <126 mg/dL suggests IMPAIRED HOMEOSTASIS per A.D.A. criteria. LAB L501.1000 7-18 mg/dL Normal BUN 13 LAB L501.1100 0.55-1.02 mg/dL Normal CREAT,SERUM 0.68 Result Comment: The validity of the calculated GFR AND GFRAA in patients over 70 years has not been determined. Clinical correlation is essential. LAB L501.1110 >60 mL/min Normal EST GFR 94 Result Comment: Non- GFR Calc LAB L501.1115 >60 mL/min Normal EST GFR - AA 114 Result Comment: GFR Calc LAB L501.1300 10-20 RATIO Normal BUN/CRE 19.1 LAB L501.1500 6.4-8.2 g/dL T Normal PROT 7.3 LAB L501.1800 3.2-5.0 g/dL Normal ALB 4.2 LAB L501.1950 2.2-4.2 g/dL Normal GLOB 3.1 LAB L501.2000 0.9-2.4 RATIO Normal A/G 1.4 LAB L501.2200 8.5-10.1 mg/dL CA Normal 8.6 LAB L501.4100 15-37 U/L Normal AST 20 LAB L501.4305 45-117 U/L Normal ALK P 84 LAB L501.4405 13-56 U/L Normal ALT 33 Result Comment: Please note revised ALT reference range effective 2017. LAB L501.4600 0.20-1.00 mg/dL Normal T BILI 1.00 LAB L501.5300 136-145 mmol/L Low NA 132 LAB L501.5600 3.5-5.1 mmol/L Normal K 3.5 LAB L501.5900 98-107 mmol/L Low CL 96 LAB L501.6100 21.0-32.0 mmol/L Normal CO2 28.0 LAB L501.6200 5-15 Normal GAP 8 Performed By: #### L500.4050, L501.3620, L501.4010 #### [facility] [address] [place], [place], [id number] CPK TOTAL, CREATINE Collected: 11/17/2017 Status: F Source: SHERRY KINASE 9:40 AM [facility] Order Comment: 'TROP' Serial specimen #1, #2, #3, or #4: 1 TYPE CODE TESTS RESULT OUT OF RANGE REFERENCE UNITS LAB L501.3620 26-192 U/L Normal CPK TOTAL 84 Performed By: #### L500.4050, L501.3620, L501.4010 #### [facility] [address] [place], [address] TROPONIN-I Collected: 11/17/2017 Status: F Source: SHERRY 9:40 AM [facility] Order Comment: 'TROP' Serial specimen #1, #2, #3, or #4: 1 TYPE CODE TESTS RESULT OUT OF RANGE REFERENCE UNITS LAB L501.4010 <0.06 ng/mL Normal < 0.02 TROPONIN-I Result Comment: TROPONIN-I EXPECTED VALUES <0.05 NEGATIVE 0.06 - 0.59 AT RISK OF SD > OR = 0.60 SUGGEST SD Performed By: #### L500.4050, L501.3620, L501.4010 #### [facility] [address] [place], [place], [address] URGENT CARE VISIT Observed: 11/16/2017 Status: F Source: SHERRY REPORT 6:13 PM [facility] [address] [place] [address] [address] [place], [place] [address] OFFICE VISIT Date of Service: 11/16/17 MR#: [id number] Acct: [id number] Name: ELIN HAYES Rep #: [id number] : 1960 Provider: Navneet VIERA Age/Sex: 57/F Location[facility] Status: Signed Intake Vital Signs11/16/17 Height 5 ft 2 in Intake Visit Reasons: CHEST CONGESTION Is patient in pain?: No Allergies topiramate [From Topamax] Allergy (Verified 11/16/17 17:39) Hives Medications Alendronate Sodium [Fosamax] 70 mg PO Q7D@0700 07/13/16 [History Confirmed 11/16/17] Atorvastatin Calcium [Lipitor] 40 mg PO QHS [...] 07/13/16 [History Confirmed 11/16/17] PFSH Medical History Hemorrhoids (Acute) Shoulder pain (Acute) HTN (hypertension) (Chronic) Surgical History H/O rotator cuff surgery (Acute) History of knee surgery (Acute) Hx of section (Acute) Family History Other Cancer Heart disease Kidney disease Social History Smoking Status: Never smoker alcohol intake: never HPI CHEST CONGESTION: Details: ELIN HAYES, is a 57 F who presents to the office today for complaint of cold symptoms as well as right-sided chest and back pain. She describes the pain as a pressure type pain. Patient states that she did have a cough with her cold however it was not a particularly forceful or incessant cough. She does state that she noticed right-sided chest pain yesterday while at work which did radiate to the right side of her back. This chest pain returned again today when she walked from work to her car. She denies shortness of breath or difficulty breathing. She has no reproducible chest pain and cannot pinpoint the pain. She does have a family history of her mother having an SD at approximate age 60. No other associated symptoms or alleviating/aggravating factors. ROS Const Constitutional: No chills, fever(s), abnormal sleep pattern or fatigue Resp Respiratory: Positive for cough Cough: Yes non-productive; no shortness of breath or chest congestion Cardio Cardiology: Positive for chest pain with exertion; no chest pain at rest, shortness of breath, dyspnea on exertion, lightheadedness, irregular heart rhythm, orthopnea, radiating jaw, neck or arm pain or palpitations Musc Musculoskeletal: Positive for back pain Skin Skin: No wounds or lesions Neuro Neurology: No behavioral changes or confusion Psych Psychiatric: No behavioral changes, No confusion, No abnormal sleep pattern Endo Endocrine: No fatigue Exam Const General: cooperative, healthy appearing [facility] Head: normocephalic, atraumatic Ears: hearing grossly normal bilaterally Face and sinus: face symmetric Eyes General: appearance normal, both eyes and all related structures Pupils: PERRL Resp Effort AND Inspection: normal respiratory effort, not labored Auscultation: Bilateral: Clear to Auscultation Cardio Palpation: normal PMI Rate: regular rate Rhythm: regular rhythm Heart Sounds: S1 normal, S2 normal Musc Other: Pain to the pectoral area with abduction of the right arm. Skin General: no rashes or lesions noted Neuro General: alert, CN's II-XI intact bilaterally Psych Appearance: grossly normal Mental Status: mental status grossly normal Assessment AND Plan Problems 1. Chest pain on exertion R07.9 Status Acute 2. Chest pain radiating to arm R07.89 Status Acute Plan Patient advised to report to the ED for further workup and treatment. Patient advised to go by EMS however patient denied. She did state that she will go immediatly to [facility] ED. Tried to perform EKG on site however EKG was not functioning properly. This note was generated with [employer] dictation software. It may contain incorrect words, spelling, and punctuation that were not noted in checking the note before signing. Orders Orders: Coding Level of Care Code Off vis,new,level 4 Diagnoses Chest pain on exertion R07.9 Chest pain radiating to arm R07.89 11/16/17 1813 <Electronically signed by Navneet VIERA> Date Navneet VIERA Cosigner Signature: Date (if applicable) CC: ALLERGIES ALLERGIES DATE TYPE / CODE NAME / CODE REACTION SEVERITY SOURCE 07/22/2018 Drug topiramate/F Hives Unknown [facility] Allergy/4160 [id number]( Hospital 07902(SNOMED NORM) Repository CT) ENCOUNTERS ENCOUNTERS ADMIT/DISCHARGE ACCOUNT ADMITTING ENCOUNTER LOCATION SOURCE NUMBER CLASS 11/10/2018 [id number] Ambulatory [facility] [facility] Repository 11/01/2018 [id number] Ambulatory Sherry [place] 5 [facility] ing:MTLAB Repository 11/01/2018 654 Ambulatory Building:[facility] OH[facility] Practices Repository 07/22/2018 [id number] Ambulatory [place] 1 [facility] ing:PAVLAB Repository 07/22/2018/ [id number] Ambulatory BMSBuilding:B Crow[place] 8 9 [facility] Repository 07/12/2018/ [id number] Ambulatory Sherry [place] 8 7 [facility] ing:SDC Repository 07/12/2018/ [id number] Ambulatory BMSBuilding:W [place] [address] [facility] Repository 07/08/2018/ [id number] Ambulatory BMSBuilding:B Sherry 8 8 [facility] Hospital Repository 07/08/2018 [id number] Ambulatory BMSBuilding:W [address] 1 [facility] Repository 06/10/2018/ [id number] Ambulatory Sherry Sherry 8 4 [facility] ing:EN Repository 06/10/2018 [id number] Ambulatory BMSBuilding:B Sherry 3 [facility] Repository 06/03/2018 [id number] Ambulatory Sherry [place] 2 [facility] ing:LABSPEC Repository 06/02/2018/ [id number] Ambulatory BMSBuilding:B [place] 8 8 [facility] Repository 05/26/2018 [id number] Ambulatory [place]ry 7 [facility] ing:US Repository 02/24/2018/ [id number] Emergency Sehrry Crowder 8 7 [facility] ing:ED Repository 01/20/2018 [id number] Ambulatory [place] 5 [facility] ing:OPBI Repository 12/16/2017 [id number] Ambulatory Sherry Sherry 1 [facility] ing:[facility]S Repository 12/16/2017 [id number] Ambulatory BMSBuilding:W [place] 0 [facility] Repository 11/17/2017 [id number] Ambulatory Sherry [place] 6 [facility] ing:LAB Repository 11/16/2017/ [id number] Ambulatory BMSBuilding:B Sherry 8 6 [facility] Repository PAYERS PAYERS ENCOUNTER GUARANTOR PAYER SUBSCRIBER SOURCE 11/10/2018 HUGO Jaswant Primary ELIN L Sherry [id number] Insurance:[employer] HL[employer] SPEECEDOB: Community [place] [facility] [id number] [id number] Number: Repository [address]Iav: 330 [id number] [phone] () Date:4593-94-02WL [facility] [address]75[place], [place] [address]QS: 11/10/2018 Secondary NOT GIVENUNK Sherry Insurance:SELF PAY [facility] Number: Effective Repository Date:2018-11-02 11/01/2018 HGUO Jaswant Primary ELIN L Sherry [id number] [facility] SPEECEDOB: [facility] [place] [facility] [place] [facility] [id number] [id number], [place] Number: Repository [id number]: 330 [id number] [phone] () Date:8911-81-07CC [address], [place] [address]KN: 11/01/2018 Secondary NOT GIVENUNK Crowder Insurance:SELF PAY [facility] Number: Effective Repository Date:2018-11-01 11/01/2018 Elin L Primary Elin L OHIP Practices SpeeceDOB: Insurance:United SpeeceDOB: Repository [id number] [facility] [id number] [place] Number: [address] [place], [place] [id number] [place], [place] [address]Omp: [phone]) Date:1346-67-62Bafd 75[address]Bji: Name:[facility] 633[address]Ucvr [phone] ()Tel: ([phone]) [place], [place] [address]UC: (HP) (WP) [phone] (WP) 11/01/2018 Secondary [facility] Practices Insurance:UNICARE SpeeceDOB: Repository Policy Number: [id number] 9 [place] Date: 2634[place]68-47[place], [place] Name:[address] [address]Bow: [phone]) not use, old [phone] (HP) [place], [place] [address]MC: 11/01/2018 Tertiary [facility] Practices Insurance:Medical SpeeceDOB: Repository [facility] [id number] Number: [place] [id number] [place], [place] Date:2010-01-17 [address]Bss: [phone] [id number] [phone] () Name:[facility] [address], [place] [address]UU: 11/01/2018 [facility] Insurance:AETNAMiahlydia SpeeceDOB: Repository Number: [id number] 01Effective 9 [place] Date:2010-10-19 [place], [place] 2520-61-80Azfd [address]Mbo: ([phone]) Name:[facility] STEVE [id number] [phone] () [place], [place] [id number]: 07/22/2018 HUGO B Primary ELIN L Crowder [id number] Insurance:[facility] SPEECEDOB: Community [place] [facility] [place] [facility] [id number], [place] Number: Repository [id number]: [phone] [id number] [phone] () Date:9539-50-76AK [address], [place] [address]RF: 07/22/2018 Secondary NOT GIVENUNK Sherry Insurance:SELF PAY [facility] Number: Effective Repository Date:2018-07-22 07/22/2018 HUGO Michaud Primary ELIN L Sherry [id number] Insurance:UNITED HLTH SPEECEDOB: Community [facility] [id number] [id number] Number: Repository [address]Avw: 330 [id number] [phone] () Date:7333-25-98[address]JJOETNJ, [place] [address]JZ: 07/22/2018 Secondary NOT GIVENUNK Crowder Insurance:SELF PAY [facility] Number: Effective Repository Date:2018-07-22 07/12/2018 HUGO Michaud Primary ELIN L Crowder [id number] Insurance:UNITED HLTH SPEECEDOB: Community [facility] [id number] [place] Number: Repository [address]Mar: 330 [id number] [phone] () Date:9406-25-59GR [address] [address]WU: 07/12/2018 Secondary NOT GIVENUNK Crowder Insurance:SELF PAY [facility] Number: Effective Repository Date:2018-06-18 07/12/2018 HUGO Michaud Primary ELIN L Sherry [id number] Insurance:UNITED HLTH SPEECEDOB: Community [facility] [id number] [id number]/St[facility] [place] Number: Repository [address]Jvj: 330 [id number] [phone] () Date:7423-71-19JD [facility] 879867WRRBLTB, [place] [address]AQ: 07/12/2018 Secondary NOT GIVENUNK Sherry Insurance:SELF PAY [facility] Number: Effective Repository Date:2018-07-12 07/08/2018 HUGO Michaud Primary ELIN L Crowder [id number] Insurance:UNITED HLTH SPEECEDOB: Community [facility] [id number] [id number] Number: Repository [address]Grg: 330 [id number] [phone] () Date:8363-97-66UF[address] [address]ST: 07/08/2018 Secondary NOT GIVENUNK Sherry Insurance:SELF PAY [facility] Number: Effective Repository Date:2018-07-08 07/08/2018 HUGO Michaud Primary ELIN L Sherry [id number] Insurance:UNITED HLTH SPEECEDOB: Community [facility] [id number] Number: Repository [address]Xfk: 330 [id number] [phone] () Date:6789-57-68NW [address] [address]OK: 07/08/2018 Secondary NOT GIVENUNK Sherry Insurance:SELF PAY [facility]: Effective Repository Date:2018-07-08 06/10/2018 HUGO Michaud Primary ELIN L Sherry [id number] Insurance:UNITED HLTH SPEECEDOB: Community [facility] [id number] [id number] Number: Repository [address]Tqy: 330 [id number] [phone] () Date:3332-90-49UM[address] [address]VN: 06/10/2018 Secondary NOT GIVENUNK Crowder Insurance:SELF PAY [facility] Number: Effective Repository Date:2018-06-02 06/10/2018 HUGO Michaud Primary ELIN L Sherry [id number] Insurance:UNITED HLTH SPEECEDOB: Community [facility] [id number] Number: Repository [id number]: (208) [id number] [phone] (HP) Date:0655-70-34MP [facility] 529958JZPJLSC, [place] [address]ZE: 06/10/2018 Secondary NOT GIVENUNK Sherry Insurance:SELF PAY [facility] Number: Effective Repository Date:2018-06-10 06/03/2018 HUGO Michaud Primary ELIN L Sherry [id number] Insurance:UNITED HLTH SPEECEDOB: Community [facility] [id number]/[facility] [place] Number: Repository [address]Lhn: 330 [id number] [phone] (HP) Date:7844-30-91XF [facility] 313459PVPKUVN, [place] [address]DN: 06/03/2018 Secondary NOT GIVENUNK Crowder Insurance:SELF PAY [facility] Number: Effective Repository Date:2018-06-03 06/02/2018 HUGO Michaud Primary ELIN L Sherry [id number] Insurance:UNITED HLTH SPEECEDOB: Community [facility] [id number]/[facility] [place] Number: Repository [address]Fhw: 330 [id number] [phone] (HP) Date:6930-25-58QE [facility] 953193PCBLQVS, [place] [address]HI: 06/02/2018 Secondary NOT GIVENUNK Crowder Insurance:SELF PAY [facility] Number: Effective Repository Date:2018-06-02 05/26/2018 HUGO Michaud Primary ELIN L Sherry [id number] Insurance:UNITED HLTH SPEECEDOB: Community [facility] [address] [place] [address] [id number]/[facility] [place] Number: Repository [address]Hbn: 330 [id number] [phone] (HP) Date:1705-90-83TO [facility] 048401UQIVLSZ, [place] [address]JC: 05/26/2018 Secondary NOT GIVENUNK Sherry Insurance:SELF PAY [facility] Number: Effective Repository Date:2018-05-20 02/24/2018 HUGO Michaud Primary ELIN L Crowder [id number] Insurance:UNITED HLTH SPEECEDOB: Community [facility] [id number]/[facility] [place] Number: Repository [address]Mxs: 330 [id number] [phone] (HP) Date:7503-18-59YP [facility] 408695AVJQXHY, [place] [address]CB: 02/24/2018 Secondary NOT GIVENUNK Sherry Insurance:SELF PAY [facility] Number: Effective Repository Date:2018-02-24 01/20/2018 HUGO Michaud Primary ELIN L Crowder [id number] Insurance:UNITED HLTH SPEECEDOB: Community [facility] [id number]/St[facility] [place] Number: Repository [address]Bpa: 330 [id number] [phone] () Date:1986-31-97RS [facility] 205529SWCJFRL, [place] [address]RO: 01/20/2018 Secondary NOT GIVENUNK Sherry Insurance:SELF PAY [facility] Number: Effective Repository Date:2017-12-29 12/16/2017 HUGO Michaud Primary ELIN L Crowder [id number] Insurance:UNITED HLTH SPEECEDOB: Community [facility] [id number]/St[facility] [place] Number: Repository [address]Uhp: 330 [id number] [phone] () Date:3473-36-45UQ [facility] 096312XPDRGCS, [place] [address]IL: 12/16/2017 Secondary NOT GIVENUNK Crowder Insurance:SELF PAY [facility] Number: Effective Repository Date:2017-11-17 12/16/2017 HUGO Michaud Primary ELIN L Sherry [id number] Insurance:UNITED HLTH SPEECEDOB: Community [facility] [id number]/St[facility] [place] Number: Repository [address]Out: 330 [id number] [phone] (HP) Date:1758-86-45LW [facility] 258985BHDHQHF, [place] [address]HW: 12/16/2017 Secondary NOT GIVENUNK Sherry Insurance:SELF PAY [facility] Number: Effective Repository Date:2017-12-16 11/17/2017 HUGO Jaswant Primary ELIN L Crowder [id number] Insurance:UNITED HLTH SPEECEDOB: Community [facility] [id number]/[facility] [place] Number: Repository [address]Pna: 330 [id number] [phone] () Date:5708-16-49IW [facility] 364267ZHVWZKD, [place] [address]AA: 11/17/2017 Secondary NOT GIVENUNK Sherry Insurance:SELF PAY [facility] Number: Effective Repository Date:2017-11-17 11/16/2017 HUGO Jaswant Primary ELIN L Sherry [id number] Insurance:UNITED HLTH SPEECEDOB: Community [facility] [id number]/[facility] [place] Number: Repository [address]Upd: 330 [id number] [phone] (HP) Date:4476-15-69[address]ZGLJCXF, [place] [address]GZ: 11/16/2017 Secondary NOT GIVENUNK Sherry Insurance:SELF PAY [facility] Number: Effective Repository Date:2017-11-16
== END ==
PROVIDERS: Family Provider Internal Medicine; PCP Internal Medicine; Referring Provider Internal Medicine; Visit Provider Internal Medicine
DX: R10.11 Right upper quadrant pain (principal)
CPT/HCPCS: 76705

== ENCOUNTER → 2019-05-17 | Outpatient (CLI) | payer OTHER, SELFPAY ==
--- NOTE | 2019-05-17 15:28 | BI_ITS ---
MAMMOGRAPHY - BILATERAL SCREENING REASON FOR EXAM: Female, 59 years old. Routine annual screening examination. PERTINENT HISTORY: Non-contributory. TECHNIQUE: Digital bilateral breast chelsea (3D mammographic acquisition) in the CC and MLO projections. 2-D mediolateral oblique (MLO) and craniocaudad (CC) views of both breasts were obtained. CAD: Full Field Digital Mammography with Computer Added Detection was performed. COMPARISON: Comparison is made with prior study dated January 20, 2018 and January 08, 2017. FINDINGS: Breast Composition: The breasts are heterogeneously dense, which may obscure small masses. There are no dominant masses or suspicious calcifications. Stable appearance of the small bilateral fat containing axillary lymph nodes. No other significant abnormalities are identified. There has been no significant change since the prior study. BI/SCREEN MAMM (CAD) W/CHELSEA BILAT IMPRESSION: Stable bilateral screening mammogram. Yearly follow-up mammogram recommended. (A) ASSESSMENT CATEGORY: BIRADS Category 2: Benign. A letter regarding these results will be sent to the patient by the facility within 30 days. Approximately 10% of breast cancers are not detected by mammography. A normal mammogram should not delay biopsy of a clinically suspicious abnormality. [id number] Electronically Signed: Julius Barger, at 9:12 EDT , Service support ,
--- NOTE | 2019-05-17 15:31 | BD_ITS ---
STUDY: DUAL ENERGY X-RAY ABSORPTIOMETRY / DXA REASON FOR EXAM: Female, 59 years old. The patient is postmenopausal. No loss of height. TECHNIQUE: Bone Mineral Density (BMD) measurements of lumbar spine and bilateral hips were obtained. COMPARISON: Comparison is made with prior study dated January 08, 2017. FINDINGS: Lumbar Spine (L1-L4): g/cm2 (1.033) / T-score (-1.2) / Z-score (0.0) Findings are suggestive of osteopenia with a low fracture risk. Left Femur Total: g/cm2 (0.935) / T-score (-0.6) / Z-score (0.3) Left Femoral Neck: g/cm2 (0.932) / T-score (-0.8) / Z-score (0.5) Right Femur Total: g/cm2 (0.923) / T-score (-0.7) / Z-score (0.2) Right Femoral Neck: g/cm2 (0.904) / T-score (-1.0) / Z-score (0.3) The T-Scores on the most recent prior examination were: Lumbar Spine (L1-L4): There has been improvement of bone density since the previous examination. Left Femur Total: which represents a worsening of 2.9%. Right Femur Total: which represents an improvement of 0.4%. BD/Dexa Bone Density Study IMPRESSION: The patient is considered osteopenic as outlined below according to World Ross Organization (WHO) criteria with a low fracture risk. There has been improvement of bone density since the previous examination. Reference Information: The T-score is the number of standard deviations above or below the standard which is normal for young adults at their peak bone mineral density. The World Health Organization (WHO) interprets the T-scores as follows: Above -1 Normal bone density Between -1 and -2.5 Osteopenia Equal to / or below -2.5 Osteoporosis As a practical clinical guideline, osteopenia may be graded as follows: Mild -1 through -1.5 Moderate -1.6 through -2.0 Severe -2.1 through -2.4 The Z-score is the number of standard deviations above or below age-matched controls. A Z-score of less than -1.5 would be considered abnormal. References: 1. NIH Osteoporosis and Related Bone Diseases http://www.osteo.org 2. International Society for Clinical Densitometry http://www.iscd.org 3. National Osteoporosis Foundation http://www.nof.org Electronically Signed: Julius Barger, at 15:24 EDT , Service support ,
== END | disposition home or self-care (01) ==
LOC: OPBD 15:26
PROVIDERS: Family Provider Internal Medicine; PCP Internal Medicine; Referring Provider Internal Medicine; Visit Provider Internal Medicine
DX: Z12.31 Encounter for screening mammogram for malignant neoplasm of breast (principal); Z78.0 Asymptomatic menopausal state
CPT/HCPCS: 77063; 77067; 77080

== ENCOUNTER → 2019-11-05 17:59 | Outpatient (CLI) | payer OTHER, SELFPAY ==
[2019-11-05 11:28] VITALS: BMI 33.0
[2019-11-05 18:01] LABS: Bacteria 0 SEEN /hpf (None Seen); Mucous, Urine 0 SEEN /hpf (<or=2+); Red Blood Cells-Urine 0 SEEN /hpf (0-5)
[2019-11-05 18:22] LABS: Color, Urine Yellow (Yellow); Glucose, Dipstick Normal (Normal); Ketone-Dipstick Negative (Negative); Leukocyte Esterase-Dipstick 25 /ul (Negative); Nitrite-Dipstick Negative (Negative); Occult Blood-Urine 10 /ul (Negative); Protein-Dipstick 15 mg/dl (Negative); Urine Bilirubin Dipstick Negative (Negative); Urine Clarity Sl. Cloudy (Clear); Urine Urobilinogen Normal (Normal)
[2019-11-05 18:44] LABS: Squamous Epithelial Cells - UA 0-5 SEEN /hpf (5-10); White Blood Cells 0-5 SEEN /hpf (0-5)
[2019-11-05 18:45] LABS: Renal Epithelial Cells 0-5 SEEN /hpf (0-5)
== END ==
LOC: OLS.AHF 17:59 → LABSPEC 11-07 08:48
PROVIDERS: PCP Internal Medicine; Referring Provider Physician Assistant; Visit Provider Physician Assistant
DX: R30.0 Dysuria (principal)
CPT/HCPCS: 81001; 87086

== ENCOUNTER → 2020-03-24 09:33 | Outpatient (CLI) | payer OTHER, SELFPAY ==
[2019-11-05 11:28] VITALS: BMI 33.0
[2020-03-24 10:06] LABS: Absolute Lymphocyte Count 0.96 X10^3/uL (0.83-4.51); Absolute Neutrophil Count 3.5 X10^3/uL (2.0-7.7); Basophil# 0.02 X10^3/uL; Basophil% 0.4 % (0-1); Eosinophil# 0.22 X10^3/uL; Eosinophils% 4.4 % (0-5); Hematocrit 42.2 % (37-47); Hemoglobin 13.7 g/dL (12.0-15.0); Lymphocyte # 0.96 X10^3/ul (4.0); Mean Corp Hgb Conc 32.5 g/dL (32-36); Mean Corpuscular Hgb 29.7 pg (27.0-32.0); Mean Corpuscular Volume 91.3 fL (81-99); Mean Platelet Vol. 9.6 fl (6.2-12.0); Monocyte# 0.36 X10^3/uL; Monocyte% 7.1 % (0-10); NRBC Flagged by Analyzer 0 % (0-5); Neutrophil # 3.47 X10^3/uL (2.7-7.7); Neutrophil % 68.9 % (47-70); Platelet Count 339 K/mm3 (150-450); RBC Distribution Width CV 12.1 % (11.6-14.6); RBC Distribution Width SD 40.4 fl (35.1-43.9); Red Blood Count 4.62 M/mm3 (4.2-5.4)
[2020-03-24 10:14] LABS: Anion Gap 5 (5-15); BUN 12 mg/dL (7-18); BUN/Creat Ratio 18.8 RATIO (10-20); Calcium,Total 9.1 mg/dL (8.5-10.1); Chloride 103 mmol/L (98-107); Creatinine, Serum 0.64 mg/dL (0.55-1.02); EST Glomerular Filtration Rate 101 mL/min (>60); Est Glom Filt Rate - Afr Amer 122 mL/min (>60); Glucose 103 mg/dL (74-106); Potassium 4.3 mmol/L (3.5-5.1); Sodium Level 136 mmol/L (136-145)
== END ==
PROVIDERS: PCP Internal Medicine; Referring Provider Specialist; Visit Provider Specialist
DX: Z01.818 Encounter for other preprocedural examination (principal)
CPT/HCPCS: 36415; 80048; 85025

== ENCOUNTER → 2020-03-27 13:14 | Outpatient (CLI) | payer OTHER, SELFPAY ==
[2019-11-05 11:28] VITALS: BMI 33.0
== END ==
PROVIDERS: PCP Internal Medicine; Referring Provider Specialist; Visit Provider Specialist
DX: Z11.59 Encounter for screening for other viral diseases (principal)
CPT/HCPCS: 87635; G2023; U0003

== ENCOUNTER 2020-05-18 16:30 | Outpatient (RCR) | payer OTHER, SELFPAY ==
[2019-11-05 11:28] VITALS: BMI 33.0
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
--- NOTE | 2020-04-27 12:23 | HP.PTREVAL ---
Gita Sow, OPERATING THEATRE TECHNICIAN-C, It has been my pleasure to treat HANNAH HAYES over the last 8 visits for LEFT MEDIDAL MENISCUS TEAR. Please see the progress note below for an update on the physical therapy plan of care! Subjective: PATIENT REPORTS HER KNEE IS FEELING BETTER BUT THERE IS STILL MILD CONSTANT PAIN. PATIENT REPORTS HER SURGICAL FOLLOW UP WENT WELL AND SHE WOULD LIKE TO CONTINUE PT TO SEE IF SHE CAN IMPROVE MORE. USING HER BACK A LOT FOR HOUSEWORK SINCE CAN'T SQUAT. Objective/Function: PATIENT WAS SEEN TODAY FOR RE-ASSESSMENT OF PROGRESS TOWARD THE SET PT GOALS AND THE NEED FOR FURTHER PHYSICAL THERAPY VS READINESS FOR DISCHARGE. PATIENT IS MAKING GOOD PROGRESS TOWARD ALL PT GOALS. UPON EXAM TODAY: LLE KNEE ROM = FULL EXTENSION TO 135 DEG FLEXION IN LYING WITH A HEEL SLIDE. HER SWELLING IS MUCH BETTER WITH ONLY VERY MINIMAL LLE SWELLING LOCALIZED TO THE LEFT KNEE. HER LLE STRENGTH IS ALSO IMPROVING: LEFT HIP 4-/5, KNEE EXT 4-/5, KNEE FLEX 4-/5, ANKLE 5/5. DURING RE-EVAL PATIENT WAS GIVEN INSTRUCTION IN PROPER BODY MECHANICS FOR HOUSEWORK. Plan Plan: CONT PT BASED ON PROGRESS MADE AND ROOM FOR MORE IMPROVEMENT. PATIENT IS AGREEABLE. LLE ROM, STRETCHING AND STRENGTHENING TOLERATED WITH MODALITIES NEEDED. ALSO INCORPORATE CORE STRENGTH AND STABILITY. Goals Goal 1:: DECREASE LEFT KNEE PAIN AND EDEMA Goal Time Frame: 4-6 Weeks Goal Progress: Progressing Goal 2:: INCRASES FUNCTIONAL ROM OF L KNEE Goal Time Frame: 4-6 Weeks Goal Progress: Progressing Goal 3:: INCREASE FUNCTIONAL STRENGTH OF LLE Goal Time Frame: 4-6 Weeks Goal Progress: Progressing Goal 4:: PATIENT WILL BE INDEP WITH A HEP FOR CONTINUED IMPROVEMENT ONCE FORMAL PHYSICAL THERAPY CONCLUDES. Goal Time Frame: 4-6 Weeks Goal Progress: Progressing Anticipated Interventions Patient/Client Instruction: Educate patient on: Condition, Plan of Care, Risk Factors, Benefits of Fitness Program For the Purpose of:: To improve self management Therapeutic Exercise to Include: Strength training, Body mechanics, Postural training, Flexibilty training, Gait and locomotor training, Neuromotor development, Dynamic Lumbar Stabilization For the Purpose of:: To decrease pain, To increase ROM, To improve muscle performance and motor function, To increase tolerance to activity/condition/position, To improve ability of physical actions for home/community/work/leisure, To improve gait and locomotor functions Cryotherapy (ice pack, ice massage): Yes For the Purpose of:: To decrease pain, To decrease swelling/inflammation Please do not hesitate to contact me at [phone] by phone or if you have questions or concerns regarding this new plan of care! Sincerely, Julissa Guajardo, PT, Cert MDT
--- NOTE | 2020-05-18 16:53 | HP.PTDCSUM_ITS ---
It has been my pleasure to treat HANNAH HAYES referred by iGta Sow, KIMANI-C, with the diagnosis of LEFT MEDIDAL MENISCUS TEAR (S/P Menisectomy 03/30/20) for a total of 16 visit(s). Discharge Date: Please see the following information for a summary of their discharge status. Subjective: PATIENT REPORTS SHE IS DOING MUCH BETTER. PAIN COMES AND GOES NOW B UT THINKS SHE IS ALWAYS GOING TO HAVE SOME PAIN DUE TO ARTHRIITS. Medial L knee Pain Intensity (Out of 10): 0 % Improvement: 99 Objective/Function: PATIENT WAS SEEN TODAY FOR RE-ASSESSMENT OF PROGRESS TOWARD THE SET PT GOALS AND THE NEED FOR FURTHER PHYSICAL THERAPY VS READINESS FOR DISCHARGE. PATIENT IS MAKING GOOD PROGRESS TOWARD ALL PT GOALS. UPON EXAM TODAY: LLE KNEE ROM = FULL EXTENSION TO 141 DEG FLEXION IN LYING WITH A HEEL SLIDE. HER SWELLING IS MUCH BETTER WITH ONLY VERY MINIMAL LLE SWELLING LOCALIZED TO THE LEFT KNEE. HER LLE STRENGTH IS ALSO IMPROVING: LEFT HIP 4/5, KNEE EXT 4/5, KNEE FLEX 4/5, ANKLE 5/5. Goal 1:: DECREASE LEFT KNEE PAIN AND EDEMA Goal Progress: Progressing Goal 2:: INCRASES FUNCTIONAL ROM OF L KNEE Goal Progress: Progressing Goal 3:: INCREASE FUNCTIONAL STRENGTH OF LLE Goal Progress: Progressing Goal 4:: PATIENT WILL BE INDEP WITH A HEP FOR CONTINUED IMPROVEMENT ONCE FORMAL PHYSICAL THERAPY CONCLUDES. Goal Progress: Progressing Plan: D/C TO HEP. PATIENT AGREEABLE. If there are questions or concerns regarding this patient's physical therapy, please feel free to call me at [phone]. Thank you for the referral of this patient. Sincerely, Julissa Guajardo, PT, Cert MDT
== END 2020-05-18 19:00 | disposition home or self-care (01) ==
LOC: PT 16:30
PROVIDERS: PCP Internal Medicine; Referring Provider Registered Nurse; Visit Provider Registered Nurse
DX: S83.242D Other tear of medial meniscus, current injury, left knee, subsequent encounter (principal); M17.12 Unilateral primary osteoarthritis, left knee
CPT/HCPCS: 97110; 97161; 97164; 97530

== ENCOUNTER → 2020-06-20 07:49 | Outpatient (CLI) | payer OTHER, SELFPAY ==
[2019-11-05 11:28] VITALS: BMI 33.0
--- NOTE | 2020-06-20 07:52 | BI_ITS ---
MAMMOGRAPHY - BILATERAL SCREENING REASON FOR EXAM: Female, 60 years old. Routine annual screening examination. PERTINENT HISTORY: Non-contributory. TECHNIQUE: Digital bilateral breast chelsea (3D mammographic acquisition) in the CC and MLO projections. 2-D mediolateral oblique (MLO) and craniocaudad (CC) views of both breasts were obtained. CAD: Full Field Digital Mammography with Computer Added Detection was performed. COMPARISON: Comparison is made with prior examination dated 05/17/2019 and 01/20/2018. FINDINGS: Breast Composition: The breasts are heterogeneously dense, which may obscure small masses. There are no dominant masses or suspicious calcifications. I suspect a new 7.4 mm well-defined nodule in the retroareolar region of the right breast. Correlation with ultrasound is recommended. Axillary lymph nodes. No other significant abnormalities are identified. BI/SCREEN MAMM (CAD) W/CHELSEA BILAT IMPRESSION: I suspect a new 7.4 mm well-defined nodule in the retroareolar region of the right breast. Correlation with ultrasound is recommended. ASSESSMENT CATEGORY: BIRADS Category 0: Incomplete. Need additional imaging evaluation. A letter regarding these results will be sent to the patient by the facility within 30 days. Approximately 10% of breast cancers are not detected by mammography. A normal mammogram should not delay biopsy of a clinically suspicious abnormality. [id number] Electronically Signed: Julius Barger, at 9:03 EDT , Service support ,
== END ==
PROVIDERS: PCP Internal Medicine; Referring Provider Internal Medicine; Visit Provider Internal Medicine
DX: Z12.31 Encounter for screening mammogram for malignant neoplasm of breast (principal)
CPT/HCPCS: 77063; 77067

== ENCOUNTER → 2020-06-22 07:47 | Outpatient (CLI) | payer OTHER, SELFPAY ==
[2019-11-05 11:28] VITALS: BMI 33.0
--- NOTE | 2020-06-22 08:00 | US_ITS ---
STUDY: ULTRASOUND BREAST - RIGHT REASON FOR EXAM: Female, 60 years old. Abnormal screening mammogram. TECHNIQUE: Axial and longitudinal images of the RIGHT breast were performed with a high resolution ultrasound transducer. # OF IMAGES: 24 COMPARISON: Comparison is made with prior mammogram dated 06/20/2020. FINDINGS: RIGHT Breast: There is evidence of dilated retroareolar ducts. There is a dominant duct lateral to the areola. This most likely represents the mammographic finding. US/Breast Limited Unilateral IMPRESSION: Dilated retroareolar ducts. ASSESSMENT CATEGORY: BIRADS Category 2: Benign. A letter regarding these results will be sent to the patient by the facility within 30 days. Electronically Signed: Julius Barger, at 8:44 EDT , Service support ,
== END ==
PROVIDERS: PCP Internal Medicine; Referring Provider Internal Medicine; Visit Provider Internal Medicine
DX: N63.41 Unspecified lump in right breast, subareolar (principal)
CPT/HCPCS: 76642

== ENCOUNTER 2020-12-10 07:30 | Outpatient (RCR) | payer OTHER, SELFPAY ==
[2020-08-14 13:31] VITALS: BMI 29.3
--- NOTE | 2020-11-14 08:44 | HP.PTEVAL ---
Patient's Visit Information HANNAH HAYES is a 60 year old F referred to Physical Therapy by Dr. Jeanine Gramajo DO with a diagnosis of LBP with radiculopathy. Date of Evaluation: 11/14/20 Physical Therapist: Marilia Chance DPT - Visit Plan Frequency: 2x /Week Duration: 4 Weeks Plan: R LBP with radiculopathy into buttocks. extension decreases pain. increase core and hip strength, improve hamstring flexibilty, enourage movement. US and Estim - Subjective Pt reports having had hx of back issues before. Pt presents with R sided lowback into buttock pain. pain then makes her to lay down because it is not tolerable- misrerable. denies numbness or tingling. Pt reports nothing to note she did that caused the pain. pain: 2/10 discomfort- better in morning. worst: 7-8/10 at the end of the day after sitting. best: 1-2/10 discomfort. has coccygeal and lumbar pilow, has tried to two chairs. occupation: sit for job all day. working from home now- so less movement but will try to get up to stretch- works 9 hours. she does prone press ups- helps a little (does 2x/day). activity: likes to walk (winter has gotten a little in the way), some weight lifting for arms. PMHx: OA, menisuc tear in L knee (surgeon says she might need TKR). Meds: prenozone just this week, has not taken it today yet. - Objective Posture:FH, RS, can correct with verbal and tactile cues. Palpation: tender along R lumbar paraspinal and R glutes, PA glides of lumbar spine- increase pain. ROM: spine: flexion- increase in pain, extension: no increase in pain, SB L>R increase in pain, rotation no increase in pain bilateral- all WFL. ankle/knee/hip- WFL. sensation: intact with light touch to bilateral LE. strength: core: fair, hip: flex/ext 4/5, abd/add 4+/5, IR/ER 4/5, knee/ankle: WFL. flexbility: hamstring- moderate. special tests: dural signs R>L positive, COCO R positive,. reflexes: patelllar WNL. HR/TR: denies weakness and discomfort. SLS: R>L decreased time with LOB- 3 seconds - Goals Goal 1:: Patient will perform I HEP and progression Goal Time Frame: 4-6 Weeks Goal 2:: Patient will report decrease in pain for entire day 0/10 in order to perform functional mobility tasks. Goal Time Frame: 4-6 Weeks Goal 3:: Patient will demonstrate improved SLS time to improve balance and promote I ADLs. Goal Time Frame: 4-6 Weeks - Rehabilitation Potential Physical Therapy Diagnosis: Pt presents with decrease in strength, balance, flexibilty, and pain-free ROM. Rehabilitation Potential: Good - Anticipated Interventions Patient/Client Instruction: Educate patient on: Plan of Care For the Purpose of:: To improve muscle performance and motor function Therapeutic Exercise to Include: Strength training, Power training, Endurance training, Balance training, Coordination, Agility training, Body mechanics, Postural training, Flexibilty training, Gait and locomotor training, Dynamic Lumbar Stabilization, Elvis Exercises For the Purpose of:: To improve muscle performance and motor function Functional Training to Include: Functional work training For the Purpose of:: To increase tolerance to activity/condition/position Manual Therapy Techniques to Include: Massage, Soft tissue mobilization For the Purpose of:: To increase oxygenation perfusion IF ES: Yes Cryotherapy (ice pack, ice massage): Yes Thermo therapy (hot pack): Yes Ultrasound (thermal/non thermal): Yes Thank you for the opportunity to evaluate your patient. For Medicare and Medicare HMO plans, please review the plan of care and approve it. It will need to be FAXED BACK to us at [phone] for Medicare purposes. For Medicare only, by signing this I certify the plan of care. Please let me know if there are questions or concerns regarding this plan of care. Physician Signature: Date:
--- NOTE | 2020-12-10 08:46 | HP.PTDCSUM ---
It has been my pleasure to treat HANNAH HAYES referred by Dr. Jeanine Gramajo DO, with the diagnosis of LBP with radiculopathy for a total of 8 visit(s). Discharge Date: Please see the following information for a summary of their discharge status. Subjective: Pt reports that the back is better but no perfect. 1/10 pain, bending over stil increases it not as bad as at eval. she is moving more which she believes is helping. R LB Pain Intensity (Out of 10): 1 % Improvement: 50 Objective/Function: Posture:FH, RS, can correct with verbal and tactile cues. ROM: spine: flexion- increase in pain, extension: no increase in pain, SB L>R slight increase in pain, rotation no increase in pain bilateral- all WFL. ankle/knee/hip- WFL. strength: core: fair, hip: flex/ext 4+/5, abd/add 4+/5, knee/ankle: WFL. flexbility: hamstring- moderate. HR/TR: denies weakness and discomfort. able to distrbute weight equally. SLS: able to maintain for 5 seconds without LOB. Goal 1:: Patient will perform I HEP and progression Goal Progress: Goal Met Goal 2:: Patient will report decrease in pain for entire day 0/10 in order to perform functional mobility tasks. Goal Progress: Progressing Goal 3:: Patient will demonstrate improved SLS time to improve balance and promote I ADLs. Goal Progress: Goal Met Plan: Pt to be d/c and continue with I HEP, encouraged to contact with questions and concerns. If there are questions or concerns regarding this patient's physical therapy, please feel free to call me at [phone]. Thank you for the referral of this patient. Sincerely, Marilia Chance DPT
== END 2020-12-10 10:03 | disposition home or self-care (01) ==
LOC: PT 07:30
PROVIDERS: PCP Internal Medicine; Referring Provider Internal Medicine; Visit Provider Internal Medicine
DX: M54.16 Radiculopathy, lumbar region (principal)
CPT/HCPCS: 97035; 97110; 97162; 97164

== ENCOUNTER 2020-12-28 10:12 | Outpatient (RCR) | payer OTHER, SELFPAY ==
[2020-08-14 13:31] VITALS: BMI 29.3
[2020-12-28] MEDS: COVID-19 VACC, MRNA(PFIZER)/PF 30 MCG/0.3 ML SYRINGE IM (17:12)
[2021-01-22] MEDS: COVID-19 VACC, MRNA(PFIZER)/PF 30 MCG/0.3 ML SYRINGE IM (14:37)
== END 2020-12-28 23:59 ==
LOC: IMMUN 10:12
PROVIDERS: PCP Internal Medicine; Visit Provider Family Medicine
DX: Z23 Encounter for immunization (principal)
CPT/HCPCS: 0001A; 0002A; 91300

== ENCOUNTER → 2021-08-20 16:25 | Outpatient (CLI) | payer OTHER, SELFPAY ==
--- NOTE | 2021-08-20 16:28 | BI_ITS ---
MAMMOGRAPHY - BILATERAL SCREENING REASON FOR EXAM: Female, 61 years old. Routine annual screening examination. PERTINENT HISTORY: Non-contributory. TECHNIQUE: Digital bilateral breast chelsea (3D mammographic acquisition) in the CC and MLO projections. 2-D mediolateral oblique (MLO) and craniocaudad (CC) views of both breasts were obtained. CAD: Full Field Digital Mammography with Computer Added Detection was performed. COMPARISON: Comparison is made with prior study 06/20/2020 and 05/17/2019. FINDINGS: Breast Composition: The breasts are heterogeneously dense, which may obscure small masses. There are no dominant masses or suspicious calcifications. No other significant abnormalities are identified. There has been no significant change since the prior study. BI/SCRN MAMM (CAD)W/CHELSEA BILAT IMPRESSION: Stable bilateral screening mammogram. Yearly follow-up mammogram recommended. (A) ASSESSMENT CATEGORY: BIRADS Category 1: Negative. A letter regarding these results will be sent to the patient by the facility within 30 days. Approximately 10% of breast cancers are not detected by mammography. A normal mammogram should not delay biopsy of a clinically suspicious abnormality. [id number] Electronically Signed: Julius Barger MD at 9:28 EDT , Service support ,
== END ==
PROVIDERS: PCP Internal Medicine; Referring Provider Internal Medicine; Visit Provider Internal Medicine
DX: Z12.31 Encounter for screening mammogram for malignant neoplasm of breast (principal)
CPT/HCPCS: 77063; 77067

== ENCOUNTER 2022-01-23 15:46 | Outpatient (CLI) | payer OTHER, SELFPAY ==
--- NOTE | 2022-01-23 15:50 | BD_ITS ---
STUDY: DUAL ENERGY X-RAY ABSORPTIOMETRY / DXA REASON FOR EXAM: Female, 61 years old. [id number]. The patient is postmenopausal. TECHNIQUE: Bone Mineral Density (BMD) measurements of lumbar spine and bilateral hips were obtained. COMPARISON: Comparison is made with prior study dated 05/17/2019. FINDINGS: Lumbar Spine (L1-L4): g/cm2 (0.813) / T-score (-2.1) / Z-score (-0.5) Findings are suggestive of osteopenia with a moderate fracture risk. Left Femur Total: g/cm2 (0.804) / T-score (-1.1) / Z-score (0.0) Left Femoral Neck: g/cm2 (0.707) / T-score (-1.3) / Z-score (0.1) Right Femur Total: g/cm2 (0.794) / T-score (-1.2) / Z-score (-0.1) Right Femoral Neck: g/cm2 (0.751) / T-score (-0.9) / Z-score (0.5) The T-Scores on the most recent prior examination were: Lumbar Spine (L1-L4): There has been worsening of bone density since the previous examination. Left Femur Total: which represents a worsening of 7.7%. Right Femur Total: which represents a worsening of 7.6%. BD/Dexa Bone Density Study IMPRESSION: The patient is considered osteopenic as outlined below according to World Ross Organization (WHO) criteria with a moderate fracture risk. There has been worsening of bone density since the previous examination. Reference Information: The T-score is the number of standard deviations above or below the standard which is normal for young adults at their peak bone mineral density. The World Health Organization (WHO) interprets the T-scores as follows: Above -1 Normal bone density Between -1 and -2.5 Osteopenia Equal to / or below -2.5 Osteoporosis As a practical clinical guideline, osteopenia may be graded as follows: Mild -1 through -1.5 Moderate -1.6 through -2.0 Severe -2.1 through -2.4 The Z-score is the number of standard deviations above or below age-matched controls. A Z-score of less than -1.5 would be considered abnormal. References: 1. NIH Osteoporosis and Related Bone Diseases www osteo.org 2. International Society for Clinical Densitometry www iscd.org 3. National Osteoporosis Foundation www nof.org Electronically Signed: Julius Barger MD at 15:06 EDT ,
== END 2022-01-23 23:59 | disposition home or self-care (01) ==
LOC: OPBD 15:47
PROVIDERS: PCP Internal Medicine; Referring Provider Internal Medicine; Visit Provider Internal Medicine
DX: Z78.0 Asymptomatic menopausal state (principal)
CPT/HCPCS: 77080

== ENCOUNTER → 2022-11-07 | Outpatient (CLI) | payer OTHER, SELFPAY ==
--- NOTE | 2022-11-06 15:45 | BI_ITS ---
MAMMOGRAPHY - BILATERAL SCREENING REASON FOR EXAM: Female, 62 years old. Routine annual screening examination. PERTINENT HISTORY: Non-contributory. TECHNIQUE: Digital bilateral breast chelsea (3D mammographic acquisition) in the CC and MLO projections. 2-D mediolateral oblique (MLO) and craniocaudad (CC) views of both breasts were obtained. CAD: Full Field Digital Mammography with Computer Added Detection was performed. COMPARISON: Comparison is made with prior study dated 08/20/2021 and 06/20/2020. FINDINGS: Breast Composition: The breasts are heterogeneously dense, which may obscure small masses. There are no dominant masses or suspicious calcifications. Stable small benign-appearing bilateral axillary lymph nodes. No other significant abnormalities are identified. There has been no significant change since the prior study. BI/SCRN MAMM (CAD)W/CHELSEA BILAT IMPRESSION: Stable bilateral screening mammogram. Yearly follow-up mammogram recommended. (A) ASSESSMENT CATEGORY: BIRADS Category 2: Benign. A letter regarding these results will be sent to the patient by the facility within 30 days. Approximately 10% of breast cancers are not detected by mammography. A normal mammogram should not delay biopsy of a clinically suspicious abnormality. [id number] Electronically Signed: Julius Barger MD at 8:45 EST ,
== END | disposition home or self-care (01) ==
LOC: OPBI 07:15
PROVIDERS: PCP Internal Medicine; Visit Provider Internal Medicine
DX: Z12.31 Encounter for screening mammogram for malignant neoplasm of breast (principal)
CPT/HCPCS: 77063; 77067

== ENCOUNTER 2023-02-11 17:00 | Outpatient (RCR) | payer OTHER, SELFPAY ==
--- NOTE | 2023-01-08 15:15 | HP.PTEVAL_ITS ---
Patient's Visit Information HANNAH HAYES is a 62 year old F referred to Physical Therapy by Dr. Tripp Shepherd MD with a diagnosis of Left Knee OA. Date of Evaluation: 01/08/23 Physical Therapist: Marilia Chance DPT - Visit Plan Frequency: 2x /Week Duration: 4 Weeks Plan: Aquatics- focus on LE and core strength/stabilization - Subjective Left knee was good for a long time- she was having pain walking- 4-5x a week for 30 min-her OA is progressing- gap is narrowing- medial knee pain- he gave her an injection about a week ago and sent her to PT. She has had injections before and they helped but this time it hasn't helped this time. She feels that it helped a few days but nothing more than that. She has pain along the inside and it does swell sometimes- does radiate partially down into the anterior bhat- no pain into the hip. Describes the pain as sharp shooting but most the time dull and achy. Agg: stairs, walking, fast walking Worst: 8/10 Best: 0/10 Eases: sitting down. No N/T in the toes. Sleep: not disturbed. Normally pretty active-she does not do any strength training. 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 PMHx: Hydrochlorothiazide, Atorvostatin - Objective Posture: FH, RS- can correct with verbal cues but does not maintain. Gait: slightly antalgic- decreased stance on the left LE with dec heel toe pattern HR/TR: able with discomfort. SLS: 5 sec does report discomfort and increased instability. Palpation: tender to medial and lateral joint line Flex: HS: severe, Gastroc: severe. ROM: WFL in all planes with pain at end range flexion. Strength: Core: fair, Hip: 4/5, Knee: Flexion: 4+/5 Extn: 4+/5, Ankle: 5/5. - Balance/Special Test Scores Lower Extremity Functional Score: 53 - Goals Goal 1:: Patient will be I with HEP and progression Goal Time Frame: 4-6 Weeks Goal 2:: Patient will ambulate >300 feet with no pain Goal Time Frame: 4-6 Weeks Goal 3:: Patient will asc/desc 8 stairs recip with no pain Goal Time Frame: 4-6 Weeks Goal 4:: Patient will report 80% improvement Goal Time Frame: 4-6 Weeks - Rehabilitation Potential Physical Therapy Diagnosis: Patient presents with hypomobility- she has decreased painfree. ROM LE and core strength/stabilization, proprioception, flex and muscular endurance leading to increased pain with ADL's Rehabilitation Potential: Fair - Anticipated Interventions Patient/Client Instruction: Educate patient on: Benefits of Fitness Program Therapeutic Exercise to Include: Strength training, Endurance training, Balance training, Coordination, Agility training, Body mechanics, Postural training, Flexibilty training, Gait and locomotor training, Neuromotor development, In an aquatic setting, Dynamic Lumbar Stabilization, Scapular Strength/Stabilization For the Purpose of:: To improve muscle performance and motor function TENS: Yes Cryotherapy (ice pack, ice massage): Yes Thermo therapy (hot pack): Yes Ultrasound (thermal/non thermal): Yes Thank you for the opportunity to evaluate your patient. For Medicare and Medicare HMO plans, please review the plan of care and approve it. It will need to be FAXED BACK to us at [phone] for Medicare purposes. For Medicare only, by signing this I certify the plan of care. Please let me know if there are questions or concerns regarding this plan of care. Physician Signature: Date:
--- NOTE | 2023-02-11 17:22 | HP.PTDCSUM ---
It has been my pleasure to treat HANNAH HAYES referred by Dr. Tripp Shepherd MD, with the diagnosis of Left Knee OA for a total of 9 visit(s). Discharge Date: Please see the following information for a summary of their discharge status. Subjective: Patient reports that the left knee is doing pretty good- its the squatting or getting all the way down that gets her. No pain doing every day stuff no pain with walking any more. She feels that she can get back to walking for exercise. She feels that she can continue to do her own thing and take the exercises she learned. She has stairs at home and has her office in the basement and has no pain getting up/down. L knee Pain Intensity (Out of 10): 3 LBP Pain Intensity (Out of 10): 3 % Improvement: 90 Objective/Function: Posture: fair throughout Gait: no deviation noted HR/TR:able SLS:15 seconds with mild instability. Palpation: tender to medial joint line Flex: HS: mod Gastroc: mod. ROM: WFL in all planes . Strength: Core: fair, Hip: 4+/5, Knee: Flexion: 5/5 Extn: 5/5, Ankle: 5/5. Goal 1:: Patient will be I with HEP and progression Goal Progress: Goal Met Goal 2:: Patient will ambulate >300 feet with no pain Goal Progress: Goal Met Goal 3:: Patient will asc/desc 8 stairs recip with no pain Goal Progress: Goal Met Goal 4:: Patient will report 80% improvement Goal Progress: Goal Met Plan: 02/11/23: Discharge I to HEP. *To meet with PT next visit. Aquatics- focus on LE and core strength/stabilization If there are questions or concerns regarding this patient's physical therapy, please feel free to call me at [phone]. Thank you for the referral of this patient. Sincerely, Marilia Chance, KEITHT Balance/Gait/Functional tests - Balance/Special Test Scores Lower Extremity Functional Score: 73
== END 2023-02-11 19:00 | disposition home or self-care (01) ==
LOC: PT 17:00
PROVIDERS: PCP Internal Medicine; Referring Provider Orthopaedic Surgery; Visit Provider Orthopaedic Surgery
DX: M25.562 Pain in left knee (principal); M17.12 Unilateral primary osteoarthritis, left knee
CPT/HCPCS: 97113; 97162; 97164

== ENCOUNTER → 2023-04-29 | Outpatient (CLI) | payer OTHER, SELFPAY | END | disposition home or self-care (01) | LOC: LABSPEC 15:09 | PROVIDERS: PCP Internal Medicine; Referring Provider Otolaryngology Otolaryngology/Facial Plastic Surgery; Visit Provider Otolaryngology Otolaryngology/Facial Plastic Surgery | DX: J01.90 Acute sinusitis, unspecified (principal) | CPT/HCPCS: 87070; 87205 ==

== ENCOUNTER → 2023-05-19 | Outpatient (CLI) | payer OTHER, SELFPAY ==
--- NOTE | 2023-05-19 14:04 | CT_ITS ---
STUDY: CT MAXILLOFACIAL SINUSES REASON FOR EXAM: Female, 63 years old. CHRONIC MAXILLARY SINUSITIS RADIATION DOSAGE (If Supplied By Facility): CTDIvol = ( 33.06 ) mGy, DLP = ( 776.00 ) mGycm TECHNIQUE: The patient was scanned in a multi detector CT scanner. High resolution axial imaging was performed without the administration of intravenous contrast material. Sagittal and coronal images were reconstructed. Individualized dose optimization techniques were used for this CT. COMPARISON: None. FINDINGS: FRONTAL SINUSES: Normal aeration, without mucosal inflammatory disease. ETHMOIDAL SINUSES: Normal aeration, without mucosal inflammatory disease. MAXILLARY SINUSES: A small 1 cm mucous retention cyst is present in the anterior inferior aspect of the left maxillary sinus. A second mucus retention cyst is present in the anterior lateral aspect of the left maxillary sinus measuring 3.9 mm in diameter. The right maxillary sinus is clear. SPHENOIDAL SINUSES: Normal aeration, without mucosal inflammatory disease. There is patency of the bilateral maxillary infundibuli with normal uncinate processes, ethmoid bullae, and hiatus semilunaris. Normal bilateral middle turbinates. There is mild hypertrophy of the bilateral inferior nasal turbinates. Normal midline nasal septum. There is patency of the bilateral nasal airways. The visualized osseous structures are normal. The visualized bilateral orbital contents are normal. A small focus of adherent mucous material is present in the posterior wall of the most inferior right mastoid dominant air cell. The remaining right mastoid air cells are normal. Normal left mastoid air cells. Normal bilateral inner ear ossicles and external auditory canals. No visualized abnormality of the soft tissues of the neck. The bilateral orbital contents are grossly within normal limits. CT/Sinus/Facial Bone IMPRESSION: 1. A small 1 cm mucous retention cyst is present in the anterior inferior aspect of the left maxillary sinus. A second mucus retention cyst is present in the anterior lateral aspect of the left maxillary sinus measuring 3.9 mm in diameter. The right maxillary sinus is clear. 2. Mild hypertrophy of the bilateral inferior nasal turbinates Electronically Signed: Silvino Villalta MD at 16:02 EDT ,
== END | disposition home or self-care (01) ==
PROVIDERS: PCP Internal Medicine; Referring Provider Otolaryngology Otolaryngology/Facial Plastic Surgery; Visit Provider Otolaryngology Otolaryngology/Facial Plastic Surgery
DX: J32.9 Chronic sinusitis, unspecified (principal)
CPT/HCPCS: 70486

== ENCOUNTER 2024-01-29 13:18 | Emergency (ER) | payer OTHER, SELFPAY ==
[2024-01-29 13:19] VITALS: BP 179/102; PULSE 107; RESP 14; TEMP 35.5; O2SAT 99; BMI 33.3
--- NOTE | 2024-01-29 13:34 | EX.ED.DYSGE1 ---
HPI History of Present Illness Chief Complaint: Nosebleed Informant: patient Onset/Context/Timing Onset: Days Timing: Intermittent Narrative Narrative: Patient presents secondary to recurrent left-sided nosebleeds. She states that she is been having intermittent nosebleeds all week always from the left nostril. She denies URI symptoms. Her daughter checked her blood pressure for her early in the week and noted it to be elevated. Patient does take 2 different blood pressure medications. She does not check her blood pressure regularly. Patient does report some increased stress with upcoming job change. Patient has had to have a vessel cauterized for nosebleeds in the past and follows with Dr. Norberto Sr. [facility] Medical History Acute maxillary sinusitis, unspecified Cholelithiasis Chronic back pain Chronic cholecystitis Fibrocystic breast changes of both breasts Gallstones Hemorrhoids HTN (hypertension) Osteoarthritis Shoulder pain Home Medications atorvastatin 40 mg tablet 40 mg PO QHS 07/13/16 [History Last Taken Unknown] cholecalciferol (vitamin D3) 25 mcg (1,000 unit) tablet 1,000 unit PO DAILY 07/13/16 [History Last Taken Unknown] eletriptan 40 mg tablet 40 mg PO .X1 PRN 07/13/16 [History Last Taken Unknown] multivitamin 1 ea PO DAILY 07/13/16 [History Last Taken Unknown] paroxetine HCl 10 mg tablet 10 mg PO DAILY 07/13/16 [History Last Taken Unknown] vitamin E 268 mg (400 unit) capsule 400 unit PO DAILY 07/13/16 [History Last Taken Unknown] hydrochlorothiazide 25 mg tablet 25 mg PO DAILY 07/07/18 [History Last Taken Unknown] alendronate 70 mg tablet ea PO 03/17/23 [History Last Taken Unknown] aspirin 81 mg tablet,delayed release (Adult Aspirin Regimen) 81 mg PO DAILY 03/17/23 [History Last Taken Unknown] methylprednisolone 4 mg tablets in a dose pack (Medrol (Arvin)) See Rx Instructions PO PER PKG DIR #21 tabs 03/17/23 [Rx Last Taken Unknown] Allergy/AdvReac Type Severity Reaction Status Date / Time topiramate [From Topamax] Allergy Hives Verified 01/29/24 13:21 Family History Father Kidney disease Mother CVA (cerebral vascular accident) Cancer multiple myeloma Brother Cancer angiosarcoma Other Heart disease Surgical History H/O rotator cuff surgery History of hammer toe correction History of knee surgery History of nasal septoplasty History of tonsillectomy Hx of section S/P laparoscopic cholecystectomy (~07/12/18) Social History Smoking Status: Never smoker alcohol intake: never ROS ROS ED Constitutional Constitutional ED: Denies chills or fever(s) Eyes Eyes: Denies change in vision ENT ENT ED: Reports other Details: Epistaxis left nare ; Denies rhinorrhea or sore throat Cardiovascular Cardiovascular: Denies chest pain or palpitations Respiratory/Chest Respiratory/Chest: Denies cough or dyspnea Gastrointestinal Gastrointestinal: Denies abdominal pain, nausea or vomiting Musculoskeletal Musculoskeletal: Denies back pain or extremity pain Integumentary Denies Abrasions or rash Neurologic Neurologic: Denies headache(s) or weakness Psychiatric Psychiatric: Denies anxiety or depression Allergic/Immunologic Allergic/Immunologic ED: Denies lip swelling or urticaria EXAM Physical Exam Const Vital Signs: 01/29/24 13:19 01/29/24 13:19 Temperature 95.9 F L 95.9 F L Temperature Source Temporal Temporal Pulse Rate 107 H 107 H Respiratory Rate 14 14 Blood Pressure 179/102 H 179/102 H Blood Pressure Mean 127 127 Pulse Ox 99 99 Oxygen Delivery Method Room Air Room Air Positive well nourished and well developed General Appearance ED: well developed HEENT Reports moist mucous membranes HEENT Narrative: Turbinates in the left nare are inflamed. No active bleeding at this time. Eyes EOMs intact bilaterally Chest Wall inspection of chest normal and palpation of chest normal Resp normal respiratory effort and clear to auscultation bilaterally Cardio regular rate and regular rhythm GI non-tender Palpation: soft Extremity normal to inspection Neuro oriented x3 and no sensory deficits noted Motor Exam: strength 5/5 throughout Psych mental status grossly normal Skin no rashes or lesions noted MDM MDM MDM Narrative Medical decision making narrative: Cottonball soaked in Cetacaine and Afrin is placed in the left nare. This was left in place approximately 15 minutes. It was removed and she is not having further bleeding. Merisel packing is placed in the left nare. She tolerated packing well. She will monitor her blood pressure through the weekend and follow-up with Dr. Sr who she has seen previously. Discharge Plan Triage Chief Complaint: Nosebleed ED Provider: Jerica Gonzalez Dx/Rx/DC Orders Clinical Impression: Epistaxis Instructions: ED Epistaxis (Adult) Prescriptions: No Action alendronate 70 mg tablet PO Patient Comments: TAKE 1 TABLET BY MOUTH WEEKLY aspirin [Adult Aspirin Regimen] 81 mg tablet,delayed release (DR/EC) 81 mg PO DAILY methylprednisolone [Medrol (Arvin)] 4 mg tablets,dose pack See Rx Instructions PO PER PKG DIR Qty: 21 0RF Rx Instructions: PO PER PKG DIR multivitamin 1 EACH tablet 1 ea PO DAILY atorvastatin 40 MG tablet 40 mg PO QHS paroxetine HCl 10 MG tablet 10 mg PO DAILY vitamin E 400 UNIT capsule 400 unit PO DAILY eletriptan 40 MG tablet 40 mg PO .X1 PRN cholecalciferol (vitamin D3) 1,000 UNIT tablet 1,000 unit PO DAILY hydrochlorothiazide 25 MG tablet 25 mg PO DAILY Primary Care Provider: Jeanine Gramajo Referrals: Norberto Enriquez MD [Med Staff - Courtesy Staff] - As soon as possible Jeanine Gramajo DO [Primary Care Provider] - Disposition Disposition: Home, Self Care
[2024-01-29] MEDS: Tetracaine/Benzocaine/Butamben 1 APPLIC TOPICAL (13:41)
[2024-01-29] MEDS: Oxymetazoline 0.05% 1 SPRAY SPRAY.BTL 2 SPRAY NASAL (13:42)
[2024-01-29 14:34] VITALS: BP 151/75; PULSE 87; RESP 17; TEMP 36.6; O2SAT 100
== END 2024-01-29 14:34 | disposition home or self-care (01) ==
PROVIDERS: Emergency Provider Emergency Medicine; PCP Internal Medicine; Visit Provider Emergency Medicine
DX: R04.0 Epistaxis (principal); I10 Essential (primary) hypertension; Z79.899 Other long term (current) drug therapy
CPT/HCPCS: 30901; 99282

== ENCOUNTER → 2024-02-05 | Outpatient (CLI) | payer OTHER, SELFPAY ==
--- NOTE | 2024-02-05 11:36 | BI_ITS ---
MAMMOGRAPHY - BILATERAL SCREENING REASON FOR EXAM: Female, 63 years old. Routine annual screening examination. PERTINENT HISTORY: Non-contributory. TECHNIQUE: Digital bilateral breast chelsea (3D mammographic acquisition) in the CC and MLO projections. 2-D mediolateral oblique (MLO) and craniocaudad (CC) views of both breasts were obtained. CAD: Full Field Digital Mammography with Computer Added Detection was performed. COMPARISON: Comparison is made with prior study dated November 06, 2022 and August 20, 2021. FINDINGS: Breast Composition: The breasts are heterogeneously dense, which may obscure small masses. There are no dominant masses or suspicious calcifications. Stable small benign-appearing bilateral axillary lymph nodes. No other significant abnormalities are identified. There has been no significant change since the prior study. BI/SCRN MAMM (CAD)W/CHELSEA BILAT IMPRESSION: Stable bilateral screening mammogram. Yearly follow-up mammogram recommended. (A) ASSESSMENT CATEGORY: BIRADS Category 2: Benign. A letter regarding these results will be sent to the patient by the facility within 30 days. Approximately 10% of breast cancers are not detected by mammography. A normal mammogram should not delay biopsy of a clinically suspicious abnormality. [id number] Electronically Signed: Julius Barger MD at 12:33 EDT ,
--- NOTE | 2024-02-05 11:36 | BD_ITS ---
STUDY: DUAL ENERGY X-RAY ABSORPTIOMETRY / DXA REASON FOR EXAM: Female, 63 years old. 733.90OsteopeniaBONE DENSITY REASON FOR EXAM TECHNIQUE: Bone Mineral Density (BMD) measurements of lumbar spine and bilateral hips were obtained. COMPARISON: Comparison is made with prior study January 23, 2022. FINDINGS: Lumbar Spine (L1-L4): g/cm2 (0.800) / T-score (-2.2) / Z-score (-0.5) Findings are suggestive of osteopenia with a high fracture risk. Left Femur Total: g/cm2 (0.753) / T-score (-1.5) / Z-score (-0.3) Left Femoral Neck: g/cm2 (0.701) / T-score (-1.3) / Z-score (0.2) Right Femur Total: g/cm2 (0.754) / T-score (-1.5) / Z-score (-0.3) Right Femoral Neck: g/cm2 (0.719) / T-score (-1.2) / Z-score (0.3) The T-Scores on the most recent prior examination were: Lumbar Spine (L1-L4): There has been worsening of bone density since the previous examination. Left Femur Total: which represents a worsening of 6.4%. Right Femur Total: which represents a worsening of 5%. BD/Dexa Bone Density Study IMPRESSION: The patient is considered osteopenic as outlined below according to World Ross Organization (WHO) criteria with a high fracture risk. There has been worsening of bone density since the previous examination. Reference Information: The T-score is the number of standard deviations above or below the standard which is normal for young adults at their peak bone mineral density. The World Health Organization (WHO) interprets the T-scores as follows: Above -1 Normal bone density Between -1 and -2.5 Osteopenia Equal to / or below -2.5 Osteoporosis As a practical clinical guideline, osteopenia may be graded as follows: Mild -1 through -1.5 Moderate -1.6 through -2.0 Severe -2.1 through -2.4 The Z-score is the number of standard deviations above or below age-matched controls. A Z-score of less than -1.5 would be considered abnormal. References: 1. NIH Osteoporosis and Related Bone Diseases www osteo.org 2. International Society for Clinical Densitometry www iscd.org 3. National Osteoporosis Foundation www nof.org Electronically Signed: Julius Barger MD at 10:46 EDT ,
== END | disposition home or self-care (01) ==
PROVIDERS: PCP Internal Medicine; Referring Provider Internal Medicine; Visit Provider Internal Medicine
DX: Z12.31 Encounter for screening mammogram for malignant neoplasm of breast (principal); M85.80 Other specified disorders of bone density and structure, unspecified site
CPT/HCPCS: 77063; 77067; 77080

== ENCOUNTER → 2024-08-18 | Outpatient (CLI) | payer MEDICARE, OTHER, SELFPAY ==
--- NOTE | 2024-08-18 10:20 | EKG12_ITS ---
Test Reason : PREOP Blood Pressure : */* mmHG Vent. Rate : 74 BPM Atrial Rate : 74 BPM P-R Int : 144 ms QRS Dur : 94 ms QT Int : 384 ms P-R-T Axes : 34 34 51 degrees QTcB Int : 426 ms Normal sinus rhythm Abnormal ECG Confirmed by MARI MCHUGH, MARLON ([id number]), editor greeting card LAZ LENTZ ([id number]) on 08/18/2024 1:17:28 PM Referred By: Tripp Shepherd Confirmed By: MARLON GUERRA MD
[2024-08-18 10:53] LABS: Absolute Lymphocyte Count 0.83 X10^3/uL (0.83-4.51); Absolute Neutrophil Count 3.6 X10^3/uL (2.0-7.7); Basophil# 0.05 X10^3/uL; Eosinophil# 0.26 X10^3/uL; Hematocrit 42.9 % (37-47); Hemoglobin 14.6 g/dL (12.0-15.0); Lymphocyte # 0.83 X10^3/ul (0.83-4.51); Lymphocyte % 15.8 % (19-41); Mean Corpuscular Hgb 30.5 pg (27.0-32.0); Mean Corpuscular Volume 89.7 fL (81-99); Mean Platelet Vol. 9.4 fl (6.2-12.0); Monocyte# 0.53 X10^3/uL; Monocyte% 10.1 % (0-10); NRBC Flagged by Analyzer 0 % (0-5); Neutrophil # 3.56 X10^3/uL (2.7-7.7); Neutrophil % 67.9 % (47-70); POSITIVE COUNT YES; Platelet Count 306 K/mm3 (150-450); RBC Distribution Width CV 12.1 % (11.6-14.6); RBC Distribution Width SD 39.8 fl (35.1-43.9); Red Blood Count 4.78 M/mm3 (4.2-5.4); White Blood Count 5.2 K/mm3 (4.4-11.0)
[2024-08-18 11:24] LABS: Differential Comment SCANNED; Differential Indicated SCAN CRITERIA MET; Platelet Estimate ADEQUATE (ADEQ)
[2024-08-18 11:25] LABS: Red Cell Morphology NORM C+C NORMAL (NORM C&C)
[2024-08-18 16:44] LABS: Anion Gap 8 (5-15); BUN 16 mg/dL (7-18); BUN/Creat Ratio 24.9 RATIO (10-20); Calcium,Total 9.5 mg/dL (8.5-10.1); Chloride 96 mmol/L (98-107); Creatinine, Serum 0.64 mg/dL (0.55-1.02); EST Glomerular Filtration Rate 98 mL/min (>60); Est Glom Filt Rate - Afr Amer 119 mL/min (>60); Glucose 101 mg/dL (74-106); Potassium 3.2 mmol/L (3.5-5.1); Sodium Level 134 mmol/L (136-145)
== END | disposition home or self-care (01) ==
PROVIDERS: PCP Internal Medicine; Referring Provider Orthopaedic Surgery; Visit Provider Orthopaedic Surgery
DX: Z01.818 Encounter for other preprocedural examination (principal); Z01.810 Encounter for preprocedural cardiovascular examination; I10 Essential (primary) hypertension
CPT/HCPCS: 36415; 80048; 85025; 93005

== ENCOUNTER 2024-10-24 11:00 | Outpatient (RCR) | payer MEDICARE, OTHER, SELFPAY ==
--- NOTE | 2024-09-09 16:01 | HP.PTEVAL ---
Patient's Visit Information Visit Information Visit Information: HANNAH HAYES is a 64 year old F referred to Physical Therapy by John Paul Reese PA-C with a diagnosis of R KNEE COMPLEX MEDIAL MENISCUS TEAR AND OA. Date of Evaluation: 09/09/24 Physical Therapist: Julissa Guajardo PT, Cert MDT Visit Plan Frequency: 2-3x /Week Duration: 6-8 WKS Plan: 1. Restore knee flexion and extension range of motion 2. Improve strength of quads, hamstrings and hips in both open and closed chain. 3. Progress gait/functional mobility with stairs and transfers. Subjective Subjective: Work/Leisure: RETIRED Present symptoms: R MEDIAL KNEE PAIN. R KNEE GETS STUCK AT TIMES. IT GETS STUCK WHEN I STAND UP AND TAKE MY FIRST STEP BUT IT GETS UNSTUCK. 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 GETTING L KNEE INJECTIONS EVERY 3-4 MONTHS. 2 PRIOR L KNEE SX'S AND STATES SHE NEEDS A TKR ON THE L. Treatment this episode: L KNEE MENISECTOMY FOR BUCKET HANDLE TEAR. WBAT ON CRUTCHES FOR A COUPLE OF WEEKS. HAVE BEEN OFF CRUTCHES FOR AWHILE NOW. KEPT USING ONE CRUTCH IN THE EVENINGS NEEDED FOR AWHILE. HAS NOT BEEN GIVEN ANY EX'S FOR IT BUT HAS TRIED TO MOVE IT. Gait: LIMPING BECAUSE IT HURTS. NO AD'S NOW. STAIRS ARE REALLY PAINFUL. DOING ONE STEP AT A TIME WITH HR. Bowel or Bladder Dysfunction: NO Unexplained weight loss: NO Imaging: PATIENT REPORTS POST SURGICAL IMAGING LOOKED GOOD. 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 PMH/Recent major surgery: Acute maxillary sinusitis, unspecified Fibrocystic breast changes of both breasts Cholelithiasis Chronic cholecystitis Osteoarthritis Chronic back pain Gallstones Shoulder pain Hemorrhoids HTN (hypertension) S/P laparoscopic cholecystectomy ~07/12/18 History of hammer toe correction History of nasal septoplasty History of tonsillectomy H/O rotator cuff surgery History of knee surgery Objective Objective: GAIT: THIS PATIENT AMBULATES INDEP'LY INTO PT TODAY LIMPING ON R LE WITHOUT ANY AD'S OR LOB. TU.95 SEC 30 STS - 6 WITHOUT UE ASSIST. Girth R Patella 40.0 cm Girth 6 inch suprapatella 52.5 cm R knee AROM: 15-0-120 degrees R LE strength hip flexion 3+/5, abduction 3+/5, adduction 4-/5, extension 3+/5, knee flexion 3+/5, knee extension 3-/5, ankle DF 4+/5, ankle PF 4+/5 Palpation: R INCISION LOOK GOOD WITHOUT ANY SIGNS OF INFECTION. TREATMENT: HEP CHECK - PATIENT REPORTS SHE WAS NOT GIVEN ANY WRITTEN HOME EX INSTRUCTIONS BUT SHE HAS BEEN WORKING ON BENDING AND STRAIGHTENING IT SOMEWHAT. INST IN QUAD SETS 5 SEC EA, HEEL SLIDES AND 4 WAY SLR'S 2X10, 2 TIMES A DAY FOR HEP. PATIENT DEMO'S GOOD EX RETURN TODAY. PATIENT ALSO INST IN PROPER GAIT PATTERN TO DECREASE GAIT DEVIATIONS. SHE RESPONDED WELL TO CUEING TODAY. Balance/Special Test Scores Lower Extremity Functional Score: 34 Goals Goal 1:: DECREASE C/O R KNEE PAIN BY AT LEAST 75% TO EASE ADL'S Goal Time Frame: 6-8 Weeks Goal 2:: IMPROVE FUNCTION ROM OF R KNEE TO IMPROVE ADL AND RECREATIONAL FUNCTION Goal Time Frame: 6-8 Weeks Goal 3:: INCREASE FUNCTIONAL STRENGTH OF R LE TO IMPROVE ADL AND RECREATIONAL FUNCTION Goal Time Frame: 6-8 Weeks Goal 4:: INDEP HOME AND GYM EX PROGRAMS Goal Time Frame: 6-8 Weeks Rehabilitation Potential Physical Therapy Diagnosis: Decreased R LE strength, stiffness, difficulty walking, and pain Rehabilitation Potential: Good Anticipated Interventions Patient/Client Instruction: Educate patient on: Condition, Plan of Care and Risk Factors For the Purpose of:: To improve self management Therapeutic Exercise to Include: Strength training, Flexibilty training, Gait and locomotor training, In an aquatic setting and Active ROM For the Purpose of:: To decrease pain, To increase ROM, To improve muscle performance and motor function, To improve ability to perform ADL's, To increase tolerance to activity/condition/position, To improve ability of physical actions for home/community/work/leisure and To improve gait and locomotor functions Cryotherapy (ice pack, ice massage): Yes Thermo therapy (hot pack): Yes For the Purpose of:: To decrease pain, To decrease swelling/inflammation and To improve nutrient delivery to tissue Text: Thank you for the opportunity to evaluate your patient. For Medicare and Medicare HMO plans, please review the plan of care and approve it. It will need to be FAXED BACK to us at [phone] for Medicare purposes. For Medicare only, by signing this I certify the plan of care. Please let me know if there are questions or concerns regarding this plan of care. Physician Signature: Date:
--- NOTE | 2024-10-24 12:20 | HP.PTDCSUM_ITS ---
Discharge Summary D/C summary: It has been my pleasure to treat HANNAH HAYES referred by ELIZABETH Onofre, with the diagnosis of R KNEE COMPLEX MEDIAL MENISCUS TEAR AND OA for a total of 13 visit(s). Discharge Date: 10/24/24 Please see the following information for a summary of their discharge status. Subjective Subjective: PATIENT REPORTS SHE STILL GETS A LITTLE PAIN ON THE INSIDE OF HER R KNEE. R KNEE PAIN RANGES 0-4/10. PATIENT REPORTS SHE FEELS SHE CAN CONTINUE EX ON HER OWN AT THIS POINT. SHE PLANS TO CONTINUE FOLLOW UP WITH ORTHO FOR L KNEE INJECTIONS AND R KNEE FOLLOW UP TOO NEEDED. LEAVING FOR [place] FOR AWHILE SOON. 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 Pain Right knee: Pain Intensity (Out of 10): 0 Overall Improvement % Improvement: 95 Objective Objective/Function: PATIENT WAS SEEN TODAY FOR RE-ASSESSMENT OF PROGRESS TOWARD THE SET PT GOALS AND THE NEED FOR FURTHER PHYSICAL THERAPY VS READINESS FOR DISCHARGE. ALL PT GOALS HAVE BEEN MET AND SHE IS APPROPRIATE FOR AND AGREEABLE TO DISCHARGE TO INDEP EX. UPON EXAM TODAY: GAIT: THIS PATIENT AMBULATES INDEP'LY INTO PT TODAY WITHOUT ANY ASSISTIVE DEVICES OR GROSS DEVIATIONS NOTED. SHE IS ABLE TO ASCEND AND DESCEND STEPS RECIPROCALLY WITH UE ASSIST WITHOUT LIMITATION, C/O PAIN OR GROSS DEVIATION. TU.39 SEC WITHOUT AD BUT MILD LIMP R LE. 30 STS - 12 REPS WITHOUT UE ASSIST. Girth R Patella 40.0 cm Girth 6 inch suprapatella 49.5 cm R knee AROM: 0-0-138 degrees R LE strength: GROSSLY 5/5 WITH MMT'ING AND PATIENT IS ABLE TO WALK ON TOES AND WALK ON HEELS WITHOUT UE ASSIST. Palpation: GOOD R PATELLAR MOBILITY. TREATMENT: HOME/GYM EX PROGRAM CHECK. INSTRUCTED PATIENT IN PROPER BODY MECHANICS FOR BENDING WITH EX'S AND ADL'S AND INSTRUCTED PATINET IN WALKING PROGRAM (PATIENT INQUIRING ABOUT WALKING INSIDE ON [place], OUTSIDE IN [place] AND WALKING VS NUSTEP). INSTRUCTED PATIENT IN BENEFITS OF NUSTEP AND HOW TO SAFELY TRY TO INCORPORATE WALKING. PATIENT DEMONSTRATED/COMMUNICATED A GOOD UNDERSTANDING OF ALL INSTRUCTIONS AFTER GIVEN TODAY. Goals Goal 1:: DECREASE C/O R KNEE PAIN BY AT LEAST 75% TO EASE ADL'S Goal Progress: Goal Met Goal 2:: IMPROVE FUNCTION ROM OF R KNEE TO IMPROVE ADL AND RECREATIONAL FUNCTION Goal Progress: Goal Met Goal 3:: INCREASE FUNCTIONAL STRENGTH OF R LE TO IMPROVE ADL AND RECREATIONAL FUNCTION Goal Progress: Goal Met Goal 4:: INDEP HOME AND GYM EX PROGRAMS Goal Progress: Goal Met Plan Plan: D/C. PATIENT AGREEABLE. D/C Information d/c sentence: If there are questions or concerns regarding this patient's physical therapy, please feel free to call me at [phone]. Thank you for the referral of this patient. Sincerely, Julissa Guajardo, PT, Cert MDT Balance/Gait/Functional tests Balance/Special Test Scores Lower Extremity Functional Score: 68 Improvement % Improvement: 95
== END 2024-10-24 13:34 | disposition home or self-care (01) ==
LOC: PT 11:00
PROVIDERS: PCP Internal Medicine; Visit Provider Physician Assistant
DX: M25.561 Pain in right knee (principal); M23.8X1 Other internal derangements of right knee; R29.898 Other symptoms and signs involving the musculoskeletal system; M17.11 Unilateral primary osteoarthritis, right knee; S83.231D Complex tear of medial meniscus, current injury, right knee, subsequent encounter
CPT/HCPCS: 97110; 97162; 97530

== ENCOUNTER → 2025-01-27 | Outpatient (CLI) | payer MEDICARE, OTHER, SELFPAY ==
--- NOTE | 2025-01-27 13:04 | CT_ITS ---
PROCEDURE: BRAIN/HEAD WITHOUT CONTRAST 01/27/2025 REASON FOR EXAM: MILD COGNITIVE IMPAIRMENT TECHNIQUE: Head CT without intravenous contrast. Coronal and Sagittal reconstruction series were provided. One or more dose reduction techniques were used (e.g., Automated exposure control, adjustment of the mA and/or kV according to patient size, use of iterative reconstruction technique. COMPARISON: None FINDINGS: * ACUTE: No acute infarct or hemorrhage. No mass effect or herniation. * BRAIN PARENCHYMA: Signal intensities are within normal limits for age. * VENTRICLES/EXTRA-AXIAL SPACES: No hydrocephalus or extra-axial fluid collections. * EXTRACRANIAL STRUCTURES: Visualized osseous structures are normal. Soft tissues are normal. CT/Brain/Head without Contrast IMPRESSION: No acute intracranial abnormality. Reading Location: [facility]
== END | disposition home or self-care (01) ==
LOC: CT 13:02
PROVIDERS: PCP Internal Medicine; Referring Provider Internal Medicine; Visit Provider Internal Medicine
DX: G31.84 Mild cognitive impairment of uncertain or unknown etiology (principal)
CPT/HCPCS: 70450

== ENCOUNTER → 2025-05-16 | Outpatient (CLI) | payer MEDICARE, OTHER, SELFPAY ==
[2025-05-19 20:08] LABS: HPV APTIMA, High Risk Negative (Negative)
== END | disposition home or self-care (01) ==
LOC: LABSPEC 15:07
PROVIDERS: PCP Internal Medicine; Visit Provider Obstetrics & Gynecology
DX: Z12.4 Encounter for screening for malignant neoplasm of cervix (principal)
CPT/HCPCS: 87624; 88175; G0145

== ENCOUNTER → 2025-06-02 | Outpatient (CLI) | payer MEDICARE, OTHER, SELFPAY ==
--- NOTE | 2025-06-02 13:30 | BI_ITS ---
EXAM: SCRN MAMM (CAD)W/CHELSEA BILAT DATE: 06/02/2025 CLINICAL HISTORY: F, Age 65 y/o , SCREENING MAMMOGRAM TECHNIQUE: SCRN MAMM (CAD)W/CHELSEA BILAT COMPARISON: None available FINDINGS: TISSUE DENSITY: There are scattered areas of fibroglandular density. Bilateral Breast Mammographic Findings: No significant masses, calcifications or other abnormalities are identified. BI/SCRN MAMM (CAD)W/CHELSEA BILAT IMPRESSION: No mammographic evidence of malignancy in either breast. OVERALL FINAL ASSESSMENT BI-RADS 1: NEGATIVE. RECOMMENDATION: Routine annual follow-up in 1 Year A letter with findings and recommendations will be mailed to the patient. Reading Location: [facility]
== END | disposition home or self-care (01) ==
LOC: OPBI 13:10
PROVIDERS: PCP Internal Medicine; Referring Provider Obstetrics & Gynecology; Visit Provider Obstetrics & Gynecology
DX: Z12.31 Encounter for screening mammogram for malignant neoplasm of breast (principal)
CPT/HCPCS: 77063; 77067

== ENCOUNTER 2025-09-19 11:00 | Outpatient (RCR) | payer MEDICARE, OTHER, SELFPAY ==
--- NOTE | 2025-08-23 17:20 | HP.PTEVAL ---
Patient's Visit Information Visit Information Visit Information: HANNAH HAYES is a 65 year old F referred to Physical Therapy by Ty Bennett PA-C with a diagnosis of Calcific tendonitis of right shoulder,stain muscle tendon RTC ,Right OA. Date of Evaluation: 08/23/25 Physical Therapist: Tiago Thomas, PT, Cert MDT, OCS Visit Plan Frequency: 2x /Week Duration: 4 Weeks Plan: PT INTERVENTIONS RTC/SCPAULAR STRENGTHENING ,POSTURAL EX'S ,ROM EX'S ,ACTIVITY MODIFICATION AND MODALTIES FOR PAIN Subjective Subjective: This 65 y/o female presents to physical therapy with right shoulder pain . Patient developed right shoulder pain 08/18 . Patient just woke up with right shoulder pain. Seen [facility] did [id number] OA ,calcification . No medication. Tried cortisone injection Pain located global > anterior. Aggravating factors lifting OH ,reaching above 90 degrees ,carrying affects ADLS and housework tasks. Alleviating factors rest. Patient denies paresthesia/tingling . Patient pain can affects sleeping. Patient has h/o RTC repair ~ 12 years. Patient works out at . Patient conidtion affects QOL and function/ADLS.Goals to have no more pain . SOCIAL: social VOCATION:retred Pain Right Shoulder: Pain Intensity (Out of 10): 4 Pain Intensity Range: 9 and N/A Objective Objective: POSTURE: rounded shoulders PALAPTION: tender anterior shoulder NEURO: denies paresthesia/tingling , AROM: shoulder flexion /abduction ~ 120 degrees with pain ,ER 90 degrees ,IR L1 PROM: shoulder flexion/abduction ~ 150 degrees CAPSULAR RESTRICTION: WFL SCAPULAR HUMERAL RYTHUM : 1-1 < MMT: ( peak force) infraspiantus 7.9 pain ,subscapularis 10.9 ,supraspinatus 8.1 pain,deltoid 7.1 pain Special Tests R Shoulder External Rotation Lag Test - RC Tear: Negative R Shoulder Drop Sign - IS Test: Negative R Shoulder Empty Can - SS: Positive R Shoulder Belly Press - SupScap: Negative R Shoulder Neer - Impingement: Positive R Shoulder Sandoval Jalen - Impingement: Positive R Shoulder Speeds Test - Labrum/Biceps: Negative R Shoulder O'Briens - SLAP/A-C: Negative Balance/Special Test Scores Quick DASH Score: 45.4525 Goals Goal 1:: Patient to be I with HEP for shoulder Goal Time Frame: 4-6 Weeks Goal 2:: Patient to improve shoulder AROM flexion/abduction 150 degrees to reach in cub board and IR L1 to put on coat Goal Time Frame: 4-6 Weeks Goal 3:: Patient to improve peak force RTC /deltoid by 5 -10# to improve ADLS and OH activites Goal Time Frame: 4-6 Weeks Goal 4:: Patient to improve quick dash by 5 points to improve QOL, and function Goal Time Frame: 4-6 Weeks Goal 5:: Patient to demonstrate 50% improvement with less pain and improved function with ADLS Rehabilitation Potential Physical Therapy Diagnosis: This patient has right shoulder pain with RTC pain and weakness with tendinopathy may nee MRI to see if injury to RTC thus has decrease ROM ,weakness to RTC with pain impairs ADL's and housework tasks above 90 degrees thus benefit from skilled PT Rehabilitation Potential: Good Anticipated Interventions Patient/Client Instruction: Educate patient on: Condition For the Purpose of:: To decrease pain, To increase ROM, To improve muscle performance and motor function, To improve ability to perform ADL's, To increase tolerance to activity/condition/position, To improve performance and independence with ADL's, To improve ability of physical actions for home/community/work/leisure, To improve health of tissue, To decrease soft tissue restriction, To increase flexibility/ROM, To prevent re-injury and To improve tolerance to ADL's Therapeutic Exercise to Include: Strength training, Postural training, Passive ROM, Active ROM and Scapular Strength/Stabilization Comment: RTC For the Purpose of:: To decrease pain, To increase ROM, To improve muscle performance and motor function, To improve ability to perform ADL's, To increase tolerance to activity/condition/position, To improve ability of physical actions for home/community/work/leisure, To improve health of tissue, To decrease soft tissue restriction, To increase flexibility/ROM and To improve tolerance to ADL's TENS: Yes IF ES: Yes Cryotherapy (ice pack, ice massage): Yes Thermo therapy (hot pack): Yes Ultrasound (thermal/non thermal): Yes For the Purpose of:: To decrease pain, To improve nutrient delivery to tissue, To increase oxygenation perfusion, To improve health of tissue and To decrease soft tissue restriction Text: Thank you for the opportunity to evaluate your patient. For Medicare and Medicare HMO plans, please review the plan of care and approve it. It will need to be FAXED BACK to us at [phone] for Medicare purposes. For Medicare only, by signing this I certify the plan of care. Please let me know if there are questions or concerns regarding this plan of care. Physician Signature: Date:
--- NOTE | 2025-09-19 11:23 | HP.PTDCSUM ---
Discharge Summary D/C summary: It has been my pleasure to treat HANNAH HAYES referred by Ty Bennett PA-C, with the diagnosis of Calcific tendonitis of right shoulder,stain muscle tendon RTC ,Right OA for a total of 9 visit(s). Discharge Date: 09/19/25 Please see the following information for a summary of their discharge status. Subjective Subjective: Doing much better .. some mild pain Pain Right Shoulder: Pain Intensity (Out of 10): 2 Overall Improvement % Improvement: 95 Objective Objective/Function: POSTURE: rounded shoulders PALAPTION: tender anterior shoulder NEURO: denies paresthesia/tingling , AROM: shoulder flexion 150 abduction ~ 150 degrees with pain ,ER 90 degrees ,IR L11 CAPSULAR RESTRICTION: WFL SCAPULAR HUMERAL RYTHUM : 1-1 MMT: ( peak force) infraspinatus 15.0 ,subscapularis 20.1 ,supraspinatus 13.9 ,deltoid 15.1 Goals Goal 1:: Patient to be I with HEP for shoulder Goal Progress: Goal Met Goal 2:: Patient to improve shoulder AROM flexion/abduction 150 degrees to reach in cub board and IR L1 to put on coat Goal Progress: Goal Met Goal 3:: Patient to improve peak force RTC /deltoid by 5 -10# to improve ADLS and OH activites Goal Progress: Goal Met Goal 4:: Patient to improve quick dash by 5 points to improve QOL, and function Goal Progress: Goal Met Goal 5:: Patient to demonstrate 50% improvement with less pain and improved function with ADLS Goal Progress: Goal Met Plan Plan: D/C D/C Information d/c sentence: If there are questions or concerns regarding this patient's physical therapy, please feel free to call me at [phone]. Thank you for the referral of this patient. Sincerely, Tiago Thomas, PT, Cert MDT, OCS Balance/Gait/Functional tests Balance/Special Test Scores Quick DASH Score: 45.4525 Improvement % Improvement: 95
== END 2025-09-19 19:00 | disposition home or self-care (01) ==
LOC: PT 11:00
PROVIDERS: PCP Internal Medicine; Referring Provider Physician Assistant Surgical; Visit Provider Physician Assistant Surgical
DX: M75.31 Calcific tendinitis of right shoulder (principal); S46.011D Strain of muscle(s) and tendon(s) of the rotator cuff of right shoulder, subsequent encounter; M19.011 Primary osteoarthritis, right shoulder
CPT/HCPCS: 97110; 97162; 97530

== ENCOUNTER → 2025-09-26 | Outpatient (CLI) | payer MEDICARE, OTHER, SELFPAY ==
[2025-09-26 16:04] LABS: Mucous, Urine 0 SEEN /hpf (<or=2+)
[2025-09-26 17:49] LABS: Color, Urine Yellow (Yellow); Glucose, Dipstick Normal (Normal); Ketone-Dipstick Negative (Negative); Leukocyte Esterase-Dipstick 100 /ul (Negative); Nitrite-Dipstick Negative (Negative); Occult Blood-Urine 10 /ul (Negative); Protein-Dipstick 15 mg/dl (Negative); Specific Gravity, Urine 1.010 (1.002-1.030); Urine Bilirubin Dipstick Negative (Negative)
[2025-09-26 18:44] LABS: Red Blood Cells-Urine 0-5 SEEN /hpf (0-5); Transitional Epithelial - Ur 0-5 SEEN /hpf (0-5)
[2025-09-26 18:45] LABS: Squamous Epithelial Cells - UA 0-5 SEEN /hpf (5-10)
== END | disposition home or self-care (01) ==
LOC: LABSPEC 14:42
PROVIDERS: PCP Internal Medicine; Referring Provider Internal Medicine; Visit Provider Internal Medicine
DX: N39.0 Urinary tract infection, site not specified (principal)
CPT/HCPCS: 81001; 87077; 87086; 87088; 87186